=== PATIENT | female | born 1960 | race Caucasian/White ===

== ENCOUNTER → 2018-01-07 01:25 | Outpatient (CLI) | payer MEDICAID, SELFPAY ==
--- NOTE | 2018-01-07 15:16 | SCREENCT_ITS ---
SYMPTOM/DIAGNOSIS: HEALTH SCREENING, Z13.9, SMOKER, SCREENING CHEST CT , LOW DOSE FOR LUNG CANCER SCREENING. There are emphysematous changes in the lungs. Small bilateral regions of lower lobe scarring are identified. No mass is apparent. There is no pleural effusion. Coronary artery calcification is demonstrated. There is no evidence of a gross hilar mass or hilar or mediastinal adenopathy. There is no evidence of an aortic aneurysm. SUMMARY: No pulmonary nodules are identified. This is a BI-RADS Category 1 examination. Follow up surveillance with annual screening chest CT is suggested. Lung-RAD Category: Lung RADS Category 1- Negative
== END ==
PROVIDERS: PCP Physician Assistant Medical; Visit Provider Physician Assistant Medical
DX: Z87.891 Personal history of nicotine dependence (principal); Z12.2 Encounter for screening for malignant neoplasm of respiratory organs
CPT/HCPCS: G0297

== ENCOUNTER 2018-02-24 14:30 | Outpatient (REF) | payer MEDICAID, SELFPAY ==
[2018-02-24 22:14] LABS: Anion Gap 10.3 mmol/L (3-11); BUN 27 mg/dL (7-18); CO2 25.7 mmol/L (21.0-32.0); CREATININE 1.76 mg/dL (0.55-1.02); Chloride 106 mmol/L (98-107); Estimated GFR 29.56 (mL/min/1.73m2); Glucose 119 mg/dL (70-100); Potassium 4.1 mmol/L (3.5-5.1); Sodium 142 mmol/L (136-145)
[2018-02-24 22:27] LABS: Creatine Kinase 260 U/L (26-192)
== END 2018-02-24 14:50 ==
LOC: NCHCN 14:30
PROVIDERS: PCP Physician Assistant Medical; Visit Provider Physician Assistant Medical
DX: G89.29 Other chronic pain (principal); N18.9 Chronic kidney disease, unspecified; Z79.891 Long term (current) use of opiate analgesic
CPT/HCPCS: 80048; 82550; 87086

== ENCOUNTER 2018-05-11 16:41 | Outpatient (REF) | payer MEDICAID, SELFPAY ==
[2018-05-11 21:38] LABS: ALT 25 U/L (12-78); AST 17 U/L (15-37); Anion Gap 12.7 mmol/L (3-11); BUN 31 mg/dL (7-18); CO2 25.3 mmol/L (21.0-32.0); CREATININE 1.86 mg/dL (0.55-1.02); Chloride 104 mmol/L (98-107); Creatine Kinase 118 U/L (26-192); Estimated GFR 27.73 (mL/min/1.73m2); Glucose 114 mg/dL (70-100); Sodium 142 mmol/L (136-145)
== END 2018-05-11 17:01 ==
LOC: NCHCN 16:41
PROVIDERS: PCP Physician Assistant Medical; Visit Provider Nurse Practitioner Family
DX: N17.8 Other acute kidney failure (principal); I25.10 Atherosclerotic heart disease of native coronary artery without angina pectoris
CPT/HCPCS: 80048; 82550; 84450; 84460

== ENCOUNTER 2018-06-30 19:19 | Outpatient (REF) | payer MEDICAID, SELFPAY ==
[2018-07-01 10:53] LABS: Anion Gap 9.8 mmol/L (3-11); BUN 28 mg/dL (7-18); CO2 29.2 mmol/L (21.0-32.0); CREATININE 1.96 mg/dL (0.55-1.02); Calcium 9.5 mg/dL (8.5-10.1); Chloride 106 mmol/L (98-107); Glucose 119 mg/dL (70-100); Potassium 4.1 mmol/L (3.5-5.1); Sodium 145 mmol/L (136-145)
== END 2018-06-30 19:39 ==
LOC: NCHCN 19:19
PROVIDERS: Internal Medicine Nephrology; PCP Physician Assistant Medical; Visit Provider Nurse Practitioner Family
DX: N17.9 Acute kidney failure, unspecified (principal)
CPT/HCPCS: 80048

== ENCOUNTER 2018-07-16 14:02 | Outpatient (REF) | payer MEDICAID, SELFPAY ==
[2018-07-16 21:20] LABS: Bilirubin Negative (Negative); Blood Moderate (Negative); Clarity Clear; Glucose Negative (Negative); Ketones Negative (Negative); Leukocyte Esterase Trace (Negative); Nitrite Negative (Negative); Urobilinogen 0.2 EU/dL (Up TO 0.2)
[2018-07-16 21:29] LABS: Bacteria Rare HPF (Negative); C & S Indicated? No/Sq. Contamination; Casts Negative LPF (Negative); Crystals Negative HPF (Negative); Epithelial Cells Many HPF (Negative); Mucus Moderate (Negative)
[2018-07-16 21:37] LABS: ALT 24 U/L (12-78); AST 22 U/L (15-37); Albumin 3.6 g/dL (3.4-5.0); Alkaline Phosphatase 92 U/L (46-116); Anion Gap 12.4 mmol/L (3-11); BUN 22 mg/dL (7-18); Bilirubin, Direct 0.12 mg/dL (0.00-0.20); Bilirubin, Total 0.5 mg/dL (0.2-1.0); CO2 23.6 mmol/L (21.0-32.0); CREATININE 1.76 mg/dL (0.55-1.02); Chloride 107 mmol/L (98-107); Creatine Kinase 205 U/L (26-192); Estimated GFR 29.56 (mL/min/1.73m2); Glucose 72 mg/dL (70-100); Sodium 143 mmol/L (136-145); Total Protein 6.8 g/dL (6.4-8.2)
== END 2018-07-16 14:22 ==
LOC: NCHCN 14:02
PROVIDERS: PCP Physician Assistant Medical; Visit Provider Nurse Practitioner Family
DX: E78.00 Pure hypercholesterolemia, unspecified (principal); I10 Essential (primary) hypertension; G89.29 Other chronic pain; F11.20 Opioid dependence, uncomplicated; K21.9 Gastro-esophageal reflux disease without esophagitis
CPT/HCPCS: 80048; 80076; 82550; 81003; 81015

== ENCOUNTER 2018-07-27 08:13 | Outpatient (CLI) | payer MEDICAID, SELFPAY ==
[2018-07-27 09:25] LABS: BUN 25 mg/dL (7-18); CREATININE 1.56 mg/dL (0.55-1.02); Calcium 9.2 mg/dL (8.5-10.1); Chloride 108 mmol/L (98-107); Estimated GFR 33.97 (mL/min/1.73m2); Glucose 98 mg/dL (70-100); Potassium 4.3 mmol/L (3.5-5.1); Sodium 143 mmol/L (136-145)
== END 2018-07-27 08:33 ==
PROVIDERS: PCP Nurse Practitioner Family; Visit Provider Internal Medicine Nephrology
DX: N17.9 Acute kidney failure, unspecified (principal)
CPT/HCPCS: 36415; 80048

== ENCOUNTER 2018-08-27 13:46 | Outpatient (REF) | payer MEDICAID, SELFPAY ==
[2018-08-27 21:53] LABS: Anion Gap 10.2 mmol/L (3-11); BUN 26 mg/dL (7-18); CO2 25.8 mmol/L (21.0-32.0); CREATININE 1.58 mg/dL (0.55-1.02); Calcium 9.2 mg/dL (8.5-10.1); Chloride 106 mmol/L (98-107); Estimated GFR 33.47 (mL/min/1.73m2); Glucose 80 mg/dL (70-100); Potassium 4.5 mmol/L (3.5-5.1); Sodium 142 mmol/L (136-145)
== END 2018-08-27 14:06 ==
LOC: NCHCN 13:46
PROVIDERS: PCP Nurse Practitioner Family; Visit Provider Nurse Practitioner Family
DX: M43.02 Spondylolysis, cervical region (principal); M79.7 Fibromyalgia; N18.9 Chronic kidney disease, unspecified; R80.9 Proteinuria, unspecified; G89.29 Other chronic pain; N39.0 Urinary tract infection, site not specified
CPT/HCPCS: 80048; 87086

== ENCOUNTER 2018-09-07 09:00 | Outpatient (CLI) | payer MEDICAID, SELFPAY ==
--- NOTE | 2018-09-07 09:55 | DI.MAMMO_ITS ---
SYMPTOM/DIAGNOSIS: SCREENING MAMMOGRAMS: Mammograms were interpreted according to the usual protocol including computer analysis with CAD system, tomosynthesis and C view imaging. Comparison is made with prior examinations. Breast density, Category B. No suspicious masses or microcalcifications are seen. There are stable nodular densities in the left breast. The nodule in the upper outer quadrant of the right breast has shown interval decrease in size compared to the prior examinations. The skin and axilla are unremarkable. IMPRESSION: No evidence for malignancy. Yearly mammography is recommended. Category 2. MQSA ASSESSMENT OF FINDINGS: Negative with benign findings. Category 2. Patient will receive a letter notifying them of these results. BI-RADS category B. There are scattered areas of fibroglandular density.
== END 2018-09-07 09:20 ==
PROVIDERS: PCP Nurse Practitioner Family; Visit Provider Nurse Practitioner Family
DX: Z12.31 Encounter for screening mammogram for malignant neoplasm of breast (principal)
CPT/HCPCS: 77063; 77067

== ENCOUNTER 2018-10-22 12:47 | Outpatient (REF) | payer MEDICAID, SELFPAY ==
[2018-10-22 21:04] LABS: BUN 21 mg/dL (7-18); CREATININE 1.51 mg/dL (0.55-1.02); Calcium 9.1 mg/dL (8.5-10.1); Chloride 106 mmol/L (98-107); Estimated GFR 35.27 (mL/min/1.73m2); Glucose 105 mg/dL (70-100); Potassium 4.1 mmol/L (3.5-5.1); Sodium 143 mmol/L (136-145)
== END 2018-10-22 13:07 ==
LOC: NCHCN 12:47
PROVIDERS: PCP Nurse Practitioner Family; Visit Provider Nurse Practitioner Family
DX: N18.9 Chronic kidney disease, unspecified (principal); N39.0 Urinary tract infection, site not specified
CPT/HCPCS: 80048; 87086

== ENCOUNTER 2018-12-16 13:04 | Outpatient (REF) | payer MEDICAID, SELFPAY ==
[2018-12-16 20:13] LABS: Anion Gap 11.4 mmol/L (3-11); BUN 27 mg/dL (7-18); CO2 24.6 mmol/L (21.0-32.0); CREATININE 1.57 mg/dL (0.55-1.02); Chloride 106 mmol/L (98-107); Estimated GFR 33.72 (mL/min/1.73m2); Glucose 94 mg/dL (70-100); Sodium 142 mmol/L (136-145)
== END 2018-12-16 13:24 ==
LOC: NCHCN 13:04
PROVIDERS: PCP Nurse Practitioner Family; Visit Provider Nurse Practitioner Family
DX: M79.7 Fibromyalgia (principal); N18.9 Chronic kidney disease, unspecified; M43.02 Spondylolysis, cervical region; M79.606 Pain in leg, unspecified
CPT/HCPCS: 80048

== ENCOUNTER 2019-02-17 12:40 | Outpatient (REF) | payer MEDICAID, SELFPAY ==
[2019-02-17 22:11] LABS: Anion Gap 7.9 mmol/L (3-11); BUN 21 mg/dL (7-18); CO2 28.1 mmol/L (21.0-32.0); CREATININE 1.49 mg/dL (0.55-1.02); Calcium 8.9 mg/dL (8.5-10.1); Chloride 107 mmol/L (98-107); Glucose 88 mg/dL (70-100); Potassium 4.6 mmol/L (3.5-5.1); Sodium 143 mmol/L (136-145)
== END 2019-02-17 13:00 ==
LOC: NCHCN 12:40
PROVIDERS: PCP Nurse Practitioner Family; Visit Provider Nurse Practitioner Family
DX: N39.0 Urinary tract infection, site not specified (principal); N17.8 Other acute kidney failure
CPT/HCPCS: 80048; 87086

== ENCOUNTER 2019-04-05 01:26 | Outpatient (CLI) | payer MEDICAID, SELFPAY ==
--- NOTE | 2019-04-05 10:58 | DI.CTLCSR_ITS ---
EXAM: CT CHEST LUNG CANCER SCREEN CLINICAL HISTORY: 28 PACK-YEAR HISTORY OF SMOKING, SCREENING, Z13.9, CKD, SINGLE KIDNEY TECHNIQUE: The exam was performed as a noncontrast exam. COMPARISON: CHEST - LUNG CANCER SCREENING from 01/07/2018 FINDINGS: Coronary artery calcifications are seen. The aorta shows mild calcification and is normal in diameter . Heart size is within normal limits. No enlarged lymph nodes are identified. There are mild emphysem atous changes and mild pulmonary scarring. No pulmonary nodules, infiltrates or effusions are seen. T here are no suspicious bony lesions. No compression fractures are seen. The adrenals, liver, spleen, gallbladder and pancreas are normal where visualized. The right kidney appears somewhat thickened and lobulated. The left kidney is not included on the exam. IMPRESSION: Lung RADS Cat 1 - Negative: No pulmonary nodules are identified. Annual low-dose screening CT is barbara mmended. Lung RADS Cat 1 - Negative: No nodules and definitely benign nodules.
== END 2019-04-05 01:46 ==
PROVIDERS: PCP Nurse Practitioner Family; Visit Provider Nurse Practitioner Family
DX: Z12.2 Encounter for screening for malignant neoplasm of respiratory organs (principal); J98.4 Other disorders of lung; F17.200 Nicotine dependence, unspecified, uncomplicated
CPT/HCPCS: G0297

== ENCOUNTER 2019-05-06 12:05 | Outpatient (REF) | payer MEDICAID, SELFPAY ==
[2019-05-06 21:49] LABS: Anion Gap 9.3 mmol/L (3-11); BUN 28 mg/dL (7-18); CO2 25.7 mmol/L (21.0-32.0); CREATININE 1.69 mg/dL (0.55-1.02); Calcium 9.1 mg/dL (8.5-10.1); Chloride 108 mmol/L (98-107); Estimated GFR 30.87 (mL/min/1.73m2); Glucose 115 mg/dL (74-106); Potassium 4.2 mmol/L (3.5-5.1); Sodium 143 mmol/L (136-145)
== END 2019-05-06 12:25 ==
LOC: NCHCN 12:05
PROVIDERS: PCP Nurse Practitioner Family; Visit Provider Nurse Practitioner Family
DX: I10 Essential (primary) hypertension (principal); N18.3 Chronic kidney disease, stage 3 (moderate); N39.0 Urinary tract infection, site not specified
CPT/HCPCS: 80048; 87086

== ENCOUNTER 2019-08-03 12:36 | Outpatient (REF) | payer MEDICAID, SELFPAY ==
[2019-08-03 20:08] LABS: Anion Gap 10.4 mmol/L (3-11); BUN 23 mg/dL (7-18); CO2 24.6 mmol/L (21.0-32.0); CREATININE 1.69 mg/dL (0.55-1.02); Calcium 8.9 mg/dL (8.5-10.1); Chloride 107 mmol/L (98-107); Estimated GFR 30.87 (mL/min/1.73m2); Glucose 110 mg/dL (74-106); Sodium 142 mmol/L (136-145)
[2019-08-03 20:52] LABS: Bacteria Few HPF (Negative); Crystals Negative HPF (Negative); Epithelial Cells Moderate HPF (Negative); Mucus Negative (Negative); Other Cells Negative (Negative)
[2019-08-03 20:53] LABS: C & S Indicated? C&S Done As Ordered; Casts Negative LPF (Negative)
== END 2019-08-03 12:56 ==
LOC: NCHCN 12:36
PROVIDERS: PCP Nurse Practitioner Family; Visit Provider Nurse Practitioner Family
DX: N39.0 Urinary tract infection, site not specified (principal); R80.9 Proteinuria, unspecified; N18.3 Chronic kidney disease, stage 3 (moderate)
CPT/HCPCS: 80048; 81015; 87086

== ENCOUNTER 2019-09-28 10:56 | Outpatient (REF) | payer MEDICAID, SELFPAY ==
[2019-09-28 19:46] LABS: Anion Gap 8.6 mmol/L (3-11); BUN 28 mg/dL (7-18); CO2 26.4 mmol/L (21.0-32.0); CREATININE 1.75 mg/dL (0.55-1.02); Calcium 9.2 mg/dL (8.5-10.1); Chloride 105 mmol/L (98-107); Estimated GFR 29.65 (mL/min/1.73m2); Glucose 88 mg/dL (74-106); HDL Cholesterol 52 mg/dL (40-60); LDL CHOLESTEROL 98 mg/dL (<100); Magnesium 2.1 mg/dL (1.8-2.4); Potassium 4.5 mmol/L (3.5-5.1); Sodium 140 mmol/L (136-145); TSH 0.61 uIU/mL (0.36-3.74)
== END 2019-09-28 11:16 ==
LOC: NCHCN 10:56
PROVIDERS: PCP Nurse Practitioner Family; Visit Provider Nurse Practitioner Family
DX: R07.9 Chest pain, unspecified (principal); N39.0 Urinary tract infection, site not specified
CPT/HCPCS: 80048; 83721; 83718; 83735; 84443; 87086

== ENCOUNTER 2019-11-23 14:04 | Outpatient (REF) | payer MEDICAID, SELFPAY ==
[2019-11-23 19:42] LABS: Anion Gap 10.1 mmol/L (3-11); BUN 23 mg/dL (7-18); CO2 24.9 mmol/L (21.0-32.0); CREATININE 1.71 mg/dL (0.55-1.02); Calcium 9.2 mg/dL (8.5-10.1); Chloride 105 mmol/L (98-107); Estimated GFR 30.45 (mL/min/1.73m2); Glucose 105 mg/dL (74-106); HDL Cholesterol 43 mg/dL (40-60); LDL CHOLESTEROL 75 mg/dL (<100); Potassium 3.9 mmol/L (3.5-5.1); Sodium 140 mmol/L (136-145)
== END 2019-11-23 14:24 ==
LOC: NCHCN 14:04
PROVIDERS: PCP Nurse Practitioner Family; Visit Provider Nurse Practitioner Family
DX: N18.3 Chronic kidney disease, stage 3 (moderate) (principal); E78.00 Pure hypercholesterolemia, unspecified; I25.10 Atherosclerotic heart disease of native coronary artery without angina pectoris
CPT/HCPCS: 80048; 83721; 83718

== ENCOUNTER 2020-01-10 13:48 | Outpatient (REF) | payer MEDICAID, SELFPAY ==
--- NOTE | 2020-01-10 13:15 | PAPFT_PTH ---
PATIENT: Addie Barnett [facility] U[id number] AGE/SX: 59/F ROOM: RE01/10/[address]: Arabella Laurent : 1960 BED: DIS: 01/10/2020 SPEC #: [id number] RECD: 01/11/20 13:03 STATUS: MARYANN REKayden #: [id number] MARIELLE: 01/10/20 13:[address]: Arabella Laurent DEPT: [facility] Cytology RECD BY: Maren Gtz Tissues: 1 - CX/ENDOCX FOR PAP SMEARS Procedures: PAP THIN PREP/UVM Screening HPV DNA PROBE Comments: [id number]
[2020-01-10 19:08] LABS: Anion Gap 9.9 mmol/L (3-11); BUN 23 mg/dL (7-18); CO2 24.1 mmol/L (21.0-32.0); CREATININE 1.78 mg/dL (0.55-1.02); Calcium 8.9 mg/dL (8.5-10.1); Chloride 106 mmol/L (98-107); Estimated GFR 28.98 (mL/min/1.73m2); Glucose 113 mg/dL (74-106); Potassium 4.1 mmol/L (3.5-5.1); Sodium 140 mmol/L (136-145)
== END 2020-01-10 14:08 ==
LOC: NCHCN 13:48
PROVIDERS: PCP Nurse Practitioner Family; Visit Provider Nurse Practitioner Family
DX: N18.3 Chronic kidney disease, stage 3 (moderate) (principal); Z12.4 Encounter for screening for malignant neoplasm of cervix; Z11.51 Encounter for screening for human papillomavirus (HPV)
CPT/HCPCS: 80048; 88142; 87624

== ENCOUNTER 2020-03-13 22:52 | Outpatient (REF) | payer MEDICAID, SELFPAY ==
[2020-03-13 20:05] LABS: Bacteria Moderate HPF (Negative); C & S Indicated? C&S Done As Ordered; Casts Negative LPF (Negative); Crystals Negative HPF (Negative); Epithelial Cells Few HPF (Negative); Mucus Trace (Negative); RBC 0-2 HPF (0-2)
== END 2020-03-13 23:12 ==
LOC: NCHCN 22:52
PROVIDERS: PCP Nurse Practitioner Family; Visit Provider Nurse Practitioner Family
DX: R80.9 Proteinuria, unspecified (principal); N18.30 Chronic kidney disease, stage 3 unspecified; Z90.5 Acquired absence of kidney
CPT/HCPCS: 81015; 87086

== ENCOUNTER 2020-04-13 11:31 | Outpatient (REF) | payer MEDICAID, SELFPAY ==
[2020-04-13 19:25] LABS: Anion Gap 11.7 mmol/L (3-11); BUN 25 mg/dL (7-18); CO2 22.3 mmol/L (21.0-32.0); CREATININE 1.93 mg/dL (0.55-1.02); Calcium 8.6 mg/dL (8.5-10.1); Chloride 106 mmol/L (98-107); Estimated GFR 26.39 (mL/min/1.73m2); Glucose 125 mg/dL (74-106); Potassium 3.6 mmol/L (3.5-5.1); Sodium 140 mmol/L (136-145)
== END 2020-04-13 11:51 ==
LOC: NCHCN 11:31
PROVIDERS: PCP Nurse Practitioner Family; Visit Provider Nurse Practitioner Family
DX: R82.90 Unspecified abnormal findings in urine (principal); N18.30 Chronic kidney disease, stage 3 unspecified
CPT/HCPCS: 80048; 87086

== ENCOUNTER 2020-07-13 13:31 | Outpatient (REF) | payer MEDICAID, SELFPAY ==
[2020-07-13 15:25] LABS: BUN 23 mg/dL (7-18); CREATININE 1.8 mg/dL (0.55-1.02); Calcium 9.4 mg/dL (8.5-10.1); Chloride 105 mmol/L (98-107); Glucose 111 mg/dL (74-106); Potassium 4.6 mmol/L (3.5-5.1); Sodium 139 mmol/L (136-145)
== END 2020-07-13 13:32 | disposition home or self-care (01) ==
LOC: NCHCN 13:31
PROVIDERS: PCP Nurse Practitioner Family; Visit Provider Nurse Practitioner Family
DX: N18.30 Chronic kidney disease, stage 3 unspecified (principal)
CPT/HCPCS: 80048

== ENCOUNTER 2020-08-29 10:04 | Outpatient (REF) | payer MEDICAID, SELFPAY ==
[2020-09-01 14:08] LABS: Codeine Negative ng/mL (Cutoff: 25); Dihydrocodeine Negative ng/mL (Cutoff: 25); Hydrocodone Negative ng/mL (Cutoff: 25); Hydromorphone Negative ng/mL (Cutoff: 25); Morphine Negative ng/mL (Cutoff: 25); Naloxone Negative ng/mL (Cutoff: 25); Norhydrocodone Negative ng/mL (Cutoff: 25); Noroxycodone Negative ng/mL (Cutoff: 25)
== END 2020-08-29 10:05 | disposition home or self-care (01) ==
LOC: NCHCN 10:04
PROVIDERS: PCP Nurse Practitioner Family; Visit Provider Nurse Practitioner Family
DX: G89.29 Other chronic pain (principal); F11.20 Opioid dependence, uncomplicated
CPT/HCPCS: 80361; 80362

== ENCOUNTER 2020-10-10 10:23 | Outpatient (REF) | payer MEDICAID, SELFPAY ==
[2020-10-10 16:05] LABS: Anion Gap 9.9 mmol/L (3-11); BUN 32 mg/dL (7-18); CO2 26.1 mmol/L (21.0-32.0); CREATININE 1.9 mg/dL (0.55-1.02); Calcium 9.2 mg/dL (8.5-10.1); Chloride 106 mmol/L (98-107); Estimated GFR 26.87 (mL/min/1.73m2); Glucose 82 mg/dL (74-106); PHOSPHORUS 3.3 mg/dL (2.6-4.7); Potassium 4.5 mmol/L (3.5-5.1); Sodium 142 mmol/L (136-145)
[2020-10-12 01:15] LABS: Vitamin D 25 Total 28.2 ng/mL (30-100)
== END 2020-10-10 10:24 | disposition home or self-care (01) ==
LOC: NCHCN 10:23
PROVIDERS: PCP Nurse Practitioner Family; Visit Provider Nurse Practitioner Family
DX: I10 Essential (primary) hypertension (principal); N18.30 Chronic kidney disease, stage 3 unspecified; I25.10 Atherosclerotic heart disease of native coronary artery without angina pectoris; R82.998 Other abnormal findings in urine
CPT/HCPCS: 80048; 82306; 84100; 87086

== ENCOUNTER 2021-01-02 14:24 | Outpatient (REF) | payer MEDICAID, SELFPAY ==
[2021-01-02 19:45] LABS: Anion Gap 11.4 mmol/L (3-11); BUN 25 mg/dL (7-18); CO2 22.6 mmol/L (21.0-32.0); CREATININE 1.8 mg/dL (0.55-1.02); Calcium 9.3 mg/dL (8.5-10.1); Chloride 106 mmol/L (98-107); Estimated GFR 28.51 (mL/min/1.73m2); Glucose 107 mg/dL (74-106); Potassium 4.3 mmol/L (3.5-5.1); Sodium 140 mmol/L (136-145)
[2021-01-03 10:05] LABS: ALT 35 U/L (14-59); AST 27 U/L (15-37); HDL Cholesterol 48 mg/dL (40-60); LDL CHOLESTEROL 118 mg/dL (<100)
[2021-01-03 10:18] LABS: Creatine Kinase 80 U/L (26-192)
== END 2021-01-02 14:25 | disposition home or self-care (01) ==
LOC: NCHCN 14:24
PROVIDERS: PCP Nurse Practitioner Family; Visit Provider Nurse Practitioner Family
DX: N18.30 Chronic kidney disease, stage 3 unspecified (principal)
CPT/HCPCS: 80048; 82550; 83721; 83718; 84450; 84460

== ENCOUNTER 2021-01-11 03:34 | Outpatient (CLI) | payer MEDICAID, SELFPAY ==
--- NOTE | 2021-01-11 | DI.CTLCSR_ITS ---
Exam(s) CT CHEST LUNG CANCER SCREEN EXAM: CT CHEST LUNG CANCER SCREEN CLINICAL HISTORY: SCREENING FOR LUNG CA,CURRENT SMOKER, F17.210 TECHNIQUE: Imaging Protocol: Axial computed tomography images with coronal and sagittal reformatted images were created and reviewed COMPARISON: CT CT CHEST LUNG CANCER SCREEN from 04/05/2019 FINDINGS: Tracheobronchial tree: Patent where visualized. Pulmonary parenchyma: No consolidation or dominant measurable mass. Mild emphysematous changes are pr esent. There is mild scarring in the left lingula and right middle lobe. Lung Nodules: None. Mediastinum and Eileen: No dominant adenopathy or fluid collection. Pleura: No effusion or pneumothorax. Heart: The heart is not dilated. Mild coronary artery calcification. No pericardial effusion. Aorta: Thoracic aorta non-dilated.Mild atherosclerosis. Upper abdomen: Unremarkable. Soft Tissues: Unremarkable. Bones: Within normal limits. IMPRESSION: No pulmonary nodules. Lung RADS Cat 1 - Negative: No nodules and definitely benign nodules Lung-RADS 1.0 CATEGORIES: Category 0 - Prior chest CT exam(s) being located for comparison. Category 1 - Annual screening in 12 months. No nodules or definitely benign nodules. Category 2 - Annual screening in 12 months. Benign appearance. Nodules with low likelihood of becomin g active cancer. Category 3 - 6-month follow-up. Probably benign. Short-term follow-up suggested. Nodules with low lik elihood of becoming active cancer. Category 4A - 3-month follow-up and CT/PET if >8 mm in size. Suspicious finding. Findings which requi re additional testing. Category 4B - Findings which require additional testing and tissue sampling. Suspicious finding. Modifier S- Potentially clinically significant finding. (Non lung cancer) RADIATION DOSE DELIVERED: 72.44mGy.cm Total DLP 1.84mGy CTDIvol 72.44mGy.cm Total DLP 1.84mGy CTDIvol DATA REPOSITORY: All CT scans at this facility are submitted to the National Radiology Data Registry (NRDR) Dose Index Registry (DIR) with the [employer] (ACR). RADIATION OPTIMIZATION: All CT scans at this facility use at least one of these dose optimization te chniques: automated exposure control; mA and/or kV adjustment per patient size (includes targeted exa ms where dose is matched to clinical indication); or iterative reconstruction.
== END 2021-01-11 03:54 ==
PROVIDERS: PCP Nurse Practitioner Family; Visit Provider Nurse Practitioner Family
DX: Z12.2 Encounter for screening for malignant neoplasm of respiratory organs (principal); F17.210 Nicotine dependence, cigarettes, uncomplicated
CPT/HCPCS: 71271

== ENCOUNTER 2021-01-11 04:41 | Outpatient (CLI) | payer MEDICAID, SELFPAY ==
[2021-01-11] MEDS: Albuterol HFA 18 GM 200 PUFF INH IH (14:00)
[2021-01-11] MEDS: Inhaler, Assist Device 1 EACH MC (14:00)
--- NOTE | 2021-01-12 15:01 | W.PFT ---
Date of service: 01/11/21 Time of Service: 12:59 Pulmonary Function Test Result Requesting Provider Arabella Laurent Interpretation Spirometry: There is no airflow obstruction. Spirometry consistent with a restrictive pattern. There is not a significant bronchodilator response. Lung Volumes: Plethysmography was declined due to claustrophobia. Diffusion Capacity: There is reduced diffusion. Impression Spirometry is consistent with a restrictive pattern which may indicate restrictive lung disease such as an interstitial lung disease, neuromuscular weakness or poor effort. Clinical Correlation therefore is recommended.
== END 2021-01-11 04:42 | disposition home or self-care (01) ==
LOC: RT 04:41
PROVIDERS: PCP Nurse Practitioner Family; Visit Provider Nurse Practitioner Family
DX: F17.210 Nicotine dependence, cigarettes, uncomplicated (principal); J98.4 Other disorders of lung
CPT/HCPCS: 94060; 94729

== ENCOUNTER 2021-04-04 09:26 | Outpatient (REF) | payer MEDICAID, SELFPAY ==
[2021-04-04 13:07] LABS: ALT 27 U/L (14-59); AST 23 U/L (15-37); Anion Gap 11.9 mmol/L (3-11); BUN 28 mg/dL (7-18); CO2 26.1 mmol/L (21.0-32.0); CREATININE 1.8 mg/dL (0.55-1.02); Calcium 9.3 mg/dL (8.5-10.1); Calculated LDL 80 mg/dL (<100); Chloride 105 mmol/L (98-107); Cholesterol 157 mg/dL (<200); Estimated GFR 28.51 (mL/min/1.73m2); Glucose 101 mg/dL (74-106); HDL Cholesterol 43 mg/dL (40-60); Potassium 4.3 mmol/L (3.5-5.1); Sodium 143 mmol/L (136-145); Triglyceride 170 mg/dL (<150)
[2021-04-04 13:27] LABS: Creatine Kinase 166 U/L (26-192)
== END 2021-04-04 09:27 | disposition home or self-care (01) ==
LOC: NCHCN 09:26
PROVIDERS: PCP Nurse Practitioner Family; Visit Provider Nurse Practitioner Family
DX: N39.0 Urinary tract infection, site not specified (principal); N18.30 Chronic kidney disease, stage 3 unspecified; I10 Essential (primary) hypertension
CPT/HCPCS: 80048; 80061; 82550; 84450; 84460; 87086

== ENCOUNTER 2021-04-18 13:14 | Outpatient (REF) | payer MEDICAID, SELFPAY ==
[2021-04-19 18:08] LABS: COVID-19 RT-PCR UVMMC Result Negative (Negative)
== END 2021-04-18 13:15 | disposition home or self-care (01) ==
LOC: NCHCN 13:14
PROVIDERS: PCP Nurse Practitioner Family; Visit Provider Nurse Practitioner Family
DX: Z20.822 Contact with and (suspected) exposure to COVID-19 (principal); R05.8 Other specified cough
CPT/HCPCS: U0003

== ENCOUNTER 2021-06-04 16:33 | Outpatient (REF) | payer MEDICAID, SELFPAY ==
[2021-06-04 14:25] LABS: Anion Gap 10.5 mmol/L (3-11); BUN 33 mg/dL (7-18); CO2 25.5 mmol/L (21.0-32.0); CREATININE 1.9 mg/dL (0.55-1.02); Chloride 107 mmol/L (98-107); Estimated GFR 26.79 (mL/min/1.73m2); Glucose 105 mg/dL (74-106); Potassium 3.8 mmol/L (3.5-5.1); Sodium 143 mmol/L (136-145)
[2021-06-04 14:42] LABS: Bacteria Few HPF (Negative); C & S Indicated? No/Sq. Contamination; Casts Negative LPF (Negative); Crystals Negative HPF (Negative); Epithelial Cells Moderate HPF (Negative); Mucus Negative (Negative); WBC 0-2 HPF (0-5)
== END 2021-06-04 16:34 | disposition home or self-care (01) ==
LOC: NCHCN 16:33
PROVIDERS: PCP Nurse Practitioner Family; Visit Provider Nurse Practitioner Family
DX: N18.30 Chronic kidney disease, stage 3 unspecified (principal)
CPT/HCPCS: 80048; 81015

== ENCOUNTER 2021-08-08 15:20 | Outpatient (REF) | payer MEDICAID, SELFPAY ==
[2021-08-08 12:18] LABS: Anion Gap 9.8 mmol/L (3-11); BUN 26 mg/dL (7-18); CO2 25.2 mmol/L (21.0-32.0); CREATININE 1.8 mg/dL (0.55-1.02); Calcium 9.4 mg/dL (8.5-10.1); Chloride 104 mmol/L (98-107); Estimated GFR 28.51 (mL/min/1.73m2); Glucose 96 mg/dL (74-106); Potassium 4.5 mmol/L (3.5-5.1); Sodium 139 mmol/L (136-145)
== END 2021-08-08 15:21 | disposition home or self-care (01) ==
LOC: NCHCN 15:20
PROVIDERS: PCP Nurse Practitioner Family; Visit Provider Nurse Practitioner Family
DX: I10 Essential (primary) hypertension (principal)
CPT/HCPCS: 80048

== ENCOUNTER 2021-10-09 18:34 | Outpatient (REF) | payer MEDICAID, SELFPAY ==
[2021-10-09 17:18] LABS: Anion Gap 9.3 mmol/L (3-11); BUN 28 mg/dL (7-18); CO2 24.7 mmol/L (21.0-32.0); CREATININE 1.9 mg/dL (0.55-1.02); Calcium 8.5 mg/dL (8.5-10.1); Chloride 104 mmol/L (98-107); Estimated GFR 26.79 (mL/min/1.73m2); Glucose 90 mg/dL (74-106); Potassium 4.7 mmol/L (3.5-5.1); Sodium 138 mmol/L (136-145)
== END 2021-10-09 18:35 | disposition home or self-care (01) ==
LOC: NCHCN 18:34
PROVIDERS: PCP Nurse Practitioner Family; Visit Provider Nurse Practitioner Family
DX: N18.30 Chronic kidney disease, stage 3 unspecified (principal)
CPT/HCPCS: 80048

== ENCOUNTER 2022-01-01 11:48 | Outpatient (REF) | payer MEDICAID, SELFPAY ==
[2022-01-01 17:09] LABS: Anion Gap 6.3 mmol/L (3-11); BUN 26 mg/dL (7-18); CO2 27.7 mmol/L (21.0-32.0); CREATININE 1.7 mg/dL (0.55-1.02); Calcium 9.2 mg/dL (8.5-10.1); Chloride 104 mmol/L (98-107); Estimated GFR 30.36 (mL/min/1.73m2); Glucose 89 mg/dL (74-106); Potassium 4.3 mmol/L (3.5-5.1); Sodium 138 mmol/L (136-145)
== END 2022-01-01 11:49 | disposition home or self-care (01) ==
LOC: NCHCN 11:48
PROVIDERS: PCP Nurse Practitioner Family; Visit Provider Nurse Practitioner Family
DX: I10 Essential (primary) hypertension (principal); N18.30 Chronic kidney disease, stage 3 unspecified
CPT/HCPCS: 80048

== ENCOUNTER 2022-01-22 18:49 | Outpatient (REF) | payer MEDICAID, SELFPAY ==
[2022-01-22 17:14] LABS: Abs Immature Grans 0.01 10^3/uL (0.0-0.06); Absolute Basophil Count 0.05 10^3/uL (0.0-0.2); Absolute Eosinophil Count 0.23 10^3/uL (0.0-0.7); Absolute Lymphocyte Count 2.76 10^3/uL (1.2-3.4); Absolute Monocyte Count 0.45 10^3/uL (0.1-0.8); Absolute Neutrophil Count 3.15 10^3/uL (1.2-6.7); Basophils % 0.8; Eosinophils % 3.5; HCT 41.6 % (36.0-46.0); HGB 14.4 g/dL (11.2-15.7); Immature Grans % 0.2; Lymphocytes % 41.5; MCHC 34.6 % (32.0-36.0); MCV 98 fL (80-95); MPV 10.3 fL (8.0-11.0); Monocytes % 6.8; Neutrophils % 47.2; Platelet Count 180 10^3/uL (130-400); RBC 4.24 10^6/uL (3.93-5.22); RDW-SD 46.6 fL; WBC 6.65 10^3/uL (4.4-10.8)
[2022-01-22 17:25] LABS: TSH (W/Ref FT4) 0.65 uIU/mL (0.36-3.74)
== END 2022-01-22 18:50 | disposition home or self-care (01) ==
LOC: NCHCN 18:49
PROVIDERS: PCP Nurse Practitioner Family; Visit Provider Nurse Practitioner Family
DX: R63.4 Abnormal weight loss (principal)
CPT/HCPCS: 84443; 85025

== ENCOUNTER 2022-03-04 12:19 | Outpatient (REF) | payer MEDICAID, SELFPAY ==
--- OUTSIDE RECORDS SUMMARY | 2022-03-04 12:22 | XMS_ITS | Encounter Summary ---
:1960 Author Organization [facility] Address [address] [place] [address] Care Team Providers Name Role Phone Laurence Krause Primary Care Provider [phone] Arabella Laurent NP Primary Care Provider Encounter Details Date Type Department Care Team Description 06/24/2018 Orders Only [facility] Joaquina Syed MD Nephrology - S Prosp ect [address] [place] [address], [id number] [place] [phone] (Wo rk) Social History Tobacco Use Types Packs/Day Years Used Date Current Every Day Smoker Smokeless Tobacco: Never Used Sex Assigned at Date Recorded Not on file documented as of this encounter Functional Status Functional Status Response Date of Assessment Because of a physical, mental, or emotional condition, No 09/15/2017 does this person have difficulty doing errands alone such as visiting a doctor's office or shopping? Cognitive Status Response Date of Assessment Because of a physical, mental, or emotional condition, No 09/15/2017 does this person have serious difficulty concentrating, remembering, or making decisions? documented as of this encounter Plan of Treatment Upcoming Encounters Date Type Specialty Care Team Description 03/11/2022 Telemedicine Nephrology Juan Syed MD [address] [place] [address], [facility] [address] [place], [place] [phone] (Wo rk) documented as of this encounter Visit Diagnoses Not on filedocumented in this encounter Care Teams Utility Bill Complaints Investigator Relationship Specialty Start Date End Date Laurence Krause PA PCP - General 09/12/17 07/29/18 [address] [place] [phone] Arabella Laurent NP PCP - General 07/30/18 [address] [place] [address] documented as of this encounter
--- OUTSIDE RECORDS SUMMARY | 2022-03-04 12:22 | XMS_ITS | Encounter Summary ---
:1960 Author Organization [facility] Address [address] [place] [id number] Care Team Providers Name Role Phone Saleem Laurenta Bree SIGNAL WORKER HELPER Primary Care Provider Reason for Visit Reason Onset Date Comments Appointment Related 02/10/2020 Encounter Details Date Type Department Care Team Description 02/10/2020 Telephone [facility] Bethany Francois RN Ap pointment Related Nephrology - S Prosp ect [address] [place] [address] Social History Tobacco Use Types Packs/Day Years Used Date Current Every Day Smoker 0.5 Smokeless Tobacco: Never Used Sex Assigned at [...] making decisions? documented as of this encounter Miscellaneous Notes Telephone Encounter - Bethany Francois RN - 02/10/2020 1112 EDT Scheduled for office visit on 02/14/2020. Lab results from 01/10/2020 are in the chart. documented in this encounter Plan of Treatment Upcoming Encounters Date Type Specialty Care Team Description 03/11/2022 Telemedicine Nephrology Juan Syed MD [address] [place] [address], [address] [place], [place] [phone] (Wo rk) documented as of this encounter Visit Diagnoses Not on filedocumented in this encounter Care Teams Sas Etl Developer Relationship Specialty Start Date End Date Arabella Laurent, SIGNAL WORKER HELPER PCP - General 07/30/[address] [place] [phone] documented as of this encounter
--- OUTSIDE RECORDS SUMMARY | 2022-03-04 12:22 | XMS_ITS | Encounter Summary ---
:1960 Author Organization [facility] Address [address] [place] [address] Care Team Providers Name Role Phone Anastasiia Arabella Giron DEVELOPMENT GEOLOGIST Primary Care Provider Encounter Details Date Type Department Care Team Description 05/17/2019 Abstract [facility] Joaquina Syed MD Nephrology - S Prosp ect [address] [place] [address] [place] [phone] (Wo rk) Social History Tobacco Use Types [...] Description 03/11/2022 Telemedicine Nephrology Juan Syed MD [address] [place] [address], [facility] [address] [place], [place] [phone] (Wo rk) documented as of this encounter Procedures Procedure Name Priority Date/Time Associated Diagnosis Comme nts BASIC METABOLIC Routine 05/06/2019 9:52 EST Resul ts for this PANEL (BMP) procedure are i n the results section. documented in this encounter Results BASIC METABOLIC PANEL (BMP) (05/06/2019 9:52 EST) Pathologist Sig nature GFR, Calculated, 30.87 [facility] External [facility]ENTER [facility] Glucose, Serum, External 115 [facility] Calculated Calcium, [facility] BUN, External 28 [facility] Calcium, External 9.1 [facility] Chloride, External 108 [facility] CO2, External 25.7 [facility] Creatinine, External 1.69 [facility] Fasting?, External [facility] Potassium, External 4.2 [facility] Sodium, External 143 [facility] Specimen Blood - Venous blood (substance) Performing Organization Address City/State/ZIP Code Phon e Number [facility] [address] [place] [address] [facility] documented in this encounter Visit Diagnoses Not on filedocumented in this encounter Care Teams Private Branch Exchange Operator Relationship Specialty Start Date End Date Arabella Laurent, ROLF PCP - General 07/30/18 [address] [place] [phone] documented as of this encounter
--- OUTSIDE RECORDS SUMMARY | 2022-03-04 12:22 | XMS_ITS | Encounter Summary ---
:1960 Author Organization [facility] Address [address] [place] [address] Care Team Providers Name Role Phone Arabella Laurent QUALITY CONTROL SYSTEMS MANAGER Primary Care Provider Reason for Referral Laboratory Services (Routine) - New Request Specialty Diagnoses / Procedures Referred By Contact Refer red To Contact Diagnoses Acute renal failure, unspecified acute renal failure type (HCC-CMS) ([facility]) Chastity Syed MD Procedures PTH INTACT [address] [place] [phone] Referral ID Status Reason Start Date Expiration Date Visits V isits Requested Authorized [id number] New Request 08/09/2019 1 1 aboratory Services (Routine) - New Request Specialty Diagnoses / Procedures Referred By Contact Refer red To Contact Diagnoses Acute renal failure, unspecified acute renal failure type (HCC-CMS) [facility] Procedures PHOSPHORUS [address] [phone] Referral ID Status Reason Start Date Expiration Date Visits V isits Requested Authorized [id number] New Request 08/09/2019 1 1 aboratory Services (Routine) - New Request Specialty Diagnoses / Procedures Referred By Contact Refer red To Contact Diagnoses Acute renal failure, unspecified acute renal failure type (HCC-CMS) ([facility]) Chastity Syed MD Procedures BASIC METABOLIC PANEL (BMP) 1 [facility], Level [address] [place] [address] Referral ID Status Reason Start Date Expiration Date Visits V isits Requested Authorized [id number] New Request 08/09/2019 1 1 Reason for Visit Reason Onset Date Comments Follow-up 08/09/2019 Encounter Details Date Type Department Care Team Description 08/09/2019 Telephone [facility] Joaquina Syed MD Follow-up Nephrology - S Prosp ect 1 [facility] 1 [facility], [address] [place] [address] [place] [phone] (Wo rk) Social History Tobacco Use Types [...] this encounter Miscellaneous Notes Telephone Encounter - Chastity Syed MD - 08/09/2019 0939 EDT 58-yo female with CKD III and chronic pain syndrome. Serum creatinine had increased to 1.86 mg/dL in May 2018 and Lisinopril was discontinued then for suspected nephrotoxicity. Serum creatinine subsequently decreased to 1.55 mg/dL by July 06, 2018. Then it was 1.76 mg/dL on 07-16-2018 and again fell to 1.56 mg/dL on 07-27-2018. The last available creatinine was 1.69 mg/dL from May 2019. The patient would be asked to get a repeat BMP, phosphorus and PTH and see me in the office She was last sen in Nephrology in July 2018. documented in this encounter Plan of Treatment Upcoming Encounters Date Type Specialty Care Team Description 03/11/2022 Telemedicine Nephrology Juan Syed MD 1 [facility], [address] [place], [place] [phone] (Wo rk) documented as of this encounter Results (ABNORMAL) PTH INTACT (08/09/2019 11:33 EDT) Pathologist Sig nature Intact PTH 104 (H) 19 - 88 pg/[facility] Specimen Blood - Venous blood (substance) Performing Organization Address City/[facility] Code Phon e Number [facility] [address] [place] [address] SERVICES PHOSPHORUS (08/09/2019 11:33 EDT) Pathologist Sig nature Phosphorus 3.5 2.5 - 4.5 mg/dL [facility] SERVICES Specimen Blood - Venous blood (substance) Performing Organization Address City/[facility]/ZIP Code Phon e Number [facility] [address] [place] [address] SERVICES (ABNORMAL) BASIC METABOLIC PANEL (BMP) (08/09/2019 11:33 EDT) Sodium 139 136 - 145 [facility] mEq/L LABORATORY SERVICES Potassium 4.2 3.5 - 5.0 [facility] mEq/L LABOR[facility]ORY SERVICES Chloride 108 96 - 110 [facility] mEq/L LABORATORY SERVICES CO2 Total 25 22 - 32 mEq/L [facility] SERVICES Glucose 92 70 - 100 [facility] mg/dL LABORATORY SERVICES Calcium 9.4 8.5 - 10.5 [facility] mg/dL LABORATORY SERVICES Calculated Calcium 9.6 8.5 - 10.5 [facility] mg/dL LABORATORY SERVICES BUN 23 10 - 26 mg/dL [facility] SERVICES Creatinine 1.56 (H) 0.52 - 1.04 [facility] mg/dL LABORATORY SERVICES eGFR 36 (L)Comment: >60 [facility] eGFR calculated mL/min/1.73m2 LABORATORY using CKD-EPI SERVICES equation for non- Americans. Multiply eGFR by 1.16 for patients. Specimen Blood - Venous blood (substance) Narrative [facility] - 08/09/2019 12:50 EDT 2 Performing Organization Address City/State/ZIP Code Phon e Number [facility] [address] [place] [address] SERVICES documented in this encounter Visit Diagnoses Diagnosis Acute renal failure, unspecified acute r enal failure type (HCC-CMS) (HCC) - Primary documented in this encounter Care Teams Pmo Manager Relationship Specialty Start Date End Date Arabella Laurent, QUALITY CONTROL SYSTEMS MANAGER PCP - General 07/30/18 [address] [place] [phone] documented as of this encounter
--- OUTSIDE RECORDS SUMMARY | 2022-03-04 12:22 | XMS_ITS | Encounter Summary ---
:[address] [facility] Address [address] [place] [address] Care Team Providers Name Role Phone Arabella Laurent SLIDE DEVELOPER Primary Care Provider Reason for Visit Reason Comments Chronic Kidney Disease Serum creatinine had increas ed to 1.86 mg/dL in May 2018 and Lisinopril was discontin ued then for suspected nephrotoxicity. Serum creati nine subsequently decreased to 1.55 mg/dL by July 06. Then it was 1.76 mg/dL on 07-16-2018 and again fell to 1.56 mg/dL on 07-27-2018. The last available creatinine was 1.6 9 mg/dL from May 2019. The latest sewrum creatinine is 1.69 mg/dL from August 03, 2019, potassium was 4.0 mmol/L and calcium was 8.9 mg/dL. New labs are pending from this dave quintana. Other She otherwise feels fine. Encounter Details Date Type Department Care Team Description 08/09/2019 Office Visit [facility] Chastity Syed Acu te renal failure, unspecified acute renal failure type ([facility]) (Primary Dx); Nephrology - S CKD (chronic kidney disease), stage III ([facility] [address] [address] Rehab, [place] [address] (Wo rk) Social History Tobacco Use Types Packs/Day Years Used Date Current Every Day Smoker 0.5 Smokeless Tobacco: Never Used Tobacco Cessation: Ready to Quit: No; Co unseling Given: No Sex Assigned at Date Recorded Not on file documented as of this encounter Last Filed Vital Signs Vital Sign Reading Time Taken Comments Blood Pressure 138/73 08/09/2019 1139 EDT Pulse 58 08/09/2019 1139 EDT Temperature - - Respiratory Rate - - Oxygen Saturation - - Inhaled Oxygen Concentration - - Weight 57.2 kg (126 lb 1.6 oz) 08/09/2019 1139 EDT Height 144.8 cm (4' 9.01) 08/09/2019 1139 EDT Body Mass Index 27.28 08/09/2019 1139 EDT documented in this encounter Functional Status Functional Status Response [...] making decisions? documented as of this encounter Patient Instructions Patient InstructionsChastity Syed MD - 08/09/2019 11:00 EDT Blood tests pending from today - BMP, phohsporus, PTH and total CK. Then BMP every 2 months. Plan to return to the clinic in 6 months. documented in this encounter Progress Notes Chastity Syed MD - 08/09/2019 1100 EDT NEPHROLOGY OFFICE FOLLOW UP VISIT NOTE SUBJECTIVE CKD III follow up. Otherwise asymptomatic. She was seen by the PCP who repeated BMP and the sereum creatinine was persistently at 1.69 mg/dL as captured below. 08/09/2019 Chief Complaint Patient presents with ??? Chronic Kidney Disease Serum creatinine had increased to 1.86 mg/dL in May 2018 and Lisinopril was discontinued then for suspected nephrotoxicity. Serum creatinine subsequently decreased to 1.55 mg/dL by July 06, 2018. Then it was 1.76 mg/dL on 07-16-2018 and again fell to 1.56 mg/dL on 07-27-2018. The last available creatinine was 1.69 mg/dL from May 2019. The latest sewrum creatinine is 1.69 mg/dL from August 03, 2019, potassium was 4.0 mmol/L and calcium was 8.9 mg/dL. New labs are pending from this morning.. ??? Other She otherwise feels fine. HPI As above. Patient Active Problem List Diagnosis ??? Chronic kidney disease, stage III (moderate) ([facility]) ??? Essential hypertension ??? Proteinuria ??? S/p nephrectomy ??? Microscopic hematuria History reviewed. No pertinent past medical history. History reviewed. No pertinent surgical history. Current Outpatient Medications: albuterol (PROAIR HFA) 90 mcg/actuation inhaler amlodipine (NORVASC) 5 mg tablet aspirin (ASPIRIN LOW DOSE) 81 mg EC tablet atorvastatin (LIPITOR) 40 mg tablet cholecalciferol, Vitamin D3, 1,000 unit tablet DOCOSAHEXANOIC ACID/EPA (FISH OIL ORAL) DULOXETINE HCL (CYMBALTA ORAL) famotidine (PEPCID) 20 mg tablet hydrocodone-acetaminophen (LORTAB;VICODIN) 5-500 mg tablet metoprolol XL (TOPROL-XL) 25 mg tablet nitroGLYCERIN (NITROSTAT) 0.4 mg SL tablet trazodone (DESYREL) 100 mg tablet zolpidem (AMBIEN) 10 mg tablet No current facility-administered medications for this visit. Allergies Allergen Reactions ??? Neurontin [Gabapentin] ??? Zantac [Ranitidine Hcl] Rash Social History Tobacco Use ??? Smoking status: Current Every Day Smoker Packs/day: 0.50 ??? Smokeless tobacco: Never Used Substance Use Topics ??? Alcohol use: Not on file ??? Drug use: Not on file Family History Problem Relation Age of Onset ??? Kidney Disease Mother REVIEW OF SYSTEMS A ten point ROS was performed and was negative except for pertinent positives in the HPI BP 138/73 (BP Cuff Location: Right arm, BP Patient Position: Sitting, BP Cuff Sizes: Adult, regular) Pulse 58 Ht (!) 144.8 cm (57.01) Wt 57.2 kg (126 lb 1.6 oz) BMI 27.28 kg/m?? General appearance: alert, cooperative, no distress Head: Normocephalic, without obvious abnormality, atraumatic Lungs: clear to auscultation bilaterally Heart: S1, S2 normal, no rub Abdomen: soft, non-tender; bowel sounds normal; no masses, no organomegaly Mental Status: awake and alert; oriented to person, place, and time Extremities: No edema. Chastity Syed MD 08/09/2019 12:22 Lab Results Component Value Date K 4.8 07/06/2018 NA 143 07/06/2018 CL 109 07/06/2018 CO2 24 07/06/2018 CREATININE 1.55 (H) 07/06/2018 CALCGFR 36 (L) 07/06/2018 CALCIUM 9.3 07/06/2018 CALCCA 9.2 07/06/2018 SERGLU 87 07/06/2018 FASTFASTN2 No 07/06/2018 No results found for: WBC, RBC, HGB, HCT, MCV, MCH, MCHC, RDWCV, RDWSD, PLT No results found for: WBCU, RBCU, SQUAEPIU, RENEPIU, BACTERIA, CRYST, LABCAST, UACOMMENT, COMUAUCMI Lab Results Component Value Date COLOR YELLOW 09/15/2017 COLOR YELLOW 09/23/2012 CLARITYU CLOUDY 09/15/2017 CLARITYU Clear 09/23/2012 KETONES Neg 09/15/2017 KETONES Neg 09/23/2012 UROBILINOGEN 0.2 09/15/2017 UROBILINOGEN 0.2 09/23/2012 NITRITE Neg 09/15/2017 NITRITE Neg 09/23/2012 LEUKESTER 1+ (A) 09/15/2017 LEUKESTER Neg 09/23/2012 ASSESSMENT & PLAN CKD III with a single kidney s/p left nephrectomy at age 10 years - serum creatinine trajectory as shown above. Note that Lisinopril was discontinued in May 2018 for suspected nephrotoxicity. However, serum creatinine has been variable and more frequent testing (every 2-3 month) is now recommended. She is not taking any NSAIDs. To get total CK added to blood draw from today. Metabolic bone disease - phosphorus and PTH pending. Hypertension - controlled on Amlodipine. documented in this encounter Plan of Treatment Upcoming Encounters Date Type Specialty Care Team Description 03/11/2022 Telemedicine Nephrology Juan Syed MD 1 [facility], [address] [place], [place] [address] (Wo rk) documented as of this encounter Visit Diagnoses Diagnosis Acute renal failure, unspecified acute r enal failure type ([facility]) (H[facility]) - Primary CKD (chronic kidney disease), stage III ([facility]) Chronic kidney disease, Stage III (moder ate) documented in this encounter Care Teams Vp Customer Development Relationship Specialty Start Date End Date Arabella Laurent, SLIDE DEVELOPER PCP - General 07/30/18 [address] [place] [address] documented as of this encounter
--- OUTSIDE RECORDS SUMMARY | 2022-03-04 12:22 | XMS_ITS | Encounter Summary ---
:1960 Author Organization [facility] Address [address] [place] [address] Care Team Providers Name Role Phone Arabella Laurent EDGE SETTER Primary Care Provider Reason for Visit Reason Comments Acute Renal Failure Follow up on RANJANA in May 2018 of unclear etiology. She feels good, today, anywat. Encounter Details Date Type Department Care Team Description 08/03/2018 Office Visit [facility] Chastity Syed, Viviana patinoic kidney disease, stage III (moderate) ([facility]) (Primary Dx); Nephrology - S Acute renal failure, unspecified acute r enal failure type ([facility]) [address] [address] Rehab, [place] [address] (Wo rk) Social History Tobacco Use Types Packs/Day Years Used Date Current Every Day Smoker Smokeless Tobacco: Never Used Sex Assigned at Date Recorded Not on file documented as of this encounter Last Filed Vital Signs Vital Sign Reading Time Taken Comments Blood Pressure 126/71 08/03/2018 0952 EST Pulse 62 08/03/2018 0952 EST Temperature - - Respiratory Rate - - Oxygen Saturation - - Inhaled Oxygen Concentration - - Weight 52.9 kg (116 lb 9.6 oz) 08/03/2018 0952 EST Height 144.8 cm (4' 9) 08/03/2018 0952 EST Body Mass Index 25.23 08/03/2018 0952 EST documented in this encounter Functional Status Functional [...] Patient Instructions Patient InstructionsChastity Syed MD - 08/03/2018 10:10 EST Blood tests every 2 months. RTC in one year. documented in this encounter Progress Notes Chastity Syed MD - 08/03/2018 1010 EST NEPHROLOGY OFFICE FOLLOW UP VISIT NOTE SUBJECTIVE Follow up on RANJANA on CKD from 2018 when serum creatinine was up to 1.86 mg/dl but is now down to 1.56on 07-27-18. Lisinopril was discontinued then and the patient has continued to do well. 08/03/2018 Chief Complaint Patient presents with ??? Acute Renal Failure Follow up on RANJANA in May 2018 of unclear etiology. She feels good, today, anywat. HPI As above. Patient Active Problem List Diagnosis ??? Chronic kidney disease, stage III (moderate) ([facility]) ??? Essential hypertension ??? Proteinuria ??? S/p [...] ??? Smoking status: Current Every Day Smoker ??? Smokeless tobacco: Never Used Substance Use Topics ??? Alcohol use: Not on file ??? Drug use: Not on file Family History Problem Relation Age of Onset ??? Kidney Disease Mother REVIEW OF SYSTEMS A ten point ROS was performed and was negative except for pertinent positives in the HPI BP 126/71 (BP Cuff Location: Right arm, Patient Position: Sitting, BP Cuff Sizes: Adult, small) Comment (BP Cuff Location): Forearm Pulse 62 Ht (!) 144.8 cm (57) Wt 52.9 kg (116 lb 9.6 oz) BMI25.23 kg/m?? General appearance: alert, cooperative, no distress Head: Normocephalic, without obvious abnormality, atraumatic Lymph nodes: No over cervical adenopathy. Lungs: clear to auscultation bilaterally Heart: regular rate and rhythm, S1, S2 normal, no murmur, click, rub or gallop Abdomen: soft, non-tender; bowel sounds normal; no masses, no organomegaly Back: negative Neurologic: Grossly normal Mental Status: awake and alert; oriented to person, place, and time Extremities: extremities warm, atraumatic, no cyanosis or edema Chastity Syed MD 08/03/2018 10:21 Lab Results Component Value Date K 4.8 [...] 09/15/2017 LEUKESTER Neg 09/23/2012 ASSESSMENT & PLAN RANJANA on CKD suspected secondary to Lisinopril administration (LORFFAB) - improved. Lisinopril was discontinued in 2018 and serum creatinine fell from 1.86 mg/dl down to 1.56 mg/dl. BMP tests every 2 months. RTC in one year. Hypertension - controlled. documented in this encounter Plan of Treatment Upcoming Encounters Date Type Specialty Care Team Description 03/11/2022 Telemedicine Nephrology Juan Syed MD [address] [facility], [address] [place], [place] [address] (Wo rk) documented as of this encounter Visit Diagnoses Diagnosis Chronic kidney disease, stage III (moder ate) ([facility]) - Primary Chronic kidney disease, Stage III (moder ate) Acute renal failure, unspecified acute r enal failure type ([facility]) ([facility]) documented in this encounter Discontinued Medications Medication Sig Discontinue Reason Start Date End Date pregabalin (LYRICA) 25 mg Take 25 mg by mouth Error 08/03/2018 capsule 2 times daily. 25 mg am, 100 mg hs morphine (MS CONTIN) 15 Take 15 mg by mouth Error 08/03/2018 mg CR tablet every 12 hours. lisinopril (PRINIVIL, Take 10 mg by mouth Error 08/03/2018 ZESTRIL) 20 mg tablet daily. documented as of this encounter Care Teams Brim Rounder Relationship Specialty Start Date End Date Arabella Laurent, ROLF PCP - General 07/30/18 [address] [place] [address] documented as of this encounter
--- OUTSIDE RECORDS SUMMARY | 2022-03-04 12:22 | XMS_ITS | Encounter Summary ---
:1960 Author Organization [facility] Address [address] [place] [address] Care Team Providers Name Role Phone Melanie Pulido NP Primary Care Provider Reason for Visit Reason Comments Chronic Kidney Disease Encounter Details Date Type Department Care Team Description 09/23/2012 Office Visit [facility] Danisha Truong MD [address] [place], [place] [id number] Chronic kidney disease, stage III (moder ate) (Primary Dx); Nephrology - Lana Rojas MD Unspecified essential hypertension; Klemme Proteinuria [address] [place] [address] Social History Tobacco Use Types Packs/Day Years Used Date Never Assessed Sex Assigned at Date Recorded Not on file documented as of this encounter Last Filed Vital Signs Vital Sign Reading Time Taken Comments Blood Pressure 107/65 09/23/2012 1542 EDT Pulse 74 09/23/2012 1542 EDT Temperature - - Respiratory Rate - - Oxygen Saturation - - Inhaled Oxygen Concentration - - Weight 52.6 kg (116 lb) 09/23/2012 1542 EDT Height - - Body Mass Index - - documented in this encounter Patient Instructions Patient InstructionsRobert Truong MD - 09/23/2012 16:50 EDT - Kidney function is stable. - Continue control your blood pressure. - Suggest stop smoking. - You can follow up with your primary care. - Follow up as needed. documented in this encounter Progress Notes Robert Truong MD - 09/23/2012 1631 EDT Images from the original note were not included. Nephrology CKD Progress Follow Up Note ??? Smart Text Reason for Visit: Addie Barnett is being seen in follow-up for chronic kidney disease and hypertension. Baseline creatinine values are: No results found for this basename: creatinine Problems: Patient Active Problem List Diagnoses ??? Chronic kidney disease, stage III (moderate) ??? Unspecified essential hypertension Scr history 1.3 in 01/2009, 1.5 in 06/2009, 1.4 in 07/2009, 1.2 in 09/2009, 1.3 in 12/2009, 1.5 in 08/2010, 1.5 that correlated with a GFR of 36 in 05/2011 1.6 in 12/2011. 1.6 in 06/2012 Subjective: The patient was last seen: 4 months ago. In the interim, there have been no intercurrent illnesses or hospitalizations. She feels fine. She still smokes 1 pack a day. She eats high sodium diet. She likes to drink a lot. Upon asking her to stop smoking and eat healthy/ low sodium diet, she refuses to comply. Today, the patient has no complaints. The patient's energy level is the same and her appetite is good without dysgeusia. She has no overt uremic symptoms including nausea, vomiting. There is no change in the amount, color, or frequency of micturition. At this time, she denies any chest pain, shortnessof breath, or peripheral edema. Addie does not have dyspnea on exertion, orthopnea, or PND. There are no constitutional symptoms, skin rash, joint pains, headache, abdominal pain, nausea, vomiting, constipation, diarrhea, flank pain, dysuria, gross hematuria, focal weakness, or difficulty walking. Review of Systems: A ten-point review of system was obtained and the pertinent positives and negatives are noted above. Medications: Current medications are listed below, and the patient is not having any adverse reactions, or side effects to the medications. Current Outpatient Prescriptions Medication Sig Dispense Refill ??? morphine (MS CONTIN) 15 mg CR tablet Take 15 mg by mouth every 12 hours. ??? trazodone (DESYREL) 100 mg tablet Take 200 mg by mouth at bedtime. ??? hydrocodone-acetaminophen (LORTAB;VICODIN) 5-500 mg tablet Take 1 Tab by mouth 2 times daily. ??? DOCOSAHEXANOIC ACID/EPA (FISH OIL ORAL) Take by mouth daily. ??? zolpidem (AMBIEN) 10 mg tablet Take 10 mg by mouth at bedtime as needed. ??? amlodipine (NORVASC) 5 mg tablet Take 5 mg by mouth daily. ??? famotidine (PEPCID) 20 mg tablet Take 20 mg by mouth daily. ??? DULOXETINE HCL (CYMBALTA ORAL) Take 60 mg by mouth daily. ??? lisinopril (PRINIVIL, ZESTRIL) 20 mg tablet Take 20 mg by mouth daily. ??? cholecalciferol, Vitamin D3, 1,000 unit tablet Take 1,000 Units by mouth daily. Physical Examination: She appears clinically euvolemic, is comfortable and in no acute distress. Weight today is Weight : 52.617 kg (116 lb). Wt Readings from Last 3 Encounters: 09/23/12 52.617 kg (116 lb) 02/05/12 49.533 kg (109 lb 3.2 oz) BP 107/65 Pulse 74 Wt 52.617 kg (116 lb) The patient does not do home blood pressures Psych: Alert and oriented x 3 dark skin from sun exposure. Skin: Warm and without acute rash, lesions, or ecchymosis. HEENT: AT/NC, EOMI, PERRL, no scleral pallor. Neck: Supple, no jugular venous distention or lymphadenopathy. Lungs: some bronchial breath sound scattered. CVS. There is no murmur and no rub. Extremities show no edema bilaterally. Abdomen: Soft, non-tender, with normal bowel sounds. There is no CVA tenderness. Neuro: Grossly non-focal and without asterixis. Vascular Access: A dialysis access is not present. Labs: The most recent urinalysis: protein negative but very dilute urine. Chronic Kidney Disease: (GFR and proteinuria) Ms. Barnett is a 51 y.o. 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 The recent creatinine and estimated GFR values are listed below. Renal and Electrolytes Kidney function has not changed over the past 10 months. Uremic symptoms are not present. There is no significant hyponatremia, hyperkalemia, or metabolic acidosis. Hypertension: BP Readings from Last 3 Encounters: 09/23/12 107/65 02/05/12 103/64 Blood pressure is controlled in target range of systolic less than 130 mmHg. Hematology: She does not have anemia (hgb<13.5 g/dL). The target hemoglobin range is 10-12 g/dL for patients with CKD. There is no indication for additional iron or erythropoietic stimulating agents (ESAs). Hyperphosphatemia may be present (phos < 4.5 mg/dL). OVERALL ASSESSMENT: A 51 year old female with right single kidney is here for a follow up for CKD stage III and hypertension. 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 Stable renal function. Goal is to control BP at < 130/80. 2) HTN BP controlled at office. Encourage patient to check at home and eat low sodium diet. 3) Suggested smoking cessation. 4) History of proteinuria. We will check albuminuria with the primary care as we did not have enoughsample today. This will be fax[facility] to [facility]. I also called and leave message at Dr Pulido's office. 5) Disposition. Stable. Will discharge and follow up as needed. Continue with current medicaitons. (patient lives far away and things have been stable.) PLANS: Renal Replacement Therapy: There are no indications for institution of dialysis at this time. Dialysis options education and planning for a dialysis access will be instituted if renal function deteriorates rapidly and/or to below an estimated GFR below 25 ml/min per 1.73m2. Transplantation: This has not been discussed because of lack of rapid progression to end stage kidney disease. We will obtain an evaluation from the [facility] when indicated. Therapeutic: 1. Medications to have a change in dose: None 2. Medications to be added: None 3. Medications to be discontinued: None 4. Routine labs for next visit: Nephrology profile, Hemagram 5. Special labs to be ordered: None 6. Other: None Follow-up: As needed. D/W Dr Mercedes Truong MD PGY 5 Nephrology I saw and examined the patient with Robert Truong MD on 09/23/2012. I agree with his findings, assessment and recommendations. Lana Long MD09/26/201211:11 documented in this encounter Plan of Treatment Upcoming Encounters Date Type Specialty Care Team Description 03/11/2022 Telemedicine Nephrology Juan Syed MD 1 [facility], [address] [place], [place] [address] (Wo rk) documented as of this encounter Procedures Procedure Name Priority Date/Time Associated Diagnosis Comme nts POCT URINE Routine 09/23/2012 15:13 Chronic kidney Results f or this DIPSTICK, CLINITEK EDT disease, stage III pro cedure are in (moderate) the results section. documented in this encounter Results (ABNORMAL) POCT URINE DIPSTICK (09/23/2012 15:13 EDT) Color YELLOW [facility] Clarity, UA Clear [facility] Glucose Neg Neg [facility] Bilirubin Neg Neg [facility] Ketones Neg Neg [facility] Specific [place] <=1.005 1.001 - 1.035 [facility] Blood 1+ (A) Neg [facility] pH 5.5 4.6 - 8.0 [facility] Protein Neg Neg [facility] Urobilinogen 0.2 0.2 - 1.0 [facility] E.U./dl LAB Nitrite Neg Neg [facility] Leuk Esterase Neg Neg [facility] mobile equipment mechanic ID [id number]: [facility] Test Performed at LAB Renal Services Specimen Urine (substance) Performing Organization Address City/State/ZIP Code Phon e Number [facility] [address] [place] [address] SERVICES [facility] [address] [place] [address] documented in this encounter Visit Diagnoses Diagnosis Chronic kidney disease, stage III (moder ate) (HCC) - Primary Chronic kidney disease, Stage III (moder ate) Unspecified essential hypertension Proteinuria documented in this encounter Care Teams Time Broker Relationship Specialty Start Date End Date Melanie Pulido NP PCP - General 01/01/12 09/11/17 [facility] [address] [place] [address] documented as of this encounter
--- OUTSIDE RECORDS SUMMARY | 2022-03-04 12:22 | XMS_ITS | Encounter Summary ---
:[address] [facility] Address [address] [place] [address] Care Team Providers Name Role Phone Laurence Krause Primary Care Provider [phone] Encounter Details Date Type Department Care Team Description 07/06/[address] [facility] Joaquina Syed MD Nephrology - S Prosp ect [address] [place] [id number] [place] [phone] (Wo rk) Social History Tobacco Use Types [...] Description 03/11/2022 Telemedicine Nephrology Juan Syed MD [address] [place] [address], [facility] [address] [place] [phone] (Wo rk) documented as of this encounter Visit Diagnoses Not on filedocumented in this encounter Care Teams Pet Ambassador Relationship Specialty Start Date End Date Laurence Krause PA PCP - General 09/12/17 07/29/18 [address] [place] [phone] documented as of this encounter
--- OUTSIDE RECORDS SUMMARY | 2022-03-04 12:22 | XMS_ITS | Encounter Summary ---
:1960 Author Organization [facility] Address [address] [place] [address] Care Team Providers Name Role Phone Melanie Rosen PROFESSOR OF PHILOSOPHY Primary Care Provider Encounter Details Date Type Department Care Team Description 04/20/2014 Results Only [facility] Melanie Rosen, PROFESSOR OF PHILOSOPHY [facility] [address] [place] [address] [address] [facility] [place], [place] [id number] [phone] Social History Tobacco Use Types Packs/Day Years Used Date Never Assessed Sex Assigned at Date Recorded Not on file documented as of this encounter Plan of Treatment Upcoming Encounters Date Type Specialty Care Team Description 03/11/2022 Telemedicine Nephrology Juan Syed MD 1 [facility], Level 2 [place], [place] [address] (Wo rk) documented as of this encounter Procedures Procedure Name Priority Date/Time Associated Diagnosis Comme nts PAP TEST- RESULT Routine 04/20/2014 0:00 EST Resu lts for this ONLY procedure are i n the results section. documented in this encounter Results PAP TEST- RESULT ONLY (04/20/2014 0:00 EST) Pathology Report: CYTOPATHOLOGY REPORT [facility] Reports generated via electronic interface contain petar ginal data; SERVICES however they are lacking the format of the original re port. Caution should be taken when reading/interpreting unfo rmatted reports. Name: ? SIGOUIN, KIA J ? Accession #: ? [id number] : ? 1960 (Age: 53) ??F ?Collect Date: ? 04/02 Location: ? [facility] ? Receive Date : ? 04/22/2014 Provider: ?MELANIE ROSEN PROFESSOR OF PHILOSOPHY Copy to: ? Specimen/Source: ? Pap Test, Cervix/Endocervix, ThinPrep Imaging System with manual evaluation Last Menstrual Period: ? 8 years ago Previous Gynecologic Pathology: ? HPV: + ? SPECIMEN ADEQUACY ? Satisfactory for Evaluation - transformation zone component present GENERAL CATEGORIZATION ? Epithelial Cell Abnormality INTERPRETATION ? Squamous Cell Abnormality - Atypical squamous c ells, undetermined significance (ASC-US). EDUCATIONAL NOTES/RECOMMENDATIONS ? [facility] recommends nadira dexter ASCCP's 2012 Updated Consensus Guidelines for the Management of Abnormal Cervical Cancer Screening T ests and Cancer Precursors (JLGTD, 2013; 17(5):S1-S27). ??Conse nsus guidelines are available online at www.asccp.org. ? Document reviewed and electronically signed by: ? BUCK GARCES MD ? Report Date: ??05/05/2014 11:45 End of Report Specimen Performing Organization Address City/State/ZIP Code Phon e Number [facility] [address] [place] [address] SERVICES documented in this encounter Visit Diagnoses Not on filedocumented in this encounter Care Teams Lab[address] Relationship Specialty Start Date End Date Melanie Rosen NP PCP - General 01/01/12 09/11/17 [facility] [address] [place] [address] documented as of this encounter
--- OUTSIDE RECORDS SUMMARY | 2022-03-04 12:22 | XMS_ITS | Encounter Summary ---
:1960 Author Organization [facility] Address [address] [place] [address] Care Team Providers Name Role Phone Laurence Krause Primary Care Provider [phone] Reason for Visit Reason Comments Chronic Kidney Disease Follow up on CKD. Other She had some abdominal pain which is of unclear cause. She also complained of cold sens ation in both LEs - No relationship with activity. Encounter Details Date Type Department Care Team Description 07/06/2018 Office Visit [facility] Chastity Syed Acu te renal failure, Nephrology - S unspecified acute [place] 1 [facility] renal failure type 1 [facility] ([facility]) ([place] [address] Rehab, Level 2 Dx) [phone] [place] [address] (Wo rk) Social History Tobacco Use Types Packs/Day Years Used Date Current Every Day Smoker Smokeless Tobacco: Never Used Sex Assigned at Date Recorded Not on file documented as of this encounter Last Filed Vital Signs Vital Sign Reading Time Taken Comments Blood Pressure 124/64 07/06/2018 1042 EST Pulse 62 07/06/2018 1042 EST Temperature - - Respiratory Rate - - Oxygen Saturation - - Inhaled Oxygen Concentration - - Weight 53.1 kg (117 lb) 07/06/2018 1042 EST Height 144.8 cm (4' 9) 07/06/2018 1042 EST Body Mass Index 25.32 07/06/2018 1042 EST documented in this encounter Functional Status [...] making decisions? documented as of this encounter Discharge Diagnoses Diagnosis N17.9 Acute kidney failure, unspecified- N17.9[ICD-10-CM] documented in this encounter Patient Instructions Patient InstructionsChastity Syed MD - 07/06/2018 10:50 EST Get BMP tested today in the lab. Stop the Lisinopril if serum creatinine is >1.7 mg/dL, after I have reviewed her basic metabolic profile test result from today. Review BP with PCP in 2 weeks. RTC to see me in 1 month. documented in this encounter Discharge Disposition Disposition Code Departure Means Destination Auto Discharge documented in this encounter Progress Notes Chastity Syed MD - 07/06/2018 1050 EST NEPHROLOGY OFFICE FOLLOW UP VISIT NOTE SUBJECTIVE Follow up on CKD with hypertension and s/p left nephrectomy from age 10 years. Her creatinine was 1.6 mg/dl in November 2011. Was 1.58 in November 2017, then 1.76 mg/dl in January 2018 and 1.86 mg/dl in May 2018. She describes post-prandial vomiting intermittently, like once a week. There is this vague description of cold sensation in the legs. 07/06/2018 Chief Complaint Patient presents with ??? Chronic Kidney Disease Follow up on CKD. ??? Other She had some abdominal pain which is of unclear cause. Sghe also complained of cold sensation in both LEs - No relationship with activity. HPI As above. No urinary symptoms. Patient Active Problem List Diagnosis ??? Chronic kidney disease, stage III (moderate) ([facility]) ??? Essential hypertension ??? Proteinuria ??? S/p [...] mg tablet hydrocodone-acetaminophen (LORTAB;VICODIN) 5-500 mg tablet lisinopril (PRINIVIL, ZESTRIL) 20 mg tablet metoprolol XL (TOPROL-XL) 25 mg tablet morphine (MS CONTIN) 15 mg CR tablet nitroGLYCERIN (NITROSTAT) 0.4 mg SL tablet pregabalin (LYRICA) 25 mg capsule trazodone (DESYREL) 100 mg tablet zolpidem (AMBIEN) 10 mg tablet No current facility-administered medications for this visit. Allergies Allergen Reactions ??? Neurontin [Gabapentin] ??? Zantac [Ranitidine Hcl] Rash Social History Tobacco Use ??? Smoking status: Current Every Day Smoker ??? Smokeless tobacco: Never Used Substance Use Topics ??? Alcohol use: Not on file ??? Drug use: Not on file History reviewed. No pertinent family history. REVIEW OF SYSTEMS A ten point ROS was performed and was negative except for pertinent positives in the HPI BP 124/64 (BP Cuff Location: Right arm, Patient Position: Sitting, BP Cuff Sizes: Adult, regular) Pulse 62 Ht (!) 144.8 cm (57) Wt 53.1 kg (117 lb) BMI 25.32 kg/m?? General appearance: alert, cooperative, no distress Head: Normocephalic, without obvious abnormality, atraumatic Eyes: negative Lungs: clear to auscultation bilaterally Heart: regular rate and rhythm, S1, S2 normal, no murmur, click, rub or gallop Abdomen: soft, non-tender; bowel sounds normal; no masses, no organomegaly Back: symmetric, no curvature. ROM normal. No CVA tenderness. 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 Was 1.58 in November 2017, then 1.76 mg/dl in January 2018 and 1.86 mg/dl in May 2018. To get BMP today and if serum creatinine is >1.7o mg/dl, I will discontinue Lisninopril and follow BMP in two weeks. 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 She reported that she did a blood test last week in [facility]. Hypertension - I rechecked BP today manually - 124/60. Continue Amlodipine and metoprolol. Addendum: Repeat labs today show improved serum creatinine at 1.55 mg/dl and therefore no medicationchanges were therefore instituted. documented in this encounter Plan of Treatment Upcoming Encounters Date Type Specialty Care Team Description 03/11/2022 Telemedicine Nephrology Juan Syed MD 1 [facility], Level 2 [place] [address] (Wo rk) documented as of this encounter Results (ABNORMAL) BASIC METABOLIC PANEL (BMP) (07/06/2018 12:03 EST) Sodium 143 136 - 145 [facility] mEq/L LABORATORY SERVICES Potassium 4.8 3.5 - 5.0 [facility] mEq/L LABORATORY SERVICES Chloride 109 96 - 110 [facility] mEq/L LABORATORY SERVICES CO2 24 22 - 32 mEq/L [facility] SERVICES BUN 21 10 - 26 mg/dl [facility] SERVICES Creatinine 1.55 (H) 0.52 - 1.04 [facility] mg/dl LABORATORY SERVICES GFR, Calculated 36 (L) >60 [facility] Comment: ml/min/1.73m2 LABORATORY eGFR calculated using CKD-EPI equation for SERVICES non Americans. Multiply eGFR by 1.16 for Americans. Calcium 9.3 8.5 - 10.5 [facility] mg/dl LABORATORY SERVICES Calculated Calcium 9.2 8.5 - 10.5 [facility] mg/dl LABORATORY SERVICES Glucose, Serum 87 70 - 100 [facility] mg/dl LABORATORY SERVICES Fasting? No [facility] SERVICES Specimen Blood specimen (specimen) - Blood Performing Organization Address City/State/ZIP Code Phon e Number [facility] [address] [place] [address] SERVICES documented in this encounter Visit Diagnoses Diagnosis Acute renal failure, unspecified acute r enal failure type (HCC-CMS) (HCC) - Primary documented in this encounter Care Teams Marble Cleaner Relationship Specialty Start Date End Date Laurence Krause PA PCP - General 09/12/17 07/29/18 [address] [place] [address] documented as of this encounter
--- OUTSIDE RECORDS SUMMARY | 2022-03-04 12:22 | XMS_ITS | Encounter Summary ---
:1960 Author Organization [facility] Address [address] [place] [address] Care Team Providers Name Role Phone Melanie Pulido NP Primary Care Provider Encounter Details Date Type Department Care Team Description 04/21/2014 Hospital Encounter [facility]- Lucy Unknown, Provider, [facility] [address] [facility] [phone] [place] [address] (Work) [phone] Social History Tobacco Use Types Packs/Day Years Used Date Never Assessed Sex Assigned at Date Recorded Not on file documented as of this encounter Medications at Time of Discharge Medication Sig Dispensed Refills Start Date End Date amlodipine (NORVASC) 5 mg Take 5 mg by mouth 0 tablet daily. cholecalciferol, Vitamin Take 1,000 Units by 0 D3, 1,000 unit tablet mouth daily. DOCOSAHEXANOIC ACID/EPA Take by mouth as 0 (FISH OIL ORAL) needed. DULOXETINE HCL (CYMBALTA Take 60 mg by mouth 0 ORAL) daily. famotidine (PEPCID) 20 mg Take 20 mg by mouth 0 tablet daily. hydrocodone-acetaminophen Take 1 tablet by 0 (LORTAB;VICODIN) 5-500 mg mouth 2 times daily tablet as needed for Pain. trazodone (DESYREL) 100 mg Take 200 mg by 0 tablet mouth at bedtime as needed. zolpidem (AMBIEN) 10 mg Take 10 mg by mouth 0 tablet at bedtime as needed. lisinopril (PRINIVIL, Take 10 mg by mouth 0 08/03/2018 ZESTRIL) 20 mg tablet daily. morphine (MS CONTIN) 15 mg Take 15 mg by mouth 0 08/03/2018 CR tablet every 12 hours. documented as of this encounter Discharge Disposition Disposition Code Departure Means Destination Home or Self [facility] documented in this encounter Plan of Treatment Upcoming Encounters Date Type Specialty Care Team Description 03/11/2022 Telemedicine Nephrology Juan Syed MD 1 [facility], Level 2 [place], [place] [address] (Wo rk) documented as of this encounter Visit Diagnoses Not on filedocumented in this encounter Care Teams Extruder Operator Helper Relationship Specialty Start Date End Date Melanie Pulido NP PCP - General 01/01/12 09/11/17 [facility] [address] [place] [address] documented as of this encounter
--- OUTSIDE RECORDS SUMMARY | 2022-03-04 12:22 | XMS_ITS | Encounter Summary ---
:1960 Author Organization [facility] Address [address] [place] [address] Care Team Providers Name Role Phone Arabella Laurent ULTRASONIC SOLDERER Primary Care Provider Reason for Referral Laboratory Services (Routine/Next Available) - New Request Specialty Diagnoses / Procedures Referred By Contact Refer red To Contact Diagnoses CKD (chronic kidney disease), stage IV ([facility]) ([facility]) Chastity Syed MD Procedures BASIC METABOLIC PANEL (BMP) 1 [facility] Rehab, Level [address] [place] [address] Referral ID Status Reason Start Date Expiration Date Visits V isits Requested Authorized [id number] New Request 03/05/2021 6 6 Reason for Visit Reason Comments Chronic Kidney Disease Follow up on CKD IV with cur rent creatinine of 1.80 (eGFR = 28.51) from December 2020. It was 1.86 mg/dL in May 2018 and Lisinopril was discontin ued thereafter and had decreased to 1.55 in July 2018. Ho wever, it went back up to 1.90 in September 2020. Encounter Details Date Type Department Care Team Description 03/05/2021 Telemedicine [facility] Chastity Syed, CKD (chronic kidney Nephrology - S MD disease), stage IV [place] [address] [place] [address] ([facility]) ([facility]) 1 [facility] (Primary Dx) [place] [address] Rehab, [place] [phone] (Wo rk) Social History Tobacco Use Types Packs/Day Years Used Date Current Every Day Smoker 0.5 Smokeless Tobacco: Never Used Sex Assigned at Date Recorded Not on file documented as of this encounter Last Filed Vital Signs Vital Sign Reading Time Taken Comments Blood Pressure - - Pulse - - Temperature - - Respiratory Rate - - Oxygen Saturation - - Inhaled Oxygen Concentration - - Weight - - Height 144.8 cm (4' 9.01) 03/05/2021 1103 EDT Body Mass Index - - documented in this encounter Functional Status Functional [...] Patient Instructions Patient InstructionsChastity Syed MD - 03/05/2021 11:20 EDT BMP every 2 months and RTC in 12 months, if stable. documented in this encounter Progress Notes Chastity Syed MD - 03/05/2021 1120 EDT This visit was conducted by telephone with consent given by the patients. During the visit, the patient's symptoms, weight, BP, medication usage and recent laboratory test results were reviewed. The telephone call lasted 25 minutes. Home Phone Work Phone NEPHROLOGY OFFICE FOLLOW UP VISIT NOTE SUBJECTIVE Follow up on CKD IV with current creatinine of 1.80 (eGFR = 28.51) from December 2020. It was 1.86 mg/dL in May 2018 and Lisinopril was discontinued thereafter and had decreased to 1.56 mg/dL in July 2018. However, it went back up to 1.90 in September 2020. 03/05/2021 Chief Complaint Patient presents with ??? Chronic Kidney Disease Follow up on CKD IV with current creatinine of 1.80 (eGFR = 28.51) from December 2020. It was 1.86 mg/dL in May 2018 and Lisinopril was discontinued thereafter and had decreased to 1.55 in July2018. However, it went back up to 1.90 in September 2020. HPI As above. No new complaints. No new leg swelling. The weight is down to 115 lb from 117 lb. Appetite - good and she is eating well. BP this morning 141/82 mm Hg. At her PCP's the SBP was in the 120s. Patient Active Problem List Diagnosis ??? Chronic kidney disease, stage III (moderate) (HCC) ??? Essential hypertension ??? Proteinuria ??? S/p nephrectomy ??? Microscopic hematuria No past medical history on file. No past surgical history on file. Current Outpatient Medications Medication ??? albuterol (PROAIR HFA) 90 mcg/actuation inhaler ??? amlodipine (NORVASC) 5 mg tablet ??? aspirin (ASPIRIN LOW DOSE) 81 mg EC tablet ??? atorvastatin (LIPITOR) 40 mg tablet ??? cholecalciferol, Vitamin D3, 1,000 unit tablet ??? DOCOSAHEXANOIC ACID/EPA (FISH OIL ORAL) ??? DULOXETINE HCL (CYMBALTA ORAL) ??? famotidine (PEPCID) 20 mg tablet ??? hydrocodone-acetaminophen (LORTAB;VICODIN) 5-500 mg tablet ??? metoprolol XL (TOPROL-XL) 25 mg tablet ??? nitroGLYCERIN (NITROSTAT) 0.4 mg SL tablet ??? trazodone (DESYREL) 100 mg tablet ??? zolpidem (AMBIEN) 10 mg tablet No current [...] except for pertinent positives in the HPI There were no vitals taken for this visit. Phone visit. Chastity Syed MD 03/05/2021 10:14 Lab Results Component Value Date K 4.2 08/09/2019 K 4.8 07/06/2018 NA 139 08/09/2019 NA 143 07/06/2018 CL 108 08/09/2019 CL 109 07/06/2018 CO2 25 08/09/2019 CO2 24 07/06/2018 LABALBU 3.8 08/09/2019 CREATININE 1.56 (H) 08/09/2019 CREATININE 1.55 (H) 07/06/2018 CALCGFR 36 (L) 08/09/2019 CALCGFR 36 (L) 07/06/2018 CALCIUM 9.4 08/09/2019 CALCIUM 9.3 07/06/2018 CALCCA 9.6 08/09/2019 CALCCA 9.2 07/06/2018 SERGLU 92 08/09/2019 SERGLU 87 07/06/2018 FASTFASTN2 No 07/06/2018 Lab Results Component Value Date WBC 6.29 08/09/2019 RBC 4.05 08/09/2019 HGB 13.3 08/09/2019 HCT 40.1 08/09/2019 MCV 99 (H) 08/09/2019 MCH 32.8 08/09/2019 MCHC 33.2 08/09/2019 RDWCV 13.2 08/09/2019 RDWSD 48.5 08/09/2019 PLT 204 08/09/2019 No results found for: WBCU, RBCU, SQUAEPIU, RENEPIU, BACTERIA, CRYST, LABCAST, UACOMMENT, COMUAUCMI Lab Results Component Value Date COLOR YELLOW 09/15/2017 COLOR YELLOW 09/23/2012 CLARITYU CLOUDY 09/15/2017 CLARITYU Clear 09/23/2012 KETONES Neg 09/15/2017 KETONES Neg 09/23/2012 UROBILINOGEN 0.2 09/15/2017 UROBILINOGEN 0.2 09/23/2012 NITRITE Neg 09/15/2017 NITRITE Neg 09/23/2012 LEUKESTER 1+ (A) 09/15/2017 LEUKESTER Neg 09/23/2012 ASSESSMENT & PLAN CKD status - Follow up on CKD IV with current creatinine of 1.80 (eGFR = 28.51) from December 2020. Itwas 1.86 mg/dL in May 2018 and Lisinopril was discontinued thereafter and serum creatinine had decreased to 1.56 in July 2018. However, it went back up to 1.90 in September 2020. BMP every 2 months and RTC in 12 months, if stable. HTN - This is fairly controlled on Amlodipine and Metoprolol. Follow up with the PCP. documented in this encounter Plan of Treatment Upcoming Encounters Date Type Specialty Care Team Description 03/11/2022 Telemedicine Nephrology Juan Syed MD 1 [facility], Level 2 [place], [place] [address] (Wo rk) Scheduled Orders Name Type Priority Associated Diagnoses Order S chedule BASIC METABOLIC PANEL Lab Routine CKD (chronic kidney 2 months for 6 (BMP) disease), stage IV Occurrenc es starting ([facility]) 03/05/2021 unti l 03/05/2022, 2 c ompleted documented as of this encounter Results BASIC METABOLIC PANEL (BMP) (01/01/2022 10:50 EDT) Pathologist Sig [facility] GFR, Calculated, 30.36 [facility] Glucose, Serum, 89 [facility] Calculated Calcium, [facility] BUN, External 26 [facility] Calcium, External 9.2 [facility] Chloride, External 104 [facility] CO2, External 27.7 [facility] Creatinine, External 1.7 [facility] Fasting?, External [facility] Potassium, External 4.3 [facility] Sodium, External 138 [facility] Specimen Blood - Venous blood (substance) Performing Organization Address City/State/ZIP Code Phon e Number [facility] BASIC METABOLIC PANEL (BMP) (08/08/2021) Pathologist Sig [facility] GFR, Calculated, 28.51 [facility] External CENTER LAB Glucose, Serum, External 96 [facility] Calculated Calcium, [facility] External CENTER LAB BUN, External 26 [facility] Calcium, External 9.4 [facility] Chloride, External 104 [facility] CO2, External 25.2 [facility] Creatinine, External 1.8 [facility] Fasting?, External [facility] Potassium, External 4.5 [facility] Sodium, External 139 [facility] Specimen Blood - Venous blood (substance) Performing Organization Address City/State/ZIP Code Phon e Number [facility] [address] [place] [address] documented in this encounter Visit Diagnoses Diagnosis CKD (chronic kidney disease), stage IV ( HCC-CMS) (HCC) - Primary Chronic kidney disease, Stage IV (severe ) documented in this encounter Care Teams Opal Miner Relationship Specialty Start Date End Date Arabella Laurent NP PCP - General 07/30/18 [address] [place] [address] documented as of this encounter
--- OUTSIDE RECORDS SUMMARY | 2022-03-04 12:22 | XMS_ITS | Encounter Summary ---
:1960 Author Organization [facility] Address [address] [place] [address] Care Team Providers Name Role Phone Melanie Pulido NP Primary Care Provider Encounter Details Date Type Department Care Team Description 08/12/2017 Abstract [facility] Joaquina Syed MD Transplant - S Prosp ect [address], [facility] [address] [place] [address] [place] [phone] (Wo rk) Social History Tobacco Use Types Packs/Day Years Used Date Never Assessed Sex Assigned at Date Recorded Not on file documented as of this encounter Plan of Treatment Upcoming Encounters Date Type Specialty Care Team Description 03/11/2022 Telemedicine Nephrology Juan Syed MD 1 [facility], [facility] [address] [place], [place] [address] (Wo rk) documented as of this encounter Visit Diagnoses Not on filedocumented in this encounter Historical Medications This list may reflect changes made after this encounter. Medication Sig Dispensed Refills Start Date End Date nitroGLYCERIN (NITROSTAT) Place 0.4 mg under 0 0.4 mg SL tablet the tongue every 5 minutes as needed for Chest Pain. atorvastatin (LIPITOR) 40 Take 40 mg by mouth 0 mg tablet daily. aspirin (ASPIRIN LOW Take 81 mg by mouth 0 DOSE) 81 mg EC tablet daily. metoprolol XL (TOPROL-XL) Take 25 mg by mouth 0 25 mg tablet daily. albuterol (PROAIR HFA) 90 Inhale 2 Puffs as 0 mcg/actuation inhaler directed every 4 hours as needed for Wheezing. pregabalin (LYRICA) 25 mg Take 25 mg by mouth 0 08/03/2018 capsule 2 times daily. 25 mg am, 100 mg hs added in this encounter Care Teams Special Projects Coordinator Relationship Specialty Start Date End Date Melanie Pulido NP PCP - General 01/01/12 09/11/17 [facility] [address] [place] [address] documented as of this encounter
--- OUTSIDE RECORDS SUMMARY | 2022-03-04 12:22 | XMS_ITS | Encounter Summary ---
:1960 Author Organization [facility] Address [address] [place] [address] Care Team Providers Name Role Phone Melanie Pulido CHIEF RADIOLOGY Primary Care Provider Encounter Details Date Type Department Care Team Description 08/12/2017 Abstract [facility] Joaquina Syed MD Nephrology - S Prosp ect [address], [facility] 2 [place] [address] [place] [phone] (Wo rk) Social History Tobacco Use Types Packs/Day Years Used Date Never Assessed Sex Assigned at Date Recorded Not on file documented as of this encounter Plan of Treatment Upcoming Encounters Date Type Specialty Care Team Description 03/11/2022 Telemedicine Nephrology Juan Syed MD 1 [facility], [facility] 2 [place], [place] [phone] (Wo rk) documented as of this encounter Procedures Procedure Name Priority Date/Time Associated Diagnosis Comme nts BACTERIAL CULTURE, URINE Routine 05/05/2017 Res ults for this procedure are i n the results section . BACTERIAL CULTURE, URINE Routine 01/06/2017 Res ults for this procedure are i n the results section . COMPREHENSIVE METABOLIC Routine 01/06/2017 Resu lts for this PANEL (CMP) procedure are i n the results section . BASIC METABOLIC PANEL Routine 07/12/2015 Result s for this (BMP) procedure are i n the results section . ALT Routine 05/08/2015 Results for thi s procedure are i n the results section . AST Routine 05/08/2015 Results for thi s procedure are i n the results section . LIPID PROFILE (INCLUDES Routine 05/08/2015 Resu lts for this CHOLESTEROL, procedure are i n the TRIGLYCERIDES, HDL, LDL) res ults section. documented in this encounter Results BACTERIAL CULTURE, URINE (05/05/2017) Report Status, [facility] Result, External <[id number] [facility] Specimen Gram Positive [facility] Description, Addie [facility] External Specimen Urine (substance) Performing Organization Address City/[facility] Phon e Number [facility] [address] [place] [address] [facility] COMPREHENSIVE METABOLIC PANEL (CMP) (01/06/2017) Pathologist Sig nature GFR, Calculated, 32.40 [facility] Glucose, Serum, External 79 [facility] Albumin, External 3.7 [facility] Total Alkaline 80 [facility] Phosphatase, [facility] LAB ALT, External 21 [facility] AST, External 13 [facility] BUN, External 21 [facility] Calculated Calcium, [facility] Calcium, External 9.1 [facility] Chloride, External 110 [facility] CO2, External 26.4 [facility] Creatinine, External 1.63 [facility] Fasting?, External [facility] Potassium, External 4.9 [facility] Sodium, External 144 [facility] Total Protein, External 6.8 [facility] Bilirubin, Total, 0.38 [facility] Specimen Blood specimen (specimen) Performing Organization Address City/[facility]/ZIP Code Phon e Number [facility] [address] [place] [address] [facility] BACTERIAL CULTURE, URINE (01/06/2017) Pathologist Sig nature Report Status, [facility] Result, External NO GROWTH 24 [facility] Specimen [facility] Description, [facility] LAB External Specimen Urine (substance) Performing Organization Address City/[facility]/ZIP Code Phon e Number [facility] [address] [place], [address] LAB BASIC METABOLIC PANEL (BMP) (07/12/2015) Pathologist Sig nature GFR, Calculated, 32.18 [facility] Glucose, Serum, External 72 [facility] Calculated Calcium, [facility] BUN, External 24 [facility] Calcium, External 9.1 [facility] Chloride, External 105 [facility] CO2, External 26.0 [facility] Creatinine, External 1.65 [facility] Fasting?, External [facility] Potassium, External 4.0 [facility] Sodium, External 140 [facility] Specimen Blood specimen (specimen) Performing Organization Address City/[facility]/ZIP Code Phon e Number [facility] [address] LAB ALT (05/08/2015) Pathologist Sig nature ALT, External 25 [facility] Specimen Blood specimen (specimen) Performing Organization Address City/[facility] Phon e Number [facility] [address] LAB AST (05/08/2015) Pathologist Sig nature AST, External 16 [facility] Specimen Blood specimen (specimen) Performing Organization Address City/[facility] Phon e Number [facility] [address] LAB LIPID PROFILE (INCLUDES CHOLESTEROL, TRIGLYCERIDES, HDL, LDL) (05/08/2015) Pathologist Sig nature Cholesterol, External 164 [facility] Triglycerides, External 174 [facility] HDL, External 41 [facility] LDL, External 88 [facility] Chol/HDL Ratio, External 4.0 [facility] Fasting?, External [facility] Specimen Blood specimen (specimen) Performing Organization Address [facility] Phon e Number [facility] [address] LAB documented in this encounter Visit Diagnoses Not on filedocumented in this encounter Care Teams Back Panel Padder Relationship Specialty Start Date End Date Melanie Pulido NP PCP - General 01/01/12 09/11/17 [facility] [address] [place] [address] documented as of this encounter
--- OUTSIDE RECORDS SUMMARY | 2022-03-04 12:22 | XMS_ITS | Encounter Summary ---
:1960 Author Organization [facility] Address [address] [place] [address] Care Team Providers Name Role Phone Melanie Rosen HOSPICE VOLUNTEER Primary Care Provider Encounter Details Date Type Department Care Team Description 07/12/2015 Results Only [facility] Melanie Rosen, HOSPICE VOLUNTEER [phone] [facility] [address] [place], [place] [address] (Wo rk) Social History Tobacco Use Types Packs/Day Years Used Date Never Assessed Sex Assigned at Date Recorded Not on file documented as of this encounter Plan of Treatment Upcoming Encounters Date Type Specialty Care Team Description 03/11/2022 Telemedicine Nephrology Juan Syed MD 1 [facility], Level 2 [place], [place] [phone] (Wo rk) documented as of this encounter Procedures Procedure Name Priority Date/Time Associated Diagnosis Comme nts PAP TEST- RESULT Routine 07/12/2015 0:00 EST Resu lts for this ONLY procedure are i n the results section. documented in this encounter Results PAP TEST- RESULT ONLY (07/12/2015 0:00 EST) Pathology Report: CYTOPATHOLOGY REPORT [facility] Reports generated via electronic interface contain petar ginal data; SERVICES however they are lacking the format of the original re port. Caution should be taken when reading/interpreting unfo rmatted reports. Name: ? KIA WRIGHT ? Accession #: ? [id number] : ? 1960 (Age: [age]) ??F ?Collect Date: ? 07/12 Location: ? [facility] ? Receive Date : ? 07/14/2015 Provider: ?MELANIE ROSEN HOSPICE VOLUNTEER Copy to: ? Specimen/Source: ? Pap Test, Cervix/Endocervix, ThinPrep Imaging System with manual evaluation Last Menstrual Period: ? 5+ years Hormonal/Contraceptive Status: ? None Previous Gynecologic Pathology: ? ASC-US: 12/14, 04/15 HPV: (+) 12/09/06 ? SPECIMEN ADEQUACY ? Satisfactory for Evaluation - transformation zone component present GENERAL CATEGORIZATION ? Negative for Intraepithelial Lesion or Malignan cy ? Document reviewed and electronically signed by: ? EMILIE Jung(ASCP) ? Report Date: ??07/24/2015 13:39 End of Report Specimen Performing Organization Address City/State/ZIP Code Phon e Number [facility] [address] [place] [address] SERVICES documented in this encounter Visit Diagnoses Not on filedocumented in this encounter Care Teams Manager Sign Relationship Specialty Start Date End Date Melanie Rosen NP PCP - General 01/01/12 09/11/17 [facility] [address] [place] [address] documented as of this encounter
--- OUTSIDE RECORDS SUMMARY | 2022-03-04 12:22 | XMS_ITS | Encounter Summary ---
:1960 Author Organization [facility] Address [address] [place] [address] Care Team Providers Name Role Phone Arabella Laurent NP Primary Care Provider Reason for Referral Consult (See Order Priority) - Authorization Not Required Specialty Diagnoses / Procedures Referred By Referred To Contact Contact Nutrition / Diagnoses CKD (chronic kidney disease), stage IV (HCC-CMS) (HCC) Secondary renal hyperparathyroidism (HCC-CMS) (HCC) [facility] Nephrology MD Chastity [address] [place] [address] Street [facility], Level 2 [place], [place] Fax: [phone] Referral ID Status Reason Start Expiration Visits Visits Date Date Requested Authorized [id number] Authorization Specialty 03/20/20 1 1 Not Required Services 21 Required Question Answer Reason for referral: CKD IV dietary advice and co unseling. Medical nutrition therapy: Initial Number of hours: 3 Encounter Details Date Type Department Care Team Description 03/20/2021 Orders Only [facility] Kunal, CKD (it service technician emili kidney disease), stage IV (HCC-CMS) (HCC) (Primary Dx); Nephrology - Linda Haywood MD Secondary renal hyperparathyroidism (HCC -CMS) (HCC) [address] [facility], Level [address] [place] [phone] Social History Tobacco Use Types Packs/Day Years [...] Nephrology Juan Syed MD 1 [facility], Level 2 [place], [place] [phone] (Wo rk) Scheduled Referrals Name Type Priority Associated Diagnoses Order S chedule AMB CONS/FOLLOW Outpatient Routine/Next CKD (chronic kidney Expec kacy: UP RENAL Referral Available disease), stage IV 1 DIETITIAN ([facility]) (Approximate), Secondary renal Expires: hyperparathyroidism 03/20/20 22 ([facility]) documented as of this encounter Visit Diagnoses Diagnosis CKD (chronic kidney disease), stage IV ( [facility]) (HCC) - Primary Chronic kidney disease, Stage IV (severe ) Secondary renal hyperparathyroidism ([facility]) ([facility]) Secondary hyperparathyroidism (of renal origin) documented in this encounter Care Teams Associate Property Manager Relationship Specialty Start Date End Date Arabella Laurent NP PCP - General 07/30/18 [address] [place] [phone] documented as of this encounter
--- OUTSIDE RECORDS SUMMARY | 2022-03-04 12:22 | XMS_ITS | Encounter Summary ---
:1960 Author Organization [facility] Address [address] [place] [address] Care Team Providers Name Role Phone Anastasiia Arabella Bree DESTATICIZER FEEDER Primary Care Provider Encounter Details Date Type Department Care Team Description 10/10/2021 Abstract [facility] Joaquina Syed MD Nephrology - S Prosp ect [address] [place] [address] [place] [phone] (Wo rk) Social History Tobacco Use Types [...] Description 03/11/2022 Telemedicine Nephrology Juan Syed MD [address] [place] [address], [facility] 2 [place] [phone] (Wo rk) documented as of this encounter Procedures Procedure Name Priority Date/Time Associated Diagnosis Comme nts BASIC METABOLIC PANEL Routine 10/09/2021 Result s for this (BMP) procedure are i n the results section . documented in this encounter Results BASIC METABOLIC PANEL (BMP) (10/09/2021) Pathologist Sig nature GFR, Calculated, 26.79 [facility] Glucose, Serum, 90 [facility] Calculated Calcium, [facility] BUN, External 28 [facility] Calcium, External 8.5 [facility] Chloride, External 104 [facility] CO2, External 24.7 [facility] Creatinine, External 1.9 [facility] Fasting?, External [facility] Potassium, External 4.7 [facility] Sodium, External 138 [facility] Specimen Blood - Venous blood (substance) Performing Organization Address City/State/ZIP Code Phon e Number [facility] documented in this encounter Visit Diagnoses Not on filedocumented in this encounter Care Teams Loan Reviewer Relationship Specialty Start Date End Date Arabella Laurent NP PCP - General 07/30/18 [address] [place] [phone] documented as of this encounter
--- OUTSIDE RECORDS SUMMARY | 2022-03-04 12:22 | XMS_ITS | Clinical Summary ---
:1960 Author Organization [facility] Address [address] [place] [address] Care Team Providers Name Role Phone Arabella Laurent NP Primary Care Provider Allergies Active Allergy Reactions Severity Noted Date Comments Gabapentin 08/12/2017 Ranitidine Hcl Rash 02/05/2012 Medications Medication Sig Dispensed Refills Start Date End Date Status trazodone (DESYREL) 100 Take 200 mg by 0 Active mg tablet mouth at bedtime as needed. hydrocodone-acetaminoph Take 1 tablet by 0 Active en (LORTAB;VICODIN) mouth 2 times 5-500 mg tablet daily as needed for Pain. DOCOSAHEXANOIC ACID/EPA Take by mouth as 0 Active (FISH OIL ORAL) needed. zolpidem (AMBIEN) 10 mg Take 10 mg by 0 Active tablet mouth at bedtime as needed. amlodipine (NORVASC) 5 Take 5 mg by 0 Active mg tablet mouth daily. famotidine (PEPCID) 20 Take 20 mg by 0 Active mg tablet mouth daily. DULOXETINE HCL Take 60 mg by 0 A ctive (CYMBALTA ORAL) mouth daily. cholecalciferol, Take 1,000 Units 0 Active Vitamin D3, 1,000 unit by mouth daily. tablet albuterol (PROAIR HFA) Inhale 2 Puffs as 0 Active 90 mcg/actuation directed every 4 inhaler hours as needed for Wheezing. metoprolol XL Take 25 mg by 0 Ac tive (TOPROL-XL) 25 mg mouth daily. tablet aspirin (ASPIRIN LOW Take 81 mg by 0 Active DOSE) 81 mg EC tablet mouth daily. atorvastatin (LIPITOR) Take 40 mg by 0 Active 40 mg tablet mouth daily. nitroGLYCERIN Place 0.4 mg 0 Act rosie (NITROSTAT) 0.4 mg SL under the tongue tablet every 5 minutes as needed for Chest Pain. Active Problems Problem Noted Date S/p nephrectomy 09/15/2017 Microscopic hematuria 09/15/2017 Proteinuria 09/23/2012 Chronic kidney disease, stage III (moderate) 2 Essential hypertension 02/05/2012 Overview: ICD10 Update Auto Replacement Encounters Date Type Specialty Care Team Description 01/02/2022 Abstract Nephrology Chastity Syed MD CKD (c hronic kidney disease), stage IV (HCC-C MS) (HCC) (Primary Dx) from Last 3 Months Family History Medical History Relation Name Comments Kidney Disease Mother Relation Name Status Comments Mother Details of kidne y failure unknopwn to the patient. Social History Tobacco Use Types Packs/Day Years Used Date Current Every Day Smoker 0.5 Smokeless Tobacco: Never Used Tobacco Cessation: Ready to Quit: No; Co unseling Given: No Sex Assigned at Date Recorded Not on file Last Filed Vital Signs Vital Sign Reading Time Taken Comments Blood Pressure 155/89 02/14/2020 0816 EDT Pulse 85 02/14/2020 0816 EDT Temperature - - Respiratory Rate - - Oxygen Saturation - - Inhaled Oxygen Concentration - - Weight 57.2 kg (126 lb 1.6 oz) 08/09/2019 1139 EDT Height 144.8 cm (4' 9.01) 03/05/2021 1103 EDT Body Mass Index 27.28 08/09/2019 1139 EDT Plan of Treatment Upcoming Encounters Date Type Specialty Care Team Description 03/11/2022 Telemedicine [facility]phrology [facility] 2 [place], [place] [phone] (Wo rk) Health Maintenance Due Date Last Done Comments Hepatitis C Screen 1960 COVID-19 Vaccine (#1) 06/25/1959 Pneumococcal Immunization (1 - PCV) 1966 Procedures Procedure Name Priority Date/Time Associated Diagnosis Comme nts BASIC METABOLIC Routine 01/01/2022 10:50 CKD (chronic kidney R esults for this PANEL (BMP) EDT disease), stage IV procedure are in ([facility]) (HCC) the results section. from Last 3 Months Results BASIC METABOLIC PANEL (BMP) (01/01/2022 10:50 EDT) Pathologist Sig nature GFR, Calculated, 30.36 [facility] Glucose, Serum, 89 [facility] Calculated Calcium, [facility] BUN, External 26 [facility] Calcium, External 9.2 [facility] Chloride, External 104 [facility] CO2, External 27.7 [facility] Creatinine, External 1.7 [facility] Fasting?, External [facility] Potassium, External 4.3 [facility] Sodium, External 138 [facility] Specimen Blood - Venous blood (substance) Performing Organization Address City/State/ZIP Code Phon e Number [facility] from Last 3 Months Insurance Payer Benefit Plan Subscriber ID Effective Phone Address Typ e / Group Dates MEDICAID ACO MEDICAID ACO [id number] 2018-Pres [phone] [address] Medicaid [place] ent [address] [place] [id number] Addie Barnett Personal/Family Self 1960 [address]Home) [place] [address] Addie Barnett Personal/Family Self 1960 [address] [place] [address] Advance Directives For more information, please contact: [phone] Documents on File Type Date Recorded Patient Carding Doubler Explanati on Advance Directives and Living Will Power of Systems Program Manager Care Teams Assembler Utility Buildings Relationship Specialty Start Date End Date Arabella Laurent, WINDOWS SYSTEMS ADMIN PCP - General 07/30/18 [address] [place] [phone]
--- OUTSIDE RECORDS SUMMARY | 2022-03-04 12:22 | XMS_ITS | Encounter Summary ---
:1960 Author Organization [facility] Address [address] [place] [address] Care Team Providers Name Role Phone Laurence Krause Primary Care Provider [phone] Encounter Details Date Type Department Care Team Description 05/13/2018 Abstract [facility] Joaquina Syed MD Nephrology - S Prosp ect [address] [place] [phone] [place] [phone] (Wo rk) Social History Tobacco Use Types [...] Description 03/11/2022 Telemedicine Nephrology Juan Syed MD [address] [place] [address], [facility] 2 [place], [place] [phone] (Wo rk) documented as of this encounter Procedures Procedure Name Priority Date/Time Associated Diagnosis Comme nts ALT Routine 05/11/2018 Results for thi s procedure are i n the results section . AST Routine 05/11/2018 Results for thi s procedure are i n the results section . BASIC METABOLIC PANEL Routine 05/11/2018 Result s for this (BMP) procedure are i n the results section . documented in this encounter Results AST (05/11/2018) Pathologist Sig [facility] AST, External 17 [facility] Specimen Blood specimen (specimen) Performing Organization Address City/[facility] Phon e Number [facility] ALT (05/11/2018) Pathologist Sig [facility] ALT, External 25 [facility] Specimen Blood specimen (specimen) Performing Organization Address City/[facility] Phon e Number [facility] BASIC METABOLIC PANEL (BMP) (05/11/2018) Pathologist [facility] GFR, Calculated, 27.73 [facility] Glucose, Serum, 114 [facility] Calculated Calcium, [facility] BUN, External 31 [facility] Calcium, External 9.0 [facility] Chloride, External 104 [facility] CO2, External 25.3 [facility] Creatinine, External 1.86 [facility] Fasting?, External [facility] Potassium, External 4.0 [facility] Sodium, External 142 [facility] Specimen Blood specimen (specimen) Performing Organization Address [facility] Phon e Number [facility] documented in this encounter Visit Diagnoses Not on filedocumented in this encounter Care Teams Homicide Investigator Relationship Specialty Start Date End Date Laurence Krause PA PCP - General 09/12/17 07/29/18 [address] [place] [phone] documented as of this encounter
--- OUTSIDE RECORDS SUMMARY | 2022-03-04 12:22 | XMS_ITS | Encounter Summary ---
:1960 Author Organization [facility] Address [address] [place] [address] Care Team Providers Name Role Phone Laurence Krause Primary Care Provider [phone] Arabella Laurent NP Primary Care Provider Encounter Details Date Type Department Care Team Description 07/29/2018 Abstract [facility] Chastity Syed Acu te renal failure, unspecified acute renal failure type ([facility]); Nephrology - S Essential hypertension; [address] Chronic kidney disease, stag e III (moderate) ([facility]) [address] [place] [address] [facility] [place] [phone] (Wo rk) Social History Tobacco [...] Telemedicine Nephrology Juan Syed MD 1 [facility], Level [address] [place], [place] [phone] (Wo rk) documented as of this encounter Procedures Procedure Name Priority Date/Time Associated Diagnosis Comme nts BASIC METABOLIC Routine 07/27/2018 8:30 EST Acute renal failur e, Results for this PANEL (BMP) unspecified acute procedure are in renal failure type the resul ts ([facility]) section. Essential hypertension Chronic kidney disease, stage III (moderate) ([facility]) documented in this encounter Results BASIC METABOLIC PANEL (BMP) (07/27/2018 8:30 EST) Pathologist Sig nature GFR, Calculated, 33.97 [facility] Glucose, Serum, 98 [facility] Calculated Calcium, [facility] BUN, External 25 [facility] Calcium, External 9.2 [facility] Chloride, External 108 [facility] CO2, External 29.0 [facility] Creatinine, External 1.56 [facility] Fasting?, External [facility] Potassium, External 4.3 [facility] Sodium, External 143 [facility] Specimen Blood specimen (specimen) Performing Organization Address City/State/ZIP Code Phon e Number [facility] documented in this encounter Visit Diagnoses Diagnosis Acute renal failure, unspecified acute r enal failure type ([facility]) (HCC) Essential hypertension Unspecified essential hypertension Chronic kidney disease, stage III (moder ate) ([facility]) Chronic kidney disease, Stage III (moder ate) documented in this encounter Care Teams Cabin Outfitter Relationship Specialty Start Date End Date Laurence Krause PA PCP - General 09/12/17 07/29/18 [address] [place] [phone] Arabella Laurent NP PCP - General 07/30/18 [address] [place] [phone] documented as of this encounter
--- OUTSIDE RECORDS SUMMARY | 2022-03-04 12:22 | XMS_ITS | Encounter Summary ---
:[address] [facility] Address [address] [place] [address] Care Team Providers Name Role Phone Anastasiia Arbaella Bree OUTPLACEMENT CONSULTANT Primary Care Provider Encounter Details Date Type Department Care Team Description 01/04/2021 Abstract [facility] Joaquina Syed MD Nephrology - S Prosp ect [address] [place] [id number] [place] [phone] (Wo rk) Social History Tobacco Use Types [...] Description 03/11/2022 Telemedicine Nephrology Juan Syed MD [address] [place] [address], [facility] [address] [place], [place] [phone] (Wo rk) documented as of this encounter Procedures Procedure Name Priority Date/Time Associated Diagnosis Comme nts BASIC METABOLIC PANEL Routine 01/02/2021 Result s for this (BMP) procedure are i n the results section . documented in this encounter Results BASIC METABOLIC PANEL (BMP) (01/02/2021) Pathologist Sig nature GFR, Calculated, 28.51 [facility] LAB Glucose, Serum, External 107 [facility] Calculated Calcium, [facility] BUN, External 25 [facility] Calcium, External 9.3 [facility] Chloride, External 106 [facility] CO2, External 22.6 [facility] Creatinine, External 1.8 [facility] Fasting?, External [facility] Potassium, External 4.3 [facility] Sodium, External 140 [facility] Specimen Blood - Venous blood (substance) Performing Organization Address City/State/ZIP Code Phon e Number [facility] [address] [place] [address] documented in this encounter Visit Diagnoses Not on filedocumented in this encounter Care Teams Service Counselor Relationship Specialty Start Date End Date Arabella Laurent, OUTPLACEMENT CONSULTANT PCP - General 07/30/18 [address] [place] [phone] documented as of this encounter
--- OUTSIDE RECORDS SUMMARY | 2022-03-04 12:22 | XMS_ITS | Encounter Summary ---
:1960 Author Organization [facility] Address [address] [place] [address] Care Team Providers Name Role Phone Melanie Rosen SCHOOL LUNCH MONITOR Primary Care Provider Encounter Details Date Type Department Care Team Description 12/12/2014 Results Only [facility] Melanie Rosen SCHOOL LUNCH MONITOR [phone] [facility] [address] [place], [place] [address] (Wo rk) Social History Tobacco Use Types Packs/Day Years Used Date Never Assessed Sex Assigned at Date Recorded Not on file documented as of this encounter Plan of Treatment Upcoming Encounters Date Type Specialty Care Team Description 03/11/2022 Telemedicine Nephrology Juan Syed MD 1 [facility], Level [address] [place], [place] [phone] (Wo rk) documented as of this encounter Procedures Procedure Name Priority Date/Time Associated Diagnosis Comme nts PAP TEST- RESULT Routine 12/12/2014 0:00 EDT Resu lts for this ONLY procedure are i n the results section. documented in this encounter Results PAP TEST- RESULT ONLY (12/12/2014 0:00 EDT) Pathology Report: CYTOPATHOLOGY REPORT [facility] Reports generated via electronic interface contain petar ginal data; SERVICES however they are lacking the format of the original re port. Caution should be taken when reading/interpreting unfo rmatted reports. Name: ? KIA WRIGHT ? Accession #: ? [id number] : ? 1960 (Age: [age]) ??F ?Collect Date: ? 12/12 Location: ? [facility] ? Receive Date : ? 12/14/2014 Provider: ?MELANIE ROSEN SCHOOL LUNCH MONITOR Copy to: ? Specimen/Source: ? Pap Test, Cervix/Endocervix, ThinPrep Imaging System with manual evaluation Last Menstrual Period: ? 5 yrs Previous Gynecologic Pathology: ? ASC-US: pap 04/20/14 HPV: + 12/09/06 ASC-US Other: ? Additional clinical information: normal 03/06/11 ? SPECIMEN ADEQUACY ? Satisfactory for Evaluation - transformation zone component present - scant squamous epithelial component GENERAL CATEGORIZATION ? Epithelial Cell Abnormality INTERPRETATION ? Squamous Cell Abnormality - Atypical squamous c ells, undetermined significance (ASC-US). EDUCATIONAL NOTES/RECOMMENDATIONS ? [facility] recommends foll owing ASCCP's 2012 Updated Consensus Guidelines for the Management of Abnormal Cervical Cancer Screening T ests and Cancer Precursors (JLGTD, 2013; 17(5):S1-S27). ??Conse nsus guidelines are available online at www.asccp.org. ? Document reviewed and electronically signed by: ? RAZ STARR MD ? Report Date: ??12/22/2014 10:04 End of Report Specimen Performing Organization Address City/State/ZIP Code Phon e Number [facility] [address] [place] [address] SERVICES documented in this encounter Visit Diagnoses Not on filedocumented in this encounter Care Teams Grants Analyst Relationship Specialty Start Date End Date Melanie Rosen NP PCP - General 01/01/12 09/11/[address] [facility] [address] [place] [address] documented as of this encounter
--- OUTSIDE RECORDS SUMMARY | 2022-03-04 12:22 | XMS_ITS | Encounter Summary ---
:1960 Author Organization [facility] Address [address] [place] [address] Care Team Providers Name Role Phone Anastasiia Arabella Giron NURSE WOUND CARE Primary Care Provider Encounter Details Date Type Department Care Team Description 04/18/2021 Lab Requisition [facility] Outr Resulting Lab, Pathology & Laboratory Provider [facility] [address] [place] [phone] Social History Tobacco Use Types Packs/Day Years [...] 03/11/2022 Telemedicine Nephrology Juan Syed MD 1 [facility], Level [address] [place], [place] [phone] (Wo rk) documented as of this encounter Procedures Procedure Name Priority Date/Time Associated Diagnosis Comme nts COVID-19 TEST [facility] Today 04/18/2021 11:10 LAB PCR EST COVID-19 TESTING Routine 04/18/2021 11:10 Results for this EST procedure are i n the results section. documented in this encounter Results COVID-19 TEST [facility] PCR (04/18/2021 11:10 EST) Specimen Swab Performing Organization Address City/[facility] Code Phon e Number [facility] [address] [place] [address] SERVICES COVID-19 TESTING (04/18/2021 11:10 EST) COVID-19 rt-PCR Negative Negative [facility] Result Comment: CENTER LABORATORY This test has not been FDA c leared or approved. This test has been authorized by FDA under an EUA for use by authorized laboratories. This test has been authorized only for detection of nucleic acid fro SERVICES m 2019-nCoV, not for any oth er viruses or pathogens. This test is only authorized for the duration of the declaration that circumstances exist justifying the authorization of emergency use of in vitro d iagnostic tests for detectio n and/or diagnosis of 2019-nCoV under section 564(b)(1) of Act, 21 U.S.C ?? 360bbb-3(b) (1), unless the authorization is terminated or revoked sooner. Negative results do not prec lude 2019-nCoV infection and should not be used as the sole basis for treatment or other patient management decisions. Negative results must be combined with clinical observa tions, patient history, and epidemiological informatio n. Testing was performed using the kiara SARS-CoV-2 assay ([employer] on the Kiara 6800 System Performing Lab Kiara 6800 [facility] Lab [facility] SERVICES Specimen Swab Performing Organization Address City/[facility]/ZIP Code Phon e Number [facility] [address] [place] [address] SERVICES documented in this encounter Visit Diagnoses Not on filedocumented in this encounter Care Teams Glass Checker Relationship Specialty Start Date End Date Arabella Laurent NP PCP - General 07/30/18 [address] [place] [phone] documented as of this encounter
--- OUTSIDE RECORDS SUMMARY | 2022-03-04 12:22 | XMS_ITS | Encounter Summary ---
:1960 Author Organization [facility] Address [address] [place] [address] Care Team Providers Name Role Phone Laurence Krause Primary Care Provider [phone] Arabella Laurent NP Primary Care Provider Encounter Details Date Type Department Care Team Description 06/24/2018 Orders Only [facility] Chastity Syed Acu te renal failure, Nephrology - S unspecified acute [place] 1 [facility] renal failure type 1 [facility] ([facility]) (Primary Dx) [place] [address] Rehab, [place] [phone] (Wo rk) Social History Tobacco [...] 03/11/2022 Telemedicine Nephrology Juan Syed MD 1 [facility], Level [address] [place], [place] [phone] (Wo rk) documented as of this encounter Visit Diagnoses Diagnosis Acute renal failure, unspecified acute r enal failure type (HCC-CMS) (HCC) - Primary documented in this encounter Care Teams Hospital Education Coordinator Relationship Specialty Start Date End Date Laurence Krause PA PCP - General 09/12/17 07/29/18 [address] [place] [phone] Arabella Laurent, ROLF PCP - General 07/30/18 [address] [place] [phone] documented as of this encounter
--- OUTSIDE RECORDS SUMMARY | 2022-03-04 12:22 | XMS_ITS | Encounter Summary ---
:1960 Author Organization [facility] Address [address] [place] [address] Care Team Providers Name Role Phone Arabella Laurent STARCH CRAB Primary Care Provider Reason for Visit Reason Onset Date Comments Other 03/15/2021 Encounter Details Date Type Department Care Team Description 03/15/2021 Telephone [facility] Joaquina Syed MD Other Nephrology - S Prosp ect [address], Level [address] [place], [place] [address] [place] [phone] (Wo rk) Social History Tobacco Use [...] this encounter Miscellaneous Notes Telephone Encounter - Mona Michaels RN - 03/15/2021 1352 EDT Call to patient , and discussed CKD education. Information also sent in the mail. SHe will go to her PCP and bring her BP cuff to check it, as she is not sure that it is working right. SHe will call back with further questions once she sees her PCP elephone Encounter - Hilary Danielle - 03/15/2021 0923 EDT Pt calling about a few things she would like addressed : Pt calling wondering how long she has until dialysis Pt also wants to know how long she may have had CKD4 Clarify AVS instructions with pt please Pt also wondering if there is anything to do to slow it down CKD Referral to nephrology dietitian if possible Thank you documented in this encounter Plan of Treatment Upcoming Encounters Date Type Specialty Care Team Description 03/11/2022 Telemedicine Nephrology Juan Syed MD 1 [facility], Level [address] [place], [place] [phone] (Wo rk) documented as of this encounter Visit Diagnoses Not on filedocumented in this encounter Care Teams Resident Athletic Trainer Relationship Specialty Start Date End Date Arabella Laurent NP PCP - General 07/30/18 [address] [place] [phone] documented as of this encounter
--- OUTSIDE RECORDS SUMMARY | 2022-03-04 12:22 | XMS_ITS | Encounter Summary ---
:1960 Author Organization [facility] Address [address] [place] [address] Care Team Providers Name Role Phone Laurence Krause Primary Care Provider [phone] Encounter Details Date Type Department Care Team Description 06/17/2018 Abstract [facility] Joaquina Syed MD Nephrology - S Prosp ect [address] [place] [phone] [place] [phone] (Wo rk) Social History Tobacco Use Types [...] Description 03/11/2022 Telemedicine Nephrology Juan Syed MD [address] [place] [address], [facility] 2 [place], [place] [phone] (Wo rk) documented as of this encounter Procedures Procedure Name Priority Date/Time Associated Diagnosis Comme nts BASIC METABOLIC PANEL Routine 02/24/2018 Result s for this (BMP) procedure are i n the results section . COMPLETE BLOOD COUNT Routine 12/24/2017 Results for this procedure are i n the results section . BASIC METABOLIC PANEL Routine 12/24/2017 Result s for this (BMP) procedure are i n the results section . documented in this encounter Results BASIC METABOLIC PANEL (BMP) (02/24/2018) Pathologist [facility] GFR, Calculated, 29.56 [facility] Glucose, Serum, 119 [facility] Calculated Calcium, [facility] BUN, External 27 [facility] Calcium, External 9.0 [facility] Chloride, External 106 [facility] CO2, External 25.7 [facility] Creatinine, External 1.76 [facility] Fasting?, External [facility] Potassium, External 4.1 [facility] Sodium, External 142 [facility] Specimen Blood specimen (specimen) Performing Organization Address City/[facility] Phon e Number [facility] BASIC METABOLIC PANEL (BMP) (12/24/2017) Pathologist [facility] GFR, Calculated, 33.47 [facility] Glucose, Serum, 95 [facility] Calculated Calcium, [facility] BUN, External 25 [facility] Calcium, External 9.6 [facility] Chloride, External 107 [facility] CO2, External 24.4 [facility] Creatinine, External 1.58 [facility] Fasting?, External [facility] Potassium, External 5.0 [facility] Sodium, External 141 [facility] Specimen Blood specimen (specimen) Performing Organization Address City/[facility]/ZIP [facility] Phon e Number [facility] COMPLETE BLOOD COUNT (12/24/2017) [facility] HCT, External 42.5 [facility] MCH, External 35.0 [facility] MCV, External 99.3 [facility] MCHC, External [facility] Hemoglobin, External 15.0 [facility] WBC, External 7.06 [facility] RBC, External 4.28 [facility] PLT, External 181 [facility] RDW-CV, External 13.0 [facility] Specimen Blood specimen (specimen) Performing Organization Address City/State/ZIP Code Phon e Number [facility] documented in this encounter Visit Diagnoses Not on filedocumented in this encounter Care Teams Senior Tax Manager Relationship Specialty Start Date End Date Laurence Krause PA PCP - General 09/12/17 07/29/18 [address] [place] [phone] documented as of this encounter
--- OUTSIDE RECORDS SUMMARY | 2022-03-04 12:22 | XMS_ITS | Encounter Summary ---
:1960 Author Organization [facility] Address [address] [place] [address] Care Team Providers Name Role Phone Laurence Krause Primary Care Provider [phone] Reason for Visit Reason Comments Chronic Kidney Disease I was told that my kidney nu mbers were off - about 3 weeks. She had seen a kidney doctor here many years ago. Back Pain Other She had a left kidney remove d at age 10 years. She is still smoking - I have not tried t o quit. Hypertension The BP is doing good today. The dose of Lisinopril was cut in half and she was feeling diz zy then and her blood pressure was low as low 100s then. No marcy kirill dizzy. No overt nausea or vomiting. No urinary symptom s. Acute Renal Failure The patient recallsn that sh e had a higher serum creatinine of 2.6 earlier tis year when th e Lisinopril was reduced by 50% from 20 mg daily ton 10 mg d aily. A new level from 08-26-17 showed a creatinine improved at 1.74 mg/dL. Consult, Test and Treat (Routine) - Authorization Not Required Specialty Diagnoses / Procedures Referred By Contact Refer red To Contact Nephrology [facility] 1 [place], [place] [address] Phone: Fax: Referral ID Status Reason Start Expiration Visits Visits Date Date Requested Authorized [id number] Authorization Not 1 1 Required Encounter Details Date Type Department Care Team Description 09/15/2017 Office Visit [facility] Chastity Syed Acu te renal failure, unspecified acute renal failure type (HCC-CMS) (Primary Dx); Nephrology - S Essential hypertension; [place] 1 [facility] Chronic kidney disease, stag e III (moderate) [address] [place] [address] Rehab, [place] [phone] (Wo rk) Social History Tobacco Use Types Packs/Day Years Used Date Current Every Day Smoker Smokeless Tobacco: Never Used Sex Assigned at Date Recorded Not on file documented as of this encounter Last Filed Vital Signs Vital Sign Reading Time Taken Comments Blood Pressure 126/75 09/15/2017 1305 EDT Pulse 82 09/15/2017 1305 EDT Temperature - - Respiratory Rate - - Oxygen Saturation - - Inhaled Oxygen Concentration - - Weight 51.7 kg (114 lb) 09/15/2017 1305 EDT Height 144.8 cm (4' 9) 09/15/2017 1305 EDT Body Mass Index 24.67 09/15/2017 1305 EDT documented in this encounter Functional Status [...] making decisions? documented as of this encounter Progress Notes Chastity Syed MD - 09/15/2017 1300 EDT NEW OFFICE VISIT NOTE SUBJECTIVE 56-yo WW new patient visit in nephrology for review of CKD status, otherwise asymptomatic with history of hypertension against a background of a single kidney s/p left nephrectomy at age 10 years - shethinks it was when I was born. 09/15/2017 Chief Complaint Patient presents with ??? Chronic Kidney Disease I was told that my kidney numbers were off - about 3 weeks. She had seen a kidney doctor here many years ago. ??? Back Pain ??? Other She had a left kidney removed at age 10 years. She is still smoking - I have not tried to quit. ??? Hypertension The BP is doing good today. The dose of Lisinopril was cut in half and she was feeling dizzy then and her blood pressure was low as low 100s then. No longer dizzy. No overt nausea or vomiting. No urinary symptoms. ??? Acute Renal Failure The patient recallsn that she had a higher serum creatinine of 2.6 earlier tis year when the Lisinopril was reduced by 50% from 20 mg daily ton 10 mg daily. A new level from 08-26-17 showed a creatinine improved at 1.74 mg/dL. s/p Nephrectomy at age 10 years. HPI As above. Otherwise asymptomatic. Patient Active Problem List Diagnosis ??? Chronic kidney disease, stage III (moderate) ??? Essential hypertension ??? Proteinuria S/p nephrectomy at age 10 years. History reviewed. No pertinent past medical history. History reviewed. No pertinent surgical history. Current Outpatient Prescriptions: albuterol (PROAIR HFA) 90 mcg/actuation inhaler amlodipine [...] No current facility-administered medications for this visit. Lisiniopril dose reduced to 10 mg daily about 4-6 weeks ago. Allergies Allergen Reactions ??? Neurontin [Gabapentin] ??? Zantac [Ranitidine Hcl] Rash Social History Substance Use Topics ??? Smoking status: Current Every Day Smoker ??? Smokeless tobacco: Never Used ??? Alcohol use None History reviewed. No pertinent family history. REVIEW OF SYSTEMS A complete ten-point review of systems was obtained. BP 126/75 (BP Cuff Location: Right arm, Patient Position: Sitting, BP Cuff Sizes: Adult, regular) Pulse 82 Ht (!) 144.8 cm (57) Wt 51.7 kg (114 lb) BMI 24.67 kg/m2 Serum Creatinine Values from the EMR: 1.3 in 01/2009, 1.5 in 06/2009, 1.4 in 07/2009, 1.2 in 09/2009, 1.3 in 12/2009, 1.5 in 08/2010, 1.5 that correlated with a GFR of 36 in 05/2011 1.6 in 12/2011. 1.6 in 06/2012 ?? General appearance: alert, cooperative, no distress Head: Normocephalic, without obvious abnormality, atraumatic Neck: supple, symmetrical, trachea midline and no JVD Lungs: clear to auscultation bilaterally Heart: regular rate and rhythm, S1, S2 normal, no murmur, click, rub or gallop Abdomen: soft, non-tender; bowel sounds normal; no masses, no organomegaly Mental Status: awake and alert; oriented to person, place, and time Extremities: extremities warm, atraumatic, no cyanosis or edema no edema, redness or tenderness in the calves or thighs positive pulses melia Syed MD 09/15/2017 13:31 No results found for: K, NA, CL, CO2, TBIL, AST, ALT, LABALBU, TP, CREATININE, CALCGFR, CALCIUM, CALCCA, SERGLU, FASTFASTN2 No results found for: WBC, RBC, HGB, HCT, MCV, MCH, MCHC, RDWCV, RDWSD, PLT No results found for: WBCU, RBCU, SQUAEPIU, RENEPIU, BACTERIA, CRYST, LABCAST, UACOMMENT, COMUAUCMI Lab Results Component Value Date COLOR YELLOW 09/23/2012 COLOR YELLOW 02/05/2012 CLARITYU Clear 09/23/2012 CLARITYU Clear 02/05/2012 KETONES Neg 09/23/2012 KETONES Neg 02/05/2012 UROBILINOGEN 0.2 09/23/2012 UROBILINOGEN 0.2 02/05/2012 NITRITE Neg 09/23/2012 NITRITE Neg 02/05/2012 LEUKESTER Neg 09/23/2012 LEUKESTER Neg 02/05/2012 POC UA showed 1+ blood and 3+ proteinuria - the latter is not new. Urine microscopy showed the occasional WBC and many stand-alone epithelial cells. ASSESSMENT & PLAN CKD III with serum creatinine generally between 1.3 mg/dL and 1.6 mg/dL between 2008 and December 2016. It would appear that while on Lisinopril, 20 mg daily, she had become orthostatic and dizzy with creatnine reported by thepatient as up to 2.6 mg/dL. Her PCP reduced the dose by 50% and she is no longer orthostatic. The latest creatinine is down to 1.74 from 08-26-17. Will get BMP every 2 months indefinitely starting in September 2017. The plan will be to see in a year if kidney function stabilizes at about 1.6 mg/dL. To avoid NSAIDs. 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 Hypertension controlled - avoid hypotension. Smoking cessation will be discussed with PCP and the tail worker. documented in this encounter Plan of Treatment Upcoming Encounters Date Type Specialty Care Team Description 03/11/2022 Telemedicine Nephrology Juan Syed MD 1 [facility], Level [address] [place], [place] [phone] (Wo rk) documented as of this encounter Procedures Procedure Name Priority Date/Time Associated Diagnosis Comme nts POCT URINE Routine 09/15/2017 13:36 Acute renal failure, Res ults for this DIPSTICK, CLINITEK EDT unspecified acute proc edure are in renal failure type the resul ts ([facility]) section. documented in this encounter Results (ABNORMAL) POCT URINE DIPSTICK (09/15/2017 13:36 EDT) Color YELLOW [facility] Clarity, UA CLOUDY [facility] Glucose Neg [facility] Bilirubin Neg [facility] Ketones Neg [facility] Specific [place] 1.020 1.001 - 1.035 [facility] Blood 1+ (A) [facility] pH 5.5 4.6 - 8.0 [facility] Protein 3+ (A) Neg [facility] Urobilinogen 0.2 0.2 - 1.0 [facility] Nitrite Neg Neg [facility] Leuk Esterase 1+ (A) Neg [facility] oven attendant ID [id number]: [facility] Test Performed at LABORATORY Renal Services SERVICES Specimen Urine (substance) - Urine Performing Organization Address City/State/ZIP Code Phon e Number [facility] [address] [place] [address] SERVICES documented in this encounter Visit Diagnoses Diagnosis Acute renal failure, unspecified acute r enal failure type (HCC-CMS) (HCC) - Primary Essential hypertension Unspecified essential hypertension Chronic kidney disease, stage III (moder ate) (HCC) Chronic kidney disease, Stage III (moder ate) documented in this encounter Care Teams Soaking Tank Worker Relationship Specialty Start Date End Date Laurence Krause PA PCP - General 09/12/17 07/29/18 [address] [place] [phone] documented as of this encounter
--- OUTSIDE RECORDS SUMMARY | 2022-03-04 12:22 | XMS_ITS | Encounter Summary ---
:1960 Author Organization [facility] Address [address] [place] [address] Care Team Providers Name Role Phone Anastasiia Arabella Bree WAXER TENDER Primary Care Provider Encounter Details Date Type Department Care Team Description 01/11/2020 Abstract [facility] Joaquina Syed MD Nephrology - S Prosp ect [address] [place] [id number] [place] [phone] (Wo rk) Social History Tobacco Use Types [...] Description 03/11/2022 Telemedicine Nephrology Juan Syed MD [address] [place] [address], [facility] [address] [place], [place] [phone] (Wo rk) documented as of this encounter Procedures Procedure Name Priority Date/Time Associated Diagnosis Comme nts BASIC METABOLIC Routine 01/10/2020 13:10 Results for this PANEL (BMP) EDT procedure are i n the results section. documented in this encounter Results BASIC METABOLIC PANEL (BMP) (01/10/2020 13:10 EDT) Pathologist Sig nature GFR, Calculated, 28.98 [facility] Glucose, Serum, 113 [facility] Calculated Calcium, [facility] BUN, External 23 [facility] Calcium, External 8.9 [facility] Chloride, External 106 [facility] CO2, External 24.1 [facility] Creatinine, External 1.78 [facility] Fasting?, External [facility] Potassium, External 4.1 [facility] Sodium, External 140 [facility] Specimen Blood - Venous blood (substance) Performing Organization Address City/State/ZIP Code Phon e Number [facility] documented in this encounter Visit Diagnoses Not on filedocumented in this encounter Care Teams Senior Internal Auditor Relationship Specialty Start Date End Date Arabella Laurent, WAXER TENDER PCP - General 07/30/18 [address] [place] [address] documented as of this encounter
--- OUTSIDE RECORDS SUMMARY | 2022-03-04 12:22 | XMS_ITS | Encounter Summary ---
:1960 Author Organization [facility] Address [address] [place] [address] Care Team Providers Name Role Phone Anastasiia Arabella Giron NP Primary Care Provider Reason for Visit Reason Onset Date Comments Nutrition Counseling 03/15/2021 Encounter Details Date Type Department Care Team Description 03/15/2021 Telephone [facility] Mona Michaels Nu trition Counseling [place] [address] Social History Tobacco Use Types Packs/Day Years [...] Telephone Encounter - Mona Michaels RN - 03/20/2021 1528 EDT Call to patient to let her know that a diet consult has been ordered. She also received her education in the mail elephone Encounter - Mona Michaels RN - 03/20/2021 1527 EDT Please inform the patient that I have ordered a CKD IV Dietitian referral. Pedro Syed elephone Encounter - Mona Michaels RN - 03/15/2021 1356 EDT Patient calling to request a nutrition consult around CKD> documented in this encounter Plan of Treatment Upcoming Encounters Date Type Specialty Care Team Description 03/11/2022 Telemedicine Nephrology Juan Syed MD 1 [facility], Level 2 [place], [place] [phone] (Wo rk) documented as of this encounter Visit Diagnoses Not on filedocumented in this encounter Care Teams Associate Dentist Relationship Specialty Start Date End Date Arabella Laurent, ROLF PCP - General 07/30/18 [address] [place] [address] documented as of this encounter
--- OUTSIDE RECORDS SUMMARY | 2022-03-04 12:22 | XMS_ITS | Encounter Summary ---
:1960 Author Organization [facility] Address [address] [place] [address] Care Team Providers Name Role Phone Arabella Laurent NP Primary Care Provider Encounter Details Date Type Department Care Team Description 08/17/2021 Abstract [facility] Chastity Syed, CKD (chronic kidney Nephrology - S MD disease), stage IV [address] (HCC-CMS) (HCC) [address] [place] [address] (Primary Dx) [place] [address] Rehab, [place] [phone] (Wo rk) Social History Tobacco Use Types [...] 03/11/2022 Telemedicine Nephrology Juan Syed MD 1 [facility] Rehab, Level 2 [place], [place] [phone] (Wo rk) documented as of this encounter Procedures Procedure Name Priority Date/Time Associated Diagnosis Comme nts BASIC METABOLIC PANEL Routine 08/08/2021 CKD (chronic kidney Results for this (BMP) disease), stage IV procedure are in the ([facility]) ([facility]) results sect ion. documented in this encounter Results BASIC METABOLIC PANEL (BMP) (08/08/2021) Pathologist Sig nature GFR, Calculated, 28.51 [facility] External [facility] Glucose, Serum, External 96 [facility] Calculated Calcium, [facility] External [facility] BUN, External 26 [facility] Calcium, External 9.4 [facility] Chloride, External 104 [facility] CO2, External 25.2 [facility] Creatinine, External 1.8 [facility] Fasting?, External [facility] Potassium, External 4.5 [facility] Sodium, External 139 [facility] Specimen Blood - Venous blood (substance) Performing Organization Address City/State/[facility] Code Phon e Number [facility] [address] [place] [address] documented in this encounter Visit Diagnoses Diagnosis CKD (chronic kidney disease), stage IV ( [facility]) ([facility]) - Primary Chronic kidney disease, Stage IV (severe ) documented in this encounter Care Teams Recording Studio Intern Relationship Specialty Start Date End Date Arabella Laurent, MECHANICAL ASSEMBLER PCP - General 07/30/18 [address] [place] [phone] documented as of this encounter
--- OUTSIDE RECORDS SUMMARY | 2022-03-04 12:22 | XMS_ITS | Encounter Summary ---
:1960 Author Organization [facility] Address [address] [place] [address] Care Team Providers Name Role Phone Laurence Krause Primary Care Provider [phone] Encounter Details Date Type Department Care Team Description 07/06/2018 Phlebotomy Only [facility] Dredge Operator, Acute renal failure, - Main [place] Outpatient unspecified acute [address] [facility] renal failure type [place], [place] ([facility]) (Pr imary [address] Dx) [phone] Social History Tobacco Use Types Packs/Day Years [...] 03/11/2022 Telemedicine Nephrology Juan Syed MD 1 [facility], Level 2 [place], [place] [phone] (Wo rk) documented as of this encounter Procedures Procedure Name Priority Date/Time Associated Diagnosis Comme nts BASIC METABOLIC Routine 07/06/2018 12:03 Acute renal failure, Results for this PANEL (BMP) EST unspecified acute procedure are in renal failure type the [facility] ([facility]) section. documented in this encounter Results (ABNORMAL) BASIC METABOLIC PANEL (BMP) (07/06/2018 12:03 EST) Sodium 143 136 - 145 [facility] mEq/L LABORATORY SERVICES Potassium 4.8 3.5 - 5.0 [facility] mEq/L [facility] Chloride 109 96 - 110 [facility] mEq/L [facility] CO2 24 22 - 32 mEq/L [facility] BUN 21 10 - 26 mg/dl [facility] Creatinine 1.55 (H) 0.52 - 1.04 [facility] mg/dl LABORATORY SERVICES GFR, Calculated 36 (L) >60 [facility] Comment: ml/min/1.73m2 LABORATORY eGFR calculated using CKD-EPI equation for SERVICES non Americans. Multiply eGFR by 1.16 for Americans. Calcium 9.3 8.5 - 10.5 [facility] mg/dl LABORATORY SERVICES Calculated Calcium 9.2 8.5 - 10.5 [facility] mg/dl [facility] SERVICES Glucose, Serum 87 70 - 100 [facility] mg/dl [facility] SERVICES Fasting? No [facility] Specimen Blood specimen (specimen) - Blood Performing Organization Address City/State/ZIP Code Phon e Number [facility] [address] [place] [address] SERVICES documented in this encounter Visit Diagnoses Diagnosis Acute renal failure, unspecified acute r enal failure type ([facility]) ([facility]) - Primary documented in this encounter Care Teams Glove Maker Relationship Specialty Start Date End Date Laurence Krause PA PCP - General 09/12/17 07/29/[address] [place] [phone] documented as of this encounter
--- OUTSIDE RECORDS SUMMARY | 2022-03-04 12:22 | XMS_ITS | Encounter Summary ---
:1960 Author Organization [facility] Address [address] [place] [address] Care Team Providers Name Role Phone Melanie Pulido NP Primary Care Provider Encounter Details Date Type Department Care Team Description 01/06/2017 Results Only [facility]- Laurence Ocampo, PA [address] [place], [place] [phone] (Wo rk) Social History Tobacco Use Types Packs/Day Years Used Date Never Assessed Sex Assigned at Date Recorded Not on file documented as of this encounter Plan of Treatment Upcoming Encounters Date Type Specialty Care Team Description 03/11/2022 Telemedicine Nephrology Juan Syed MD 1 [facility], Level 2 [place], [place] [phone] (Wo rk) documented as of this encounter Procedures Procedure Name Priority Date/Time Associated Diagnosis Comme nts PAP TEST- RESULT Routine 01/06/2017 0:00 EDT Resu lts for this ONLY procedure are i n the results section. documented in this encounter Results PAP TEST- RESULT ONLY (01/06/2017 0:00 EDT) Pathology Report: CYTOPATHOLOGY REPORT [facility] Reports generated via electronic interface contain petar ginal data; SERVICES however they are lacking the format of the original re port. Caution should be taken when reading/interpreting unfo rmatted reports. Name: ? SIGOUIN, KIA J ? Accession #: ? [id number] : ? 1960 (Age: [age]) ??F ?Collect Date: ? 2016 Location: ? [facility] ? Receive Date : ? 01/08/2017 Provider: ?LAURENCE KATE Copy to: ? Specimen/Source: ? Pap Test, Cervix/Endocervix, ThinPrep Imaging System with manual evaluation Last Menstrual Period: ? 2009 Previous Gynecologic Pathology: ? ASC-US: [id number] Infection History: ? Pos for HPV: 2008 ? SPECIMEN ADEQUACY ? Satisfactory for Evaluation - transformation zone component present GENERAL CATEGORIZATION ? Negative for Intraepithelial Lesion or Malignan cy INTERPRETATION ? Reactive cellular elzbieta nges associated with inflammation present (includes repair). ? Document reviewed and electronically signed by: ? JOVANY MILLARD MD ? Report Date: ??01/17/2017 09:02 End of Report Specimen Performing Organization Address City/State/ZIP Code Phon e Number [facility] [address] [place] [address] SERVICES documented in this encounter Visit Diagnoses Not on filedocumented in this encounter Care Teams Station Repairer Relationship Specialty Start Date End Date Melanie Pulido NP PCP - General 01/01/12 09/11/17 [facility] [address] [place] [address] documented as of this encounter
--- OUTSIDE RECORDS SUMMARY | 2022-03-04 12:22 | XMS_ITS | Encounter Summary ---
:1960 Author Organization [facility] Address [address] [place] [address] Care Team Providers Name Role Phone Melanie Pulido COMMERCIAL ARTIST LETTERING Primary Care Provider Encounter Details Date Type Department Care Team Description 10/07/2012 Abstract [facility] Nephrology - Lana Rojas MD [address] [phone] Social History Tobacco Use Types Packs/Day Years Used Date Never Assessed Sex Assigned at Date Recorded Not on file documented as of this encounter Plan of Treatment Upcoming Encounters Date Type Specialty Care Team Description 03/11/2022 Telemedicine Nephrology Juan Syed MD [address] [place] [address], Level [address] [place], [place] [phone] (Wo rk) documented as of this encounter Procedures Procedure Name Priority Date/Time Associated Diagnosis Comme nts URINE Routine 10/06/2012 Results for thi s [id number] proced ure are in the RATIO (ACR) results section . documented in this encounter Results (ABNORMAL) ALBUMIN, URINE (10/06/2012) Pathologist Sig nature Microalb ug/mg Crea, 953.8 [facility] Microalb mg/dl, 313.8 (A) 1.30 - 20.0 [facility] Creatinine, Random U 32.9 [facility] ([facility] Specimen Urine (substance) Performing Organization Address City/State/ZIP Code Phon e Number [facility] documented in this encounter Visit Diagnoses Not on filedocumented in this encounter Care Teams Search Specialist Relationship Specialty Start Date End Date Melanie Pulido, COMMERCIAL ARTIST LETTERING PCP - General 01/01/12 09/11/17 [facility] [address] [place] [address] documented as of this encounter
--- OUTSIDE RECORDS SUMMARY | 2022-03-04 12:22 | XMS_ITS | Encounter Summary ---
:1960 Author Organization [facility] Address [address] [place] [address] Care Team Providers Name Role Phone Anastasiia Arabella Bree METAL DRILL OPERATOR Primary Care Provider Encounter Details Date Type Department Care Team Description 07/18/2020 Abstract [facility] Joaquina Syed MD Nephrology - S Prosp ect [address] [place] [address] [place] [phone] (Wo rk) Social History Tobacco Use Types [...] Description 03/11/2022 Telemedicine Nephrology Juan Syed MD [address] [place] [address], [facility] [address] [place], [place] [phone] (Wo rk) documented as of this encounter Procedures Procedure Name Priority Date/Time Associated Diagnosis Comme nts BASIC METABOLIC PANEL Routine 07/13/2020 Result s for this (BMP) procedure are i n the results section . documented in this encounter Results BASIC METABOLIC PANEL (BMP) (07/13/2020) Pathologist Sig nature GFR, Calculated, 28.60 [facility] Glucose, Serum, 111 [facility] Calculated Calcium, [facility] BUN, External 23 [facility] Calcium, External 9.4 [facility] Chloride, External 105 [facility] CO2, External 27.0 [facility] Creatinine, External 1.8 [facility] Fasting?, External [facility] Potassium, External 4.6 [facility] Sodium, External 139 [facility] Specimen Blood - Venous blood (substance) Performing Organization Address City/State/ZIP Code Phon e Number [facility] documented in this encounter Visit Diagnoses Not on filedocumented in this encounter Care Teams Family Service Center Director Relationship Specialty Start Date End Date Arabella Laurent NP PCP - General 07/30/18 [address] [place] [phone] documented as of this encounter
--- OUTSIDE RECORDS SUMMARY | 2022-03-04 12:22 | XMS_ITS | Encounter Summary ---
:1960 Author Organization [facility] Address [address] [place] [address] Care Team Providers Name Role Phone Arabella Laurent TELESALES ADVISOR Primary Care Provider Reason for Visit Laboratory Services (Routine) - New Request Specialty Diagnoses / Procedures Referred By Contact Refer red To Contact Diagnoses Acute renal failure, unspecified acute renal failure type (HCC-CMS) ([facility]) Chastity Syed MD Procedures BASIC METABOLIC PANEL (BMP) 1 [facility], Level 2 [place] [address] Referral ID Status Reason Start Date Expiration Date Visits V isits Requested Authorized [id number] New Request 08/09/2019 1 1 Encounter Details Date Type Department Care Team Description 08/09/2019 Phlebotomy Only [facility] Tour Conductor, S Acute renal failure, unspecified acute renal failure type ([facility]); Laboratory Services [place] [facility] Chronic kidney disease, stage III (moderate) ([facility]); - S [place] Microscopic hematuria [address] [place], [place] [address] Social History Tobacco Use Types Packs/Day Years [...] 03/11/2022 Telemedicine Nephrology Juan Syed MD 1 [facility], Level 2 [place], [place] [phone] (Wo rk) documented as of this encounter Procedures Procedure Name Priority Date/Time Associated Diagnosis Comme nts PTH INTACT Routine 08/09/2019 11:33 Acute renal failure, Res ults for this EDT unspecified acute procedure are in renal failure type the resul ts ([facility]) section. COMPLETE BLOOD COUNT Routine 08/09/2019 11:33 Chronic kidney R esults for this EDT disease, stage III procedure are in (moderate) ([facility]) the results Microscopic section. hematuria PHOSPHORUS Routine 08/09/2019 11:33 Acute renal failure, Res ults for this EDT unspecified acute procedure are in renal failure type the resul ts ([facility]) section. ALBUMIN Routine 08/09/2019 11:33 Chronic kidney Results f or this EDT disease, stage III procedure are in (moderate) ([facility]) the results Microscopic section. hematuria BASIC METABOLIC Routine 08/09/2019 11:33 Acute renal failure, Results for this PANEL (BMP) EDT unspecified acute procedure are in renal failure type the resul ts ([facility]) section. documented in this encounter Results ALBUMIN (08/09/2019 11:33 EDT) Pathologist Sig nature Albumin 3.8 3.4 - 4.9 g/dL [facility] Specimen Blood - Venous blood (substance) Performing Organization Address City/State/ZIP Code Phon e Number [facility] [address] [place] [address] SERVICES (ABNORMAL) COMPLETE BLOOD COUNT (08/09/2019 11:33 EDT) Pathologist Sig nature WBC 6.29 4.00 - 12.40 K/cmm [facility] RBC 4.05 3.86 - 5.04 M/cmm [facility] Hemoglobin 13.3 11.6 - 15.2 gm/dL [facility] HCT 40.1 34.9 - 44.4 % [facility] MCV 99 (H) 81 - 98 fl [facility] MCH 32.8 26.7 - 33.3 pg [facility] MCHC 33.2 32.1 - 35.9 gm/dL [facility] RDW-CV 13.2 <14.7 % [facility] RDW-SD 48.5 <50.4 fl [facility] PLT 204 141 - 377 K/cmm [facility] MPV 9.8 9.5 - 12.7 fl [facility] Specimen Blood - Venous blood (substance) Performing Organization Address City/[facility]/ZIP Code Phon e Number [facility] [address] [place] [address] SERVICES (ABNORMAL) PTH INTACT (08/09/2019 11:33 EDT) Pathologist Sig nature Intact PTH 104 (H) 19 - 88 pg/mL [facility] Specimen Blood - Venous blood (substance) Performing Organization Address City/[facility]/ZIP Code Phon e Number [facility] [address] [place] [address] SERVICES PHOSPHORUS (08/09/2019 11:33 EDT) Pathologist Sig nature Phosphorus 3.5 2.5 - 4.5 mg/dL [facility] Specimen Blood - Venous blood (substance) Performing Organization Address [facility]/ZIP Code Phon e Number [facility] [address] [place] [address] SERVICES (ABNORMAL) BASIC METABOLIC PANEL (BMP) (08/09/2019 11:33 EDT) Sodium 139 136 - 145 [facility] mEq/L LAB[facility] SERVICES Potassium 4.2 3.5 - 5.0 [facility] mEq/L [facility] Chloride 108 96 - 110 [facility] mEq/L [facility] CO2 Total 25 22 - 32 mEq/L [facility] Glucose 92 70 - 100 [facility] mg/dL LABORATORY SERVICES Calcium 9.4 8.5 - 10.5 [facility] mg/dL LABORAT[facility] SERVICES Calculated Calcium 9.6 8.5 - 10.5 [facility] mg/dL [facility] BUN 23 10 - 26 mg/dL [facility] Creatinine 1.56 (H) 0.52 - 1.04 [facility] mg/dL LABORATORY SERVICES eGFR 36 (L)Comment: >60 [facility] eGFR calculated mL/min/1.73m2 LABORATORY using CKD-EPI SERVICES equation for non- Americans. Multiply eGFR by 1.16 for patients. Specimen Blood - Venous blood (substance) Narrative [facility] - 08/09/2019 12:50 EDT 2 Performing Organization Address City/State/ZIP Code Phon e Number [facility] [address] [place] [address] SERVICES documented in this encounter Visit Diagnoses Diagnosis Acute renal failure, unspecified acute r enal failure type (HCC-CMS) (HCC) Chronic kidney disease, stage III (moder ate) (HCC) Chronic kidney disease, Stage III (moder ate) Microscopic hematuria documented in this encounter Care Teams Rickshaw Driver Relationship Specialty Start Date End Date Arabella Laurent, ROLF PCP - General 07/30/18 [address] [place] [phone] documented as of this encounter
--- OUTSIDE RECORDS SUMMARY | 2022-03-04 12:22 | XMS_ITS | Encounter Summary ---
:1960 Author Organization [facility] Address [address] [place] [address] Care Team Providers Name Role Phone Arabella Laurent SEO ASSISTANT Primary Care Provider Encounter Details Date Type Department Care Team Description 01/12/2020 Lab Requisition [facility] Arabella Laurent, Bharat ferreira for Pathology & SEO ASSISTANT gynecological Laboratory Medicine - [address] [facility] (general) [facility] (routine) without [address] [place], [place] [phone] Social History Tobacco Use Types Packs/Day Years [...] Telemedicine Nephrology Juan Syed MD 1 [facility], Level 2 [place], [place] [phone] (Wo rk) documented as of this encounter Procedures Procedure Name Priority Date/Time Associated Diagnosis Comme nts PAP TEST Today 01/10/2020 13:15 Encounter for Results fo r this EDT gynecological procedure are in examination (general) the re sults (routine) without section. abnormal findings HUMAN PAPILLOMAVIRUS Today 01/10/2020 13:15 Encounter for Re sults for this (HPV) DETECTION-HIGH EDT gynecological proced ure are in RISK TYPES examination (general) the re sults (routine) without section. abnormal findings documented in this encounter Results HUMAN PAPILLOMAVIRUS (HPV) DETECTION-HIGH RISK TYPES (01/10/2020 13:15 EDT) Human Papillomavirus NegativeComment: No Negative [facility] (HPV) Detection-High E6 or E7 mRNA is CENTER LABORATOR Y Types detected from HPV SERVICES types 16,18,31,33,35,39,45 ,51,52,56,58,59,66, and 68 by orthodontic assistant mediated amplification. Specimen Pap Test - Cervix and/or Endocervix Performing Organization Address [facility] Phon e Number [facility] [address] [place] [address] SERVICES PAP TEST (01/10/2020 13:15 EDT) Specimens A. Cervix and/or [facility] Endocervix , ThinPrep CENTER Imaging System with LABORATORY Manual Evaluation SERVICES Specimen Adequacy Satisfactory for [facility] Evaluation - CENTER transformation zone LABORATORY component absent SERVICES General Negative for [facility] Categorization intraepithelial CENTER lesion or malignancy LABORATORY SERVICES Attestation . [facility] Electronically CENTER signed by JESÚS Koch [place], [place](ASCP ) on SERVICES 01/25/2020 at 15 32 HPV The result for the Human Pap illomavirus (HPV) Detection-High Risk Types is Negative. No E6 or E7 mRNA is detected from HPV types 16,18,31,33,35,39,45,51,52,56,58,59,66, and 68 by orthodontic assistant mediated [facility] amplification.Testing was pe rformed on specimen [id number] and was resulted on 01/25/2020 1526 EDT by JOSHUA, LAB INSTRUMENT RESULTS IN [facility] SERVICES Scanned Images [facility] SERVICES Specimen Pap Test - Cervix and/or Endocervix Performing Organization Address [facility] Phon e Number [facility] [address] [place] [address] SERVICES documented in this encounter Visit Diagnoses Diagnosis Encounter for gynecological examination (general) (routine) without abnormal findings documented in this encounter Care Teams Mailing Clerk Relationship Specialty Start Date End Date Arabella Laurent, SEO ASSISTANT PCP - General 07/30/18 [address] [place] [address] documented as of this encounter
--- OUTSIDE RECORDS SUMMARY | 2022-03-04 12:22 | XMS_ITS | Encounter Summary ---
:1960 Author Organization [facility] Address [address] [place] [address] Care Team Providers Name Role Phone Laurence Krause Primary Care Provider [phone] Reason for Visit Reason Onset Date Comments Follow-up 06/24/2018 Encounter Details Date Type Department Care Team Description 06/24/[address] [facility] Joaquina Syed MD Follow-up Nephrology - S Prosp ect [address], Level [address] [place], [place] [phone] [place] [phone] (Wo rk) Social History Tobacco Use [...] Telephone Encounter - Chastity Syed MD - 06/24/2018 1052 EST Serum creatinine trajectory reviewed: 1.58 mg/dL on 12-24-17. 1.76 on 02-24-18 1.86 on 05-11-18. PLAN: Ask the patient to repeat a BMP test and see me in the office as soon as possible. documented in this encounter Plan of Treatment Upcoming Encounters Date Type Specialty Care Team Description 03/11/2022 Telemedicine Nephrology Juan Syed MD 1 [facility], Level 2 [place], [place] [phone] (Wo rk) documented as of this encounter Visit Diagnoses Not on filedocumented in this encounter Care Teams Plush Weaver Relationship Specialty Start Date End Date Laurence Krause PA PCP - General 09/12/17 07/29/18 [address] [place] [address] documented as of this encounter
--- OUTSIDE RECORDS SUMMARY | 2022-03-04 12:22 | XMS_ITS | Encounter Summary ---
:[address] [facility] Address [address] [place] [address] Care Team Providers Name Role Phone Melanie Pulido NP Primary Care Provider Encounter Details Date Type Department Care Team Description 11/27/2012 Abstract [facility] Nephrology - Lana Rojas MD [address] [id number] Social History Tobacco Use Types Packs/Day Years Used Date Never Assessed Sex Assigned at Date Recorded Not on file documented as of this encounter Plan of Treatment Upcoming Encounters Date Type Specialty Care Team Description 03/11/2022 Telemedicine Nephrology Juan Syed MD [address] [place] [address], Level 2 [place], [place] [phone] (Wo rk) documented as of this encounter Procedures Procedure Name Priority Date/Time Associated Diagnosis Comme nts LIPID PROFILE (INCLUDES Routine 11/26/2012 Resu lts for this CHOLESTEROL, procedure are i n the TRIGLYCERIDES, HDL, LDL) res ults section. COMPREHENSIVE METABOLIC Routine 11/26/2012 Resu lts for this PANEL (CMP) procedure are i n the results section . documented in this encounter Results COMPREHENSIVE METABOLIC PANEL (CMP) (11/26/2012) Pathologist Sig nature GFR, Calculated, External 40 [facility] Glucose, Serum, External 95 [facility] Albumin, External [facility] Total Alkaline Phosphatase, [facility] External ALT, External 9 [facility] AST, External 5 [facility] BUN, External 29 [facility] Calculated Calcium, [facility] External Calcium, External 9.6 [facility] Chloride, External 108 [facility] CO2, External 25 [facility] Creatinine, External 1.38 [facility] Fasting?, External [facility] Potassium, External 4.5 [facility] Sodium, External 142 [facility] Total Protein, External [facility] Bilirubin, Total, External [facility] Specimen Blood specimen (specimen) Performing Organization Address City/[facility]/ZIP Code Phon e Number [facility] LIPID PROFILE (INCLUDES CHOLESTEROL, TRIGLYCERIDES, HDL, LDL) (11/26/2012) Pathologist Sig nature Cholesterol, External 276 [facility] Triglycerides, External 322 [facility] HDL, External 27 [facility] LDL, External 185 [facility] Chol/HDL Ratio, External 10.2 [facility] Fasting?, External [facility] Specimen Blood specimen (specimen) Performing Organization Address City/[facility] Phon e Number [facility] documented in this encounter Visit Diagnoses Not on filedocumented in this encounter Care Teams Flower Planter Relationship Specialty Start Date End Date Melanie Pulido NP PCP - General 01/01/12 09/11/17 [facility] [address] [place] [address] documented as of this encounter
--- OUTSIDE RECORDS SUMMARY | 2022-03-04 12:22 | XMS_ITS | Encounter Summary ---
:1960 Author Organization [facility] Address [address] [place] [address] Care Team Providers Name Role Phone Arabella Laurent NP Primary Care Provider Reason for Visit Reason Onset Date Comments Pre-visit Orders 08/09/2019 Encounter Details Date Type Department Care Team Description 08/09/2019 Telephone [facility] Mona Michaels RN Pre-visit Orders Nephrology - S Prosp ect [address] [place] [address] Social History Tobacco Use Types Packs/Day Years [...] Telephone Encounter - Mona Michaels RN - 08/09/2019 1328 EDT Pt was seen today and had her labs done here. elephone Encounter - Bethany Francois RN - 08/09/2019 1229 EDT Will have PSS schedule next available. Patient to have labs drawn several days before appointment. Labs already faxed to [facility] lab elephone Encounter - Mona Michaels, RN - 08/09/2019 1113 EDT ----- Message from Chastity Syed MD sent at 08/09/2019 9:45 EDT ----- Serum creatinine had increased to 1.86 mg/dL [...] and PTH and see me in the office. I have ordered these tests. She was last sen in Nephrology in July 2018. Thank you. Mac documented in this encounter Plan of Treatment Upcoming Encounters Date Type Specialty Care Team Description 03/11/2022 Telemedicine Nephrology Juan Syed MD 1 [facility], Level 2 [place], [place] [phone] (Wo rk) documented as of this encounter Visit Diagnoses Not on filedocumented in this encounter Care Teams Puddler Pile Driving Relationship Specialty Start Date End Date Arabella Laurent, ROLF PCP - General 07/30/18 [address] [place] [address] documented as of this encounter
--- OUTSIDE RECORDS SUMMARY | 2022-03-04 12:22 | XMS_ITS | Encounter Summary ---
:1960 Author Organization Health system Address [address] [place] [address] Care Team Providers Name Role Phone Anastasiia Arabella Bree CHRONOMETER ADJUSTER Primary Care Provider Encounter Details Date Type Department Care Team Description 06/19/2021 Abstract [facility] Joaquina Syed MD Nephrology - S Prosp ect [address] [place] [id number] [place] [phone] (Wo rk) Social History Tobacco Use Types [...] Description 03/11/2022 Telemedicine Nephrology Juan Syed MD [address] [place] [address], [facility] [address] [place], [place] [phone] (Wo rk) documented as of this encounter Procedures Procedure Name Priority Date/Time Associated Diagnosis Comme nts BASIC METABOLIC PANEL Routine 06/04/2021 Result s for this (BMP) procedure are i n the results section . documented in this encounter Results BASIC METABOLIC PANEL (BMP) (06/04/2021) Pathologist Sig nature GFR, Calculated, 26.79 [facility] LAB Glucose, Serum, External 105 [facility] Calculated Calcium, [facility] BUN, External 33 [facility] Calcium, External 9.0 [facility] Chloride, External 107 [facility] CO2, External 25.5 [facility] Creatinine, External 1.9 [facility] Fasting?, External [facility] Potassium, External 3.8 [facility] Sodium, External 143 [facility] Specimen Blood - Venous blood (substance) Performing Organization Address City/State/ZIP Code Phon e Number [facility] [address] [place] [address] documented in this encounter Visit Diagnoses Not on filedocumented in this encounter Care Teams Probation And Parole Officer Relationship Specialty Start Date End Date Arabella Laurent, CHRONOMETER ADJUSTER PCP - General 07/30/18 [address] [place] [phone] documented as of this encounter
--- OUTSIDE RECORDS SUMMARY | 2022-03-04 12:23 | XMS_ITS | Encounter Summary ---
:1960 Author Organization [facility] Address [address] [place] [address] Care Team Providers Name Role Phone Unavailable Primary Care Provider Unavailable Encounter Details Date Type Department Care Team Description 12/09/2006 Results Only [facility] - Delphine Ross od, BAR AND FILLER ASSEMBLER conversion [address] [place] [phone] (Wo rk) Social History Tobacco Use Types Packs/Day Years Used Date Never Assessed Sex Assigned at Date Recorded Not on file documented as of this encounter Plan of Treatment Upcoming Encounters Date Type Specialty Care Team Description 03/11/2022 Telemedicine Nephrology Juan Syed MD 1 [facility], Level 2 [place], [place] [phone] (Wo rk) documented as of this encounter Procedures Procedure Name Priority Date/Time Associated Comments Diagnosis HPV DETECTION, HIGH Routine 12/09/2006 16:10 Resu lts for this RISK TYPES EDT procedure are i n the results section. CYTOPATHOLOGY Routine 12/09/2006 0:00 Results for this EDT procedure are i n the results section. documented in this encounter Results HUMAN PAPILLOMA VIRUS DNA TEST (12/09/2006 16:10 EDT) Specimen Description Cervix, ThinPrep [facility] vial LAB Result Positive for one or more of HPV types 16,18,31,33,35,39,45,51,52,56,58,59, or 68. These JASON Goyal LLBOLA high/intermediate risk HPV t ypes are associated with dysplasia and some cervical cancers. LAB Report Status Final [facility] [id number] LAB Specimen Performing Organization Address City/State/ZIP Code Yessica Wang [facility] [address] [place] [address] SERVICES [facility] [address] [place] [address] CYTOPATHOLOGY (12/09/2006 0:00 EDT) Pathology Report: CYTOPATHOLOGY REPORT [facility] Reports generated via electronic interface contain petra ginal data; however they are lacking the format of the original re port. Caution should be taken when reading/interpreting unfo rmatted reports. Name: ? KIA WRIGHT ? Accession #: ? [id number] : ? 1960 (Age: 45) ??F ?Collect Date: ? 11/30 Location: ? [facility] ? Receive Date : ? 12/11/2006 Provider: ?DELPHINE CHANDLER [facility] Copy to: ? Specimen/Source: ? ThinPrep Pap Test, Cervix/Endocervix, processed on [employer] ThinPrep Imaging System, with manual evaluation Last Menstrual Period: ? 11/24/06 Other: ? HPVA - HPV testing requested if ASC-US on the current ThinPrep Pap test. ? SPECIMEN ADEQUACY ? Satisfactory for Evaluation - transformation zone component present GENERAL CATEGORIZATION ? Epithelial Cell Abnormality INTERPRETATION ? Squamous Cell Abnormality - Atypical squamous c ells, undetermined significance (ASC-US). EDUCATIONAL NOTES/RECOMMENDATIONS ? [facility] recommends follo wing the 2001 Consensus Guidelines for the Management of Women with Cervical Cytological Abnormalities (RENARD Goyal,2002;287:2120-9). Management algorithms have b een distributed by [facility] and are available online at www.ASCCP.org. ? Document reviewed and electronically signed by: ? Brandee Massey MD ? Report Date: ??12/17/2006 17:26 End of Report Specimen Performing Organization Address City/State/ZIP Code Phon e Number [facility] [address] [place] [address] SERVICES [facility] [address] [place] [address] documented in this encounter Visit Diagnoses Not on filedocumented in this encounter
--- OUTSIDE RECORDS SUMMARY | 2022-03-04 12:23 | XMS_ITS | Encounter Summary ---
:1960 [place] [address] Care Team Providers Name Role Phone Laurence Krause Primary Care Provider [phone] Encounter Details Date Type Department Care Team Description 12/25/2017 Telephone [facility]ology at [facility] Kelsie Klein [facility] [place] [phone] Social History Tobacco Use Types Packs/Day Years Used Date Current Every Day Smoker Cigarettes 1 Smokeless Tobacco: Never Used Sex Assigned at Date Recorded Not on file documented as of this encounter Miscellaneous Notes Telephone Encounter - Kelsie Klein RN - 12/25/2017 3:56 PM EDT Returned call to patient to make her aware a prescription for Protonix was sent to her [facility] in [place], [place] Telephone Encounter - Kelsie Klein RN - 12/25/2017 2:35 PM EDT Patient calls the office leaving a message on the RN voicemail stating that Anu prescribed Dexilant, but her insurance will not cover it, but states that they will cover Protonix. Message being sent to Sushma Bianchi APRN who is covering for LAVINIA Chung who is out of the office. documented in this encounter Plan of Treatment Not on filedocumented as of this encounter Visit Diagnoses Not on filedocumented in this encounter Care Teams Certified Surgical Technician Relationship Specialty Start Date End Date Laurence Krause PA PCP - General Orthopaedic Surgery 10/30/17 03/06/20 documented as of this encounter
--- OUTSIDE RECORDS SUMMARY | 2022-03-04 12:23 | XMS_ITS | Encounter Summary ---
:1960 Author Organization [facility] Address [address] [place] [address] Care Team Providers Name Role Phone Unavailable Primary Care Provider Unavailable Encounter Details Date Type Department Care Team Description 03/06/2011 Results Only [facility] Melanie Rosen NP Laboratory Services - Lucy [facility] [address] [place] [address] [address] [facility] [place], [place] [id number] [phone] Social History Tobacco Use Types Packs/Day Years Used Date Never Assessed Sex Assigned at Date Recorded Not on file documented as of this encounter Plan of Treatment Upcoming Encounters Date Type Specialty Care Team Description 03/11/2022 Telemedicine Nephrology Juan Syed MD 1 [facility], Level 2 [place], [place] [phone] (Wo rk) documented as of this encounter Procedures Procedure Name Priority Date/Time Associated Diagnosis Comme nts PAP TEST- RESULT Routine 03/06/2011 0:00 EDT Resu lts for this ONLY procedure are i n the results section. documented in this encounter Results PAP TEST- RESULT ONLY (03/06/2011 0:00 EDT) Pathology Report: CYTOPATHOLOGY REPORT [facility] Reports generated via electronic interface contain petar ginal data; however they are lacking the format of the original re port. Caution should be taken when reading/interpreting unfo rmatted reports. Name: ? KIA WRIGHT ? Accession #: ? [id number] : ? 1960 (Age: 50) ??F ?Collect Date: ? 09/2010 Location: ? [facility] ? Receive Date : ? 03/08/2011 Provider: ?MELANIE ROSEN BUYER PLANNER Copy to: ? Specimen/Source: ? Pap Test, Cervix/Endocervix, ThinPrep Imaging System with manual evaluation Last Menstrual Period: ? 07/13 Previous Gynecologic Pathology: ? ASC-US: 12/09/06 HPV: + 12/09/06 Treatment History: ? Colposcopy: 02/06 Cervical biopsy: 02/06 Bx x 2 metaplasia Other: ? Additional clinical information: Normal pap 08/16/08 ? SPECIMEN ADEQUACY ? Satisfactory for Evaluation - transformation zone component present GENERAL CATEGORIZATION ? Negative for Intraepithelial Lesion or Malignan cy ? Document reviewed and electronically signed by: ? Melanie Farrar, SCT(ASCP) ? Report Date: ??03/14/2011 16:03 End of Report Specimen Performing Organization Address City/State/ZIP Code Phon e Number [facility] [address] [place] [phone] SERVICES [facility] [address] [place] [address] documented in this encounter Visit Diagnoses Not on filedocumented in this encounter
--- OUTSIDE RECORDS SUMMARY | 2022-03-04 12:23 | XMS_ITS | Encounter Summary ---
:1960 Author Organization [facility] Address [address] [place] [address] Care Team Providers Name Role Phone Melanie Pulido SENIOR ADMINISTRATIVE ASSOCIATE Primary Care Provider Encounter Details Date Type Department Care Team Description 02/05/2012 Abstract [facility] Danisha Truong MD Nephrology - S Prosp ect [address] [facility] 1 [place], [place] [id number] [place] [address] [phone] Social History Tobacco Use Types Packs/Day Years Used Date Never Assessed Sex Assigned at Date Recorded Not on file documented as of this encounter Plan of Treatment Upcoming Encounters Date Type Specialty Care Team Description 03/11/2022 Telemedicine Nephrology Juan Syed MD 1 [facility], Level 2 [place], [place] [phone] (Wo rk) documented as of this encounter Procedures Procedure Name Priority Date/Time Associated Diagnosis Comme nts COMPLETE BLOOD COUNT Routine 11/19/2011 Results for this procedure are i n the results section . COMPREHENSIVE METABOLIC Routine 11/19/2011 Resu lts for this PANEL (CMP) procedure are i n the results section . documented in this encounter Results COMPREHENSIVE METABOLIC PANEL (CMP) (11/19/2011) Pathologist Sig nature GFR, Calculated, External [facility] Glucose, Serum, External 105 [facility] Albumin, External 3.8 [facility] Total Alkaline Phosphatase, 119 [facility] External ALT, External 20 [facility] AST, External 17 [facility] BUN, External 13 [facility] Calculated Calcium, External [facility] Calcium, External 9.8 [facility] Chloride, External 104 [facility] CO2, External 25.4 [facility] Creatinine, External 1.6 [facility] Fasting?, External [facility] Potassium, External 4.3 [facility] Sodium, External 139 [facility] Total Protein, External 7.1 [facility] Bilirubin, Total, External 0.51 [facility] Specimen Blood specimen (specimen) Performing Organization Address City/State/ZIP Code Phon e Number EXTERNAL LAB HEMAGRAM (11/19/2011) Pathologist Sig nature HCT, External 42.0 [facility] MCH, External 35.1 [facility] MCV, External 101.0 [facility] MCHC, External 34.8 [facility] Hemoglobin, External 14.6 [facility] WBC, External 6.03 [facility] RBC, External 4.16 [facility] LAB PLT, External 181 [facility] RDW-CV, External 12.8 [facility] Specimen Blood specimen (specimen) Performing Organization Address City/[facility]/ZIP Code Phon e Number EXTERNAL LAB documented in this encounter Visit Diagnoses Not on filedocumented in this encounter Historical Medications This list may reflect changes made after this encounter. Medication Sig Dispensed Refills Start Date End Date cholecalciferol, Vitamin Take 1,000 Units by 0 D3, 1,000 unit tablet mouth daily. DULOXETINE HCL (CYMBALTA Take 60 mg by mouth 0 ORAL) daily. famotidine (PEPCID) 20 mg Take 20 mg by mouth 0 tablet daily. amlodipine (NORVASC) 5 mg Take 5 mg by mouth 0 tablet daily. zolpidem (AMBIEN) 10 mg Take 10 mg by mouth 0 tablet at bedtime as needed. DOCOSAHEXANOIC ACID/EPA Take by mouth as 0 (FISH OIL ORAL) needed. hydrocodone-acetaminophen Take 1 tablet by 0 (LORTAB;VICODIN) 5-500 mg mouth 2 times daily tablet as needed for Pain. trazodone (DESYREL) 100 mg Take 200 mg by 0 tablet mouth at bedtime as needed. lisinopril (PRINIVIL, Take 10 mg by mouth 0 08/03/2018 ZESTRIL) 20 mg tablet daily. morphine (MS CONTIN) 15 mg Take 15 mg by mouth 0 08/03/2018 CR tablet every 12 hours. added in this encounter Care Teams Spring Layer Relationship Specialty Start Date End Date Melanie Pulido NP PCP - General 01/01/12 09/11/17 [facility] [address] [place] [address] documented as of this encounter
--- OUTSIDE RECORDS SUMMARY | 2022-03-04 12:23 | XMS_ITS | Encounter Summary ---
:1960 Author Organization [facility] [place] [address] Care Team Providers Name Role Phone Arabella Laurent APRN Primary Care Provider Encounter Details Date Type Department Care Team Description 04/18/2020 Orders Only Vascular Surgery at [facility] Bandar Rosado APRN Claudication [facility] [place] [address] VASCULAR SURGERY [phone] [place] [id number] (Wo rk) Social History Tobacco Use Types Packs/Day Years Used Date Current Every Day Smoker Cigarettes 1 Smokeless Tobacco: Never Used Sex Assigned at Date Recorded Not on file documented as of this encounter Plan of Treatment Not on filedocumented as of this encounter Results CHARLI, legs, multiple levels (12/01/2020 1:57 PM EDT) Component Value Ref Test Analysis Performed At [facility] Range Method Time Signature VB Text Department: Vascular Surgery Lab [facility] Report Patient: [id number] (KIA WRIGHT) CPT: 66265 ICD10: I77.1;I70.213;I70.413;I73.9 Referring Physician: BANDAR ROSADO APRN ?? Phone: Indications: bilateral lower extremity pain, intermittent claudication, ? lower extremity arterial disease Diabetes mellitus: no ICD10 Diagnosis Code: I77.1, I70.213, I73.9 Findings: Right ?Pressure (mm Hg) ?? CHARLI ??Waveform ?? Brachial Artery ?130 ? Common Femoral Artery ?Triphasic ?? Popliteal Artery ? Triphasic ?? Dorsalis Pedis (Ankle) Arter y ?103 ? 0.79 ??Triphasic ?? Posterior Tibial (Ankle) Artery ??106 ? 0.82 ??Triphasic ?? Left ? Pressure (mm Hg) ?? CHARLI ??Waveform ?? Brachial Artery ?127 ? Common Femoral Artery ?Triphasic ?? Popliteal Artery ? Triphasic ?? Dorsalis Pedis (Ankle) Arter y ?127 ? 0.98 ??Triphasic ?? Posterior Tibial (Ankle) Artery ??133 ? 1.02 ??Triphasic ?? Interpretation: RIGHT: Mild lower extremity arterial occlusive disease. LEFT: No significant lower extremity arterial oc clusive disease identified at rest. Normal ankle/brachial pressure ratios and ankle Dopple r waveforms. Comparison: No previous study in our vascular lab database for compariso n. Electronically Signed by: NATIVIDAD CHAPMAN on 2020-12-05 11:55 :54 AM VB Text End of Report VASCUBASE Report Specimen (Source) Anatomical Collection Method Collection Time Re ceived Time Location / / Volume Laterality 12/01/2020 1:57 PM EDT Bandar Rosado APRN VASCULAR ORDERABLES Performing Organization Address City/State/ZIP Code Phon e Number V[facility] documented in this encounter Visit Diagnoses Diagnosis Claudication Peripheral vascular disease, unspecified documented in this encounter Care Teams Ldr Rn Relationship Specialty Start Date End Date Arabella Laurent APRN PCP - General Family Medicine 03/07/20 [address] [place] [address] documented as of this encounter
--- OUTSIDE RECORDS SUMMARY | 2022-03-04 12:23 | XMS_ITS | Encounter Summary ---
:1960 Author Organization [facility] [place] [address] Care Team Providers Name Role Phone Laurence Krause Primary Care Provider [phone] Encounter Details Date Type Department Care Team Description 01/08/2018 Telephone Gastroenterology at [facility] Anu Murphy PA [facility] [place] [address] [place] [address] [phone] (Wo rk) Social History Tobacco Use Types Packs/Day Years Used Date Current Every Day Smoker Cigarettes 1 Smokeless Tobacco: Never Used Sex Assigned at Date Recorded Not on file documented as of this encounter Miscellaneous Notes Telephone Encounter - Anu Murphy - 01/08/2018 12:15 PM EDT I spoke with Mrs. Barnett this afternoon by phone. 1. She picked up Rx for PPI. However, given her hx, she does not want to take this as she read aboutside effect of kidney failure. We discussed risks including the low risk of acute interstitial nephritis. 2. I suggest we proceed with EGD and Haro testing off medications to evaluate for acid in the esophagus that may be contributing to her symptoms. She does have some heartburn/reflux although not as bothersome as her epigastric pain. She is currently taking Pepcid daily. 3. Since she has never had a colonoscopy, will schedule screening colonoscopy at the same time. After our last visit, she scheduled a colonoscopy at her local facility but will cancel that. 4. I will place order for EGD with Haro and colonoscopy and will ask scheduling team to call her toarrange. 5. Will also schedule a follow up visit in the office ~2-3 weeks after testing. She understands and agrees with the plan. LAVINIA Marcos documented in this encounter Plan of Treatment Not on filedocumented as of this encounter Visit Diagnoses Diagnosis Upper abdominal pain Abdominal pain, other specified site Gastroesophageal reflux disease, esophag itis presence not specified Encounter for screening colonoscopy Special screening for malignant neoplasm s, colon documented in this encounter Care Teams Vegetable Farming Supervisor Relationship Specialty Start Date End Date Laurence Krause PA PCP - General Orthopaedic Surgery 10/30/17 03/06/20 documented as of this encounter
--- OUTSIDE RECORDS SUMMARY | 2022-03-04 12:23 | XMS_ITS | Encounter Summary ---
:1960 Author Organization [facility] [place] [address] Care Team Providers Name Role Phone Laurence Krause Primary Care Provider [phone] Encounter Details Date Type Department Care Team Description 12/29/2017 Telephone Gastroenterology at [facility] Rian Block, [place] [address] Social History Tobacco Use Types Packs/Day Years Used Date Current Every Day Smoker Cigarettes 1 Smokeless Tobacco: Never Used Sex Assigned at Date Recorded Not on file documented as of this encounter Miscellaneous Notes Telephone Encounter - Rian Block RN - 12/29/2017 1:43 PM EDT Patient picked up pantoprazole (Protonix) from pharmacy. Insurance would not cover Dexilant. She read the package insert warning regarding possibility of acute interstitial nephritis. She is very concerned as I only have one [kidney]. History of stage III kidney disease. She does not want to take without discussing with LAVINIA Chung. Advised her Anu is out of the office this week but will discuss with her on her return. The patient indicates understanding of these issues and agrees with the plan. documented in this encounter Plan of Treatment Not on filedocumented as of this encounter Visit Diagnoses Not on filedocumented in this encounter Care Teams Sap Integration Architect Relationship Specialty Start Date End Date Laurence Krause PA PCP - General Orthopaedic Surgery 10/30/17 03/06/20 documented as of this encounter
--- OUTSIDE RECORDS SUMMARY | 2022-03-04 12:23 | XMS_ITS | Encounter Summary ---
:1960 Author Organization [facility] Address [address] [place] [address] Care Team Providers Name Role Phone Unavailable Primary Care Provider Unavailable Encounter Details Date Type Department Care Team Description 08/24/2007 Results Only [facility] - Delphine Ross od, WELT STITCHER conversion [address] [place] [phone] (Michela rk) Social History Tobacco Use Types Packs/Day Years Used Date Never Assessed Sex Assigned at Date Recorded Not on file documented as of this encounter Plan of Treatment Upcoming Encounters Date Type Specialty Care Team Description 03/11/2022 Telemedicine Nephrology Juan Syed MD [address] [facility], [address] [place], [place] [address] (Wo rk) documented as of this encounter Procedures Procedure Name Priority Date/Time Associated Diagnosis Comme nts CYTOPATHOLOGY Routine 08/24/2007 0:00 EDT Results for this procedure are i n the results section . documented in this encounter Results CYTOPATHOLOGY (08/24/2007 0:00 EDT) Pathology Report: CYTOPATHOLOGY REPORT [facility] Reports generated via electronic interface contain petar ginal data; however they are lacking the format of the original re port. Caution should be taken when reading/interpreting unfo rmatted reports. Name: ? KIA WRGIHT ? Accession #: ? [id number] : ? 1960 (Age: 46) ??F ?Collect Date: ? 08/01 Location: ? [facility] ? Receive Date : ? 08/25/2007 Provider: ?DELPHINE SMARTOD WELT STITCHER Copy to: ? Specimen/Source: ? ThinPrep Pap Test, Cervix/Endocervix, processed on [employer] ThinPrep Imaging System, with manual evaluation Last Menstrual Period: ? 08/14/07 Previous Gynecologic Pathology: ? ASC-US: 12/09/06 HPV: + 12/09/06 Treatment History: ? Colposcopy: 02/06 Cervical biopsy: 02/06 bx x 2 sq. metaplasia Other: ? HPVA - HPV testing requested if ASC-US on the current ThinPrep Pap test. ? SPECIMEN ADEQUACY ? Satisfactory for Evaluation - transformation zone component present GENERAL CATEGORIZATION ? Negative for Intraepithelial Lesion or Malignan cy INTERPRETATION ? Reactive cellular elzbieta nges associated with inflammation present (includes repair). ? Document reviewed and electronically signed by: ? JOEL LANDRUM MD ? Report Date: ??08/31/2007 15:00 End of Report Specimen Performing Organization Address City/State/ZIP Code Phon e Number [facility] [address] [place] [address] [facility] [address] [place] [address] documented in this encounter Visit Diagnoses Not on filedocumented in this encounter
--- OUTSIDE RECORDS SUMMARY | 2022-03-04 12:23 | XMS_ITS | Encounter Summary ---
:1960 Author Organization [facility] [place] [address] Care Team Providers Name Role Phone Arabella Laurent APRN Primary Care Provider Reason for Visit Consultation (OLIVER) - Closed Specialty Diagnoses / Procedures Referred By Contact Refer red To Contact Vascular Surgery Diagnoses Peripheral vascular disease, unspecified Atherosclerotic heart disease of seminole coronary artery without angina pectoris Arabella Laurent, DENISHA [facility] Vascular Surg [address] [place] [address] [place] [address] Phone: Referral ID Status Reason Start Date Expiration Date Visits V isits Requested Authorized [id number] Closed Consult, Test 10/17/2020 10/17/2021 [facility] PCP Updated and/or Approved Encounter Details Date Type Department Care Team Description 12/01/2020 Office Visit Vascular Surgery at [facility] In termittent claudication; [facility] [place] [employer] Atherosclerosis of seminole artery of righ t lower extremity, with unspecified presence of clinical manifestation [facility] [address] [place] VASCULAR SURGERY [address] [place] [address] [phone] Social History Tobacco Use Types Packs/Day Years Used Date Current Every Day Smoker Cigarettes 1 Smokeless Tobacco: Never Used Sex Assigned at Date Recorded Not on file documented as of this encounter Last Filed Vital Signs Vital Sign Reading Time Taken Comments Blood Pressure 131/69 12/01/2020 2:47 PM EDT Pulse 72 12/01/2020 2:47 PM EDT Temperature - - Respiratory Rate - - Oxygen Saturation 98% 12/01/2020 2:47 PM EDT Inhaled Oxygen Concentration - - Weight 53.2 kg (117 lb 3.2 oz) 12/01/2020 2:47 PM EDT Height 147.3 cm (4' 10) 12/01/2020 2:47 PM EDT Body Mass Index 24.49 12/01/2020 2:47 PM EDT documented in this encounter Progress Notes Marjorie Kim, [employer] - 12/01/2020 3:00 PM EDT Vascular Clinic New Patient Consult Note Reason for visit: Intermittent Claudication HPI; 59 year old female with PMH HTN, HLD, CKD3, Hyperparathyroidiem, CAD, GERD who is referred to vascular surgery by PCP for evaluation of PAD. Patient states that occasionally when walking she has pain across hips, buttocks and front of thighs and has to stop, it does not happen all the time and occasionally it happens at rest. Denies calf claudication, tissue loss or rest pain. Denies SOB, CP, TIA Stroke symptoms. Is currently being followed for neck pain but no other changes to her health Current every day smoker /4-1/2PPD Atorvastatin ASA Prior vascular history: none Atherosclerotic Risk Factors: (n) DM (y) HTN (y) CAD (y) Hyperlipidemia (y) Tobacco (n) CVA Patient Active Problem List Diagnosis Code ??? HLD (hyperlipidemia) E78.5 ??? Hypertension I10 ??? CKD (chronic kidney disease) stage 3, GFR 30-59 ml/min N18.30 ??? Hyperparathyroidism E21.3 ??? CAD (coronary artery disease) I25.10 ??? Cigarette smoker F17.210 Allergies Allergen Reactions ??? Gabapentin ??? Ranitidine Hcl Rash Current Outpatient Medications on File Prior to Visit Medication Sig Dispense Refill ??? acyclovir (ZOVIRAX) 200 mg Capsule TK ONE C PO D ??? hydrOXYzine (Atarax) 25 mg Tablet Take 1-2 tablet by mouth nightly as needed for itching 60 tablet 1 ??? pantoprazole (PROTONIX) 20 mg Tablet, Delayed Release (E.C.) Take 1 tablet by mouth daily. 90 tablet 3 ??? aspirin 81 mg Tablet, Delayed Release (E.C.) Take 81 mg by mouth. ??? atorvastatin (LIPITOR) 40 mg Tablet Take 40 mg by mouth. ??? [place]-3 Fatty Acids-Fish Oil 340-1,000 mg Capsule Take by mouth. ??? amLODIPine (NORVASC) 5 mg Tablet Take 5 mg by mouth. ??? albuterol 90 mcg/actuation HFA Aerosol Inhaler Inhale 2 puffs into the lungs. ??? cholecalciferol, Vitamin D3, 1,000 unit Tablet Take 1,000 Units by mouth. ??? DULoxetine (CYMBALTA) 60 mg Capsule, Delayed Release(E.C.) Take 60 mg by mouth. ??? famotidine (PEPCID) 20 mg Tablet Take 20 mg by mouth. ??? metoprolol succinate (TOPROL-XL) 25 mg Tablet Sustained Release 24 hr Take 25 mg by mouth. ??? nitroGLYcerin (NITROSTAT) 0.4 mg Tablet, Sublingual Place 0.4 mg under the tongue. ??? traZODone (DESYREL) 100 mg Tablet Take 200 mg by mouth. ??? zolpidem (AMBIEN) 10 mg Tablet Take 10 mg by mouth. ??? HYDROcodone-acetaminophen (NORCO) 5-325 mg Tablet ??? dexlansoprazole (DEXILANT) 30 mg Cap, Delayed Rel., Multiphasic Take 1 capsule by mouth daily. 30 capsule 3 ??? lisinopril (PRINIVIL;ZESTRIL) 10 mg tablet (Patient taking differently: 20 mg) No current facility-administered medications on file prior to visit. Social History Socioeconomic History ??? Marital status: Single Spouse name: Not on file ??? Number of children: Not on file ??? Years of education: Not on file ??? Highest education level: Not on file Occupational History ??? Not on file Tobacco Use ??? Smoking status: Current Every Day Smoker Packs/day: 1.00 Types: Cigarettes ??? Smokeless tobacco: Never Used Substance and Sexual Activity ??? Alcohol use: Not on file ??? Drug use: Not on file ??? Sexual activity: Not on file Other Topics Concern ??? Not on file Social History Narrative ??? Not on file Social Determinants of Health Financial Resource Strain: ??? Difficulty of Paying Living Expenses: Food Insecurity: ??? Worried About Running Out of Food in the Last Year: ??? Ran Out of Food in the Last Year: Transportation Needs: ??? Lack of Transportation (Medical): ??? Lack of Transportation (Non-Medical): Physical Activity: ??? Days of Exercise per Week: ??? Minutes of Exercise per Session: ROS: negative except as noted in HPI Physical Exam: General: NAD, appears well Neuro: Alert and oriented, motor sensory grossly intact Ear, Nose, Throat: No masses or lesions Skin: No lesions or abnormal markings Lungs: CTA Heart: RRR Abd: Soft, NT, ND, no palpable pulsatile masses Extremity - [place], warm, no ulceration, brisk capillary refill, no edema Vascular: R L Carotid 2/2 bruit (n) 2/2 bruit (n) Radial 2/2 2/2 Femoral 2/2 2/2 Popliteal 2/2 2/2 DP 1/2 2/2 PT 1/2 2/2 Studies: Findings: ?? Right ?Pressure (mm Hg) ?? CHARLI ??Waveform ?? Brachial Artery ?130 ? Common Femoral Artery ?Triphasic ?? Popliteal Artery ? Triphasic ?? Dorsalis Pedis (Ankle) Artery ?103 ? 0.79 ??Triphasic ?? Posterior Tibial (Ankle) Artery ??106 ? 0.82 ??Triphasic ? Left ? Pressure (mm Hg) ?? CHARLI ??Waveform ?? Brachial Artery ?127 ? Common Femoral Artery ? Triphasic ?? Popliteal Artery ? Triphasic ?? Dorsalis Pedis (Ankle) Artery ?127 ? 0.98 ??Triphasic ?? Posterior Tibial (Ankle) Artery ??133 ? 1.02 ??Triphasic ? Interpretation: ?? RIGHT: Mild lower extremity arterial occlusive disease. ?? LEFT: No significant lower extremity arterial occlusive disease identified at rest. Normal ankle/brachial pressure ratios and ankle Doppler waveforms. ?? Comparison: No previous study in our vascular lab database for comparison. Assessment/Plan: 59 year old female with PMH HTN, HLD, CKD3, Hyperparathyroidiem, CAD, GERD who is referred to vascular surgery by PCP for evaluation of PAD. Patient states that occasionally when walking she has pain across hips, buttocks and front of thighs and has to stop, it does not happen all thetime and occasionally it happens at rest. Denies calf claudication, tissue loss or rest pain. DeniesSOB, CP, TIA Stroke symptoms. ABIs at todays visit reveal triphasic wave forms to bilateral femoral arteries, mild arterial occlusive disease to right leg and no significant arterial occlusive disease to left leg. I discussed PAD with her, reviewed s/s worsening PAD, discussed claudication, tissue loss and rest pain. Discussed relationship of PAD to cigarette smoking. Discussed importance of taking ASA and Statin. At this time I do not think that further testing is indicated. Can return PRN if claudication occursor she has rest pain or tissue loss or PCP has concerns of worsening PAD. - strongly recommended smoking cessation and briefly discussed avenues for quitting - continue daily high intensity statin and ASA - recommend tight control of co-morbidities - discussed walking program. Marjorie Kim, MSN, [employer] Vascular Surgery documented in this encounter Plan of Treatment Not on filedocumented as of this encounter Visit Diagnoses Diagnosis Intermittent claudication Peripheral vascular disease, unspecified Atherosclerosis of seminole artery of righ t lower extremity, with unspecified presence of clinical manifestation documented in this encounter Care Teams Molder Operator Relationship Specialty Start Date End Date Arabella Laurent, [employer] PCP - General Family Medicine 03/07/20 [address] [place] [address] documented as of this encounter
--- OUTSIDE RECORDS SUMMARY | 2022-03-04 12:23 | XMS_ITS | Encounter Summary ---
:1960 Author Organization [facility] [place] [address] Care Team Providers Name Role Phone Laurence Krause Primary Care Provider [phone] Reason for Visit Reason Comments GI Problem Consultation (Routine) - Closed Specialty Diagnoses / Procedures Referred By Contact Refer red To Contact Gastroenterology Diagnoses GERD Laurence Krause, [facility] [address] [place] [address] [place] [address] Fax: Referral ID Status Reason Start Date Expiration Date Visits V isits Requested Authorized [id number] Closed Consult, 10/30/2017 10/30/2018 1 1 [facility] Encounter Details Date Type Department Care Team Description 12/22/2017 Office Visit Gastroenterology at [facility] [place] Anu Murphy Gastroesophageal reflux dise ase, esophagitis presence not specified; [facility] LAVINIA Velazquez Upper abdominal pain; [place] [address] [facility] gas [phone] [place] [address] Social History Tobacco Use Types Packs/Day Years Used Date Current Every Day Smoker Cigarettes 1 Smokeless Tobacco: Never Used Sex Assigned at Date Recorded Not on file documented as of this encounter Last Filed Vital Signs Vital Sign Reading Time Taken Comments Blood Pressure 115/75 12/22/2017 12:25 PM EDT Pulse 66 12/22/2017 12:25 PM EDT Temperature - - Respiratory Rate - - Oxygen Saturation - - Inhaled Oxygen Concentration - - Weight 50.9 kg (112 lb 4.8 oz) 12/22/2017 12:25 PM EDT Height 149.9 cm (4' 11) 12/22/2017 12:25 PM EDT Body Mass Index 22.68 12/22/2017 12:25 PM EDT documented in this encounter Patient Instructions Patient InstructionsSuAnu palmer - 12/22/2017 1:00 PM EDT Thank you for coming in today. Here is a summary of what we discussed: 1. Stop Pepcid (famotidine). Take Dexilant once daily, 30-60 minutes before breakfast for ~ 8 weeks. 2. Diet changes as we discussed for gas and bloating 3. Let me know how you are doing in 2 months. If no improvement in upper abdominal pain, we will schedule upper endoscopy. Recommend colonoscopy at the same time. 4. Follow up in 6 months documented in this encounter Progress Notes Anu Murphy - 12/22/2017 1:00 PM EDT Gastroenterology & Hepatology New Patient Consultation Note PCP: LAVINIA Franco Requesting Provider: LAVINIA Franco Reason for consultation: Addie Barnett is a 56 y.o. female with medical history significant for chronic kidney disease stage III, hx DC, depression, fibromyalgia, HTN, HLD, smoker, chronic pain on narcotics. I am seeing her as a new patient today in consult for question of GERD. Subjective: HPI: She is here for abdominal pain and hx of nausea and vomiting. Was vomiting daily a year ago, a lot of family stress, but the nausea and vomiting has since essentially stopped. She reports she did vomitthis AM but it was d/t anxiety about this appointment. Vomitus is food. In the past year, she would vomit after eating. She was also having lower abd pain, but this has mostly resolved. Overall, reports things have been better over the last few months. Has Hx of heartburn, acid reflux. No dysphagia, odynophagia. Abd pain is epigastric, and both sides of upper abdomen. Epigastric and side pain is there every week but not daily. Has had it for years 10 yrs. Comes and goes, lasts hrs to a day. Famotidine helped abit. Thinks related to gas, reflux. Does not know if associated with meals. Does not wake her at night. On Pepcid for years - once before bed. X 10 yrs. Has tried Prilosec 10+ yrs ago. Thinks she also tried Prevacid. Not taken Protonix, Nexium, Dexilant to her recollection. Endorses a lot of gas, increased lately. Not much bloating. Bowel habits: BM every other day, no significant changes in bowel habits. Some days loose, some dayssolid. Constipation is not really an issue, more so she has loose stools. She is unable to say whether there she has blood or black/tarry stools. Denies pain with BM. No colonoscopy or EGD in the past. Had left kidney removed around age 10. Sees PCP regularly for checkups, q2 mo kidney fnct labs. Nextappt with her PCP is tomorrow. She thought her appt here today was for an upper endoscopy, not clinic visit. Diet review: B: bagel and juice L: skip D: meat and potatoes, vegetables, pasta Drinks water, 2-3 cups coffee, occasional sodas but not much now Weight: stable, 112 lbs today Appetite: good Sees PCP q 2 mo for labs (kidney function). Hx anemia when she had kids, not recently. Diagnostic studies: No colonoscopy or EGD in the past. ROS: Constitutional: Denies unintended weight loss, fatigue, fever, night sweats Eyes: Denies red or painful eyes ENT: Denies dysphagia, odynophagia, Resp: + cough, shortness of breath -- thinks related smoking Cardio: Denies chest pain, palpitations : Denies dysuria, incontinence Integumentary: Denies new rashes, sores, lesions GI: see HPI Musculoskeletal: + fibromyalgia, ongoing Psych: + ongoing, stress. depression, anxiety -- medication helps. Neuro: + intermittent headaches ALL/IMMUNO: Thinks Seasonal allergies MEDICAL HISTORY: Reviewed, see eDH scan docs: Chronic kidney disease GERD CAD Chronic pain back, neck, shoulders - on daily narcotics Fibromyalgia Depression Postmyocardial infarction syndrome HLD Proteinuria Bronchitis chronic HTN Smoker CURRENT MEDICATIONS: ??? aspirin 81 mg Tablet, Delayed Release (E.C.) ??? atorvastatin (LIPITOR) 40 mg Tablet ??? [place]-3 Fatty Acids-Fish Oil 340-1,000 mg Capsule ??? amLODIPine (NORVASC) 5 mg Tablet ??? albuterol 90 mcg/actuation HFA Aerosol Inhaler ??? cholecalciferol, Vitamin D3, 1,000 unit Tablet ??? DULoxetine (CYMBALTA) 60 mg Capsule, Delayed Release(E.C.) ??? famotidine (PEPCID) 20 mg Tablet ??? metoprolol succinate (TOPROL-XL) 25 mg Tablet Sustained Release 24 hr ??? nitroGLYcerin (NITROSTAT) 0.4 mg Tablet, Sublingual ??? traZODone (DESYREL) 100 mg Tablet ??? zolpidem (AMBIEN) 10 mg Tablet ??? HYDROcodone-acetaminophen (NORCO) 5-325 mg Tablet ??? lisinopril (PRINIVIL;ZESTRIL) 10 mg tablet [place] for yrs No NSAIDS d/t kidney disease ALLERGIES: Allergies Allergen Reactions ??? Gabapentin ??? Ranitidine Hcl Rash SURGICAL HISTORY: Appendectomy Kidney - removed left kidney age 10 yrs. HTN since. SOCIAL HISTORY: Not , has partner for 11 yrs. 2 Kids. Not working HABITS: Alcohol: none Tobacco: 1/2 to 1 PPD. Started age 12 FAMILY HISTORY: a lot of cancer but she does not know details Sister- pancreatic cancer There is no known family history of inflammatory bowel disease, celiac disease, or GI cancer (esophagus, stomach, colon). There is no history of liver or pancreas disease. Objective: PHYSICAL EXAMINATION: Most Recent Vitals: 12/22/17 1225 BP: 115/75 Pulse: 66 Body mass index is 22.68 kg/(m^2). GEN: Alert, well-appearing, no acute distress. Appears stated age. Cooperates and answers questions appropriately. Accompanied by her partner. SKIN: No rashes or abnormal lesions. NECK: No lymphadenopathy, thyromegaly. HEENT: Normal sclera, PERRL, oropharynx clear without ulceration or lesions. LUNGS: Clear to auscultation bilaterally. COR: Regular, normal S1 and S2 without murmurs ABD: Normal active bowel sounds. Soft and non-distended. Large midline scar s/p kidney removal. MildTTP in epigastrium, otherwise no tenderness to deep palpation in all 4 quadrants. No organomegaly, masses, rebound, guarding, ascites. EXT: No upper extremity cyanosis, clubbing. +2 radial pulses. No peripheral edema. PSYCH: mood appropriate, good eye contact, normal interaction Impression/Recommendations: Addie Barnett is a 56 y.o. year old female here for intermittent epigastric/upper abdominal pain and excess gas. At the time of her referral to our clinic, she was having significant nausea and vomiting. However, she states that these have essentially resolved. The nausea/vomiting was worst last summer and coincided with a lot of family stress. She does currently have intermittent upper GI pain butunable to say whether meal related or relieved with bowel movement/passing gas. She has a long hx ofGERD, with minimal current symptoms. Weight stable. No nocturnal symptoms. I do not have recent labs-- she gets regular check ups through PCP and reports no hx anemia in recent past. Reviewed GERD lifestyle measures. We discussed trial PPI (Dexilant) x 8 weeks and if no improvement, will schedule EGDto r/o esophagitis, gastritis, ulcer, PUD. She will let me know how she is doing in 8 weeks (phone or myD) and we can schedule endoscopy. She has never had a colonoscopy, and I recommended that she dothis for routine screening -- we can do at the same time as EGD. She seems reluctant to do this but will think about it. Consider labs at next visit if not already done by PCP: CBC, CMP, maybe CRP, lipase. For gas, bloating, we discussed low Fodmap diet. For her, eliminating lactose, certain fruits/vegetables, wheat, may be helpful. I provided information handouts. She prefers to call the office to schedule a follow up appt in ~6 months. PLAN (printed for patient): 1. Stop Pepcid (famotidine). Take Dexilant once daily, 30-60 minutes before breakfast for ~ 8 weeks. 2. Diet changes as we discussed for gas and bloating 3. Let me know how you are doing in 2 months. If no improvement in upper abdominal pain, we will schedule upper endoscopy. Recommend colonoscopy at the same time. 4. Follow up in 6 months The patient was given my contact information and will call me with concerns or questions. Anu Murphy PA-C Section of Gastroenterology [place] [address] documented in this encounter Plan of Treatment Not on filedocumented as of this encounter Visit Diagnoses Diagnosis Gastroesophageal reflux disease, esophag itis presence not specified Upper abdominal pain Abdominal pain, other specified site Excessive gas Flatulence, eructation, and gas pain documented in this encounter Care Teams Candy Waffle Assembler Relationship Specialty Start Date End Date Laurence Krause PA PCP - General Orthopaedic Surgery 10/30/17 03/06/20 documented as of this encounter
--- OUTSIDE RECORDS SUMMARY | 2022-03-04 12:23 | XMS_ITS | Encounter Summary ---
:1960 Author Organization [place] [address] Care Team Providers Name Role Phone Arabella Laurent APRN Primary Care Provider Encounter Details Date Type Department Care Team Description 03/07/2020 Refill Dermatology at [facility] Anjali Cotto, FISH GRADER [address] [facility] [place] [address] Social History Tobacco Use Types Packs/Day Years Used Date Current Every Day Smoker Cigarettes 1 Smokeless Tobacco: Never Used Sex Assigned at Date Recorded Not on file documented as of this encounter Plan of Treatment Not on filedocumented as of this encounter Visit Diagnoses Not on filedocumented in this encounter Care Teams Cardiovascular Technician Relationship Specialty Start Date End Date Arabella Laurent APRN PCP - General Family Medicine 03/07/20 María Elena SUAREZ [address] [place], [place] [address] documented as of this encounter
--- OUTSIDE RECORDS SUMMARY | 2022-03-04 12:23 | XMS_ITS | Encounter Summary ---
:1960 Author Organization [facility] Address [address] [place] [address] Care Team Providers Name Role Phone Unavailable Primary Care Provider Unavailable Encounter Details Date Type Department Care Team Description 04/24/2007 Before PRISM Converted [facility] - Lana Long, Visit (Mary Jo) Mary Jo tatum MD [address] [place] [address] Social History Tobacco Use Types Packs/Day Years Used Date Never Assessed Sex Assigned at Date Recorded Not on file documented as of this encounter Consult Notes Lana Long MD - 04/12/2009 1305 EST DIVISION OF NEPHROLOGY CONSULTATION - 04/24/2007 A consultation was requested by NICKI Paige. REASON FOR REFERRAL Elevated serum creatinine, chronic kidney disease, one kidney, hypertension. SUBJECTIVE The patient is a 46-year-old woman referred by Melanie Pulido for evaluation of kidney disease in her one remaining kidney with proteinuria. The patient complains of right upper quadrant abdominal/chest pain that is with her almost every day. She says it is relieved by lying flat for a little while. She takes Tylenol for it, but that has not helped. In addition, she has had a several-week history of nausea with some vomiting. She vomits usually in the evening after eating, or one night she was awakenedfrom sleep with severe, generalized abdominal pain, which was relieved by vomiting. She has no symptoms related to her kidney problems. These are as follows: 1. At age 10 she had a left nephrectomy because of repeated infections and a small, dysplastic kidney on that side. She apparently continued to have some trouble with infections. 2. She had two pregnancies, the first complicated by severe toxemia. 3. She has a longstanding history of hypertension, and in 1994 was seen by one of my colleagues withproteinuria. She had a protein/creatinine ratio of 2.3 at that time with a serum creatinine of 1.2 mg per dL, and a presumptive diagnosis of focal glomerulosclerosis was made. She never underwent a kidney biopsy. An ultrasound showed a 13-cm kidney on that side with some focal areas of cortical thinning. He was concerned about reflux nephropathy in the remaining kidney, and told her she should be followed regularly for recurrent urinary tract infections. She returned for followup only on one occasion and then was lost to our service. In the office she is followed by Melanie Pulido, who occasionally notices blood pressures that are as high as 140 systolic. She also has had intermittent episode of asymptomatic bacteriuria with E. coli, which have been treated. The patient has no symptoms of dysuria. She does have nocturia times one. Most recent protein/creatinine ratio done by Melanie Pulido was less than 1.0 (ratio 0.9). A 24-hour urineprotein excretion showed 1.1 g of protein. A renal ultrasound wasdone as well this summer, which showed a 2.2-cm cyst in the superior pole of the right kidney. The kidney measured 12 cm. Because of her right upper quadrant pain, she also had an ultrasound of her gallbladder, which was completely normal. PAST MEDICAL HISTORY Left nephrectomy done by an open abdominal incision many years ago. History of hyperlipidemia, bilateral tubal ligation. Unremarkable, save for above. MEDICATIONS 1. Lisinopril 10 mg daily. 2. Tylenol p.r.n. ALLERGIES No known drug allergies. REVIEW OF SYSTEMS Mainly positive for the GI symptoms outlined above. Her appetite is normal. Bowel movements are normal. She has no joint pains or arthritis. She has had a recent small weight gain, which she is trying to control. No ankle edema. She has had no vision changes, no headaches. She says she does get dizzy o ccasionally on standing when her blood pressure is too low. She does take her blood pressure at home, and on most occasions the systolic is less than 120, according to the patient. She did not bring inher blood pressure records with her. She is still having menstrual periods and her menstruation is normal. SOCIAL HISTORY She lives with her boyfriend. She still smokes cigarettes, but is trying to stop. She does not drinkalcohol. FAMILY HISTORY Family history is significant in that her mother at age 56 of kidney failure. Her mother also had hypertension. No other family history of kidney disease. ASSESSMENT Chronic kidney disease stage III (estimated GFR 51 mL per minute per 1.73 m2with abnormal proteinuria. In assessing the patient, she has two unrelated problems. Knowing that her renal cyst is only 2 cm, I told her and her boyfriend that her right upper quadrant pain could not be related to that. The recent episodes of vomiting associated with the abdominal pain suggest to me a GI cause. Given the large incision in her abdomen, it is possible that she could be having recurrent, partial small bowel obstruction. She really has been evaluated extensively for gallbladder disease, and the workup so far has been completely negative. Her liver function tests are also normal. With regard to her kidney disease, the home blood pressures she is giving us sound very good. I gaveher a sheet to fill out and mail in so we can verify this. Our goal is to keep her blood pressure below 130 and not 110. Pushing her down to 110 systolic will only make her symptomatic, and there is noevidence that that provides additional benefit. Her proteinuria, although abnormal, is low level, and the lisinopril 10 mg a day should help with managing that. I have three values for creatinine on her, the most recent being 1.2 mg per dL, and the numbers have been stable. I neglected to mention thattriny was evaluated at [facility] for the same problem just a few months ago, and they came to the same conclusions. I talked to her about smoking cessation and trying to limit the salt in her diet, both of which she is having a problem with. With regard to her urinary tract infections, I do not believe she needs to be onsuppressive antibiotics. She should just have a urine culture checked perhaps every three to four months and, if they arepositive, they should be treated. Her last urine culture showed three different organisms, which suggest colonization rather than infection, and that should not be treated. I neglected to mention that her urinalysis today showed a specific gravity less than 1.005, pH 5, 100 mg per dL protein, no glucose or ketones, but small blood. She had no leukocytes and her nitrite was negative, sothere was no evidence of a urinary tract infection at this time. The patient is reluctant to come all the way back here unless absolutely necessary. Outlined below is my recommendations for followup with regard to herkidney disease. She might benefit from an upper GI and small bowel followthrough for her abdominal symptoms with recent onset of vomiting. PLAN 1. No blood work today. 2. No changes in medications. 3. Recommendations for followup: 1. Urine culture every four to six months with treatment as needed. 2. Urine protein/creatinine ratio every six months with a goal to having the ratio less than 1.0. 3. Home blood pressure monitoring with a goal systolic pressure less than 130 at least 50% of the time. 4. No followup unless requested by the patient. Signed by Lana Long MD 04/29/2007 10:48 Lana Long MD - Lana Long MD - MS Job ID: [id number] Doc ID: [id number] cc: Melanie Pulido NP cc: Melanie Pulido NP - Lana Long MD - ms Job ID: [id number] Doc ID: [id number] cc: Melanie Pulido NP documented in this encounter Plan of Treatment Upcoming Encounters Date Type Specialty Care Team Description 03/11/2022 Telemedicine Nephrology Juan Syed MD [address] [facility], [address] [place], [place] [address] (Wo rk) documented as of this encounter Visit Diagnoses Not on filedocumented in this encounter
--- OUTSIDE RECORDS SUMMARY | 2022-03-04 12:23 | XMS_ITS | Encounter Summary ---
:1960 Author Organization [facility] Address [address] [place] [address] Care Team Providers Name Role Phone Melanie Pulido NP Primary Care Provider Reason for Visit Reason Comments Other One kidney Encounter Details Date Type Department Care Team Description 02/05/2012 Office Visit [facility] Robert Truong Chr onic kidney disease, stage III (moderate) (Primary Dx); Nephrology - S Unspecified essential hypertension [place] [id number] [place] [id number] [phone] Social History Tobacco Use Types Packs/Day Years Used Date Never Assessed Sex Assigned at Date Recorded Not on file documented as of this encounter Last Filed Vital Signs Vital Sign Reading Time Taken Comments Blood Pressure 103/64 02/05/2012 1338 EDT right Pulse 74 02/05/2012 1338 EDT Temperature - - Respiratory Rate - - Oxygen Saturation - - Inhaled Oxygen Concentration - - Weight 49.5 kg (109 lb 3.2 oz) 02/05/2012 1335 EDT Height - - Body Mass Index - - documented in this encounter Patient Instructions Patient InstructionsRobert Truong MD - 02/05/2012 14:42 EDT - We will continue current medication for now. There is no blood in the urine from looking at the microscope. - Follow low sodium diet and check your blood pressure at home with the sheet. - Will see you again the the next 3-4 months. - Avoid over the counter pain medications. - suggest stop smoking. Tonia Truong and Devon Addendum: spoke with the patient. She would like to come back in 6 months (she lives 2.5 hr away). But she will have BMP and ua checked in 4 months. documented in this encounter Progress Notes Robert Truong MD - 02/05/2012 2356 EDT REASON FOR CONSULTATION: Worsening renal function. 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 It was done at [facility] in [place]. Also longstanding hypertension since she was a teenager and history of protein/urine of about 1.3 grams ratio in 1994. However, it was decreasing to less thana gram ratio in 2006. In 2005, she had a kidney ultrasound that showed a 13 cm kidney with cortical thinning and a 2 cm cyst. At that point, her serum creatinine was 1.2. She was seen by Dr Long andthe recommendation was to control the blood pressure and she was on lisinopril at that time. Also, she has a history of chronic fibromyalgia, probably more than 10 years. The patient has been followed with her primary care provider, Melanie Pulido NP, with followup lab work every 3 to 6 months. There wasa slow elevation in her creatinine level from 1.3 in 01/2009, 1.5 in 06/2009, 1.4 in 07/2009, 1.2 in 09/2009, 1.3 in 12/2009, 1.5 in 08/2010, 1.5 that correlated with a GFR of 36 in 05/2011, and the most recent one was 1.6 in 12/2011. Upon asking the patient, she admits that she has been in chronic pain, butshe does not take NSAIDs or thkr-sdd-ykmvfuy medication on a regular basis. She used to take ibuprofen once in a very long while, does not take it every day. The patient does not check her blood pressure at home on a regular basis, although she has a blood pressure cuff at home. She would check it when she has some headache, but she claims that in her primary care office, the blood pressure systolic has been running about 120, as it was with us today. No swelling in the legs. In terms of fibromyalgia, she used to take Tylenol and occasional ibuprofen; however, the pain has been overwhelming and so far the patient was started on Cymbalta and Vicodin for her pain since more than a year ago. She had a history of recurrent urinary tract infections; however, that was from the lab tests, although she said that she does not have any symptoms for a very long time that was including dysuria or frequency.She has had some weight loss in the past 2 years as appetite has not been quite well. She has never had colonoscopy and she does not want to have it donet. Apart from that, she denies any rash in her face when she has sun exposure, denies any oral ulcers, denies rash in her back of the neck, and denies leg swelling. The patient said that she has had urine tested positive for blood for a long time andthis has been the finding every routine urine dipstick for her, and with the increase in serum creatinine as above, the patient was referred to our clinic. PAST MEDICAL HISTORY: Hypertension, longstanding for about 40 years, and fibromyalgia, right now taking Cymbalta and Vicodin for pain and Tylenol as needed. She had two pregnancies about 31 and 34 years ago. At that time, she had high blood pressure and was having anemia and was having many blood chemistry abnormalities; however, she was not aware of being on dialysis. MEDICATIONS: MS Contin 50 mg oral two times a day. Trazodone 100 mg 2 tablets at nighttime. Vicodin as needed. Famotidine 20 mg oral daily. Ambien 5 mg oral daily. Norvasc 5 mg oral daily for 3 years already. Cymbalta 60 mg oral daily. Lisinopril 20 mg oral daily. Vitamin D3 1000 units oral daily. Fish oil supplement. ALLERGIES: She is allergic to RANITIDINE and GABAPENTIN that causes increased liver enzyme. SURGICAL HISTORY: She had a left nephrectomy from recurrent infection and dysplastic kidney. SOCIAL HISTORY: She has been smoking for about 40 years and she smokes about 1 to 1-1/2 pack a day. She does not drink alcohol. She is living with her current boyfriend. They have been together for 6 years. She is not working as the fibromyalgia is overwhelming. The boyfriend is working as a optical lathe operator. FAMILY HISTORY: Her father had metastatic cancer and he when he was 60 years old. Her brother had lung cancer and when he was 45. Her sister had a pancreatic problem and heart disease. REVIEW OF SYSTEMS: A 10-organ system was reviewed and pertinent positives and negatives were stated in the history of present illness. OBJECTIVE: A 51-year-old female patient sitting in a chair, cooperative, not in distress, pleasant. Blood pressure 122/70, heart rate 74, respiration 14. Body weight of 49.5 kilogram (109 pounds and she stated that she was about 123 pounds about 2 years ago and she admits that she has been eating on and off for a long time in terms of her appetite). Head atraumatic, normocephalic. No malar rash. Not pale, no jaundice. Eyegrounds: Questionable copper wire appearance, both eyes. No cataracts. Mouth moist. Neck: No engorged neck vein, soft, no carotid bruits bilateral. No discoid rash. Heart: Sinus rhythm, no murmur. Lungs: Slight crackles upper airway, but when she coughs up the lungs are clear bothbases, no wheezing. Abdomen soft, nontender, not distended, positive for midline long surgical scar from subxiphoid area down to the suprapubic area. Extremities: No edema bilaterally. Positive for tenderness in her shoulders, in her hips area, in her groin area, in her knuckles area, and in her feet,although there is no joint swelling or joint erythema. Skin: There is no rash, no ulcers. Neuro exam: Grossly normal, no focal neurological deficit. DIAGNOSTIC DATA: The most recent blood work that was done in 11/2011 shows sodium 139, potassium 4.3,TCO2 25, chloride 104, creatinine 1.6, BUN 13. ALT 20. Glucose 105. Calcium 9.8. Total protein 7.1, albumin 3.8, alkaline phosphatase 119, AST 17, bilirubin 0.51. CBC shows white blood cell 6.03, hemoglobin 14.6, hematocrit 42, platelets 181. UA shows specific gravity of less than 1.005, pH 5.5, blood1+, protein negative. Urine microexam shows no RBCs. No casts. IMPRESSION AND PLAN: This is a 51-year-old female patient who has longstanding high blood pressure with a solitary right kidney coming in with an elevation in creatinine from her baseline over the past1 to 2 years. 1. Chronic kidney disease stage III: At this point, most likely her elevation in her creatinine has been gradually increasing that could attribute to longstanding high blood pressure and proteinuria inthe past; however, at this point, her blood pressure is controlled and her protein in the urine was n egative, so we will continue on this current medication regimen. However, with a history of blood inthe urine and this time she has some blood positive in the urine as well, although we took a look inthe urine today and there were no red blood cells in her urine. Given the history of blood in the urine, another possibility of inflammatory kidney disease. This could be from IgA nephropathy. However, given the gradually progressing of the kidney disease and negative in the proteinuria and the patient is on an MONY inhibitor, there is no indication to do abiopsy to prove for the IgA nephropathy. Also with her blood in the urine, one could think about other signs of glomerulonephritis, for example lupus; however, with this age, it is quite uncommon to see the delayed onset of lupus at this age and especially the patient does not have any other symptoms that would go with the criteria of diagnosing lupus such as malar rash, pleurisy, anemia, or discoid rash. So at this point we will not pursue for serology workup for now. 2. Hypertension: The patient has been well controlled with her blood pressure. However, the patient has been eating a high-salt diet, so we would recommend the patient to eat a low-salt diet (< 2 grams per day) if possible and would encourage the patient to check the blood pressure at home and we have given her a daily log sheet to fill it in. 3. Longstanding smoking: We suggested to her to stop smoking as this would benefit her in many ways.For example, this would decrease the chance of having a lung-related issue, and also smoking puts the patient at increased risk of renal cell carcinoma or bladder cancer, especially giving a history ofblood in the urine. There is a possibility of dysplasia in the bladder cells or urothelial lining. However, since the microscopic examination did not reveal any blood cells in the urine, we would hold off on working up for a possible tumor for now as the patient has been pretty much stable for the dipstick and never had any increasing in the blood in the urine. 4. In summary, we will continue on the current medication for now and we will follow up with the patient in 6 months; however, in the meantime in the next 4 months, she will have the blood work done atDr Ashok's office and we will see if we need to do more workup based on the next blood work, especially nephrology profile. 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 ATTENDING ATTESTATION Date of Service: 02/05/2012 I personally saw and examined Ms. Barnett in the clinic and discussed the case with Dr. Truong. I agree with the findings, assessment, and plan of care delineated in the note above, which I have reviewed and edited as needed. Kana Osorio MD Nephrology Attending documented in this encounter Consult Notes Robert Truong MD - 02/07/2012 1051 EDT DIVISION OF NEPHROLOGY CONSULTATION - 02/05/2012 REASON FOR CONSULTATION: Worsening renal function. 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 It was done at [facility] in [place]. Also longstanding hypertension since she was a teenager and history of protein/urine of about 1.3 grams ratio in 1994. However, it was decreasing to less thana gram ratio in 2006. In 2005, she had a kidney ultrasound that showed a 13 cm kidney with cortical thinning and a 2 cm cyst. At that point, her serum creatinine was 1.2. She was seen by Dr Long andthe recommendation was to control the blood pressure and she was on lisinopril at that time. Also, she has a history of chronic fibromyalgia, probably more than 10 years. The patient has been followed with her primary care provider, Melanie Pulido NP, with followup lab work every 3 to 6 months. There wasa slow elevation in her creatinine level from 1.3 in 01/2009, 1.5 in 06/2009, 1.4 in 07/2009, 1.2 in 09/2009, 1.3 in 12/2009, 1.5 in 08/2010, 1.5 that correlated with a GFR of 36 in 05/2011, and the most recent one was 1.6 in 12/2011. Upon asking the patient, she admits that she has been in chronic pain, butshe does not take NSAIDs or gvby-edq-ysjjctn medication on a regular basis. She used to take ibuprofen once in a very long while, does not take it every day. The patient does not check her blood pressure at home on a regular basis, although she has a blood pressure cuff at home. She would check it when she has some headache, but she claims that in her primary care office, the blood pressure systolic has been running about 120, as it was with us today. No swelling in the legs. In terms of fibromyalgia, she used to take Tylenol and occasional ibuprofen; however, the pain has been overwhelming and so far the patient was started on Cymbalta and Vicodin for her pain since more than a year ago. She had a history of recurrent urinary tract infections; however, that was from the lab tests, although she said that she does not have any symptoms for a very long time that was including dysuria or frequency.She has had some weight loss in the past 2 years as appetite has not been quite well. She has never had colonoscopy and she does not want to have it donet. Apart from that, she denies any rash in her face when she has sun exposure, denies any oral ulcers, denies rash in her back of the neck, and denies leg swelling. The patient said that she has had urine tested positive for blood for a long time andthis has been the finding every routine urine dipstick for her, and with the increase in serum creatinine as above, the patient was referred to our clinic. PAST MEDICAL HISTORY: Hypertension, longstanding for about 40 years, and fibromyalgia, right now taking Cymbalta and Vicodin for pain and Tylenol as needed. She had two pregnancies about 31 and 34 years ago. At that time, she had high blood pressure and was having anemia and was having many blood chemistry abnormalities; however, she was not aware of being on dialysis. MEDICATIONS: MS Contin 50 mg oral two times a day. Trazodone 100 mg 2 tablets at nighttime. Vicodin as needed. Famotidine 20 mg oral daily. Ambien 5 mg oral daily. Norvasc 5 mg oral daily for 3 years already. Cymbalta 60 mg oral daily. Lisinopril 20 mg oral daily. Vitamin D3 1000 units oral daily. Fish oil supplement. ALLERGIES: She is allergic to RANITIDINE and GABAPENTIN that causes increased liver enzyme. SURGICAL HISTORY: She had a left nephrectomy from recurrent infection and dysplastic kidney. SOCIAL HISTORY: She has been smoking for about 40 years and she smokes about 1 to 1-1/2 pack a day. She does not drink alcohol. She is living with her current boyfriend. They have been together for 6 years. She is not working as the fibromyalgia is overwhelming. The boyfriend is working as a optical lathe operator. FAMILY HISTORY: Her father had metastatic cancer and he when he was 60 years old. Her brother had lung cancer and when he was 45. Her sister had a pancreatic problem and heart disease. REVIEW OF SYSTEMS: A 10-organ system was reviewed and pertinent positives and negatives were stated in the history of present illness. OBJECTIVE: A 51-year-old female patient sitting in a chair, cooperative, not in distress, pleasant. Blood pressure 122/70, heart rate 74, respiration 14. Body weight of 49.5 kilogram (109 pounds and she stated that she was about 123 pounds about 2 years ago and she admits that she has been eating on and off for a long time in terms of her appetite). Head atraumatic, normocephalic. No malar rash. Not pale, no jaundice. Eyegrounds: Questionable copper wire appearance, both eyes. No cataracts. Mouth moist. Neck: No engorged neck vein, soft, no carotid bruits bilateral. No discoid rash. Heart: Sinus rhythm, no murmur. Lungs: Slight crackles upper airway, but when she coughs up the lungs are clear bothbases, no wheezing. Abdomen soft, nontender, not distended, positive for midline long surgical scar from subxiphoid area down to the suprapubic area. Extremities: No edema bilaterally. Positive for tenderness in her shoulders, in her hips area, in her groin area, in her knuckles area, and in her feet,although there is no joint swelling or joint erythema. Skin: There is no rash, no ulcers. Neuro exam: Grossly normal, no focal neurological deficit. DIAGNOSTIC DATA: The most recent blood work that was done in 11/2011 shows sodium 139, potassium 4.3,TCO2 25, chloride 104, creatinine 1.6, BUN 13. ALT 20. Glucose 105. Calcium 9.8. Total protein 7.1, albumin 3.8, alkaline phosphatase 119, AST 17, bilirubin 0.51. CBC shows white blood cell 6.03, hemoglobin 14.6, hematocrit 42, platelets 181. UA shows specific gravity of less than 1.005, pH 5.5, blood1+, protein negative. Urine microexam shows no RBCs. No casts. IMPRESSION AND PLAN: This is a 51-year-old female patient who has longstanding high blood pressure with a solitary right kidney coming in with an elevation in creatinine from her baseline over the past1 to 2 years. 1. Chronic kidney disease stage III: At this point, most likely her elevation in her creatinine has been gradually increasing that could attribute to longstanding high blood pressure and proteinuria inthe past; however, at this point, her blood pressure is controlled and her protein in the urine was n egative, so we will continue on this current medication regimen. However, with a history of blood inthe urine and this time she has some blood positive in the urine as well, although we took a look inthe urine today and there were no red blood cells in her urine. Given the history of blood in the urine, another possibility of inflammatory kidney disease. This could be from IgA nephropathy. However, given the gradually progressing of the kidney disease and negative in the proteinuria and the patient is on an MONY inhibitor, there is no indication to do abiopsy to prove for the IgA nephropathy. Also with her blood in the urine, one could think about other signs of glomerulonephritis, for example lupus; however, with this age, it is quite uncommon to see the delayed onset of lupus at this age and especially the patient does not have any other symptoms that would go with the criteria of diagnosing lupus such as malar rash, pleurisy, anemia, or discoid rash. So at this point we will not pursue for serology workup for now. 2. Hypertension: The patient has been well controlled with her blood pressure. However, the patient has been eating a high-salt diet, so we would recommend the patient to eat a low-salt diet (< 2 grams per day) if possible and would encourage the patient to check the blood pressure at home and we have given her a daily log sheet to fill it in. 3. Longstanding smoking: We suggested to her to stop smoking as this would benefit her in many ways.For example, this would decrease the chance of having a lung-related issue, and also smoking puts the patient at increased risk of renal cell carcinoma or bladder cancer, especially giving a history ofblood in the urine. There is a possibility of dysplasia in the bladder cells or urothelial lining. However, since the microscopic examination did not reveal any blood cells in the urine, we would hold off on working up for a possible tumor for now as the patient has been pretty much stable for the dipstick and never had any increasing in the blood in the urine. 4. In summary, we will continue on the current medication for now and we will follow up with the patient in 6 months; however, in the meantime in the next 4 months, she will have the blood work done atDr Pulido's office and we will see if we need to do more workup based on the next blood work, especially nephrology profile. 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 I saw and examined the patient with the resident/fellow. I agree with the findings and plan of care documented in the resident's/fellow's note. Edited and Electronically Signed by Kana Osorio MD 04/05/2012 21:45 Electronically Reviewed by Robert Truong MD 02/10/2012 12:43 Robert Truong MD Kana Osorio MD - Robert Truong MD - MA Job ID: SM Doc ID: [id number] Ext Doc ID: [id number] cc: Melanie Pulido NP documented in this encounter Plan of Treatment Upcoming Encounters Date Type Specialty Care Team Description 03/11/2022 Telemedicine Nephrology Juan Syed MD 1 [facility], [address] [place], [place] [id number] (Wo rk) documented as of this encounter Procedures Procedure Name Priority Date/Time Associated Diagnosis Comme nts POCT URINE Routine 02/05/2012 13:42 Chronic kidney Results f or this DIPSTICK, CLINITEK EDT disease, stage III pro cedure are in (moderate) the results section. 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 operator ID [id number]: [facility] Test Performed at LAB Renal Services Specimen Urine (substance) Performing Organization Address City/State/ZIP Code Phon e Number [facility] [address] [place] [address] SERVICES [facility] [address] [place] [address] documented in this encounter Visit Diagnoses Diagnosis Chronic kidney disease, stage III (moder ate) (HCC) - Primary Chronic kidney disease, Stage III (moder ate) Unspecified essential hypertension documented in this encounter Care Teams Certified Alcohol And Drug Counselor Relationship Specialty Start Date End Date Melanie Pulido NP PCP - General 01/01/12 09/11/17 [facility] [address] [place] [address] [id number] documented as of this encounter
--- OUTSIDE RECORDS SUMMARY | 2022-03-04 12:23 | XMS_ITS | Encounter Summary ---
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 Arabella Laurent, [facility] Vascular Surg 3v [address] [place] [address] [place] [address] Phone: Referral ID Status Reason Start Date Expiration Date Visits V isits Requested Authorized [id number] Closed Consult, Test 10/17/2020 10/17/2021 12 12 [facility] PCP Updated and/or Approved Encounter Details Date Type Department Care Team Description 12/01/2020 Tech Visit Vascular Lab at [facility] [place] [address] Social History Tobacco Use Types Packs/Day Years Used Date Current Every Day Smoker Cigarettes 1 Smokeless Tobacco: Never Used Sex Assigned at Date Recorded Not on file documented as of this encounter Plan of Treatment Not on filedocumented as of this encounter Procedures Procedure Name Priority Date/Time Associated Diagnosis Comme nts CHARLI, LEGS, MULTIPLE Routine 12/01/2020 1:57 PM Claudication Re sults for this LEVELS EDT procedure are i n the results section. documented in this encounter Results CHARLI, legs, multiple levels (12/01/2020 1:57 PM EDT) Component Value Ref Test Analysis Performed At [facility] Range Method Time Signature VB Text Department: Vascular Surgery Lab VASCUBASE Report Patient: [id number] (KIA WRIGHT) CPT: 78556 ICD10: I77.1;I70.213;I70.413;I73.9 Referring Physician: BANDAR ROSADO APRN [...] unspecified documented in this encounter Care Teams Inspector Automatic Typewriter Relationship Specialty Start Date End Date Arabella Laurent, RHIC SYSTEMS SAFETY ENGINEER PCP - General Family Medicine 03/07/20 María Elena SUAREZ [address] [place] [address] documented as of this encounter
--- OUTSIDE RECORDS SUMMARY | 2022-03-04 12:23 | XMS_ITS | Encounter Summary ---
:[address] [facility] Address [address] [place] [address] Care Team Providers Name Role Phone Melanie Pulido MANGLE PRESS CATCHER Primary Care Provider Laurence Krause Primary Care Provider Arabella Laurent MANGLE PRESS CATCHER Primary Care Provider Encounter Details Date Type Department Care Team Description 04/24/2007 Hospital Encounter [facility] - Lana Rojas Prospect MD [address] [place], [place] [address] Social History Tobacco Use Types Packs/Day Years Used Date Current Every Day Smoker 0.5 Smokeless Tobacco: Never Used Sex Assigned at Date Recorded Not on file documented as of this encounter Plan of Treatment Upcoming Encounters Date Type Specialty Care Team Description 03/11/2022 Telemedicine Nephrology Juan Syed MD 1 [facility], Level 2 [place], [place] [address] (Wo rk) documented as of this encounter Procedures Procedure Name Priority Date/Time Associated Diagnosis Comme nts CYTOPATHOLOGY Routine 08/16/2008 0:00 EDT Results for this procedure are i n the results section . documented in this encounter Results CYTOPATHOLOGY (08/16/2008 0:00 EDT) Pathology Report: CYTOPATHOLOGY REPORT ? [facility] ? LAB Reports generated via electr onic interface contain original data; ? however they are lacking the format of the original report. ? Caution should be taken when reading/interpreting unformatted reports. ? Name: ? SIGOUIN, KIA J ? Accession #: ? [id number] ? : ? 1960 (Age: 47) ??F ?Collect Date: ? 08/16/2008 ? Location: ? [facility] ? Receive Date: ? 08/17/2008 ? Provider: ?MELANIE G TA ARMIDA MANGLE PRESS CATCHER ? Copy to: ? Specimen/Source: ? Pap Test, Cervix/Endocervix, ThinPrep Imaging System ? with manual evaluation ? Last Menstrual Period: ? 2/28/09 ? Previous Gynecologic Patholo gy: ? Yes: Abnormal ? Treatment History: ? Miscellaneous treatment: Bx' s pt not sure dx x1 2 years ago ? SPECIMEN ADEQUACY ? Satisfactory for Eval uation ? - transformation zone compon ent present ? GENERAL CATEGORIZATION ? Negative for Intraepi thelial Lesion or Malignancy ? Document reviewed and electr onically signed by: ? An N. Akil, SCT (ASCP) ? Report Date: ??03/23/ 2009 13:58 ? End of Report ? Specimen Performing Organization Address City/State/[facility] Code Phon e Number [facility] [address] [place] [address] SERVICES [facility] [address] [place] [phone] documented in this encounter Visit Diagnoses Not on filedocumented in this encounter Care Teams Rn Testing Relationship Specialty Start Date End Date Melanie Pulido NP PCP - General 01/01/12 09/11/17 [place] [address] [place], [place] [address] Laurence Krause PA PCP - General 09/12/17 07/29/18 [address] [place] [id number] Arabella Laurent NP PCP - General 07/30/18 [address] [place] [address] documented as of this encounter
--- OUTSIDE RECORDS SUMMARY | 2022-03-04 12:23 | XMS_ITS | Encounter Summary ---
:1960 Author Organization [facility] [place] [address] Care Team Providers Name Role Phone Arabella Laurent APRN Primary Care Provider Reason for Visit Reason Comments Skin Check Consultation (Routine) - Specialty Diagnoses / Procedures Referred By Contact Refer red To Contact Dermatology Diagnoses Rash and other nonspecific skin eruption Rash on Feet; New Patient-Notes Received Arabella Laurent APRN Hammer, Charles J, MD Procedures Consult [address] [place] [address] [place] [address] Phone: Fax: Referral ID Status Reason Start Date Expiration Date Visits V isits Requested Authorized [id number] Consult, Test 02/18/2020 02/17/2021 6 6 & Treat PCP Updated and/or Approved Encounter Details Date Type Department Care Team Description 03/07/2020 [facility] Derm[facility] [address] [facility] [address] [place] [address] DERMATOLOGY [phone] [place], [place] [address] (Wo rk) Social History Tobacco Use Types Packs/Day Years Used Date Current Every Day Smoker Cigarettes 1 Smokeless Tobacco: Never Used Sex Assigned at Date Recorded Not on file documented as of this encounter Progress Notes Chon Harley MD - 03/07/2020 9:30 AM EDT Problem: Bilateral foot rash Addie is a 59-year-old woman who is referred today by Arabella Laurent for evaluation of a rash on her feet. Began some 2 to 3 months ago with itching. She finds of the itching is worse at night. She digs andscratches and then notices crusts and scabs and sores on her feet that then develop. She also has anarea on the left side of her foot that was a red scaling rash area. She was treated at one point with acyclovir for possible HSV etiology seemingly with some improvement but not resolution. She has tried some corticosteroid creams and apparently she states she also used an antifungal cream. It seems to have healed since then. Patient has history of chronic renal disease. 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 She is a smoker. She has she denies neuropathy of the foot or of her hands. She says that she is otherwise well. 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 She denies any toxic exposures the patient is seen in consultation today for Arabella Laurent APRN. Physical examination reveals a pleasant 59-year-old woman who has today to crust scabs present on the right dorsal foot and mild violaceous discoloration still present on the left distal foot laterally. She has no scaling no peeling no evidence of tinea pedis in the toe webspaces are on the foot elsewhere. She has no tinea unguium. She has no other dermatologic findings on her feet. Assessment plan: Bilateral foot pruritus worse at night, with secondary excoriations 1. Recommend symptomatic therapy with OTC Sarna lotion and Atarax 25 mg 1-2 p.o. nightly as needed itching dispense 60 with 1 refill 2. If this is not helpful would recommend neurology consult for pruritus of feet, which I believe isgiving rise to her cutaneous findings 3. Patient did apparently have an area that may have been tinea pedis on the left lateral foot but this is now resolved. 4. Advised patient to contact us with her progress. Patient has met Dr. Gamez in the past and might benefit from a neurology consultation this problem. Cc: Arabella Laurent APRN documented in this encounter Plan of Treatment Not on filedocumented as of this encounter Visit Diagnoses Diagnosis Dermatitis Contact dermatitis and other eczema, due to unspecified cause documented in this encounter Care Teams Senior Benefits Manager Relationship Specialty Start Date End Date Arabella Laurent APRN PCP - General Family Medicine 03/07/20 María Elena SUAREZ [address] [place] [address] documented as of this encounter
--- OUTSIDE RECORDS SUMMARY | 2022-03-04 12:23 | XMS_ITS | Encounter Summary ---
:1960 Author Organization [facility] Address [address] [place] [address] Care Team Providers Name Role Phone Unavailable Primary Care Provider Unavailable Encounter Details Date Type Department Care Team Description 02/16/2007 Results Only [facility] - Eddi Cox MD [place] [address] [place] [address] [place], [place] [phone] Social History Tobacco Use Types Packs/Day Years Used Date Never Assessed Sex Assigned at Date Recorded Not on file documented as of this encounter Plan of Treatment Upcoming Encounters Date Type Specialty Care Team Description 03/11/2022 Telemedicine Nephrology Juan Syed MD 1 [facility], [address] [place], [place] [address] (Wo rk) documented as of this encounter Procedures Procedure Name Priority Date/Time Associated Diagnosis Comme [facility] SURGICAL PATHOLOGY Routine 02/16/2007 0:00 EDT Re sults for this procedure are i n the results section. documented in this encounter Results SURGICAL PATHOLOGY (02/16/2007 0:00 EDT) Pathology Report: SURGICAL PATHOLOGY REPORT JASON VAZQUEZ Reports generated via electronic interface contain petar ginal data; LAB however they are lacking the format of the original re port. Caution should be taken when reading/interpreting unfo rmatted reports. Name: ? KIA WRIGHT ? Accession #: ? [id number] ? : ? 1960 (Age: 46) ??F ? Collect Date: ? 02/16/2007 ? Location: ? [facility] ? Receive Date: ? 007 ? Provider: ONEIL COX MD Copy to: ? Final Pathologic Diagnosis: A. ?Cervix, 3:00, biopsy: ? 1. ??Mature squamous metaplastic epithelium wit h reactive changes. 2. ??No squamous intraepithelial lesion identified. B. ??Cervix, 6:00, biopsy: ?1. ??Squamous mucosa with no pathologic featu res. ?2. ??Transitional zone is not present. ? Document reviewed and electronically signed by: Wander Lin MD Report ??Date: 02/19/2007 16:59 By the signature above, the attending physician certif ies that he/she has personally conducted a gross and/or microscopic examin ation of the described specimens and rendered or confirmed the above diagnosi s. Specimen(s) Received: ? Tissue removed from 3 o'clock and 6 o'clock Clinical History: ? Squamous cell abnormality; positive HPV Gross Description: ? Received in formalin labelled Sigouin and 3 o'clock is a short-white 0.6 x 0.5 x 0.3 cm soft tissue f ragment. The specimen is entirely submitted as (A). Received in formalin labelled Sigouin and 6 o 'clock is a short-white 0.6 x 0.3 x 0.3 cm soft tissue fragment. The specimen is entirely submitted as (B). /tato End of Report Specimen Performing Organization Address City/State/ZIP Code Phon e Number [facility] [address] [place] [phone] [place] [address] [facility] [address] [place] [address] documented in this encounter Visit Diagnoses Not on filedocumented in this encounter
--- OUTSIDE RECORDS SUMMARY | 2022-03-04 12:23 | XMS_ITS | Encounter Summary ---
:1960 Author Organization [facility] [place] [address] Care Team Providers Name Role Phone Arabella Laurent APRN Primary Care Provider Reason for Visit Reason Comments Medication Refill Encounter Details Date Type Department Care Team Description 02/10/2021 Refill Dermatology at [facility] Chon Owens MD [address] [facility] [address] [place] [address] DERMATOLOGY [phone] [place], [place] [address] (Wo rk) Social History Tobacco Use Types Packs/Day Years Used Date Current Every Day Smoker Cigarettes 1 Smokeless Tobacco: Never Used Sex Assigned at Date Recorded Not on file documented as of this encounter Plan of Treatment Not on filedocumented as of this encounter Visit Diagnoses Not on filedocumented in this encounter Care Teams Energy Conservation Director Relationship Specialty Start Date End Date Arabella Laurent APRN PCP - General Family Medicine 03/07/20 María Elena SUAREZ [address] [place], [place] [address] documented as of this encounter
[2022-03-04 16:43] LABS: ALT 23 U/L (14-59); AST 21 U/L (15-37); Anion Gap 9.3 mmol/L (3-11); BUN 28 mg/dL (7-18); CO2 24.7 mmol/L (21.0-32.0); CREATININE 1.8 mg/dL (0.55-1.02); Calcium 9.6 mg/dL (8.5-10.1); Chloride 106 mmol/L (98-107); Estimated GFR 31.27 (mL/min/1.73m2); Glucose 88 mg/dL (74-106); HDL Cholesterol 51 mg/dL (40-60); LDL CHOLESTEROL 88 mg/dL (<100); Potassium 4.6 mmol/L (3.5-5.1); Sodium 140 mmol/L (136-145)
[2022-03-04 17:38] LABS: Creatine Kinase 90 U/L (26-192)
== END 2022-03-04 12:20 | disposition home or self-care (01) ==
LOC: NCHCN 12:19
PROVIDERS: PCP Nurse Practitioner Family; Visit Provider Nurse Practitioner Family
DX: E78.00 Pure hypercholesterolemia, unspecified (principal); I10 Essential (primary) hypertension; N18.30 Chronic kidney disease, stage 3 unspecified; J43.8 Other emphysema
CPT/HCPCS: 80048; 82550; 83721; 83718; 84450; 84460

== ENCOUNTER 2022-05-16 11:51 | Outpatient (REF) | payer MEDICAID, SELFPAY ==
[2022-05-16 15:13] LABS: Anion Gap 7.6 mmol/L (3-11); BUN 30 mg/dL (7-18); CO2 24.4 mmol/L (21.0-32.0); CREATININE 1.8 mg/dL (0.55-1.02); Chloride 105 mmol/L (98-107); Estimated GFR 31.27 (mL/min/1.73m2); Glucose 90 mg/dL (74-106); Potassium 4.2 mmol/L (3.5-5.1); Sodium 137 mmol/L (136-145)
== END 2022-05-16 11:52 | disposition home or self-care (01) ==
LOC: NCHCN 11:51
PROVIDERS: PCP Nurse Practitioner Family; Visit Provider Nurse Practitioner Family
DX: I10 Essential (primary) hypertension (principal); N18.30 Chronic kidney disease, stage 3 unspecified
CPT/HCPCS: 80048

== ENCOUNTER 2022-07-15 16:03 | Outpatient (REF) | payer MEDICAID, SELFPAY ==
[2022-07-15 16:22] LABS: Anion Gap 8.2 mmol/L (3-11); BUN 23 mg/dL (7-18); CO2 26.8 mmol/L (21.0-32.0); Calcium 9.3 mg/dL (8.5-10.1); Chloride 104 mmol/L (98-107); Estimated GFR 27.55 (mL/min/1.73m2); Glucose 101 mg/dL (74-106); Potassium 3.9 mmol/L (3.5-5.1); Sodium 139 mmol/L (136-145)
== END 2022-07-15 16:04 | disposition home or self-care (01) ==
LOC: NCHCN 16:03
PROVIDERS: PCP Nurse Practitioner Family; Visit Provider Nurse Practitioner Family
DX: N18.30 Chronic kidney disease, stage 3 unspecified (principal); I10 Essential (primary) hypertension
CPT/HCPCS: 80048

== ENCOUNTER 2022-09-17 15:15 | Outpatient (REF) | payer MEDICAID, SELFPAY ==
[2022-09-17 16:09] LABS: Anion Gap 6.8 mmol/L (3-11); BUN 31 mg/dL (7-18); CO2 26.2 mmol/L (21.0-32.0); Calcium 9.5 mg/dL (8.5-10.1); Chloride 109 mmol/L (98-107); Estimated GFR 27.55 (mL/min/1.73m2); Glucose 83 mg/dL (74-106); Potassium 4.2 mmol/L (3.5-5.1); Sodium 142 mmol/L (136-145)
== END 2022-09-17 15:16 | disposition home or self-care (01) ==
LOC: NCHCN 15:15
PROVIDERS: PCP Nurse Practitioner Family; Visit Provider Nurse Practitioner Family
DX: N18.30 Chronic kidney disease, stage 3 unspecified (principal)
CPT/HCPCS: 80048

== ENCOUNTER 2022-11-06 12:51 | Outpatient (REF) | payer MEDICAID, SELFPAY ==
[2022-11-06 16:14] LABS: Anion Gap 7.9 mmol/L (3-11); BUN 29 mg/dL (7-18); CO2 27.1 mmol/L (21.0-32.0); CREATININE 1.8 mg/dL (0.55-1.02); Chloride 108 mmol/L (98-107); Estimated GFR 31.27 (mL/min/1.73m2); Glucose 90 mg/dL (74-106); Potassium 4.1 mmol/L (3.5-5.1); Sodium 143 mmol/L (136-145)
== END 2022-11-06 12:52 | disposition home or self-care (01) ==
LOC: NCHCN 12:51
PROVIDERS: PCP Nurse Practitioner Family; Visit Provider Nurse Practitioner Family
DX: N18.30 Chronic kidney disease, stage 3 unspecified (principal); F32.1 Major depressive disorder, single episode, moderate; R45.4 Irritability and anger
CPT/HCPCS: 80048

== ENCOUNTER 2023-01-28 08:52 | Outpatient (REF) | payer MEDICAID, SELFPAY ==
[2023-01-28 16:38] LABS: Anion Gap 8.7 mmol/L (3-11); BUN 31 mg/dL (7-18); CO2 25.3 mmol/L (21.0-32.0); Calcium 9.3 mg/dL (8.5-10.1); Chloride 107 mmol/L (98-107); Estimated GFR 27.38 (mL/min/1.73m2); Glucose 72 mg/dL (74-106); Potassium 4.3 mmol/L (3.5-5.1); Sodium 141 mmol/L (136-145)
== END 2023-01-28 08:53 | disposition home or self-care (01) ==
LOC: NCHCN 08:52
PROVIDERS: PCP Nurse Practitioner Family; Visit Provider Nurse Practitioner Family
DX: N18.30 Chronic kidney disease, stage 3 unspecified (principal); I10 Essential (primary) hypertension
CPT/HCPCS: 80048

== ENCOUNTER 2023-03-31 13:29 | Outpatient (REF) | payer MEDICAID, SELFPAY ==
[2023-03-31 17:12] LABS: ALT 23 U/L (14-59); AST 21 U/L (15-37); Albumin 3.9 g/dL (3.4-5.0); Alkaline Phosphatase 96 U/L (46-116); Anion Gap 11.8 mmol/L (3-11); BUN 29 mg/dL (7-18); Bilirubin, Total 0.7 mg/dL (0.2-1.0); CO2 23.2 mmol/L (21.0-32.0); CREATININE 2.1 mg/dL (0.55-1.02); Calcium 9.7 mg/dL (8.5-10.1); Chloride 107 mmol/L (98-107); Creatine Kinase 103 U/L (26-192); Estimated GFR 25.83 (mL/min/1.73m2); Glucose 97 mg/dL (74-106); HDL Cholesterol 61 mg/dL (40-60); LDL CHOLESTEROL 77 mg/dL (<100); Potassium 4.3 mmol/L (3.5-5.1); Sodium 142 mmol/L (136-145); Total Protein 7.4 g/dL (6.4-8.2)
== END 2023-03-31 13:30 | disposition home or self-care (01) ==
LOC: NCHCN 13:29
PROVIDERS: PCP Nurse Practitioner Family; Visit Provider Nurse Practitioner Family
DX: N18.30 Chronic kidney disease, stage 3 unspecified (principal); I10 Essential (primary) hypertension; E78.00 Pure hypercholesterolemia, unspecified
CPT/HCPCS: 80053; 82550; 83721; 83718

== ENCOUNTER 2023-06-03 14:33 | Outpatient (REF) | payer MEDICAID, SELFPAY ==
[2023-06-03 15:33] LABS: HCT 42.9 % (36.0-46.0); HGB 14.2 g/dL (11.2-15.7); MCH 32.8 pg (27.0-33.0); MCHC 33.1 % (32.0-36.0); MCV 99 fL (80-95); MPV 10.2 fL (8.0-11.0); Platelet Count 194 10^3/uL (130-400); RBC 4.33 10^6/uL (3.93-5.22); RDW 12.4 % (11.7-14.6); RDW-SD 45.4 fL; WBC 6.13 10^3/uL (4.4-10.8)
[2023-06-03 16:33] LABS: ALT 21 U/L (14-59); AST 17 U/L (15-37); Albumin 3.7 g/dL (3.4-5.0); Alkaline Phosphatase 93 U/L (46-116); BUN 35 mg/dL (7-18); Bilirubin, Total 0.5 mg/dL (0.2-1.0); CREATININE 2.2 mg/dL (0.55-1.02); Calcium 9.4 mg/dL (8.5-10.1); Chloride 106 mmol/L (98-107); Estimated GFR 24.42 (mL/min/1.73m2); Glucose 99 mg/dL (74-106); PHOSPHORUS 3.8 mg/dL (2.6-4.7); Potassium 4.8 mmol/L (3.5-5.1); Sodium 141 mmol/L (136-145); Total Protein 6.8 g/dL (6.4-8.2)
[2023-06-03 17:28] LABS: Vitamin D 25 Total 36.8 ng/mL (30-100)
[2023-06-03 22:32] LABS: Parathyroid Hormone,Intact 90 pg/mL (19-88)
== END 2023-06-03 14:34 | disposition home or self-care (01) ==
LOC: NCHCN 14:33
PROVIDERS: PCP Nurse Practitioner Family; Visit Provider Nurse Practitioner Family
DX: N18.30 Chronic kidney disease, stage 3 unspecified (principal)
CPT/HCPCS: 80053; 82306; 85027; 83970; 84100

== ENCOUNTER → 2023-06-16 04:39 | Outpatient (CLI) | payer MEDICAID, SELFPAY ==
--- NOTE | 2023-06-16 | DI.CTLCSR_ITS ---
Exam(s) CT CHEST LUNG CANCER SCREEN EXAM: CT CHEST LUNG CANCER SCREEN CLINICAL HISTORY: SCREENING FOR LUNG CA, CURRENT SMOKER,f17.200 TECHNIQUE: Imaging Protocol: Axial computed tomography images with coronal and sagittal reformatted images were created and reviewed. Low dose screening protocol. COMPARISON: CT CT CHEST LUNG CANCER SCREEN from 01/11/2021 FINDINGS: Tracheobronchial tree: No bronchiectasis or mucus plugging.. Mediastinum and Eileen: No dominant adenopathy or fluid collection. Pulmonary parenchyma: No consolidation or dominant measurable mass. Mild emphysematous changes. Lung Nodules: None. Pleura: No effusion. No pneumothorax. Heart: The heart is mildly dilated. No coronary artery calcifications are seen. Aorta: Thoracic aorta non-dilated.Mild atherosclerotic changes. Upper abdomen: Unremarkable. Bones: Degenerative disc changes. Soft Tissues: Unremarkable. IMPRESSION: No suspicious pulmonary nodules. Lung RADS Cat 1 - Negative: No nodules and definitely benign nodules Lung-RADS 1.0 CATEGORIES: Category 0 - Prior chest CT exam(s) being located for comparison. Category 1 - Annual screening in 12 months. No nodules or definitely benign nodules. Category 2 - Annual screening in 12 months. Benign appearance. Nodules with low likelihood of becomin g active cancer. Category 3 - 6-month follow-up. Probably benign. Short-term follow-up suggested. Nodules with low lik elihood of becoming active cancer. Category 4A - 3-month follow-up and CT/PET if >8 mm in size. Suspicious finding. Findings which requi re additional testing. Category 4B - Findings which require additional testing and tissue sampling. Category 4X - Category 3 or 4 nodules with additional features or imaging findings that increases the suspicion of malignancy. Modifier S- Potentially clinically significant findings (non lung cancer) RADIATION DOSE DELIVERED: 74.6mGy.cm Total DLP DATA REPOSITORY: All CT scans at this facility are submitted to the National Radiology Data Registry (NRDR) Dose Index Registry (DIR) with the [employer] (ACR). RADIATION OPTIMIZATION: All CT scans at this facility use at least one of these dose optimization te chniques: automated exposure control; mA and/or kV adjustment per patient size (includes targeted exa ms where dose is matched to clinical indication); or iterative reconstruction.
--- OUTSIDE RECORDS SUMMARY | 2023-06-16 04:43 | XMS_ITS | CCD ---
Author Name Unknown Address [address] [place] [id number] Organization Unknown Address [address] [place] [id number] Care Team Providers Care Hvac Service Manager Name Role Phone COOPER GARCIA Attending Physician [phone] Vital Signs Unknown or Not Available. Allergies Unknown or Not Available. Procedures Unknown or Not Available. History of Immunizations Unknown or Not Available. Problems Unknown or Not Available. Results Unknown or Not Available. Active Medications Unknown or Not Available. Medications Administered During Visit Unknown or Not Available. Encounters Unknown or Not Available. Social History Smoking Status Code Start Date End Date Current every day smoker [id number] Patient Decision Aids Unknown or Not Available. Discharge Instructions You were admitted to [facility] on 06/13/2023 12:37 You were discharged from [facility] on 06/13/2023 12:37 Should you have any questions prior to discharge, please contact a member of your healthcare team. If you have left the hospital and have any questions, please contact your primary care physician. Chief Complaint and Reason For Visit Unknown or Not Available. Function Status Unknown or Not Available. Plan of Care Unknown or Not Available. Referral/Transition of Care Unknown or Not Available.
== END ==
PROVIDERS: PCP Nurse Practitioner Family; Visit Provider Internal Medicine Pulmonary Disease
DX: Z12.2 Encounter for screening for malignant neoplasm of respiratory organs (principal); F17.210 Nicotine dependence, cigarettes, uncomplicated
CPT/HCPCS: 71271

== ENCOUNTER 2023-08-04 18:16 | Outpatient (REF) | payer MEDICAID, SELFPAY ==
[2023-08-04 15:42] LABS: Anion Gap 9.1 mmol/L (3-11); BUN 40 mg/dL (7-18); CO2 24.9 mmol/L (21.0-32.0); CREATININE 2.1 mg/dL (0.55-1.02); Chloride 108 mmol/L (98-107); Estimated GFR 25.83 (mL/min/1.73m2); Glucose 102 mg/dL (74-106); Potassium 4.1 mmol/L (3.5-5.1); Sodium 142 mmol/L (136-145)
[2023-08-04 19:14] LABS: LDL CHOLESTEROL 70 mg/dL (<100)
== END 2023-08-04 18:17 | disposition home or self-care (01) ==
LOC: NCHCN 18:16
PROVIDERS: PCP Nurse Practitioner Family; Visit Provider Nurse Practitioner Family
DX: I10 Essential (primary) hypertension (principal)
CPT/HCPCS: 80048; 83721

== ENCOUNTER 2023-12-31 15:20 | Outpatient (REF) | payer MEDICARE, MEDICAID, SELFPAY ==
--- OUTSIDE RECORDS SUMMARY | 2023-12-31 15:25 | XMS_ITS | Referral Summary ---
Author Organization [facility] Address [address] [place] [address] Care Team Providers Care Laborer Yard Name Role Phone Arabella Laurent HEAD START ASSISTANT TEACHER Primary Care Provider [phone] Allergies Active Allergy Reactions Criticality Noted Date Comments Gabapentin 08/12/2017 Ranitidine Hcl Rash 02/05/2012 Medications Medication Sig Dispensed Refills Start Date End Date Status trazodone (DESYREL) 100 mg tablet Take 1 Tablet by mouth at bedtime as needed. Active hydrocodone-acetamino phen (LORTAB;VICODIN) 5-500 mg tablet Take 1 Tablet by mouth 2 times daily as needed for Pain. Active DOCOSAHEXANOIC ACID/EPA (FISH OIL ORAL) Take by mouth as needed. Active zolpidem (AMBIEN) 10 mg tablet Take 1 Tablet by mouth at bedtime as needed. Active amlodipine (NORVASC) 5 mg tablet Take 1 Tablet by mouth daily. Active DULOXETINE HCL (CYMBALTA ORAL) Take 20 mg by mouth daily. Active cholecalciferol, Vitamin D3, 1,000 unit tablet Take 1 Tablet by mouth daily. Active albuterol (PROAIR HFA) 90 mcg/actuation inhaler Inhale 2 Puffs as directed every 4 hours as needed for Wheezing. Active metoprolol XL (TOPROL-XL) 25 mg tablet Take 25 mg by mouth daily. Active aspirin (ASPIRIN LOW DOSE) 81 mg EC tablet Take 1 Tablet by mouth daily. Active atorvastatin (LIPITOR) 40 mg tablet Take 40 mg by mouth daily. Active nitroGLYCERIN (NITROSTAT) 0.[address] 1 Tablet under the tongue every 5 minutes as needed for Chest Pain. Active nebivoloL 5 mg tablet tablet Take 1 Tablet by mouth daily. Active Active Problems Problem Noted Date Diagnosed Date S/p nephrectomy 09/15/2017 Microscopic hematuria 09/15/2017 Proteinuria 09/23/2012 Chronic kidney disease, stage III (moderate) ([facility]) 02/05/2012 Essential hypertension 02/05/2012 Overview: ICD10 Update Auto Replacement Social History Tobacco Use Types Packs/Day Years Used Date Smoking Tobacco: Every Day Cigarettes Smokeless Tobacco: Never Tobacco Cessation:Ready to Q uit: No; Counseling Given: No Interpersonal Safety Answer Date Record ed Physically Hurt Never 01/02/2020 Verbally Threaten Not on file 01/02/2020 Sex and Gender Information Value Date Recorded Sex Assigned at Not on file Gender Identity Not on file Sexual Orientation Not on file Last Filed Vital Signs Vital Sign Reading Time Taken Comments Blood Pressure 129/63 07/14/2023 1337 EST Pulse 85 02/14/2020 0816 EDT Temperature - - Respiratory Rate - - Oxygen Saturation - - Inhaled Oxygen Concentration - - Weight 51.7 kg (114 lb) 07/14/2023 1337 EST Height 144.8 cm (4' 9.01) 07/14/2023 1337 EST Body Mass Index 24.66 07/14/2023 1337 EST Functional Status Functional Status Response Date of Assess ment Because of a physical, menta l, or emotional condition, does this person have difficulty doing errands alone such as visiting a doctor's office or shopping? No 09/15/2017 Cognitive Status Response Date of Assessm ent Because of a physical, menta l, or emotional condition, does this person have serious difficulty concentrating, remembering, or making decisions? No 09/15/2017 Plan of Treatment Not on file Care Teams Laborer Yard Relationship Specialty Start Date End Date Arabella Laurent NP [address] [place] [phone] PCP - General 07/30/18
--- OUTSIDE RECORDS SUMMARY | 2023-12-31 15:25 | XMS_ITS | Clinical Summary ---
Author Organization [facility] Address [address] [place] [address] Care Team Providers Care Collaborative Physician Name Role Phone Arabella Laurent CENTER MACHINE OPERATOR Primary Care Provider [phone] Allergies Active Allergy Reactions Criticality Noted Date [...] 09/23/2012 Chronic kidney disease, stage III (moderate) ( [facility]) 02/05/2012 Essential hypertension 02/05/2012 Overview: ICD10 Update Auto Replacement Family History Medical History Relation Comments Kidney Disease Mother Relation Status Comments Mother Details of kidne y [...] on file Sexual Orientation Not on file Obstetrics History Last Filed Vital Signs Vital Sign Reading Time Taken Comments Blood Pressure 129/63 07/14/2023 1337 EST Pulse 85 02/14/2020 0816 EDT Temperature - - Respiratory Rate - - Oxygen Saturation - - Inhaled Oxygen Concentration - - Weight 51.7 kg (114 lb) 07/14/2023 1337 EST Height 144.8 cm (4' 9.01) 07/14/2023 1337 EST Body Mass Index 24.66 07/14/2023 1337 EST Plan of Treatment Health Maintenance Due Date Last Done Comments Hepatitis C Screen 1960 Pneumococcal Immunization (1 of 2 - PCV) 1964 RSV Immunization ( o r 60+ Years) (1 - 1-dose 60+ series) 2018 COVID-19 Vaccine ( - season) 2023 Care Teams Collaborative Physician Relationship Specialty Start Date End Date Arabella Laurent NP [address] [place] [phone] PCP - General 07/30/18
--- OUTSIDE RECORDS SUMMARY | 2023-12-31 15:25 | XMS_ITS | Encounter Summary ---
Author Organization [facility] Address [address] [place] [address] Care Team Providers Care Fill Manager Name Role Phone Arabella Laurent BIODIESEL ENGINE SPECIALIST Primary Care Provider [phone] Reason for Visit * Reason Onset Date Comments Follow-up 08/07/2023 Encounter Details Date Type Department Care Team ([facility] st Contact Info) Description 08/07/2023 Telephone [facility] Nephrology - [address] [address] Chastity Syed MD [address] [place] [address], [address] [place] [address] Follow-up Social History Tobacco Use Types Packs/Day Years Used Date Smoking Tobacco: Every Day Cigarettes Smokeless Tobacco: Never Interpersonal Safety Answer Date Record ed Physically Hurt Never 01/02/2020 Verbally Threaten Not on file 01/02/2020 Sex and Gender Information Value Date Recorded Sex Assigned at Not on file Gender Identity Not on file Sexual Orientation Not on file documented as of this [...] concentrating, remembering, or making decisions? No 09/15/2017 documented as of this encounter Plan of Treatment Not on file documented as of this encounter Visit Diagnoses Not on filedocumented in this encounter Care Teams Fill Manager Relationship Specialty Start Date End Date Arabella Laurent, ROLF [address] [place] [phone] PCP - General 07/30/18 documented as of this encounter
--- OUTSIDE RECORDS SUMMARY | 2023-12-31 15:25 | XMS_ITS | Encounter Summary ---
Author Organization [facility] Address [address] [place] [address] Care Team Providers Care Savings Counselor Name Role Phone Anastasiia Arabella Giron BUSINESS CONTINUITY PLANNER Primary Care Provider [phone] Encounter Details Date Type Department Care Team (Late st Contact Info) Description 08/05/2023 Abstract [facility] Nephrology - [address] [address] Chastity Syed MD [address] [place] [address], [address] [place] [phone] Social History Tobacco Use Types Packs/Day Years [...] on file documented as of this encounter Procedures Procedure Name Priority Date/Time Associated Diagnosis Comments BASIC METABOLIC PANEL (BMP) Routine 08/04/2023 11:20 EST documented in this encounter Results * BASIC METABOLIC PANEL (BMP) (08/04/2023 11:20 EST) GFR, Calculated, External 25.83 [facility] Glucose, Serum, External 102 mg/dL [facility] Calculated Calcium, External [facility] BUN, External 40 mg/dL [facility] Calcium, External 9.0 mg/dL [facility] Chloride, External 108 mmol/L [facility] CO2, External 24.9 mmol/L [facility] Creatinine, External 2.1 mg/dL [facility] Fasting?, External [facility] Potassium, External 4.1 mmol/L [facility] Sodium, External 142 mmol/L [facility] Blood VENOUS BLOOD / Unknown 08/04/2023 11:20 EST Historical Provider CHEMISTRY & BLOOD GAS ORDERABLES [facility] documented in this encounter Visit Diagnoses Not on filedocumented in this encounter Care Teams Savings Counselor Relationship Specialty Start Date End Date Arabella Laurent NP [address] [place] [address] PCP - General 07/30/18 documented as of this encounter
--- OUTSIDE RECORDS SUMMARY | 2023-12-31 15:26 | XMS_ITS | Encounter Summary ---
Author Organization [facility] Address [address] [place] [address] Care Team Providers Care Technical Data Analyst Name Role Phone Laurence Krause Primary Care Provider + Encounter Details Date Type Department Care Team (Late st Contact Info) Description 07/06/2018 Phlebotomy Only [address] [address] Piano Regulator, Outpatient Acute renal failure, unspecified acute renal failure type ([facility]) (Primary Dx) Social History Tobacco Use Types Packs/Day Years Used Date Smoking Tobacco: Every Day Smokeless Tobacco: Never Sex and Gender Information Value Date Recorded [...] Diagnosis Comments BASIC METABOLIC PANEL (BMP) Routine 07/06/2018 12:03 EST Acute renal failure, unspecified acute renal failure type ([facility]) documented in this encounter Results * (ABNORMAL) BASIC METABOLIC PANEL (BMP) (07/06/2018 12:03 EST) Sodium 143 136 - 145 mEq/L 07/06/2018 14:28 [facility] Potassium 4.8 3.5 - 5.0 mEq/L 07/06/2018 14:28 [facility] Chloride 109 96 - 110 mEq/L 07/06/2018 14:28 [facility] CO2 24 22 - 32 mEq/L 07/06/2018 14:28 [facility] BUN 21 10 - 26 mg/dl 07/06/2018 14:28 [facility] Creatinine 1.55(H) 0.52 - 1.04 mg/dl 07/06/2018 14:28 [facility] GFR, Calculated 36(L) >60 ml/min/1.7 3m2 07/06/2018 14:28 [facility] Comment: eGFR calculated using CKD-EPI equation for non Americans. Multiply eGFR by 1.16 for Americans. Calcium 9.3 8.5 - 10.5 mg/dl 07/06/2018 14:28 [facility] Calculated Calcium 9.2 8.5 - 10.5 mg/dl 07/06/2018 14:28 [facility] Glucose, Serum 87 70 - 100 mg/dl 07/06/2018 14:28 [facility] Fasting? No 07/06/2018 11:49 [facility] Blood specimen (specimen) BLOOD SPECIMEN / Unknown 07/06/2018 12:03 EST 07/06/2018 14:02 EST Chastity Syed MD CHEMISTRY & BLOOD GA S ORDERABLES [facility] [address] [place] [address] documented in this encounter Visit Diagnoses Diagnosis Acute renal failure, unspecified acute renal failure type (HCC-CMS)- Primary documented in this encounter Care Teams Technical Data Analyst Relationship Specialty Start Date End Date Laurence Krause PA [address] [place] [address] PCP - General 09/12/17 07/29/18 documented as of this encounter
--- OUTSIDE RECORDS SUMMARY | 2023-12-31 15:26 | XMS_ITS | Encounter Summary ---
Author Organization [facility] Address [address] [place] [address] Care Team Providers Care Senior It Assistant Name Role Phone Anastasiia Arabella Bree IMPROVEMENT AUDITOR Primary Care Provider [phone] Reason for Visit * Reason Comments Chronic Kidney Disease Serum creatinine had increased [...] New labs are pending from this morning.. Other She otherwise feels fine. Encounter Details Date Type Department Care Team (Late st Contact Info) Description 08/09/2019 11:00 EDT Office Visit [facility] Nephrology - [address] [id number] Chastity Syed MD [address] [place], [place] [address], [address] [place] [address] Acute renal failure, unspecified acute renal failure type (HCC-CMS) (Primary Dx); CKD (chronic kidney disease), stage III (HCC-CMS) Social History Tobacco Use Types Packs/Day Years Used Date Smoking Tobacco: Every Day Cigarettes Smokeless Tobacco: Never Tobacco Cessation:Ready to Q uit: No; Counseling Given: No Sex and Gender Information Value Date Recorded [...] kg (126 lb 1.6 oz) 08/09/2019 1139 [address] Height 144.8 cm (4' 9.01) 08/09/2019 1139 [...] No 09/15/2017 documented as of this encounter Patient Instructions * Patient Instructions* Chastity Syed MD - 08/09/2019 11:00 EDT Blood tests pending from today - BMP, phohsporus, PTH and total CK. Then BMP every 2 months. Plan to return to the clinic in 6 months. documented in this encounter Progress Notes * Chastity Syed MD - 08/09/2019 1100 EDT [...] ??? Chronic kidney disease, stage III (moderate) ([facility]) ??? Essential hypertension ??? Proteinuria ??? S/p [...] renal failure, unspecified acute renal failure type ([facility])- Primary CKD (chronic kidney disease), stage III ([facility]) Chronic kidney disease, Stage III (moderate) documented in this encounter Care Teams Senior It Assistant Relationship Specialty Start Date End Date Arabella Laurent NP [address] [place] [phone] PCP - General 07/30/18 documented as of this encounter
--- OUTSIDE RECORDS SUMMARY | 2023-12-31 15:26 | XMS_ITS | Encounter Summary ---
Author Organization [facility] Address [address] [place] [address] Care Team Providers Care Promotions Associate Name Role Phone Laurence Krause Primary Care Provider + Reason for Visit * Reason Comments Chronic Kidney Disease Follow up on CKD. Other She had some abdomin al pain which is of unclear cause. She also complained of cold sensation in both LEs - No relationship with activity. Encounter Details Date Type Department Care Team (Late st Contact Info) Description 07/06/2018 10:[address] [facility] Nephrology - [address] [id number] Chastity Syed MD 1 [facility], [address] [place] [address] Acute renal failure, unspecified acute renal failure type (HCC-CMS) (Primary Dx) Discharge Disposition: Auto Discharge Social History Tobacco Use Types Packs/Day Years [...] No 09/15/2017 documented as of this encounter Discharge Diagnoses Diagnosis N17.9 Acute kidney failure, unspecified-N17.9[ICD-10-CM] documented in this encounter Patient Instructions * Patient Instructions* Chastity Syed MD - 07/06/2018 10:50 EST Get BMP tested today in the lab. Stop the Lisinopril if serum creatinine is >1.7 mg/dL, after I have reviewed her basic metabolicprofile test result from today. Review BP with PCP in 2 weeks. RTC to see me in 1 month. documented in this encounter Discharge Disposition Disposition Code Departure Means Destination Auto Discharge documented in this encounter Progress Notes * Chastity Syed MD - 07/06/2018 1050 EST NEPHROLOGY OFFICE FOLLOW UP VISIT NOTE SUBJECTIVE Follow up on CKD with hypertension and s/p left nephrectomy from age 10 years. Her creatinine was 1.6 mg/dl in November 2011. Was 1.58 in November 2017, then 1.76 mg/dl in January 2018and 1.86 mg/dl in May 2018. She describes [...] ??? Chronic kidney disease, stage III (moderate) ([facility]) ??? Essential hypertension ??? Proteinuria ??? S/p [...] from age 10 years.Her creatinine was 1.6 mg/dl in November 2011. Was 1.58 in November 2017, then 1.76 mg/dl in January 2018 and 1.86 mg/dl in May 2018. To get BMP today and if serum creatinine is >1.7o mg/dl, I will discontinue Lisninopril andfollow BMP in two weeks. 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 She reported that she did a blood test last week in [facility]. Hypertension - I rechecked BP today manually - 124/60. Continue Amlodipine and metoprolol. Addendum: Repeat labs today show improved serum creatinine at 1.55 mg/dl and therefore no medication changes were therefore instituted. documented in this encounter Plan of Treatment Not on file documented as of this encounter Results * (ABNORMAL) BASIC METABOLIC PANEL (BMP) (07/06/2018 12:03 EST) Sodium 143 136 - 145 mEq/L 07/06/2018 14:28 [facility] Potassium 4.8 3.5 - 5.0 mEq/L 07/06/2018 14:28 [facility] Chloride 109 96 - 110 mEq/L 07/06/2018 14:28 [facility] CO2 24 22 - 32 mEq/L 07/06/2018 14:28 [facility] BUN 21 10 - 26 mg/dl 07/06/2018 14:28 [facility] Creatinine 1.55(H) 0.52 - 1.04 mg/dl 07/06/2018 14:28 [facility] GFR, Calculated 36(L) >60 ml/min/1.7 3m2 07/06/2018 14:28 [facility] Comment: eGFR calculated using CKD-EPI equation for non Americans. Multiply eGFR by 1.16 for Americans. Calcium 9.3 8.5 - 10.5 mg/dl 07/06/2018 14:28 [facility] Calculated Calcium 9.2 8.5 - 10.5 mg/dl 07/06/2018 14:28 [facility] Glucose, Serum 87 70 - 100 mg/dl 07/06/2018 14:28 [facility] Fasting? No 07/06/2018 11:49 [facility] Blood specimen (specimen) BLOOD SPECIMEN / Unknown 07/06/2018 12:03 EST 07/06/2018 14:02 EST Chastity Syed MD CHEMISTRY & BLOOD GA S ORDERABLES [facility] [address] [place] [address] documented in this encounter Visit Diagnoses Diagnosis Acute renal failure, unspecified acute renal failure type (HCC-CMS)- Primary documented in this encounter Care Teams Promotions Associate Relationship Specialty Start Date End Date Laurence Krause PA [address] [place] [address] PCP - General 09/12/17 07/29/18 documented as of this encounter
--- OUTSIDE RECORDS SUMMARY | 2023-12-31 15:26 | XMS_ITS | Encounter Summary ---
Author Organization [facility] Address [address] [place] [address] Care Team Providers Care Solid Die Cutter Name Role Phone Arabella Laurent SHALE PLANER OPERATOR HELPER Primary Care Provider Reason for Referral * Laboratory Services (Routine/Next Available) - New Request Specialty Diagnoses / Procedures Referred By [place] pineda Referred To Contact Diagnoses CKD (chronic kidney disease), stage IV ([facility]) Procedures COMPLETE BLOOD COUNT Chastity Syed MD [address] [address] Referral ID Status Reason Start Date Expiration Date V isits Requested Visits Authorized [id number] New Request 03/10/2023 4 4 * Laboratory Services (Routine/Next Available) - New Request Specialty Diagnoses / Procedures Referred By Contreginaldo t Referred To Contact Diagnoses CKD (chronic kidney disease), stage IV ([facility]) Procedures PTH INTACT Chastity Syed MD 1 [facility] [address] [place] [address] Referral ID Status Reason Start Date Expiration Date V isits Requested Visits Authorized [id number] New Request 03/10/2023 4 4 * Laboratory Services (Routine/Next Available) - New Request Specialty Diagnoses / Procedures Referred By Contac t Referred To Contact Diagnoses CKD (chronic kidney disease), stage IV ([facility]) Procedures NEPHROLOGY PROFILE (INCLUDES BUN, CREATININE, CALCULATED GFR, ELECTROLYTES, CALCIUM, PHOSPHORUS, ALBUMIN) Chastity Syed MD [address] [place] [address], [facility] [address] [place] [address] Referral ID Status Reason Start Date Expiration Date V isits Requested Visits Authorized [id number] New Request 03/10/2023 6 6 Reason for Visit * Reason Comments Chronic Kidney Disease 1 year follow up on CKD IV with creatinine of??2.0 (eGFR=27.55) in Jul 2022; was 1.7 on 01/01/2022. It was??1.86 mg/dL in May 2018 and Lisinopril was discontinued thereafter and had decreased to 1.56 mg/dL??by??July 2018. However, it went back up to 1.90 in September 2020,??1.80 (eGFR = 28.51) from December 2020??and was 1.90 (eGFR=26) in September 2021. ??Missed appointment on 03-11-2022. Baseline 1.7-2.0 since January 2020. Encounter Details Date Type Department Care Team (Late st Contact Info) Description 03/10/2023 13:00 EDT Telemedicine [facility] Nephrology - [address] [phone] Chastity Syed MD [address] [place] [address], [facility] [address] [place] [address] CKD (chronic kidney disease), stage IV ([facility]) (Primary Dx) Social History Tobacco Use Types [...] * Patient Instructions* Chastity Syed MD - 03/10/2023 13:00 EDT Labs ordered. RTC in 4 months. documented in this encounter Progress Notes * Chastity Syed MD - 03/10/2023 1300 EDT This visit was conducted by telephone with consent given by the patients. During the visit, the patient's symptoms, weight, BP, medication usage and recent laboratory test results were reviewed. The telephone call lasted 30 minutes. Home Phone Work Phone NEPHROLOGY OFFICE FOLLOW UP VISIT NOTE SUBJECTIVE 1 year follow up on CKD IV with creatinine of??2.0 (eGFR=27.55) in Jul 2022; was 1.7 on 01/01/2022. It was??1.86 mg/dL in May 2018 and Lisinopril was discontinued thereafter and had decreased to 1.56 mg/dL??by??July 2018. However, it went back up to 1.90 in September 2020,??1.80 (eGFR = 28.51) from December 2020??and was 1.90 (eGFR=26) in September 2021. ??Missed appointment on 03-11-2022. Baseline 1.7-2.0 since January 2020. 03/06/2023 Chief Complaint Patient presents with ??? Chronic Kidney Disease 1 year follow up on CKD IV with creatinine of??2.0 (eGFR=27.55) in Jul 2022; was 1.7 on 01/01/2022. It was??1.86 mg/dL in May 2018 and Lisinopril was discontinued thereafter and had decreased to 1.56 mg/dL??by??July 2018. However, it went back up to 1.90 in September 2020,??1.80 (eGFR = 28.51) from December 2020??and was 1.90 (eGFR=26) in September 2021. ??Missed appointment on 03-11-2022. Baseline 1.7-2.0 since January 2020. HPI As above. Appetite - Alright. She gained a few pounds. Nausea or vomiting - She described some nausea a few weeks ago and then resolved without any meds. Breathing - So so. She is rather vague in the answers. No new leg swelling. Sleep - Some days good, others not good. BP was 140/something when she visited with the lung doctor in [place], [place]. She could not recall the last time she had some blood work - may be November 2022. At the [facility] in [place], [place] (Arabella Laurent NP) - we would follow up with the PCP for latest labs. Patient Active Problem List Diagnosis ??? Chronic kidney disease, stage III (moderate) ([facility]) ??? Essential hypertension ??? Proteinuria ??? S/p [...] Social History Tobacco Use ??? Smoking status: Every Day Current packs/day: 0.50 Types: Cigarettes ??? Smokeless tobacco: Never Family History Problem Relation Age of Onset ??? Kidney Disease Mother REVIEW OF SYSTEMS A ten point ROS was performed and was negative except for pertinent positives in the HPI There were no vitals taken for this visit. Phone visit. Chastity Syed MD 03/06/2023 17:12 Lab Results Component Value Date K 4.2 [...] [place] Neg 09/23/2012 ASSESSMENT & PLAN CKD IV status - 1 year follow up on CKD IV with creatinine of??2.0 (eGFR=27.55) in Jul 2022; was 1.7 on 01/01/2022. It was??1.86 mg/dL in May 2018 and Lisinopril was discontinued thereafter and had decreased to 1.56 mg/dL??by??July 2018. However, it went back up to 1.90 in September 2020,??1.80 (eGFR = 28.51) from December 2020??and was 1.90 (eGFR=26) in September 2021. ??Missed appointment on 03-11-2022. Baseline 1.7-2.0 since January 2020. Nephrology Profile [place] and then every 2 months and RTC in 4 months given that she had not been seen and followed up in the Clinic or almost 2 years and the lastlabs available were from July 2022. The importance of standing lab orders and office follow up was emphasized and discussed with the patient. MAIL DISTRIBUTOR planning - She was reminded of the importance of completing standing lab orders as this was theonly way to monitor CKD status. The potential of her needing dialysis was brought up for mention. HTN -??Follow up with the PCP. ?? Metabolic bone disease - No recent PTH or phosphorus. To recheck PTH and phosphorus [place] and then every 2-3 months. Hematology - No recent CBC data. Hb was 13.3 in August 2019. Recheck CBC [place] and then at least every 4 months. PCP - She follows up with Arabella Laurent NP at [place], [place]. She will be going to this oice to complete the needed blood work [place]. We will reach out to the PCP's office to request for any new lab data from after July 2022. documented in this encounter Plan of Treatment Scheduled Orders Name Type Priority Associated Diagnoses Orde r Schedule NEPHROLOGY PROFILE (INCLUDES BUN, CREATININE, CALCULATED GFR, ELECTROLYTES, CALCIUM, PHOSPHORUS, ALBUMIN) Lab Routine CKD (chronic kidney disease), stage IV ([facility]) 2 months for 6 Occurrences starting 03/10/2023 until 03/10/2024 PTH INTACT Lab Routine CKD (chronic kidney disease), stage IV ([facility]) 3 months for 4 Occurrences starting 03/10/2023 until 03/10/2024 COMPLETE BLOOD COUNT Lab Routine CKD (chronic kidney disease), stage IV ([facility]) 3 months for 4 Occurrences starting 03/10/2023 until 03/10/2024, 1 completed documented as of this encounter Results * COMPLETE BLOOD COUNT (06/03/2023 11:05 EST) HCT, External 42.9 [facility] MCH, External 32.8 g/dL [facility] MCV, External 99 [facility] MCHC, External 33.1 g/dL [facility] Hemoglobin, External 14.2 % [facility] WBC, External 6.13 [facility] RBC, External 4.33 [facility] PLT, External 194 [facility] RDW-CV, External 12.4 [facility] Blood VENOUS BLOOD / Unknown 06/03/2023 11:05 EST Chastity Syed MD HEMATOLOGY & PF4 ORD ERABLES [facility] documented in this encounter Visit Diagnoses Diagnosis CKD (chronic kidney disease), stage IV ([facility])- Primary Chronic kidney disease, Stage IV (severe) documented in this encounter Care Teams Solid Die Cutter Relationship Specialty Start Date End Date Arabella Laurent NP [address] [place] [address] PCP - General 07/30/18 documented as of this encounter
--- OUTSIDE RECORDS SUMMARY | 2023-12-31 15:26 | XMS_ITS | Encounter Summary ---
Author Organization [facility] Address [address] [place] [address] Care Team Providers Care Laborer Pipelines Name Role Phone Anastasiia Arabella Giron PILL MACHINE OPERATOR Primary Care Provider [phone] Encounter Details Date Type Department Care Team (Late st Contact Info) Description 10/17/2020 Abstract [facility] Nephrology - [address] [phone] Chastity Syed MD [address] [place] [address], [address] [place] [phone] Social History Tobacco Use Types Packs/Day Years [...] Procedure Name Priority Date/Time Associated Diagnosis Comments VITAMIN D (25,[place]) Routine 10/10/2020 9:1 0 EDT BACTERIAL CULTURE, URINE Routine 10/10/2020 9:10 EDT PHOSPHORUS Routine 10/10/2020 9:10 EDT BASIC METABOLIC PANEL (BMP) Routine 10/10/2020 9:10 EDT documented in this encounter Results * BACTERIAL CULTURE, URINE (10/10/2020 9:10 EDT) Report Status, External FINAL [facility] Result, External GRAM POSITIVE KIA,MIXED. COLONY COUNT 10,000-50,00 0 COLONIES/ML. [facility] Specimen Description, External URINE CULTURE [facility] Urine URINE SPECIMEN COLLECTION, CLEAN CATCH / Unknown 10/10/2020 9:10 EDT Historical Provider MICROBIOLOGY - NERAL ORDERABLES [facility] * VITAMIN D (25,[place]) (10/10/2020 9:10 EDT) 25OH Vitamin D Tot, External 28.2 [facility] Blood VENOUS BLOOD / Unknown 10/10/2020 9:10 EDT Historical Provider CHEMISTRY & BLOOD GAS ORDERABLES [facility] * PHOSPHORUS (10/10/2020 9:10 EDT) Phosphorus, External 3.3 [facility] Blood VENOUS BLOOD / Unknown 10/10/2020 9:10 EDT Historical Provider CHEMISTRY & BLOOD GAS ORDERABLES [facility] * BASIC METABOLIC PANEL (BMP) (10/10/2020 9:10 EDT) GFR, Calculated, External 26.87 [facility] Glucose, Serum, External 82 [facility] Calculated Calcium, External [facility] BUN, External 32 [facility] Calcium, External 9.2 [facility] Chloride, External 106 [facility] CO2, External 26.1 [facility] Creatinine, External 1.9 [facility] Fasting?, External [facility] Potassium, External 4.5 [facility] Sodium, External 142 [facility] Blood VENOUS BLOOD / Unknown 10/10/2020 9:10 EDT Historical Provider CHEMISTRY & BLOOD GAS ORDERABLES [facility] documented in this encounter Visit Diagnoses Not on filedocumented in this encounter Care Teams Laborer Pipelines Relationship Specialty Start Date End Date Arabella Laurent, PILL MACHINE OPERATOR [address] [place] [phone] PCP - General 07/30/18 documented as of this encounter
--- OUTSIDE RECORDS SUMMARY | 2023-12-31 15:26 | XMS_ITS | Encounter Summary ---
Author Organization [facility] Address [address] [place] [address] Care Team Providers Care Trial Court Justice Name Role Phone Arabella Laurent SHOT POLISHER Primary Care Provider [phone] Encounter Details Date Type Department Care Team (Late st Contact Info) Description 07/18/2020 Abstract [facility] Nephrology - S [address] [id number] Chastity Syed MD [address] [place] [address], [address] 2 [place] [phone] Social History Tobacco Use Types Packs/Day Years [...] Diagnosis Comments BASIC METABOLIC PANEL (BMP) Routine 07/13/2020 documented in this encounter Results * BASIC METABOLIC PANEL (BMP) (07/13/2020) GFR, Calculated, External 28.60 [facility] Glucose, Serum, External 111 [facility] Calculated Calcium, External [facility] BUN, External [address] [facility] Calcium, External 9.4 [facility] Chloride, External 105 [facility] CO2, External 27.0 [facility] Creatinine, External 1.8 [facility] Fasting?, External [facility] Potassium, External 4.6 [facility] Sodium, External 139 [facility] Blood VENOUS BLOOD / Unknown 07/13/2020 Historical Provider CHEMISTRY & BLOOD GAS ORDERABLES [facility] documented in this encounter Visit Diagnoses Not on filedocumented in this encounter Care Teams Trial Court Justice Relationship Specialty Start Date End Date Arabella Laurent NP [address] [place] [address] PCP - General 07/30/18 documented as of this encounter
--- OUTSIDE RECORDS SUMMARY | 2023-12-31 15:26 | XMS_ITS | Encounter Summary ---
Author Organization [facility] Address [address] [place] [address] Care Team Providers Care Rental Car Porter Name Role Phone Arabella Laurent FELLMONGERING MACHINE OPERATOR Primary Care Provider [phone] Reason for Visit * Laboratory Services (Routine) - New Request Specialty Diagnoses / Procedures Referred By [place] pineda Referred To Contact Diagnoses Acute renal failure, unspecified acute renal failure type (HCC-CMS) Procedures BASIC METABOLIC PANEL (BMP) Chastity Syed MD [address] [place] [address], [address] [place] [address] Referral ID Status Reason Start Date Expiration Date V isits Requested Visits Authorized [id number] New Request 08/09/2019 1 1 Encounter Details Date Type Department Care Team ([facility] st Contact Info) Description 08/09/2019 11:30 EDT Phlebotomy Only [facility] Laboratory Services - [address] [address] [facility] Acute renal failure, unspecified acute renal failure type ([facility]-CMS); Chronic kidney disease, stage III (moderate) ([facility]-CMS); Microscopic hematuria Social History Tobacco Use Types Packs/Day Years Used Date Smoking Tobacco: Every Day Cigarettes Smokeless Tobacco: Never Sex and Gender Information [...] Procedure Name Priority Date/Time Associated Diagnosis Comments PTH INTACT Routine 08/09/2019 11:33 EDT Acute renal failure, unspecified acute renal failure type (HCC-CMS) COMPLETE BLOOD COUNT Routine 08/09/2019 11:33 EDT Chronic kidney disease, stage III (moderate) ([facility]-CMS) Microscopic hematuria PHOSPHORUS Routine 08/09/2019 11:33 EDT Acute renal failure, unspecified acute renal failure type ([facility]-CMS) ALBUMIN Routine 08/09/2019 11:33 EDT Chronic kidney disease, stage III (moderate) ([facility]-CMS) Microscopic hematuria BASIC METABOLIC PANEL (BMP) Routine 08/09/2019 11:33 EDT Acute renal failure, unspecified acute renal failure type ([facility]-CMS) documented in this encounter Results * ALBUMIN (08/09/2019 11:33 EDT) Albumin 3.8 3.4 - 4.9 g/dL 08/09/2019 12:50 EDT [facility] Blood VENOUS BLOOD / Unknown Venipuncture / Unknown 08/09/2019 11:33 EDT 08/09/2019 11:33 EDT Chastity Syed MD CHEMISTRY & BLOOD GA S ORDERABLES [facility] [address] [place] [address] * (ABNORMAL) COMPLETE BLOOD COUNT (08/09/2019 11:33 EDT) WBC 6.29 4.00 - 12.40 K/cmm 08/09/2019 12:31 EDT [facility] RBC 4.05 3.86 - 5.04 M/cmm 08/09/2019 12:31 T [facility] Hemoglobin 13.3 11.6 - 15.2 gm/dL 08/09/2019 12:31 [facility] HCT 40.1 34.9 - 44.4 % 08/09/2019 12:31 [facility] MCV 99(H) 81 - 98 fl 08/09/2019 12:31 [facility] MCH 32.8 26.7 - 33.3 pg 08/09/2019 12:31 [facility] MCHC 33.2 32.1 - 35.9 gm/dL 08/09/2019 12:31 [facility] RDW-CV 13.2 <14.7 % 08/09/2019 12:31 [facility] RDW-SD 48.5 <50.4 fl 08/09/2019 12:31 [facility] PLT 204 141 - 377 K/cmm 08/09/2019 12:31 [facility] MPV 9.8 9.5 - 12.7 fl 08/09/2019 12:31 [facility] Blood VENOUS BLOOD / Unknown Venipuncture / Unknown 08/09/2019 11:33 EDT 08/09/2019 11:33 EDT Chastity Syed MD HEMATOLOGY & PF4 ORD ERABLES Performing Organization Address City/State/[facility] Co de Phone Number [facility] [address] [place] [phone] * (ABNORMAL) PTH INTACT (08/09/2019 11:33 EDT) Intact PTH 104(H) 19 - 88 pg/mL 08/09/2019 14:21 EDT [facility] Blood VENOUS BLOOD / Unknown Venipuncture / Unknown 08/09/2019 11:33 EDT 08/09/2019 11:33 EDT Chastity Syed MD CHEMISTRY & BLOOD GA S ORDERABLES [facility] [address] [place] [address] * PHOSPHORUS (08/09/2019 11:33 EDT) Phosphorus 3.5 2.5 - 4.5 mg/dL 08/09/2019 12:50 [facility] Blood VENOUS BLOOD / Unknown Venipuncture / Unknown 08/09/2019 11:33 EDT 08/09/2019 11:33 EDT Chastity Syed MD CHEMISTRY & BLOOD GA S ORDERABLES Performing Organization Address [facility] Co de Phone Number [facility] [address] [place] [address] * (ABNORMAL) BASIC METABOLIC PANEL (BMP) (08/09/2019 11:33 EDT) Sodium 139 136 - 145 mEq/L 08/09/2019 12:50 [facility] Potassium 4.2 3.5 - 5.0 mEq/L 08/09/2019 12:50 [facility] Chloride 108 96 - 110 mEq/L 08/09/2019 12:50 [facility] CO2 Total 25 22 - 32 mEq/L 08/09/2019 12:50 [facility] Glucose 92 70 - 100 mg/dL 08/09/2019 12:50 [facility] Calcium 9.4 8.5 - 10.5 mg/dL 08/09/2019 12:50 [facility] Calculated Calcium 9.6 8.5 - 10.5 mg/dL 08/09/2019 12:50 [facility] BUN 23 10 - 26 mg/dL 08/09/2019 12:50 [facility] Creatinine 1.56(H) 0.52 - 1.04 mg/dL 08/09/2019 12:50 [facility] eGFR 36(L) >60 mL/min/1.7 3m2 08/09/2019 12:50 [facility] Comment:eGFR calculated giovanna vazquez CKD-EPI equation for non- Americans. Multiply eGFR by 1.16 for patients. Blood VENOUS BLOOD / Unknown Venipuncture / Unknown 08/09/2019 11:33 EDT 08/09/2019 11:33 EDT Narrative [facility] - 08/09/2019 12:50 EDT 2 Chastity Syed MD CHEMISTRY & BLOOD GA S ORDERABLES [facility] [address] [place] [address] documented in this encounter Visit Diagnoses Diagnosis Acute renal failure, unspecified acute renal failure type (HCC-CMS) Chronic kidney disease, stage III (moderate) (HCC-CMS) Chronic kidney disease, Stage III (moderate) Microscopic hematuria documented in this encounter Care Teams Rental Car Porter Relationship Specialty Start Date End Date Arabella Laurent NP [address] [place] [address] PCP - General 07/30/18 documented as of this encounter
--- OUTSIDE RECORDS SUMMARY | 2023-12-31 15:26 | XMS_ITS | Encounter Summary ---
Author Organization [facility] Address [address] [place] [address] Care Team Providers Care Front Worker Name Role Phone Arabella Laurent WEB PORTAL DEVELOPER Primary Care Provider [phone] Encounter Details Date Type Department Care Team (Latest Contact Info) Description 01/12/2020 Lab Requisition [facility] Pathology & Laboratory Medicine - [facility] [address] [place] [address] Arabella Laurent, WEB PORTAL DEVELOPER [address] [place] [address] Encounter for gynecological examination (general) (routine) without abnormal findings Social History Tobacco Use Types Packs/Day Years [...] Procedure Name Priority Date/Time Associated Diagnosis Comments PAP TEST Today 01/10/2020 13:15 EDT Encounter for gynecological examination (general) (routine) without abnormal findings HPV DNA DETECTION WITH GENOTYPING, PCR Today 01/10/2020 13:15 EDT Encounter for gynecological examination (general) (routine) without abnormal findings documented in this encounter Results * HUMAN PAPILLOMAVIRUS (HPV) DETECTION-HIGH RISK TYPES (01/10/2020 13:15 EDT) HPV other High Risk types, PCR Negative Negative 01/25/2020 15:32 EDT [facility] Comment:No E6 or E7 mRNA is detected from HPV types 16,18,31,33,35,39,45,51,52,56,58,59,66, and 68 by integration manager mediated amplification. Papanicolaou smear specimen (specimen) CERVIX UTERI STRUCTURE / Unknown 01/10/2020 13:15 EDT 01/24/2020 10:59 EDT Arabella Laurent NP MICROBIOLOGY - GENER AL ORDERABLES [facility] [address] [place] [address] * PAP TEST (01/10/2020 13:15 EDT) Specimens A. Cervix and/or Endocervix , ThinPrep Imaging System with Manual Evaluation 01/25/2020 15:32 EDT [facility] Specimen Adequacy Satisfactory for Evaluation - transformation zone component absent 01/25/2020 15:32 EDT [facility] General Categorization Negative for intraepithelial lesion or malignancy 01/25/2020 15:32 EDT [facility] Attestation . 01/25/2020 15:32 T [facility] at 1532 HPV The result for the Human Papillomavirus (HPV) Detection-High Risk Types is Negative. No E6 or E7 mRNA is detected from HPV types 16,18,31,33,35,39 ,45,51,52,56,58,5 9,66, and 68 by integration manager mediated amplification.Susy mikig was performed on specimen [id number] and was resulted on 01/25/2020 1526 EDT by JOSHUA, LAB INSTRUMENT RESULTS IN 01/25/2020 15:32 EDT [facility] Scanned Images 01/25/2020 15:32 EDT [facility] Papanicolaou smear specimen (specimen) CERVIX UTERI STRUCTURE / Unknown 01/10/2020 13:15 EDT 01/12/2020 15:39 EDT Arabella Laurent NP PATHOLOGY ORDERABLES [facility] [address] [place] [address] documented in this encounter Visit Diagnoses Diagnosis Encounter for gynecological examination (general) (routine) without abnormal findings documented in this encounter Care Teams Front Worker Relationship Specialty Start Date End Date Arabella Laurent, WEB PORTAL DEVELOPER [address] [place] [address] PCP - General 07/30/18 documented as of this encounter
--- OUTSIDE RECORDS SUMMARY | 2023-12-31 15:26 | XMS_ITS | Encounter Summary ---
Author Organization [facility] Address [address] [place] [address] Care Team Providers Care Wafer Line Worker Name Role Phone Arabella Laurent MULTIMEDIA TECHNICIAN Primary Care Provider [phone] Encounter Details Date Type Department Care Team (Late st Contact Info) Description 04/02/2023 Abstract [facility] Nephrology - [address] [address] Chastity Syed MD [address] [place] [address], [address] [place] [phone] Social History Tobacco Use Types Packs/Day Years [...] Procedure Name Priority Date/Time Associated Diagnosis Comments COMPREHENSIVE METABOLIC PANEL (CMP) Routine 03/31/2023 9:20 EDT documented in this encounter Results * COMPREHENSIVE METABOLIC PANEL (CMP) (03/31/2023 9:20 EDT) GFR, Calculated, External 25.83 [facility] Glucose, Serum, External 97 mg/dL [facility] Albumin, External 3.9 g/dL [facility] Total Alkaline Phosphatase, External 96 [facility] ALT, External 23 [facility] AST, External 21 U/L [facility] BUN, External 29 mg/dL [facility] Calculated Calcium, External [facility] Calcium, External 9.7 mg/dL [facility] Chloride, External 107 mmol/L [facility] CO2, External 23.2 mmol/L [facility] Creatinine, External 2.1 mg/dL [facility] Fasting?, External [facility] Potassium, External 4.3 mmol/L [facility] Sodium, External 142 mmol/L [facility] Total Protein, External 7.4 [facility] Bilirubin, Total, External 0.7 [facility] Blood VENOUS BLOOD / Unknown 03/31/2023 9:20 EDT Historical Provider CHEMISTRY & BLOOD GAS ORDERABLES [facility] documented in this encounter Visit Diagnoses Not on filedocumented in this encounter Care Teams Wafer Line Worker Relationship Specialty Start Date End Date Arabella Laurent NP [address] [place] [phone] PCP - General 07/30/18 documented as of this encounter
--- OUTSIDE RECORDS SUMMARY | 2023-12-31 15:26 | XMS_ITS | Encounter Summary ---
Author Organization [facility] Address [address] [place] [address] Care Team Providers Care Document Imaging Specialist Name Role Phone Arabella Laurent MARINE FITTER Primary Care Provider [phone] Encounter Details Date Type Department Care Team (Late st Contact Info) Description 03/11/2023 Abstract [facility] Nephrology - [address] [address] Chastity Syed MD [address] [place] [address], [address] [place] [phone] Social History Tobacco Use Types Packs/Day Years [...] Diagnosis Comments BASIC METABOLIC PANEL (BMP) Routine 01/28/2023 BASIC METABOLIC PANEL (BMP) Routine 11/06/2022 BASIC METABOLIC PANEL (BMP) Routine 09/17/2022 documented in this encounter Results * BASIC METABOLIC PANEL (BMP) (01/28/2023) Pathologist [facility] GFR, Calculated, External 27.38 [facility] Glucose, Serum, External 72 mg/dL [facility] Calculated Calcium, External [facility] BUN, External 31 mg/dL [facility] Calcium, External 9.3 mg/dL [facility] Chloride, External 107 mmol/L [facility] CO2, External 25.3 mmol/L [facility] Creatinine, External 2.0 mg/dL [facility] Fasting?, External [facility] Potassium, External 4.3 mmol/L [facility] Sodium, External 141 mmol/L [facility] Blood VENOUS BLOOD / Unknown 01/28/2023 Historical Provider CHEMISTRY & BLOOD GAS ORDERABLES [facility] * BASIC METABOLIC PANEL (BMP) (11/06/2022) Pathologist [facility] GFR, Calculated, External 31.27 [facility] Glucose, Serum, External 90 mg/dL [facility] Calculated Calcium, External [facility] BUN, External 29 mg/dL [facility] Calcium, External 9.0 mg/dL [facility] Chloride, External 108 mmol/L [facility] CO2, External 27.1 mmol/L [facility] Creatinine, External 1.8 mg/dL [facility] Fasting?, External [facility] Potassium, External 4.1 mmol/L [facility] Sodium, External 143 mmol/L [facility] Blood VENOUS BLOOD / Unknown 11/06/2022 Historical Provider MD CHEMISTRY & BLOOD GAS ORDERABLES [facility] * BASIC METABOLIC PANEL (BMP) (09/17/2022) GFR, Calculated, External 27.55 [facility] Glucose, Serum, External 83 mg/dL [facility] Calculated Calcium, External [facility] BUN, External 31 mg/dL [facility] Calcium, External 9.5 mg/dL [facility] Chloride, External 109 mmol/L [facility] CO2, External 26.2 mmol/L [facility] Creatinine, External 2.0 mg/dL [facility] Fasting?, External [facility] Potassium, External 4.2 mmol/L [facility] Sodium, External 142 mmol/L [facility] Blood VENOUS BLOOD / Unknown 09/17/2022 Historical Provider CHEMISTRY & BLOOD GAS ORDERABLES [facility] documented in this encounter Visit Diagnoses Not on filedocumented in this encounter Care Teams Document Imaging Specialist Relationship Specialty Start Date End Date Arabella Laurent NP [address] [place] [address] PCP - General 07/30/18 documented as of this encounter
--- OUTSIDE RECORDS SUMMARY | 2023-12-31 15:26 | XMS_ITS | Encounter Summary ---
Author Organization [facility] Address [address] [place] [address] Care Team Providers Care Interpreter Name Role Phone Arabella Laurent BYPRODUCTS PUMP OPERATOR Primary Care Provider [phone] Reason for Visit * Reason Onset Date Comments Labs Only 08/01/2022 Encounter Details Date Type Department Care Team (Late st Contact Info) Description 08/01/2022 Telephone [facility] Nephrology - [address] [phone] Chastity Syed MD [address] [place] [address], [address] [place] [address] Labs Only Social History Tobacco Use Types Packs/Day Years [...] No 09/15/2017 documented as of this encounter Miscellaneous Notes * Telephone Encounter - Mona Michaels, RN - 08/01/2022 0977 EST Call to casandra and reviewed her labs with her. BMP: creatinine 2.0 (was 1.8 05/23) and gfr 27.5 (31 05/23). SHe states that she is feeling good, and her BP was checked at her PCP recently- she does not recall the reading but PCP did express concern . No complaints of edema or other concerns. She will re check labs in 2 months. Will ask Maren Do if there is a CBC, pth or phos available as these would be due Standing orders faxed to PCP with note to draw with next labs in august * Telephone Encounter - Emily Lee - 08/01/2022 0917 EST Casandra requesting call back from nurse to go over labs from 07/15 documented in this encounter Plan of Treatment Not on file documented as of this encounter Visit Diagnoses Not on filedocumented in this encounter Care Teams Interpreter Relationship Specialty Start Date End Date Arabella Laurent NP [address] [place] [phone] PCP - General 07/30/18 documented as of this encounter
--- OUTSIDE RECORDS SUMMARY | 2023-12-31 15:26 | XMS_ITS | Encounter Summary ---
Author Organization [facility] Address [address] [place] [address] Care Team Providers Care Senior Biostatistician Name Role Phone Arabella Laurent AUTOMOTIVE GLASS MECHANIC Primary Care Provider [phone] Encounter Details Date Type Department Care Team (Late st Contact Info) Description 01/11/2020 Abstract [facility] Nephrology - [address] [address] Chastity Syed MD [address] [place] [address], [address] [place] [phone] Social History Tobacco Use Types Packs/Day Years [...] Diagnosis Comments BASIC METABOLIC PANEL (BMP) Routine 01/10/2020 13:10 EDT documented in this encounter Results * BASIC METABOLIC PANEL (BMP) (01/10/2020 13:10 EDT) GFR, Calculated, External 28.98 [facility] Glucose, Serum, External 113 [facility] Calculated Calcium, External [facility] BUN, External 23 [facility] Calcium, External 8.9 [facility] Chloride, External 106 [facility] CO2, External 24.1 [facility] Creatinine, External 1.78 [facility] Fasting?, External [facility] Potassium, External 4.1 [facility] Sodium, External 140 [facility] Blood VENOUS BLOOD / Unknown 01/10/2020 13:10 EDT Historical Provider CHEMISTRY & BLOOD GAS ORDERABLES [facility] documented in this encounter Visit Diagnoses Not on filedocumented in this encounter Care Teams Senior Biostatistician Relationship Specialty Start Date End Date Arabella Laurent NP [address] [place] [phone] PCP - General 07/30/18 documented as of this encounter
--- OUTSIDE RECORDS SUMMARY | 2023-12-31 15:26 | XMS_ITS | Encounter Summary ---
Author Organization [facility] Address [address] [place] [address] Care Team Providers Care Credit Control Assistant Name Role Phone Anastasiia Arabella Giron PROCTOLOGIST Primary Care Provider [phone] Encounter Details Date Type Department Care Team (Late st Contact Info) Description 10/10/2021 Abstract [facility] Nephrology - [address] [address] Chastity Syed MD [address] [place] [address], [address] [place] [phone] Social History Tobacco Use Types Packs/Day Years [...] Diagnosis Comments BASIC METABOLIC PANEL (BMP) Routine 10/09/2021 documented in this encounter Results * BASIC METABOLIC PANEL (BMP) (10/09/2021) GFR, Calculated, External 26.79 [facility] Glucose, Serum, External 90 [facility] Calculated Calcium, External [facility] BUN, External 28 [facility] Calcium, External 8.5 [facility] Chloride, External 104 [facility] CO2, External 24.7 [facility] Creatinine, External 1.9 [facility] Fasting?, External [facility] Potassium, External 4.7 [facility] Sodium, External 138 [facility] Blood VENOUS BLOOD / Unknown 10/09/2021 Historical Provider CHEMISTRY & BLOOD GAS ORDERABLES [facility] documented in this encounter Visit Diagnoses Not on filedocumented in this encounter Care Teams Credit Control Assistant Relationship Specialty Start Date End Date Arabella Laurent NP [address] [place] [address] PCP - General 07/30/18 documented as of this encounter
--- OUTSIDE RECORDS SUMMARY | 2023-12-31 15:26 | XMS_ITS | Encounter Summary ---
Author Organization [facility] Address [address] [place] [address] Care Team Providers Care Ct Mri Technologist Name Role Phone Arabella Laurent TELEVISION PROGRAM DIRECTOR Primary Care Provider [phone] Encounter Details Date Type Department Care Team (Late st Contact Info) Description 01/04/2021 Abstract [facility] Nephrology - S [address] [id number] Chastity Syed MD [address] [place] [address], Level 2 [place] [phone] Social History Tobacco Use Types Packs/Day Years [...] Diagnosis Comments BASIC METABOLIC PANEL (BMP) Routine 01/02/2021 documented in this encounter Results * BASIC METABOLIC PANEL (BMP) (01/02/2021) GFR, Calculated, External 28.51 [facility] Glucose, Serum, External 107 [facility] Calculated Calcium, External [facility] BUN, External 25 [facility] Calcium, External 9.3 [facility] Chloride, External 106 [facility] CO2, External 22.6 [facility] Creatinine, External 1.8 [facility] Fasting?, External [facility] Potassium, External 4.3 [facility] Sodium, External 140 [facility] Blood VENOUS BLOOD / Unknown 01/02/2021 Historical Provider CHEMISTRY & BLOOD GAS ORDERABLES Performing Organization Address City/State/[facility] Co de Phone Number [facility] [address] [place] [address] documented in this encounter Visit Diagnoses Not on filedocumented in this encounter Care Teams Ct Mri Technologist Relationship Specialty Start Date End Date Arabella Laurent NP [address] [place] [address] PCP - General 07/30/18 documented as of this encounter
--- OUTSIDE RECORDS SUMMARY | 2023-12-31 15:26 | XMS_ITS | Encounter Summary ---
Author Organization [facility] Address [address] [place] [address] Care Team Providers Care Field Assessor Name Role Phone Arabella Laurent SOLUTION SPECIALIST Primary Care Provider [phone] Encounter Details Date Type Department Care Team (Late st Contact Info) Description 07/25/2022 Abstract [facility] Nephrology - S [address] [phone] Chastity Syed MD [address] [place] [address], Level 2 [place] [phone] CKD (chronic kidney disease), stage IV ([facility]) (Primary Dx) Social History Tobacco Use Types [...] Diagnosis Comments BASIC METABOLIC PANEL (BMP) Routine 07/15/2022 documented in this encounter Results * BASIC METABOLIC PANEL (BMP) (07/15/2022) GFR, Calculated, External 27.55 [facility] Glucose, Serum, External 101 [facility] Calculated Calcium, External [facility] BUN, External 23 [facility] Calcium, External 9.3 [facility] Chloride, External 104 [facility] CO2, External 26.8 [facility] Creatinine, External 2.0 [facility] Fasting?, External [facility] Potassium, External 3.9 [facility] Sodium, External 139 [facility] Blood VENOUS BLOOD / Unknown 07/15/2022 Historical Provider CHEMISTRY & BLOOD GAS ORDERABLES [facility] documented in this encounter Visit Diagnoses Diagnosis CKD (chronic kidney disease), stage IV ([facility])- Primary Chronic kidney disease, Stage IV (severe) documented in this encounter Orders Lab Orders Without Results Count Last Ordered D ate First Ordered Date BASIC METABOLIC PANEL (BMP) 1 07/25/2022 documented in this encounter Care Teams Field Assessor Relationship Specialty Start Date End Date Arabella Laurent NP [address] [place] [address] PCP - General 07/30/18 documented as of this encounter
--- OUTSIDE RECORDS SUMMARY | 2023-12-31 15:26 | XMS_ITS | Encounter Summary ---
Author Organization [facility] Address [address] [place] [address] Care Team Providers Care Local Driver Name Role Phone Laurence Kraues Primary Care Provider + Encounter Details Date Type Department Care Team (Late st Contact Info) Description 07/20/2018 Abstract [facility] Nephrology - [address] [phone] Chastity Syed MD [address] [place] [address], Level 2 [place] [address] Acute renal failure, unspecified acute renal failure type ([facility]); Essential hypertension; Chronic kidney disease, stage III (moderate) ([facility]) Social History Tobacco Use Types Packs/Day Years [...] Procedure Name Priority Date/Time Associated Diagnosis Comments CK Routine 07/16/2018 HEPATIC FUNCTION PANEL (ALB,ALK PHOS,ALT,AST,DBIL,TOT PELON,TOT PROT) Routine 07/16/2018 BASIC METABOLIC PANEL (BMP) Routine 07/16/2018 Acute renal failure, unspecified acute renal failure type (HCC-CMS) Essential hypertension Chronic kidney disease, stage III (moderate) (HCC-CMS) documented in this encounter Results * CK (07/16/2018) CK, External 205 [facility] Blood specimen (specimen) 07/16/2018 Historical Provider CHEMISTRY & BLOOD GAS ORDERABLES Performing Organization Address City/[facility]/ZIP Co de Phone Number [facility] * HEPATIC FUNCTION PANEL (ALB,ALK PHOS,ALT,AST,DBIL,TOT PELON,TOT PROT) (07/16/2018) Albumin, External 3.6 [facility] Total Protein, External 6.8 [facility] Alkaline Phosphatase, External 92 [facility] ALT, External 24 [facility] AST, External 22 [facility] Unconjugated Bilirubin [facility] Conjugated Bilirubin, External [facility] Bilirubin, Total, External 0.5 [facility] Blood specimen (specimen) 07/16/2018 Historical Provider CHEMISTRY & BLOOD GAS ORDERABLES [facility] * BASIC METABOLIC PANEL (BMP) (07/16/2018) GFR, Calculated, External 29.56 [facility] Glucose, Serum, External 72 [facility] Calculated Calcium, External [facility] BUN, External 22 [facility] Calcium, External 9.0 [facility] Chloride, External 107 [facility] CO2, External 23.6 [facility] Creatinine, External 1.76 [facility] Fasting?, External [facility] Potassium, External 4.0 [facility] Sodium, External 143 [facility] Blood specimen (specimen) 07/16/2018 Chastity Syed MD CHEMISTRY & BLOOD GA S ORDERABLES [facility] documented in this encounter Visit Diagnoses Diagnosis Acute renal failure, unspecified acute renal failure type (HCC-CMS) Essential hypertension Unspecified essential hypertension Chronic kidney disease, stage III (moderate) (HCC-CMS) Chronic kidney disease, Stage III (moderate) documented in this encounter Care Teams Local Driver Relationship Specialty Start Date End Date Laurence Krause PA [address] [place] [address] PCP - General 09/12/17 07/29/18 documented as of this encounter
--- OUTSIDE RECORDS SUMMARY | 2023-12-31 15:26 | XMS_ITS | Encounter Summary ---
Author Organization [facility] Address [address] [place] [address] Care Team Providers Care Data Entry Machine Operator Name Role Phone Arabella Laurent TIE PULLER Primary Care Provider [phone] Reason for Visit * Reason Onset Date Comments Appointment Related 02/10/2020 Encounter Details Date Type Department Care Team ([facility] st Contact Info) Description 02/10/2020 Telephone [facility] Nephrology - [address] [phone] Bethany Francois RN Appointment Related Social History Tobacco Use Types Packs/Day Years [...] encounter Miscellaneous Notes * Telephone Encounter - Bethany Francois RN - 02/10/2020 1116 EDT Scheduled for office visit on 02/14/2020. Lab results from 01/10/2020 are in the chart. documented in this encounter Plan of Treatment Not on file documented as of this encounter Visit Diagnoses Not on filedocumented in this encounter Care Teams Data Entry Machine Operator Relationship Specialty Start Date End Date Arabella Laurent NP [address] [place] [address] PCP - General 07/30/18 documented as of this encounter
--- OUTSIDE RECORDS SUMMARY | 2023-12-31 15:26 | XMS_ITS | Encounter Summary ---
Author Organization [facility] Address [address] [place] [address] Care Team Providers Care Land Commissioner Name Role Phone Arabella Laurent INCIDENT RESPONSE ENGINEER Primary Care Provider [phone] Encounter Details Date Type Department Care Team (Late st Contact Info) Description 06/04/2023 Abstract [facility] Nephrology - S [address] [phone] Chastity Syed MD [address] [place] [address], Level [address] [place] [phone] CKD (chronic kidney disease), stage IV ([facility]) (Primary Dx) Social History Tobacco Use Types [...] Associated Diagnosis Comments VITAMIN D (25,[place]) Routine 06/03/2023 11: 05 EST COMPLETE BLOOD COUNT Routine 06/03/2023 11:05 EST CKD (chronic kidney disease), stage IV ([facility]) PHOSPHORUS Routine 06/03/2023 11:05 EST COMPREHENSIVE METABOLIC PANEL (CMP) Routine 06/03/2023 11:05 EST documented in this encounter Results * PHOSPHORUS (06/03/2023 11:05 EST) Phosphorus, External 3.8 [facility] Blood VENOUS BLOOD / Unknown 06/03/2023 11:05 EST Historical Provider CHEMISTRY & BLOOD GAS ORDERABLES [facility] * COMPREHENSIVE METABOLIC PANEL (CMP) (06/03/2023 11:05 EST) GFR, Calculated, External 24.42 [facility] Glucose, Serum, External 99 mg/dL [facility] Albumin, External 3.7 g/dL [facility] Total Alkaline Phosphatase, External 93 [facility] ALT, External 21 [facility] AST, External 17 U/L [facility] BUN, External 35 mg/dL [facility] Calculated Calcium, External [facility] Calcium, External 9.4 mg/dL [facility] Chloride, External 106 mmol/L [facility] CO2, External 24.0 mmol/L [facility] Creatinine, External 2.2 mg/dL [facility] Fasting?, External [facility] Potassium, External 4.8 mmol/L [facility] Sodium, External 141 mmol/L [facility] Total Protein, External 6.8 [facility] Bilirubin, Total, External 0.5 [facility] Blood VENOUS BLOOD / Unknown 06/03/2023 11:05 EST Historical Provider CHEMISTRY & BLOOD GAS ORDERABLES Performing Organization Address City/[facility]/ZIP Co de Phone Number [facility] * VITAMIN D (25,[place]) (06/03/2023 11:05 EST) 25OH Vitamin D Tot, External 36.8 [facility] Blood VENOUS BLOOD / Unknown 06/03/2023 11:05 EST Historical Provider CHEMISTRY & BLOOD GAS ORDERABLES Performing Organization Address [facility] Co de Phone Number [facility] * COMPLETE BLOOD COUNT (06/03/2023 11:05 EST) HCT, External 42.9 [facility] MCH, External 32.8 g/dL [facility] MCV, External 99 [facility] MCHC, External 33.1 g/dL [facility] Hemoglobin, External 14.2 % [facility] WBC, External 6.13 [facility] RBC, External 4.33 [facility] PLT, External 194 [facility] RDW-CV, External 12.4 [facility] Blood VENOUS BLOOD / Unknown 06/03/2023 11:05 EST Chastity Syed MD HEMATOLOGY & PF4 ORD ERABLES Performing Organization Address City/[facility]/ZIP Co de Phone Number [facility] documented in this encounter Visit Diagnoses Diagnosis CKD (chronic kidney disease), stage IV ([facility])- Primary Chronic kidney disease, Stage IV (severe) documented in this encounter Care Teams Land Commissioner Relationship Specialty Start Date End Date Arabella Laurent INCIDENT RESPONSE ENGINEER [address] [place] [phone] PCP - General 07/30/18 documented as of this encounter
--- OUTSIDE RECORDS SUMMARY | 2023-12-31 15:26 | XMS_ITS | Encounter Summary ---
Author Organization [facility] Address [address] [place] [address] Care Team Providers Care Chair Pad Maker Name Role Phone Anastasiia Arabella Giron SUPERVISOR PHOSPHORIC ACID Primary Care Provider [phone] Encounter Details Date Type Department Care Team (Late st Contact Info) Description 06/19/[address] [facility] Nephrology - [address] [address] Chastity Syed MD [address] [place] [address], Level [address] [place] [phone] Social History Tobacco Use Types Packs/Day Years [...] Diagnosis Comments BASIC METABOLIC PANEL (BMP) Routine 06/04/2021 documented in this encounter Results * BASIC METABOLIC PANEL (BMP) (06/04/2021) GFR, Calculated, External 26.79 [facility] Glucose, Serum, External 105 [facility] Calculated Calcium, External [facility] BUN, External 33 [facility] Calcium, External 9.0 [facility] Chloride, External 107 [facility] CO2, External 25.5 [facility] Creatinine, External 1.9 [facility] Fasting?, External [facility] Potassium, External 3.8 [facility] Sodium, External 143 [facility] Blood VENOUS BLOOD / Unknown 06/04/2021 Historical Provider CHEMISTRY & BLOOD GAS ORDERABLES Performing Organization Address City/State/[facility] Co de Phone Number [facility] [address] [place] [address] documented in this encounter Visit Diagnoses Not on filedocumented in this encounter Care Teams Chair Pad Maker Relationship Specialty Start Date End Date Arabella Laurent NP [address] [place] [phone] PCP - General 07/30/18 documented as of this encounter
--- OUTSIDE RECORDS SUMMARY | 2023-12-31 15:26 | XMS_ITS | Encounter Summary ---
Author Organization [facility] Address [address] [place] [address] Care Team Providers Care Fence Manufacture Supervisor Name Role Phone Arabella Laurent MEAT GRADING MACHINE OPERATOR Primary Care Provider [phone] Encounter Details Date Type Department Care Team (Late st Contact Info) Description 01/02/2022 Abstract [facility] Nephrology - S [address] [address] Chastity Syed MD [address] [place] [address], Level 2 [place] [phone] CKD (chronic kidney disease), stage IV (HCC-CMS) (HCC) (Primary Dx) Social History Tobacco Use Types [...] Diagnosis Comments BASIC METABOLIC PANEL (BMP) Routine 01/01/2022 10:50 EDT CKD (chronic kidney disease), stage IV ([facility]) ([facility]) documented in this encounter Results * BASIC METABOLIC PANEL (BMP) (01/01/2022 10:50 EDT) GFR, Calculated, External 30.36 [facility] Glucose, Serum, External 89 [facility] Calculated Calcium, External [facility] BUN, External 26 [facility] Calcium, External 9.2 [facility] Chloride, External 104 [facility] CO2, External 27.7 [facility] Creatinine, External 1.7 [facility] Fasting?, External [facility] Potassium, External 4.3 [facility] Sodium, External 138 [facility] Blood VENOUS BLOOD / Unknown 01/01/2022 10:50 EDT Chastity Syed MD CHEMISTRY & BLOOD GA S ORDERABLES [facility] documented in this encounter Visit Diagnoses Diagnosis CKD (chronic kidney disease), stage IV (HCC-CMS)- Primary Chronic kidney disease, Stage IV (severe) documented in this encounter Care Teams Fence Manufacture Supervisor Relationship Specialty Start Date End Date Arabella Laurent NP [address] [place] [address] PCP - General 07/30/18 documented as of this encounter
--- OUTSIDE RECORDS SUMMARY | 2023-12-31 15:26 | XMS_ITS | Encounter Summary ---
Author Organization [facility] Address [address] [place] [address] Care Team Providers Care Electrical Logging Engineer Name Role Phone Arabella Laurent ALTERNATIVE ENERGY TECHNICIAN Primary Care Provider Reason for Visit * Reason Onset Date Comments Appointment Related 08/04/2019 Encounter Details Date Type Department Care Team (Late st Contact Info) Description 08/04/2019 Telephone [facility] Nephrology - [address] [phone] Chastity Syed MD [address] [place] [address], Level [address] [place] [address] Appointment Related Social History Tobacco Use Types [...] as of this encounter Miscellaneous Notes * Addendum Note - Bethany Francois RN - 08/09/2019 1126 EDTAddended by: BETHANY FRANCOIS on: 08/09/2019 11:26 Modules accepted: Orders * Telephone Encounter - Bethany Francois RN - 08/09/2019 1124 EDT Pre visit labs ordered and faxed to [facility] lab. * Telephone Encounter - Bethany Francois RN - 08/09/2019 1122 EDT Images from the original note were not included. Chastity Syed MD P Nephrology Nurse Pool ?? Additional labs - CBC, Phosphorus, PTH, CMP. Mac * Telephone Encounter - Sushma Mitchell - 08/05/2019 0939 EST Pt scheduled with Dr. Syed. Would like her labs sent to [facility] * Telephone Encounter - Sushma Mitchell - 08/04/2019 1344 EST Left voicemail to schedule follow up with Dr. Syed documented in this encounter Plan of Treatment Not on file documented as of this encounter Results * ALBUMIN (08/09/2019 11:33 EDT) Albumin 3.8 3.4 - 4.9 g/dL 08/09/2019 12:50 EDT [facility] Blood VENOUS BLOOD / Unknown Venipuncture / Unknown 08/09/2019 11:33 EDT 08/09/2019 11:33 EDT Chastity Syed MD CHEMISTRY & BLOOD GA S ORDERABLES [facility] [address] [place] [address] * (ABNORMAL) COMPLETE BLOOD COUNT (08/09/2019 11:33 EDT) WBC 6.29 4.00 - 12.40 K/cmm 08/09/2019 12:31 EDT [facility] RBC 4.05 3.86 - 5.04 M/cmm 08/09/2019 12:31 [facility] Hemoglobin 13.3 11.6 - 15.2 gm/dL 08/09/2019 12:31 EDT [facility] HCT 40.1 34.9 - 44.4 % 08/09/2019 12:31 [facility] MCV 99(H) 81 - 98 fl 08/09/2019 12:31 [facility] MCH 32.8 26.7 - 33.3 pg 08/09/2019 12:31 [facility] MCHC 33.2 32.1 - 35.9 gm/dL 08/09/2019 12:31 [facility] RDW-CV 13.2 <14.7 % 08/09/2019 12:31 [facility] RDW-SD 48.5 <50.4 fl 08/09/2019 12:31 [facility] PLT 204 141 - 377 K/cmm 08/09/2019 12:31 [facility] MPV 9.8 9.5 - 12.7 fl 08/09/2019 12:31 [facility] Blood VENOUS BLOOD / Unknown Venipuncture / Unknown 08/09/2019 11:33 EDT 08/09/2019 11:33 EDT Chastity Syed MD HEMATOLOGY & PF4 ORD ERABLES [facility] [address] [place] [address] documented in this encounter Visit Diagnoses Diagnosis Chronic kidney disease, stage III (moderate) ([facility])- Primary Chronic kidney disease, Stage III (moderate) Microscopic hematuria documented in this encounter Care Teams Electrical Logging Engineer Relationship Specialty Start Date End Date Arabella Laurent NP [address] [place] [phone] PCP - General 07/30/18 documented as of this encounter
--- OUTSIDE RECORDS SUMMARY | 2023-12-31 15:26 | XMS_ITS | Encounter Summary ---
Author Organization [facility] Address [address] [place] [address] Care Team Providers Care Leave Specialist Name Role Phone Anastasiia Arabella Giron BATCH UNIT TREATER Primary Care Provider [phone] Encounter Details Date Type Department Care Team (Late st Contact Info) Description 05/17/2019 Abstract [facility] Nephrology - S [address] [address] Chastity Syed MD [address] [place] [address], Level [address] [place] [phone] Social History Tobacco Use Types Packs/Day Years [...] Diagnosis Comments BASIC METABOLIC PANEL (BMP) Routine 05/06/2019 9:52 EST documented in this encounter Results * BASIC METABOLIC PANEL (BMP) (05/06/2019 9:52 EST) GFR, Calculated, External 30.87 [facility] Glucose, Serum, External 115 [facility] Calculated Calcium, External [facility] BUN, External 28 [facility] Calcium, External 9.1 [facility] Chloride, External 108 [facility] CO2, External 25.7 [facility] Creatinine, External 1.69 [facility] Fasting?, External [facility] Potassium, External 4.2 [facility] Sodium, External 143 [facility] Blood VENOUS BLOOD / Unknown 05/06/2019 9:52 EST Historical Provider CHEMISTRY & BLOOD GAS ORDERABLES [facility] documented in this encounter Visit Diagnoses Not on filedocumented in this encounter Care Teams Leave Specialist Relationship Specialty Start Date End Date Arabella Laurent, ROLF [address] [place] [address] PCP - General 07/30/18 documented as of this encounter
--- OUTSIDE RECORDS SUMMARY | 2023-12-31 15:26 | XMS_ITS | Encounter Summary ---
Author Organization [facility] Address [address] [place] [address] Care Team Providers Care Permit Agent Name Role Phone Anastasiia Arabella Bree REED DIPPER Primary Care Provider [phone] Encounter Details Date Type Department Care Team (Late st Contact Info) Description 04/18/2021 Lab Requisition [facility] Pathology & Laboratory Medicine - [address] [address] Outr Resulting Lab, Provider Social History Tobacco Use Types Packs/Day Years [...] Procedure Name Priority Date/Time Associated Diagnosis Comments ZZCOVID-19 TEST [facility] PCR Today 04/18/2021 11:10 EST COVID-19 TESTING Routine 04/18/2021 11:1 0 EST documented in this encounter Results * COVID-19 TEST [facility] PCR (04/18/2021 11:10 EST) Swab 04/18/2021 11:1 0 EST 04/18/2021 22:01 EST Provider Outr Resulting Lab MICROBIOLOGY - GENERAL ORDERABLES Performing Organization Address [facility] Co de Phone Number [facility] [address] [place] [address] * COVID-19 TESTING (04/18/2021 11:10 EST) COVID-19 rt-PCR Result Negative Negative 04/19/2021 18:02 EST [facility] Comment: This test has not been FDA cleared or approved. This test has been authorized by FDA under an EUA for use by authorized laboratories. This test has been authorized only for detection of nucleic acid from 2019-nCoV, not for any other viruses or pathogens. This test is only authorized for the duration of the declaration that circumstances exist justifying the authorization of emergency use of in vitro diagnostic tests for detection and/or diagnosis of 2019-nCoV under section 564(b)(1) of Act, 21 U.S.C ?? 360bbb-3(b) (1), unless the authorization is terminated or revoked sooner. Negative results do not preclude 2019-nCoV infection and should not be used as the sole basis for treatment or other patient management decisions. Negative results must be combined with clinical observations, patient history, and epidemiological information. Testing was performed using the kiara SARS-CoV-2 assay ([employer] on the Kiara 6800 System Performing Lab Kiara [address] [facility] 04/19/2021 18:02 EST [facility] Swab 04/18/2021 11:1 0 EST 04/18/2021 22:01 EST Provider Outr Resulting Lab MICROBIOLOGY - GENERAL ORDERABLES Performing Organization Address [facility] Co de Phone Number [facility] [address] [place] [address] documented in this encounter Visit Diagnoses Not on filedocumented in this encounter Care Teams Permit Agent Relationship Specialty Start Date End Date Arabella Laurent, ROLF [address] [place] [phone] PCP - General 07/30/18 documented as of this encounter
--- OUTSIDE RECORDS SUMMARY | 2023-12-31 15:26 | XMS_ITS | Encounter Summary ---
Author Organization [facility] Address [address] [place] [address] Care Team Providers Care Director Global Strategic Publisher Sales Name Role Phone Arabella Lauretn FELT PULLER Primary Care Provider [phone] Reason for Visit * Reason Comments Acute Renal Failure Encounter Details Date Type Department Care Team (Latest Contact Info) Description 02/14/2020 8:20 EDT Telemedicine [facility] Nephrology - [address] [id number] Chastity Syed MD [address] [place] [address], [address] 2 [place] [address] CKD (chronic kidney disease), stage III (HCC-CMS) (Primary Dx); Secondary renal hyperparathyroidism (HCC-CMS) Social History Tobacco Use Types Packs/Day [...] - - Height 144.8 cm (4' 9.01) 02/14/2020 0816 EDT Body Mass Index - - documented [...] * Patient Instructions* Chastity Syed MD - 02/14/2020 8:20 EDT BMP labs every 3 months. RTC in one year. documented in this encounter Progress Notes * Maren Wright MA - 02/14/2020 0820 EDT Patient gave consent to a Telemedicine visit with Dr. Syed. We did medication reconciliation andpatient gave vital signs over the phone. Home Phone Work Phone This visit was conducted by telephone with consent given by the patients. During the visit, the patient's symptoms, weight, BP, medication usage and recent laboratory test results were reviewed. The telephone call lasted 15 minutes. NEPHROLOGY OFFICE FOLLOW UP VISIT NOTE SUBJECTIVE CKD III and hypertension follow up. 02/14/2020 Chief Complaint Patient presents with ??? Acute Renal Failure HPI As above. She feels well and has no systemic symptoms. Except for (chronic) back pain, she is doing generallywell. Patient Active Problem List Diagnosis ??? Chronic kidney disease, stage III (moderate) ([facility]) ??? Essential hypertension ??? Proteinuria ??? [...] for pertinent positives in the HPI BP (!) 155/89 (BP Cuff Location: Right arm) Pulse 85 Ht (!) 144.8 cm (57.01) BMI 27.28 kg/m?? Phone visit. Chastity Syed MD 02/14/2020 8:29 Lab Results Component Value Date K 4.2 [...] Neg 09/23/2012 ASSESSMENT & PLAN CKD III - This is stable CKD IIIB with a current serum creatinine of 1.78 mg/dL or an eGFR of 29 ml/min/1.73 subcutaneous. m BSA from January 2020. The serum creatinine has generally ranged between 1.6 - 1.8 mg/dL since November 2011. Hypertension - BP 134/82 mm Hg with a pulse of 85/min. Metabolic bone disease - Phosphorus was 3.5 mg/dL in August 2019 and PTH was 104 pg/mL, consistent with mild secondary hyperparathyroidism in August 2019. To recheck these indices in 6 months. The plan is to get BMP tested every 3 months and a RTC visit in 1 year unless otherwise indicated. Hematology - Hemoglobin was 13.3 g/dL in August 2019. documented in this encounter Plan of Treatment Not on file documented as of this encounter Visit Diagnoses Diagnosis CKD (chronic kidney disease), stage III ([facility] Primary Chronic kidney disease, Stage III (moderate) Secondary renal hyperparathyroidism ([facility]) Secondary hyperparathyroidism (of renal origin) documented in this encounter Care Teams Director Global Strategic Publisher Sales Relationship Specialty Start Date End Date Arabella Laurent NP [address] [place] [phone] PCP - General 07/30/18 documented as of this encounter
--- OUTSIDE RECORDS SUMMARY | 2023-12-31 15:26 | XMS_ITS | Encounter Summary ---
Author Organization [facility] Address [address] [place] [address] Care Team Providers Care Agency Owner Name Role Phone Anastasiia Arabella Giron WEIGH MACHINE OPERATOR Primary Care Provider [phone] Encounter Details Date Type Department Care Team (Latest Contact Info) Description 03/20/2021 Orders Only [facility] Nephrology - [address] [address] Chastity Syed MD [address] [place] [address], [address] [place] [address] CKD (chronic kidney disease), stage IV (HCC-CMS) (HCC) (Primary Dx); Secondary renal hyperparathyroidism (HCC-CMS) (HCC) (HCC-CMS) Social History Tobacco Use Types Packs/Day [...] Diagnosis CKD (chronic kidney disease), stage IV ([facility])- Primary Chronic kidney disease, Stage IV (severe) Secondary renal hyperparathyroidism ([facility]) Secondary hyperparathyroidism (of renal origin) documented in this encounter Care Teams Agency Owner Relationship Specialty Start Date End Date Arabella Laurent NP [address] [place] [phone] PCP - General 07/30/18 documented as of this encounter
--- OUTSIDE RECORDS SUMMARY | 2023-12-31 15:26 | XMS_ITS | Encounter Summary ---
Author Organization [facility] Address [address] [place] [address] Care Team Providers Care Director Surgical Name Role Phone Anastasiia Arabella Giron ASSOCIATE SALES MANAGER Primary Care Provider [phone] Encounter Details Date Type Department Care Team (Late st Contact Info) Description 06/03/2023 Lab Requisition [facility] Pathology & Laboratory Medicine - [address] [address] Outr Resulting Lab, Provider Social History Tobacco [...] Date/Time Associated Diagnosis Comments PTH INTACT Routine 06/03/2023 11:05 EST documented in this encounter Results * (ABNORMAL) PTH INTACT (06/03/2023 11:05 EST) Intact PTH 90(H) 19 - 88 pg/mL 06/03/2023 22:27 EST [facility] Blood VENOUS BLOOD / Unknown 06/03/2023 11:05 EST 06/03/2023 21:03 EST Provider Outr Resulting Lab CHEMISTRY & BLOOD GAS ORDERABLES [facility] [address] [place] [address] documented in this encounter Visit Diagnoses Not on filedocumented in this encounter Care Teams Director Surgical Relationship Specialty Start Date End Date Arabella Laurent NP [address] [place] [address] PCP - General 07/30/18 documented as of this encounter
--- OUTSIDE RECORDS SUMMARY | 2023-12-31 15:26 | XMS_ITS | Encounter Summary ---
Author Organization [facility] Address [address] [place] [address] Care Team Providers Care Public Health Sanitarian Name Role Phone Arabella Laurent GOLD CUTTER Primary Care Provider [phone] Encounter Details Date Type Department Care Team (Late st Contact Info) Description 05/20/2022 Abstract [facility] Nephrology - [address] [address] Chastity Syed MD [address] [place] [address], [address] [place] [phone] CKD (chronic kidney disease), stage IV ([facility]) (Primary Dx) Social History Tobacco Use Types [...] Diagnosis Comments BASIC METABOLIC PANEL (BMP) Routine 05/16/2022 11:30 EST CKD (chronic kidney disease), stage IV ([facility]) documented in this encounter Results * BASIC METABOLIC PANEL (BMP) (05/16/2022 11:30 EST) GFR, Calculated, External 31.27 [facility] Glucose, Serum, External 90 [facility] Calculated Calcium, External [facility] BUN, External 30 [facility] Calcium, External 9.0 [facility] Chloride, External 105 [facility] CO2, External 24.4 [facility] Creatinine, External 1.8 [facility] Fasting?, External [facility] Potassium, External 4.2 [facility] Sodium, External 137 [facility] Blood VENOUS BLOOD / Unknown 05/16/2022 11:30 EST Chastity Syed MD CHEMISTRY & BLOOD GA S ORDERABLES [facility] documented in this encounter Visit Diagnoses Diagnosis CKD (chronic kidney disease), stage IV ([facility])- Primary Chronic kidney disease, Stage IV (severe) documented in this encounter Care Teams Public Health Sanitarian Relationship Specialty Start Date End Date Arabella Laurent NP [address] [place] [address] PCP - General 07/30/18 documented as of this encounter
--- OUTSIDE RECORDS SUMMARY | 2023-12-31 15:26 | XMS_ITS | Encounter Summary ---
Author Organization [facility] Address [address] [place] [address] Care Team Providers Care Youth Counselor Name Role Phone Laurence Krause Primary Care Provider + Encounter Details Date Type Department Care Team (Late st Contact Info) Description 07/06/2018 Abstract [facility] Nephrology - [address] [place] [address] [place], [place] [phone] Chastity Syed MD [address] [place] [address], [address] [place] [address] Social History Tobacco Use Types Packs/Day Years [...] on filedocumented in this encounter Care Teams Youth Counselor Relationship Specialty Start Date End Date Laurence Krause PA [address] [place] [address] PCP - General 09/12/17 07/29/18 documented as of this encounter
--- OUTSIDE RECORDS SUMMARY | 2023-12-31 15:26 | XMS_ITS | Encounter Summary ---
Author Organization [facility] Address [address] [place] [address] Care Team Providers Care Dbas Name Role Phone Arabella Laurent WRAPPING MACHINE OPERATOR Primary Care Provider [phone] Reason for Referral * Laboratory Services (Routine/Next Available) - New Request Specialty Diagnoses / Procedures Referred By [place] pineda Referred To Contact Diagnoses CKD (chronic kidney disease), stage IV ([facility]) Procedures COMPLETE BLOOD COUNT Chastity Syed MD 1 [facility], [facility] [address] [place] [address] Referral ID Status Reason Start Date Expiration Date V isits Requested Visits Authorized [id number] New Request 07/14/2023 1 1 * Laboratory Services (Routine/Next Available) - New Request Specialty Diagnoses / Procedures Referred By [place] pineda Referred To Contact Diagnoses CKD (chronic kidney disease), stage IV ([facility]) Procedures PTH INTACT Chastity Syed MD 1 [facility] [address] [place] [address] Referral ID Status Reason Start Date Expiration Date V isits Requested Visits Authorized [id number] New Request 07/14/2023 4 4 * Laboratory Services (Routine/Next Available) - New Request Specialty Diagnoses / Procedures Referred By [place] pineda Referred To Contact Diagnoses CKD (chronic kidney disease), stage IV ([facility]) Procedures NEPHROLOGY PROFILE (INCLUDES BUN, CREATININE, CALCULATED GFR, ELECTROLYTES, CALCIUM, PHOSPHORUS, ALBUMIN) Chastity Syed MD [address] [place] [address], [address] [place] [address] Referral ID Status Reason Start Date Expiration Date V isits Requested Visits Authorized [id number] New Request 07/14/2023 6 6 Reason for Visit * Reason Comments CKD Follow-up 4 months' follow up on CKD IV with creatinine of??2.0 (eGFR=27.55) in Jul 2022; was??1.7 on 01/01/2022. It was??1.86 mg/dL in May 2018 and Lisinopril was discontinued thereafter and had decreased to 1.56 mg/dL??by??July 2018. However, it went back up to 1.90 in September 2020,??1.80 (eGFR = 28.51) from December 2020??and was 1.90 (eGFR=26) in September 2021. Baseline 1.7-2.0 since January 2020.??Latest creatinine from 06/03/23 was 2.2 mg/dL (eGFR=24.42), still close to baseline since 2022. Encounter Details Date Type Department Care Team (Late st Contact Info) Description 07/14/2023 15:00 EST Telemedicine [facility] Nephrology - [address] [phone] Chastity Syed MD [address] [place] [address], [facility] [address] [place] [address] CKD (chronic kidney disease), stage IV ([facility]) (Primary Dx) Social History Tobacco Use Types [...] Blood Pressure 129/63 07/14/2023 1337 EST Pulse - - Temperature - - Respiratory Rate - - Oxygen Saturation - - Inhaled Oxygen Concentration - - Weight 51.7 kg (114 lb) 07/14/2023 1337 EST Height 144.8 cm (4' 9.01) 07/14/2023 1337 EST Body Mass Index 24.66 07/14/2023 1337 EST documented in this encounter Functional Status [...] * Patient Instructions* Chastity Syed MD - 07/14/2023 15:00 EST Nephrology Profile every 2 months and RTC in 4 months. Other labs ordered. documented in this encounter Progress Notes * Chastity Syed MD - 07/14/2023 1500 EST This visit was conducted by telephone with consent given by the patients. During the visit, the patient's symptoms, weight, BP, medication usage and recent laboratory test results were reviewed. The telephone call lasted 30 minutes. THE PATIENT IS AT HOME. Home Phone Work Phone NEPHROLOGY OFFICE FOLLOW UP VISIT NOTE SUBJECTIVE 4 months' follow up on CKD IV with creatinine of 2.0 (eGFR=27.55) in Jul 2022; was 1.7 on 01/01/2022.It was 1.86 mg/dL in May 2018 and Lisinopril was discontinued thereafter and had decreased to 1.56 mg/dL by July 2018. However, it went back up to 1.90 in September 2020, 1.80 (eGFR = 28.51) from December 2020 and was 1.90 (eGFR=26) in September 2021. Baseline 1.7-2.0 since January 2020. Latest creatinine from 06/03/23 was 2.2 mg/dL (eGFR=24.42), still close to baseline since 2022. 07/12/2023 Chief Complaint Patient presents with CKD Follow-up 4 months' follow up on CKD IV with creatinine of 2.0 (eGFR=27.55) in Jul 2022; was 1.7 on 01/01/2022.It was 1.86 mg/dL in May 2018 and Lisinopril was discontinued thereafter and had decreased to 1.56 mg/dL by July 2018. However, it went back up to 1.90 in September 2020, 1.80 (eGFR = 28.51) from December 2020 and was 1.90 (eGFR=26) in September 2021. Baseline 1.7-2.0 since January 2020. Latest creatinine from 06/03/23 was 2.2 mg/dL (eGFR=24.42), still close to baseline since 2022. HPI As above. General - I am doing pretty good. I noticed that my numbers are higher. Breathing - She is sometimes short of breath mostly when she lays down. She also has exertional dyspnea. This has gone on for 5-6 months. No recent acute illness. She has been seeing a lung doctor - in [place], [place]. He reported that she had Xrays and then a CT scan and she is waiting to get another appointment to follow up. She recalled that the hospital sent her a note that she did not have cancer following the CT scan. She however needs to follow up with a lung doctor over there. Cough - None. New leg swelling - None. Weight - Stable. Blood Pressure - Dizzy/Light-headed - Appetite - Not too bad. Nausea/Vomiting - Not lately. Diarrhea - Not continuous but just only a couple days ago. Itching - This is from dry skin and is not new - for a long time in the legs. Chest pain - None. Urinary symptoms - None. No hematuria. Nocturia - Usually a couple of times during the night - Not new. Pain - Neck and shoulders and se fell down on ice three weeks but she didn't get to go to the hospital. Sleep - Off and on - and this is gone on for a long time Medication changes - The heart doctor changed her heart medicine - Nebivolol was used to replace Metoprolol - this was last month. She had complained of being pretty tired. I don't wanna be on dialysis. But we discussed hemodialysis and the need for AVF planning. She will be referred to the chronic kidney disease Navigator Program. Patient Active Problem List Diagnosis Chronic kidney disease, stage III (moderate) ([facility]) Essential hypertension Proteinuria S/p nephrectomy Microscopic hematuria No past medical history on file. No past surgical history on file. Current Outpatient Medications Medication albuterol (PROAIR HFA) 90 mcg/actuation inhaler amlodipine (NORVASC) 5 mg tablet aspirin (ASPIRIN LOW DOSE) 81 mg EC tablet atorvastatin (LIPITOR) 40 mg tablet cholecalciferol, Vitamin D3, 1,000 unit tablet DOCOSAHEXANOIC ACID/EPA (FISH OIL ORAL) DULOXETINE HCL (CYMBALTA ORAL) hydrocodone-acetaminophen (LORTAB;VICODIN) 5-500 mg tablet metoprolol XL (TOPROL-XL) 25 mg tablet nitroGLYCERIN (NITROSTAT) 0.4 mg SL tablet trazodone (DESYREL) 100 mg tablet zolpidem (AMBIEN) 10 mg tablet No current facility-administered medications for this visit. Allergies Allergen Reactions Neurontin [Gabapentin] Zantac [Ranitidine Hcl] Rash Social History Tobacco Use Smoking status: Every Day Current packs/day: 0.50 Types: Cigarettes Smokeless tobacco: Never Family History Problem Relation Age of Onset Kidney Disease Mother REVIEW OF SYSTEMS A ten point ROS was performed and was negative except for pertinent positives in the HPI There were no vitals taken for this visit. Phone visit. Chastity Syed MD 07/12/2023 15:41 Lab Results Component Value Date K 4.2 [...] 09/15/2017 [place] Neg 09/23/2012 ASSESSMENT & PLAN Chronic kidney disease - 4 months' follow up on CKD IV with creatinine of 2.0 (eGFR=27.55) in Jul 2022; was 1.7 on 01/01/2022. It was 1.86 mg/dL in May 2018 and Lisinopril was discontinued thereafter and had decreased to 1.56 mg/dL by July 2018. However, it went back up to 1.90 in September 2020, 1.80 (eGFR = 28.51) from December 2020 and was 1.90 (eGFR=26) in September 2021. Baseline 1.7-2.0 since January 2020. Latest creatinine from 06/03/23 was 2.2 mg/dL (eGFR=24.42), still close to baseline since 2022. Nephrology Profile every 2 months and RTC in 4 months. The CKD Navigator Program - referral completed. RELATIONSHIP ASSOCIATE planning - She was reminded of the importance of completing standing lab orders in March 2023. The potential of her needing dialysis was also discussed again today. I don't wanna be on dialysis. But we discussed hemodialysis and the need for AVF planning. [facility]. HTN - Follow up with the primary care provider. Metabolic bone disease - From 06/03/23, phosphorus was 3.8, calcium was 9.4 and PTH was 90 pg/mL. To recheck PTH and phosphorus every 3 months. Hematology - hemoglobin was 14.2 in June 2023. documented in this encounter Plan of Treatment Scheduled Orders Name Type Priority Associated Diagnoses Orde r Schedule NEPHROLOGY PROFILE (INCLUDES BUN, CREATININE, CALCULATED GFR, ELECTROLYTES, CALCIUM, PHOSPHORUS, ALBUMIN) Lab Routine CKD (chronic kidney disease), stage IV (HCC-CMS) 2 months for 6 Occurrences starting 07/14/2023 until 07/14/2024 PTH INTACT Lab Routine CKD (chronic kidney disease), stage IV (HCC-CMS) 3 months for 4 Occurrences starting 07/14/2023 until 07/14/2024 COMPLETE BLOOD COUNT Lab Routine CKD (chronic kidney disease), stage IV (HCC-CMS) Expected: 03/16/2024 (Approximate), Expires: 07/14/2024 documented as of this encounter Visit Diagnoses Diagnosis CKD (chronic kidney disease), stage IV (HCC-CMS)- Primary Chronic kidney disease, Stage IV (severe) documented in this encounter Discontinued Medications Medication Sig Discontinue Reason Start Date End Da te famotidine (PEPCID) 20 mg tablet Take 20 mg by mouth daily. Patient Stopped Taking 07/12/2023 documented as of this encounter Historical Medications * This list may reflect changes made after this encounter. Medication Sig Dispensed Refills Start Date End Date nebivoloL 5 mg tablet tablet Take 1 Tablet by mouth daily. added in this encounter Care Teams Dbas Relationship Specialty Start Date End Date Arabella Laurent NP [address] [place] [phone] PCP - General 07/30/18 documented as of this encounter
--- OUTSIDE RECORDS SUMMARY | 2023-12-31 15:26 | XMS_ITS | Encounter Summary ---
Author Organization [facility] Address [address] [place] [address] Care Team Providers Care Biology Department Chair Name Role Phone Arabella Laurent NETWORK PROGRAM MANAGER Primary Care Provider [phone] Reason for Visit * Reason Comments Chronic Kidney Disease Follow up on CKD IV with current creatinine of 1.80 (eGFR = 28.51) from December 2020. It was 1.86 mg/dL in May 2018 and Lisinopril was discontinued thereafter and had decreased to 1.55 in July 2018. However, it went back up to 1.90 in September 2020. Encounter Details Date Type Department Care Team (Late st Contact Info) Description 03/05/2021 11:20 EDT Telemedicine [facility] Nephrology - [address] [id number] Chastity Syed MD 1 [facility], Level [address] [place] [address] CKD (chronic kidney disease), stage IV ([facility]) ([facility]) (Primary Dx) Social History Tobacco Use [...] * Patient Instructions* Chastity Syed MD - 03/05/2021 11:20 EDT BMP every 2 months and RTC in 12 months, if stable. documented in this encounter Progress Notes * Chastity Syed MD - 03/05/2021 1120 EDT [...] had decreased to 1.55 in July 2018. However, it went back [...] (chronic kidney disease), stage IV ([facility])- Primary Chronic kidney disease, Stage IV (severe) documented in this encounter Care Teams Biology Department Chair Relationship Specialty Start Date End Date Arabella Laurent NP [address] [place] [address] PCP - General 07/30/18 documented as of this encounter
--- OUTSIDE RECORDS SUMMARY | 2023-12-31 15:26 | XMS_ITS | Encounter Summary ---
Author Organization [facility] Address [address] [place] [address] Care Team Providers Care Extermination Inspector Name Role Phone Arabella Laurent LOGISTICS PLANNING MANAGER Primary Care Provider [phone] Reason for Visit * Reason Onset Date Comments Follow-up 03/13/2023 Encounter Details Date Type Department Care Team (Late st Contact Info) Description 03/13/2023 Telephone [facility] Home Dialysis Training & Support [address] [place] [address] Chastity Syed MD 1 [facility], Level 2 [place] [address] Follow-up Social History Tobacco Use [...] encounter Miscellaneous Notes * Telephone Encounter - Chastity Syed MD - 03/13/2023 6249 EDT New labs from 01/28/23 - Creatinine was 2.0 close to baseline. Continue repeat standing orders from last visit. documented in this encounter Plan of Treatment Not on file documented as of this encounter Visit Diagnoses Not on filedocumented in this encounter Care Teams Extermination Inspector Relationship Specialty Start Date End Date Arabella Laurent NP [address] [place] [phone] PCP - General 07/30/18 documented as of this encounter
--- OUTSIDE RECORDS SUMMARY | 2023-12-31 15:26 | XMS_ITS | Encounter Summary ---
Author Organization [facility] Address [address] [place] [address] Care Team Providers Care Commercial Lending Relationship Manager Name Role Phone Jose Raulxi Arabella Giron FUR BUYER Primary Care Provider [phone] Reason for Referral * Laboratory Services (Routine) - New Request Specialty Diagnoses / Procedures Referred By Contac t Referred To Contact Diagnoses Acute renal failure, unspecified acute renal failure type ([facility]) Procedures PTH INTACT Chastity Syed MD [address] [address] Referral ID Status Reason Start Date Expiration Date V isits Requested Visits Authorized [id number] New Request 08/09/2019 1 1 * Laboratory Services (Routine) - New Request Specialty Diagnoses / Procedures Referred By Contac t Referred To Contact Diagnoses Acute renal failure, unspecified acute renal failure type ([facility]) Procedures PHOSPHORUS Chastity Syed MD [address] [address] Referral ID Status Reason Start Date Expiration Date V isits Requested Visits Authorized [id number] New Request 08/09/2019 1 1 * Laboratory Services (Routine) - New Request Specialty Diagnoses / Procedures Referred By Contac t Referred To Contact Diagnoses Acute renal failure, unspecified acute renal failure type ([facility]) Procedures BASIC METABOLIC PANEL (BMP) Chastity Syed MD 1 [facility], Level 2 [place] [address] Referral ID Status Reason Start Date Expiration Date V isits Requested Visits Authorized [id number] New Request 08/09/2019 1 1 Reason for Visit * Reason Onset Date Comments Follow-up 08/09/2019 Encounter Details Date Type Department Care Team (Late st Contact Info) Description 08/09/2019 Telephone [facility] Nephrology - [address] [address] Chastity Syed MD 1 [facility], [facility] [address] [place] [address] Follow-up Social History Tobacco Use [...] Encounter - Chastity Syed MD - 08/09/2019 1049 EDT 58-yo female with CKD III and [...] and see me in the office She wasbrigitte lafleur in Nephrology in July 2018. documented in this encounter Plan of Treatment Not on file documented as of this encounter Results * (ABNORMAL) PTH INTACT (08/09/2019 11:33 EDT) Intact PTH 104(H) 19 - 88 pg/mL 08/09/2019 14:21 EDT [facility] Blood VENOUS BLOOD / Unknown Venipuncture / Unknown 08/09/2019 11:33 EDT 08/09/2019 11:33 EDT Chastity Syed MD CHEMISTRY & BLOOD GA S ORDERABLES Performing Organization Address City/[facility]/ZIP Co de Phone Number [facility] [address] [place] [address] * PHOSPHORUS (08/09/2019 11:33 EDT) Phosphorus 3.5 2.5 - 4.5 mg/dL 08/09/2019 12:50 EDT [facility] Blood VENOUS BLOOD / Unknown Venipuncture / Unknown 08/09/2019 11:33 EDT 08/09/2019 11:33 EDT Chastity Syed MD CHEMISTRY & BLOOD GA S ORDERABLES [facility] [address] [place] [address] * (ABNORMAL) BASIC METABOLIC PANEL (BMP) (08/09/2019 11:33 EDT) Sodium 139 136 - 145 mEq/L 08/09/2019 12:50 EDT [facility] Potassium 4.2 3.5 - 5.0 mEq/L 08/09/2019 12:50 EDT [facility] Chloride 108 96 - 110 mEq/L 08/09/2019 12:50 EDT [facility] CO2 Total 25 22 - 32 mEq/L 08/09/2019 12:50 T [facility] Glucose 92 70 - 100 mg/dL 08/09/2019 12:50 [facility] Calcium 9.4 8.5 - 10.5 mg/dL 08/09/2019 12:50 [facility] Calculated Calcium 9.6 8.5 - 10.5 mg/dL 08/09/2019 12:50 T [facility] BUN 23 10 - 26 mg/dL 08/09/2019 12:50 [facility] Creatinine 1.56(H) 0.52 - 1.04 mg/dL 08/09/2019 12:50 [facility] eGFR 36(L) >60 mL/min/1.7 3m2 08/09/2019 12:50 [facility] Comment:eGFR calculated giovanna vazquez CKD-EPI equation for non- Americans. Multiply eGFR by 1.16 for patients. Blood VENOUS BLOOD / Unknown Venipuncture / Unknown 08/09/2019 11:33 EDT 08/09/2019 11:33 EDT Narrative [facility] - 08/09/2019 12:50 EDT 2 Chastity Syed MD CHEMISTRY & BLOOD GA S ORDERABLES [facility] [address] [place] [address] documented in this encounter Visit Diagnoses Diagnosis Acute renal failure, unspecified acute renal failure type (HCC-CMS)- Primary documented in this encounter Care Teams Commercial Lending Relationship Manager Relationship Specialty Start Date End Date Arbaella Laurent NP [address] [place] [phone] PCP - General 07/30/18 documented as of this encounter
--- OUTSIDE RECORDS SUMMARY | 2023-12-31 15:26 | XMS_ITS | Encounter Summary ---
Author Organization [facility] Address [address] [place] [address] Care Team Providers Care Auto Claim Representative Name Role Phone Arabella Laurent GROUNDSKEEPER SUPERVISOR Primary Care Provider [phone] Encounter Details Date Type Department Care Team (Late st Contact Info) Description 03/11/2022 Abstract [facility] Nephrology - [address] [address] Chastity Syed MD [address] [place] [address], Level [address] [place] [phone] Social History Tobacco Use Types Packs/Day Years [...] Procedure Name Priority Date/Time Associated Diagnosis Comments ALT Routine 03/04/2022 AST Routine 03/04/2022 CK Routine 03/04/2022 BASIC METABOLIC PANEL (BMP) Routine 03/04/2022 documented in this encounter Results * AST (03/04/2022) AST, External 21 [facility] Blood VENOUS BLOOD / Unknown 03/04/2022 Historical Provider MD CHEMISTRY & BLOOD GAS ORDERABLES [facility] * ALT (03/04/2022) ALT, External 23 [facility] Blood VENOUS BLOOD / Unknown 03/04/2022 Historical Provider MD CHEMISTRY & BLOOD GAS ORDERABLES [facility] * CK (03/04/2022) CK, External 90 [facility] Blood VENOUS BLOOD / Unknown 03/04/2022 Historical Provider MD CHEMISTRY & BLOOD GAS ORDERABLES [facility] * BASIC METABOLIC PANEL (BMP) (03/04/2022) GFR, Calculated, External 31.27 [facility] Glucose, Serum, External 88 [facility] Calculated Calcium, External [facility] BUN, External 28 [facility] Calcium, External 9.6 [facility] Chloride, External 106 [facility] CO2, External 24.7 [facility] Creatinine, External 1.8 [facility] Fasting?, External [facility] Potassium, External 4.6 [facility] Sodium, External 140 [facility] Blood VENOUS BLOOD / Unknown 03/04/2022 Historical Provider CHEMISTRY & BLOOD GAS ORDERABLES [facility] documented in this encounter Visit Diagnoses Not on filedocumented in this encounter Care Teams Auto Claim Representative Relationship Specialty Start Date End Date Arabella Laurent, GROUNDSKEEPER SUPERVISOR [address] [place] [address] PCP - General 07/30/18 documented as of this encounter
--- OUTSIDE RECORDS SUMMARY | 2023-12-31 15:26 | XMS_ITS | Encounter Summary ---
Author Organization [facility] Address [address] [place] [address] Care Team Providers Care Rig Hand Name Role Phone Arabella Laurent HEMATOLOGY TECHNOLOGIST Primary Care Provider [phone] Reason for Visit * Reason Onset Date Comments Other 03/15/2021 Encounter Details Date Type Department Care Team (Late st Contact Info) Description 03/15/2021 Telephone [facility] Nephrology - [address] [phone] Chastity Syed MD [address] [place] [address], [address] [place] [address] Other Social History Tobacco Use Types Packs/Day Years [...] Miscellaneous Notes * Telephone Encounter - Mona Michaels RN - 03/15/2021 1352 EDT Call to patient , and discussed CKD education. Information also sent in the mail. SHe will go to her PCP and bring her BP cuff to check it, as she is not sure that it is working right. SHe will call back with further questions once she sees her PCP * Telephone Encounter - Hilary Danielle - 03/15/2021 0923 [...] on filedocumented in this encounter Care Teams Rig Hand Relationship Specialty Start Date End Date Arabella Laurent NP [address] [place] [address] PCP - General 07/30/18 documented as of this encounter
--- OUTSIDE RECORDS SUMMARY | 2023-12-31 15:26 | XMS_ITS | Encounter Summary ---
Author Organization [facility] Address [address] [place] [address] Care Team Providers Care Stockroom Clerk Name Role Phone Arabella Laurent DEMOLITION ENGINEER Primary Care Provider [phone] Reason for Visit * Reason Comments Chronic Kidney Disease 1 year follow up on CKD IV with current creatinine of 1.7 on 01/01/2022. It was 1.86 mg/dL in May 2018 and Lisinopril was discontinued thereafter and had decreased to 1.56 mg/dL by July 2018. However, it went back up to 1.90 in September 2020, 1.80 (eGFR = 28.51) from December 2020 and was 1.90 (eGFR=26) in September 2021. * Consult (See Order Priority) - Order Cancelled Specialty Diagnoses / Procedures Referred By Contact Referred To Contact Nutrition / Nephrology Diagnoses CKD (chronic kidney disease), stage IV ([facility]) Secondary renal hyperparathyroidism ([facility]) Chastity Syed MD [address] [place] [address], Level 2 [place] [address] [facility] [address] [place] [id number] Referral ID Status Reason Start Date Expiration Date Visits Requested Visits Authorized [id number] Order Cancelled Specialty Services Required 1 1 1 Encounter Details Date Type Department Care Team (Late st Contact Info) Description 03/12/2022 9:00 EDT Telemedicine [facility] Nephrology - [address] [address] Chastity Syed MD 1 [facility], Level [address] [place] [address] CKD (chronic kidney disease), stage IV ([facility]) (Primary Dx) Social History Tobacco Use [...] - - Height 144.8 cm (4' 9.01) 03/12/2022 0839 EDT Body Mass Index - - documented [...] * Patient Instructions* Chastity Syed MD - 03/12/2022 9:00 EDT Follow BMP every 2 months. RTC in 12 months. To recheck PTH and phosphorus every 4 months. Recheck CBC every 4 months. documented in this encounter Progress Notes * Chastity Syed MD - 03/12/2022 0900 EDT This visit was conducted by telephone with consent given by the patients. During the visit, the patient's symptoms, weight, BP, medication usage and recent laboratory test results were reviewed. The telephone call lasted 25 minutes. Home Phone Work Phone NEPHROLOGY OFFICE FOLLOW UP VISIT NOTE SUBJECTIVE 1 year follow up on CKD IV with current creatinine of 1.7 on 01/01/2022. It was 1.86 mg/dL in May 2018 and Lisinopril was discontinued thereafter and had decreased to 1.56 mg/dL by July 2018. However, it went back up to 1.90 in September 2020, 1.80 (eGFR = 28.51) from December 2020 and was 1.90 (eGFR=26) in September 2021. Missed appointment on 03-11-2022. 03/11/2022 Chief Complaint Patient presents with ??? Chronic Kidney Disease 1 year follow up on CKD IV with current creatinine of 1.7 on 01/01/2022. It was 1.86 mg/dL in May 2018 and Lisinopril was discontinued thereafter and had decreased to 1.56 mg/dL by July 2018. However, it went back up to 1.90 in September 2020, 1.80 (eGFR = 28.51) from December 2020 and was 1.90 (eGFR=26) in September 2021. HPI As above. I am doing good. Appetite - comes and goes. No nausea or vomiting. Breathing - is okay today. No new leg swelling. Sleep - Off and on. It depends. No current chest pain. Weight - She weighed 102 lb. The PCP has worked up the weight loss with no clues as to the cause. Urinary - No new symptoms. BP - She said that has been good - the PCP. She gets her lab work at her PCP's. Patient Active Problem List Diagnosis ??? Chronic [...] this visit. Phone visit. Chastity Syed MD 03/11/2022 16:51 Lab Results Component Value Date K 4.2 [...] 09/23/2012 ASSESSMENT & PLAN CKD status - 1 year follow up on CKD IV with current creatinine of 1.7 on 01/01/2022. It was 1.86 mg/dL in May 2018 and Lisinopril was discontinued thereafter and had decreased to 1.56 mg/dL by July 2018. However, it went back up to 1.90 in September 2020, 1.80 (eGFR = 28.51) from December 2020 and was 1.90 (eGFR=26) in September 2021. Missed appointment on 03-11-2022. December 2021 creatinine was 1.7 mg/dL and was stable at 1.8 (eGFR=31) on 03/04/2022. Follow BMP every 2 months. RTC in 12 months. ?? HTN -??Follow up with the PCP. Miscellaneous - PTH was 104 in August 2019. Phosphorus was 3.3 in September 2020. To recheck PTH and phosphorus every 4 months. Hb was 13.3 in August 2019. Recheck CBC every 4 months. documented in this encounter Plan of Treatment Not on file documented as of this encounter Visit Diagnoses Diagnosis CKD (chronic kidney disease), stage IV ([facility])- Primary Chronic kidney disease, Stage IV (severe) documented in this encounter Care Teams Stockroom Clerk Relationship Specialty Start Date End Date Arabella Laurent NP [address] [place] [address] PCP - General 07/30/18 documented as of this encounter
--- OUTSIDE RECORDS SUMMARY | 2023-12-31 15:26 | XMS_ITS | Encounter Summary ---
Author Organization [facility] Address [address] [place] [address] Care Team Providers Care Assistant Education Director Name Role Phone Arabella Laurent MARKETING TECHNOLOGIST Primary Care Provider [phone] Encounter Details Date Type Department Care Team (Late st Contact Info) Description 08/17/2021 Abstract [facility] Nephrology - [address] [phone] Chastity Syed MD [address] [place] [address], [address] [place] [phone] CKD (chronic kidney disease), stage IV (HCC-CMS) [...] Diagnosis Comments BASIC METABOLIC PANEL (BMP) Routine 08/08/2021 CKD (chronic kidney disease), stage IV ([facility]) ([facility]) documented in this encounter Results * BASIC METABOLIC PANEL (BMP) (08/08/2021) GFR, Calculated, External 28.51 [facility] Glucose, Serum, External 96 [facility] Calculated Calcium, External [facility] BUN, External 26 [facility] Calcium, External 9.4 [facility] Chloride, External 104 [facility] CO2, External 25.2 [facility] Creatinine, External 1.8 [facility] Fasting?, External [facility] Potassium, External 4.5 [facility] Sodium, External 139 [facility] Blood VENOUS BLOOD / Unknown 08/08/2021 Chastity Syed MD CHEMISTRY & BLOOD GA S ORDERABLES [facility] [address] [place] [address] documented in this encounter Visit Diagnoses Diagnosis CKD (chronic kidney disease), stage IV (HCC-CMS)- Primary Chronic kidney disease, Stage IV (severe) documented in this encounter Care Teams Assistant Education Director Relationship Specialty Start Date End Date Arabella Laurent NP [address] [place] [address] PCP - General 07/30/18 documented as of this encounter
--- OUTSIDE RECORDS SUMMARY | 2023-12-31 15:26 | XMS_ITS | Encounter Summary ---
Author Organization [facility] Address [address] [place] [address] Care Team Providers Care Machine Setter Supervisor Name Role Phone Arabella Laurent PLASTICS FABRICATOR AND ASSEMBLER Primary Care Provider [phone] Encounter Details Date Type Department Care Team (Late st Contact Info) Description 04/05/2021 Abstract [facility] Nephrology - [address] [address] Chastity Syed MD [address] [place] [address], [address] [place] [phone] Social History Tobacco Use Types Packs/Day Years [...] Priority Date/Time Associated Diagnosis Comments ALT Routine 04/04/2021 AST Routine 04/04/2021 CK Routine 04/04/2021 LIPID PROFILE (INCLUDES CHOLESTEROL, TRIGLYCERIDES, HDL, LDL) Routine 04/04/2021 BASIC METABOLIC PANEL (BMP) Routine 04/04/2021 documented in this encounter Results * AST (04/04/2021) AST, External 23 [facility] Blood VENOUS BLOOD / Unknown 04/04/2021 Historical Provider CHEMISTRY & BLOOD GAS ORDERABLES Performing Organization Address City/[facility]/ZIP Co de Phone Number [facility] [address] [place] [address] * ALT (04/04/2021) ALT, External 27 [facility] Blood VENOUS BLOOD / Unknown 04/04/2021 Historical Provider CHEMISTRY & BLOOD GAS ORDERABLES [facility] [address] [place] [address] * CK (04/04/2021) CK, External 166 [facility] Blood VENOUS BLOOD / Unknown 04/04/2021 Historical Provider CHEMISTRY & BLOOD GAS ORDERABLES [facility] [address] [place] [address] * LIPID PROFILE (INCLUDES CHOLESTEROL, TRIGLYCERIDES, HDL, LDL) (04/04/2021) Cholesterol, External 157 [facility] Triglycerides, External 170 [facility] HDL, External 43 [facility] LDL, External 80 [facility] Chol/HDL Ratio, External [facility] Fasting?, External [facility] Blood VENOUS BLOOD / Unknown 04/04/2021 Historical Provider CHEMISTRY & BLOOD GAS ORDERABLES Performing Organization Address City/[facility] Co de Phone Number [facility] [address] [place] [address] * BASIC METABOLIC PANEL (BMP) (04/04/2021) GFR, Calculated, External 28.51 [facility] Glucose, Serum, External 101 [facility] Calculated Calcium, External [facility] BUN, External 28 [facility] Calcium, External 9.3 [facility] Chloride, External 105 [facility] CO2, External 26.1 [facility] Creatinine, External 1.8 [facility] Fasting?, External [facility] Potassium, External 4.3 [facility] Sodium, External 143 [facility] Blood VENOUS BLOOD / Unknown 04/04/2021 Historical Provider CHEMISTRY & BLOOD GAS ORDERABLES Performing Organization Address City/[facility]/ZIP Co de Phone Number [facility] [address] [place] [address] documented in this encounter Visit Diagnoses Not on filedocumented in this encounter Care Teams Machine Setter Supervisor Relationship Specialty Start Date End Date Arabella Laurent, ROLF [address] [place] [phone] PCP - General 07/30/18 documented as of this encounter
--- OUTSIDE RECORDS SUMMARY | 2023-12-31 15:26 | XMS_ITS | Encounter Summary ---
Author Organization [facility] Address [address] [place] [address] Care Team Providers Care Management Advisor Name Role Phone Laurence Krause Primary Care Provider + Arabella Laurent NP Primary Care Provider Encounter Details Date Type Department Care Team (Late st Contact Info) Description 07/29/2018 Abstract [facility] Nephrology - [address] [address] Chastity Syed MD [address] [place] [address], [address] [place] [address] Acute renal failure, unspecified acute renal failure type ([facility]); Essential hypertension; Chronic kidney disease, stage III (moderate) ([facility]) Social History Tobacco Use Types Packs/Day Years [...] Diagnosis Comments BASIC METABOLIC PANEL (BMP) Routine 07/27/2018 8:30 EST Acute renal failure, unspecified acute renal failure type (HCC-CMS) Essential hypertension Chronic kidney disease, stage III (moderate) ([facility]) documented in this encounter Results * BASIC METABOLIC PANEL (BMP) (07/27/2018 8:30 EST) GFR, Calculated, External 33.97 [facility] Glucose, Serum, External 98 [facility] Calculated Calcium, External [facility] BUN, External 25 [facility] Calcium, External 9.2 [facility] Chloride, External 108 [facility] CO2, External 29.0 [facility] Creatinine, External 1.56 [facility] Fasting?, External [facility] Potassium, External 4.3 [facility] Sodium, External 143 [facility] Blood specimen (specimen) 07/27/2018 8:30 EST Chastity Syed MD CHEMISTRY & BLOOD GA S ORDERABLES [facility] documented in this encounter Visit Diagnoses Diagnosis Acute renal failure, unspecified acute renal failure type (HCC-CMS) Essential hypertension Unspecified essential hypertension Chronic kidney disease, stage III (moderate) ([facility]) Chronic kidney disease, Stage III (moderate) documented in this encounter Care Teams Management Advisor Relationship Specialty Start Date End Date Laurence Krause PA [address] [place] [address] PCP - General 09/12/17 07/29/18 Arabella Laurent NP [address] [place] [address] PCP - General 07/30/18 documented as of this encounter
--- OUTSIDE RECORDS SUMMARY | 2023-12-31 15:26 | XMS_ITS | Encounter Summary ---
Author Organization [facility] Address [address] [id number] Care Team Providers Care Spring Intern Name Role Phone Arabella Laurent COMPENSATOR WORKER Primary Care Provider [phone] Reason for Visit * Reason Onset Date Comments Nutrition Counseling 03/15/2021 Encounter Details Date Type Department Care Team ([facility] st Contact Info) Description 03/15/2021 Telephone [facility] Nephrology - [address] [address] Mona Michaels, RN [address] [place] [address] Nutrition Counseling Social History Tobacco Use Types Packs/Day Years [...] Telephone Encounter - Mona Michaels, RN - 03/20/2021 1529 EDT Call to patient to let her know that a diet consult has been ordered. She also received her education in the mail * Telephone Encounter - Mona Michaels RN - 03/20/2021 1527 EDT Please inform the patient that I have ordered a CKD IV Dietitian referral. Pedro Syed * Telephone Encounter - Mona Michaels RN - 03/15/2021 1356 EDT Patient calling to request a nutrition consult around CKD> documented in this encounter Plan of Treatment Not on file documented as of this encounter Visit Diagnoses Not on filedocumented in this encounter Care Teams Spring Intern Relationship Specialty Start Date End Date Arabella Laurent, ROLF [address] [place] [phone] PCP - General 07/30/18 documented as of this encounter
--- OUTSIDE RECORDS SUMMARY | 2023-12-31 15:26 | XMS_ITS | Encounter Summary ---
Author Organization [facility] Address [address] [place] [address] Care Team Providers Care Crime Prevention Police Officer Name Role Phone Arabella Laurent FOURTH OFFICER Primary Care Provider [phone] Reason for Visit * Reason Onset Date Comments Pre-visit Orders 08/09/2019 Encounter Details Date Type Department Care Team ([facility] st Contact Info) Description 08/09/2019 Telephone [facility] Nephrology - [address] [address] Mona Michaels, RN [address] [place] [address] Pre-visit Orders Social History Tobacco Use Types Packs/Day Years [...] Telephone Encounter - Mona Michaels, RN - 08/09/2019 9978 EDT Pt was seen today and had her labs done here. * Telephone Encounter - Bethany Francois RN - 08/09/2019 1229 EDT Will have PSS schedule next available. Patient to have labs drawn several days before appointment. Labs already faxed to [facility] lab * Telephone Encounter - Mona Michaels RN - 08/09/2019 1113 EDT ----- Message [...] and see me in the office. I haveordered these tests. She was last sen in Nephrology in July 2018. Thank you. Mac documented in this encounter Plan of Treatment Not on file documented as of this encounter Visit Diagnoses Not on filedocumented in this encounter Care Teams Crime Prevention Police Officer Relationship Specialty Start Date End Date Arabella Laurent, ROLF [address] [place] [phone] PCP - General 07/30/18 documented as of this encounter
--- OUTSIDE RECORDS SUMMARY | 2023-12-31 15:26 | XMS_ITS | Encounter Summary ---
Author Organization [facility] Address [address] [place] [address] Care Team Providers Care Avionics Mechanic Name Role Phone Anastasiia Arabella Bree ELECTRICIAN CRANE MAINTENANCE Primary Care Provider [phone] Reason for Visit * Reason Comments Acute Renal Failure Follow up on RANJANA in May 2018 of unclear etiology. She feels good, today, anywat. Encounter Details Date Type Department Care Team (Late st Contact Info) Description 08/03/2018 10:10 EST Office Visit [facility] Nephrology - [address] [place] [address] Chastity Syed MD 1 [facility], Level [address] [place] [address] Chronic kidney disease, stage III (moderate) ([facility]) (Primary Dx); Acute renal failure, unspecified acute renal failure type ([facility]) Social History Tobacco Use Types Packs/Day Years [...] kg (116 lb 9.6 oz) 08/03/[address] Height 144.8 cm (4' 9) 08/03/2018 0952 [...] * Patient Instructions* Chastity Syed MD - 08/03/2018 10:10 EST Blood tests every 2 months. RTC in one year. documented in this encounter Progress Notes * Chastity Syed MD - 08/03/2018 1010 EST NEPHROLOGY OFFICE FOLLOW UP VISIT NOTE SUBJECTIVE Follow up on RANJANA on CKD from 2018 when serum creatinine was up to 1.86 mg/dl but is now down to 1.56 on 07-27-18. Lisinopril was discontinued then and the patient has continued to do well. 08/03/2018 Chief Complaint Patient presents with ??? Acute Renal Failure Follow up on RANJANA in May 2018 of unclear etiology. She feels good, today, anywat. HPI As above. Patient Active Problem List Diagnosis ??? Chronic kidney disease, stage III (moderate) ([facility]) ??? Essential hypertension ??? Proteinuria ??? [...] Wt 52.9 kg (116 lb 9.6 oz) BMI 25.23 kg/m?? General appearance: alert, cooperative, no distress [...] Diagnosis Chronic kidney disease, stage III (moderate) ([facility])- Primary Chronic kidney disease, Stage III (moderate) Acute renal failure, unspecified acute renal failure type ([facility]) documented in this encounter Discontinued Medications Medication Sig Discontinue Reason Start Date End Da te pregabalin (LYRICA) 25 mg capsule Take 25 mg by mouth 2 times daily. 25 mg am, 100 mg hs Error 08/03/2018 morphine (MS CONTIN) 15 mg CR tablet Take 15 mg by mouth every 12 hours. Error 08/03/2018 lisinopril (PRINIVIL, ZESTRIL) 20 mg tablet Take 10 mg by mouth daily. Error 08/03/2018 documented as of this encounter Care Teams Avionics Mechanic Relationship Specialty Start Date End Date Arabella Laurent NP [address] [place] [address] PCP - General 07/30/18 documented as of this encounter
--- OUTSIDE RECORDS SUMMARY | 2023-12-31 15:27 | XMS_ITS | Encounter Summary ---
Author Organization [facility] Address [address] [place] [address] Care Team Providers Care Creative Writing Professor Name Role Phone Unavailable Primary Care Provider Unavailabl e Encounter Details Date Type Department Care Team (Late st Contact Info) Description 02/16/2007 Results Only [facility] [address] [place] [address] Marixa Cox MD [address] [place] [address] [place] [address] Social History Tobacco Use Types Packs/Day Years Used Date Smoking Tobacco: Never Assessed Sex and Gender Information Value Date Recorded Sex Assigned at Not on file Gender Identity Not on file Sexual Orientation Not on file documented as of this encounter Plan of Treatment Not on file documented as of this encounter Procedures Procedure Name Priority Date/Time Associated Diagnosis Comments SURGICAL PATHOLOGY Routine 02/16/2007 0:00 EDT documented in this encounter Results * SURGICAL PATHOLOGY (02/16/2007 0:00 EDT) Pathology Report: SURGICAL PATHOLOGY REPORT Reports generated via electronic interface contain original data; however they are lacking the format of the original report. Caution should be taken when reading/interpreti ng unformatted reports. Name: ? KIA WRIGHT ? Accession #: ? [id number] ? : ? 1960 (Age: 46) ??F ? Collect Date: ? 02/16/2007 ? Location: ? [facility] ? Receive Date: ? 02/16/2007 ? Provider: MARIXA COX MD Copy to: ? Final Pathologic Diagnosis: A. ?Cervix, 3:00, biopsy: ? 1. ??Mature squamous metaplastic epithelium with reactive changes. 2. ??No squamous intraepithelial lesion identified. B. ??Cervix, 6:00, biopsy: ?1. ??Squamous mucosa with no pathologic features. ?2. ??Transitional zone is not present. ? Document reviewed and electronically signed by: Wander Lin MD Report ??Date: 02/19/2007 16:59 By the signature above, the attending physician certifies that he/she has personally conducted a gross and/or microscopic examination of the described specimens and rendered or confirmed the above diagnosis. Specimen(s) Received: ? Tissue removed from 3 o'clock and 6 o'clock Clinical History: ? Squamous cell abnormality; positive HPV Gross Description: ? Received in formalin labelled [place] and 3 o'clock is a short-white 0.6 x 0.5 x 0.3 cm soft tissue fragment. The specimen is entirely submitted as (A). Received in formalin labelled [place] and 6 o'clock is a short-white 0.6 x 0.3 x 0.3 cm soft tissue fragment. The specimen is entirely submitted as (B). /[facility] End of Report [facility] 02/16/2007 02/16/2007 1:1 9 EDT Marixa Cox MD PATHOLOGY ORDERABLES [facility] [address] [place] [address] documented in this encounter Visit Diagnoses Not on filedocumented in this encounter
--- OUTSIDE RECORDS SUMMARY | 2023-12-31 15:27 | XMS_ITS | Encounter Summary ---
Author Organization [facility] Address [address] [place] [address] Care Team Providers Care Boiling House Hand Name Role Phone Laurence Krause Primary Care Provider + Arabella Laurent NP Primary Care Provider [phone] Encounter Details Date Type Department Care Team (Late st Contact Info) Description 06/24/2018 Orders Only [facility] Nephrology - [address] [id number] Chastity Syed MD [address] [place] [address], [address] [place] [address] Social History Tobacco Use Types Packs/Day Years Used Date Smoking Tobacco: Every Day Smokeless Tobacco: Never Interpersonal Safety Answer Date [...] on filedocumented in this encounter Care Teams Boiling House Hand Relationship Specialty Start Date End Date Laurence Krause PA [address] [place] [address] PCP - General 09/12/17 07/29/18 Arabella Laurent NP [address] [place] [address] PCP - General 07/30/18 documented as of this encounter
--- OUTSIDE RECORDS SUMMARY | 2023-12-31 15:27 | XMS_ITS | Encounter Summary ---
[place] [address] Care Team Providers Care Crossband Layer Name Role Phone Laurence Krause Primary Care Provider + Encounter Details Date Type Department Care Team (Late st Contact Info) Description 12/25/2017 Orders [place] [address] Sushma Goldstein, SR SOLUTIONS CONSULTANT [address] [place] [place] [address] Social History Tobacco Use Types Packs/Day Years [...] on filedocumented in this encounter Care Teams Crossband Layer Relationship Specialty Start Date End Date Laurence Krause PA PCP - General Orthopaedic Surgery 10/30/17 03/06/20 documented as of this encounter
--- OUTSIDE RECORDS SUMMARY | 2023-12-31 15:27 | XMS_ITS | Encounter Summary ---
Author Organization [facility] Address [facility] [place] [address] Care Team Providers Care Refinery Operator Helper Name Role Phone Laurence Krause Primary Care Provider + Reason for Visit * Reason Comments GI Problem * Consultation (Routine) - Closed Specialty Diagnoses / Procedures Referred By [place] pineda Referred To Contact Gastroenterology Diagnoses GERD Laurence Krause PA [address] [place] [address] [facility] [address] [place] [address] Referral ID Status Reason Start Date Expiration Date V isits Requested Visits Authorized [id number] Closed Consult, Test & Treat Connection [facility] 10/30/2017 10/30/2018 1 1 Encounter Details Date Type Department Care Team (Latest Contact Info) Description 12/22/2017 1:00 PM EDT Office [place] [phone] Anu Murphy PA [facility] [place] [address] Gastroesophageal reflux disease, esophagitis presence not specified; Upper abdominal pain; Excessive gas Social History Tobacco Use Types Packs/Day Years [...] EDT documented in this encounter Patient Instructions * Patient Instructions* Anu Murphy - 12/22/2017 1:00 PM EDT Thank you [...] months documented in this encounter Progress Notes * Anu Murphy - 12/22/2017 1:00 PM EDT Gastroenterology & Hepatology New Patient Consultation Note PCP: LAVINIA Franco Requesting Provider: LAVINIA Franco Reason for consultation: Addie Barnett is a 56 y.o. female with medical history significant for chronic kidney disease stage III, hx [place], depression, fibromyalgia, HTN, HLD, smoker, chronic pain on narcotics. I am seeing her as a new patient today in consult for question of GERD. Subjective: HPI: She is here for abdominal pain and hx of nausea and vomiting. Was vomiting daily a year ago, a lot of family stress, but the nausea and vomiting has since essentially stopped. She reports she did vomit this AM but it was d/t anxiety about [...] goes, lasts hrs to a day. Famotidine helpeda bit. Thinks related to gas, reflux. Does not [...] in bowel habits. Some days loose, some days solid. Constipation is not really an issue, more so she has loose stools. She is unable to say whether there she has blood or black/tarry stools. Denies pain with BM. No colonoscopy or EGD in the past. Had left kidney removed around age 10. Sees PCP regularly for checkups, q2 mo kidney fnct labs. Next appt with her PCP is tomorrow. She thought [...] ??? atorvastatin (LIPITOR) 40 mg Tablet ??? [place]-3 Fatty Acids-Fish Oil 340-1,000 mg Capsule ??? [...] Tablet ??? lisinopril (PRINIVIL;ZESTRIL) 10 mg tablet [place] for yrs No NSAIDS d/t kidney disease [...] distress. Appears stated age. Cooperates and answers questionsappropriately. Accompanied by her partner. SKIN: No rashes or abnormal lesions. NECK: No lymphadenopathy, thyromegaly. HEENT: Normal sclera, PERRL, oropharynx clear without ulceration or lesions. LUNGS: Clear to auscultation bilaterally. COR: Regular, normal S1 and S2 without murmurs ABD: Normal active bowel sounds. Soft and non-distended. Large midline scar s/p kidney removal. Mild TTP in epigastrium, otherwise no tenderness to deep palpation in all 4 quadrants. No organomegaly,masses, rebound, guarding, ascites. EXT: No upper extremity [...] She does currently have intermittent upper GI painbut unable to say whether meal related or relieved with bowel movement/passing gas. She has a long hx of GERD, with minimal current symptoms. Weight stable. No nocturnal symptoms. I do not have recent labs -- she gets regular check ups through PCP and reports no hx anemia in recent past. Reviewed GERD lifestyle measures. We discussed trial PPI (Dexilant) x 8 weeks and if no improvement, will schedule EGD to r/o esophagitis, gastritis, ulcer, PUD. She will let me know how she is doing in 8 weeks(phone or myDH) and we can schedule endoscopy. She has never had a colonoscopy, and I recommended that she do this for routine screening -- we can do [...] Murphy PA-C Section of Gastroenterology [place] [address] documented in this encounter Plan of Treatment Not on file documented as of this encounter Visit Diagnoses Diagnosis Gastroesophageal reflux disease, esophagitis presence not specified Upper abdominal pain Abdominal pain, other specified site Excessive gas Flatulence, eructation, and gas pain documented in this encounter Care Teams Refinery Operator Helper Relationship Specialty Start Date End Date Laurence Krause PA PCP - General Orthopaedic Surgery 10/30/17 03/06/20 documented as of this encounter
--- OUTSIDE RECORDS SUMMARY | 2023-12-31 15:27 | XMS_ITS | Clinical Summary ---
Author Organization [facility] Address [facility] [place] [address] Care Team Providers Care Director Of Donor Relations Name Role Phone Arabella Laurent DENISHA Primary Care Provider [phone] Allergies Active Allergy Reactions Criticality Noted Date Comments Gabapentin 08/12/2017 Ranitidine Hcl Rash 02/05/2012 Medications Medication Sig Dispensed Refills Start Date End Date Status lisinopril (PRINIVIL;ZESTRIL) 10 mg tablet 02/13/2006 Active aspirin 81 mg Tablet, Delayed Release (E.C.) Take 81 mg by mouth. Active atorvastatin (LIPITOR) 40 mg Tablet Take 40 mg by mouth. Active [place]-3 Fatty Acids-Fish Oil 340-1,000 mg Capsule Take by mouth. Active amLODIPine (NORVASC) 5 mg Tablet Take 5 mg by mouth. Active albuterol 90 mcg/actuation HFA Aerosol Inhaler Inhale 2 puffs into the lungs. Active cholecalciferol, Vitamin D3, 1,000 unit Tablet Take 1,000 Units by mouth. Active DULoxetine (CYMBALTA) 60 mg Capsule, Delayed Release(E.C.) Take 60 mg by mouth. Active famotidine (PEPCID) 20 mg Tablet Take 20 mg by mouth. Active metoprolol succinate (TOPROL-XL) 25 mg Tablet Sustained Release 24 hr Take 25 mg by mouth. Active nitroGLYcerin (NITROSTAT) 0.4 mg Tablet, Sublingual Place 0.4 mg under the tongue. Active traZODone (DESYREL) 100 mg Tablet Take 200 mg by mouth. Active zolpidem (AMBIEN) 10 mg Tablet Take 10 mg by mouth. Active HYDROcodone-acetami nophen (NORCO) 5-325 mg Tablet 10/29/2017 Active dexlansoprazole (DEXILANT) 30 mg Cap, Delayed Rel., MultiphasicIndicati ons:Gastroesophagea l reflux disease, esophagitis presence not specified,Upper abdominal pain Take 1 capsule by mouth daily. 30 capsule 3 12/22/2017 Active pantoprazole (PROTONIX) 20 mg Tablet, Delayed Release (E.C.) Take 1 tablet by mouth daily. 90 tablet 3 12/25/2017 Active Additional Information Patient not taking.Reported on 12/01/2020 acyclovir (ZOVIRAX) 200 mg Capsule TK ONE C PO D 02/21/2020 Active hydrOXYzine (Atarax) 25 mg Tablet TAKE 1 TO 2 TABLETS BY MOUTH EVERY NIGHT NEEDED FOR ITCHING 60 tablet 1 02/12/2021 Active Active Problems Problem Noted Date Diagnosed Date HLD (hyperlipidemia) 12/01/2020 Hypertension 12/01/2020 CKD (chronic kidney disease) stage 3, GFR 30-59 ml/min 12/01/2020 Hyperparathyroidism 12/01/2020 CAD (coronary artery disease) 12/01/2020 Cigarette smoker 12/01/2020 Social History Tobacco Use Types Packs/Day Years [...] kg (117 lb 3.2 oz) 12/01/2020 2:47 P M EDT Height 147.3 cm (4' 10) 12/01/2020 2:47 PM EDT Body Mass Index 24.49 12/01/2020 2:47 PM EDT Plan of Treatment Health Maintenance Due Date Last Done Comments CT Colonography 1960 Colonoscopy 1960 Colorectal Cancer Screening 1960 FIT DNA 1960 FIT 1960 Sigmoidoscopy (10 year) with FIT yearly 1960 Sigmoidoscopy 1960 Pneumoccocal Vaccine: 65+ (1 of 2 - PCV) 1964 HIV screen 1976 Hepatitis C Screening 1976 Tdap adult 1977 Tetanus vaccine 1977 HPV test 1988 PAP Smear 1988 Breast Cancer Share Decision Needed 1998 Breast Cancer screening 1998 Zoster vaccine (1 of 2) 2008 Advance Directive 2013 Covid-19 Vaccine (1 - ) 01/31/2023 Bone Density Scan 12/24/2023 Influenza (Flu) vaccine (1 o f 1 - Influenza standard series) 02/01/2024 Care Teams Director Of Donor Relations Relationship Specialty Start Date End Date Arabella Laurent APRN PCP - General Family Medicine 03/07/20
--- OUTSIDE RECORDS SUMMARY | 2023-12-31 15:27 | XMS_ITS | Encounter Summary ---
Author Organization [facility] Address [address] [place] [address] Care Team Providers Care Tripoler Name Role Phone Melanie Pulido NP Primary Care Provider [phone] Reason for Visit * Reason Comments Chronic Kidney Disease Encounter Details Date Type Department Care Team ([facility] st Contact Info) Description 09/23/2012 15:[address] [facility] Nephrology - [address] [id number] Robert Truong MD [address] [place], [place] [id number] Lana Long MD Chronic kidney disease, stage III (moderate) ([facility]) (Primary Dx); Unspecified essential hypertension; Proteinuria Social History Tobacco Use Types Packs/Day Years [...] - documented in this encounter Patient Instructions * Patient Instructions* Robert Truong MD - 09/23/2012 16:50 EDT - Kidney function is stable. - Continue control your blood pressure. - Suggest stop smoking. - You can follow up with your primary care. - Follow up as needed. documented in this encounter Progress Notes * Robert Truong MD - 09/23/2012 2251 EDT Images from the original note were not included. Nephrology CKD Progress Follow Up Note - Smart Text Reason for Visit: Addie Barnett [...] this time, she denies any chest pain, shortness of breath, or peripheral edema. Addie does not [...] no acute distress. Weight today is Weight :52.617 kg (116 lb). Wt Readings from Last [...] target hemoglobin range is 10-12 g/dL for patientswith CKD. There is no indication for additional [...] primary care as we did not have enough sample today. [facility] fax[facility] to [facility]. I also called and leave [...] Procedure Name Priority Date/Time Associated Diagnosis Comments POCT URINE DIPSTICK, CLINITEK Routine 09/23/2012 15:13 EDT Chronic kidney disease, stage III (moderate) ([facility]) documented in this encounter Results * (ABNORMAL) POCT URINE DIPSTICK (09/23/2012 15:13 EDT) Color YELLOW [facility] Clarity, UA Clear [facility] Glucose Neg Neg [facility] Bilirubin Neg Neg [facility] Ketones Neg Neg [facility] Specific [place] <=1.005 1.001 - 1.035 [facility] Blood 1+(A) Neg [facility] pH 5.5 4.6 - 8.0 [facility] Protein Neg Neg [facility] Urobilinogen 0.2 0.2 - 1.0 E.U./dl [facility] Nitrite Neg Neg [facility] Leuk Esterase Neg Neg [facility] [address] security ID [id number] [facility] Comment:Test Performed at [facility] Urine specimen (specimen) 09/23/2012 15:13 EDT 09/23/2012 15:21 EDT F Compa Long MD POINT OF CARE TEST O RDERABLES [facility] [address] [place] [address] documented in this encounter Visit Diagnoses Diagnosis Chronic kidney disease, stage III (moderate) ([facility])- Primary Chronic kidney disease, Stage III (moderate) Unspecified essential hypertension Proteinuria documented in this encounter Care Teams Tripoler Relationship Specialty Start Date End Date Melanie Pulido NP [facility] [address] [place] [address] PCP - General 01/01/12 09/11/17 documented as of this encounter
--- OUTSIDE RECORDS SUMMARY | 2023-12-31 15:27 | XMS_ITS | Encounter Summary ---
Author Organization [facility] Address [address] [place] [address] Care Team Providers Care Refinery Operator Name Role Phone Melanie Rosen PLATE CUTTER Primary Care Provider [phone] Encounter Details Date Type Department Care Team (Late st Contact Info) Description 04/20/2014 Results Only [facility] Laboratory Services - [facility] ([facility]) [address] [place], [place] [address] Melanie Rosen, PLATE CUTTER [facility] [address] [place], [place] [phone] Social History Tobacco Use Types Packs/Day Years Used Date Smoking Tobacco: Never Assessed Sex and Gender Information Value Date Recorded Sex Assigned at Not on file Gender Identity Not on file Sexual Orientation Not on file documented as of this encounter Plan of Treatment Not on file documented as of this encounter Procedures Procedure Name Priority Date/Time Associated Diagnosis Comments PAP TEST- RESULT ONLY Routine 04/20/2014 0:00 EST documented in this encounter Results * PAP TEST- RESULT ONLY (04/20/2014 0:00 EST) Pathology Report: CYTOPATHOLOGY REPORT Reports generated via electronic interface contain original data; however they are lacking the format of the original report. Caution should be taken when reading/interpret ing unformatted reports. Name: ? KIA WRIGHT ? Accession #: ? [id number] : ? 1960 (Age: 53) ??F ?Collect Date: ? 04/20/2014 Location: ? [facility] ? Receive Date: ? 04/22/2014 Provider: ?MELANIE ROSEN PLATE CUTTER Copy to: ? Specimen/Source: ?Pap Test, Cervix/Endocervix , ThinPrep Imaging System with manual evaluation Last Menstrual Period: ? 8 years ago Previous Gynecologic Pathology: ? HPV: + ? SPECIMEN ADEQUACY ? Satisfactory for Evaluation - transformation zone component present GENERAL CATEGORIZATION ? Epithelial Cell Abnormality INTERPRETATION ? Squamous Cell Abnormality - Atypical squamous cells, undetermined significance (ASC-US). EDUCATIONAL NOTES/RECOMMENDAT IONS ? [facility] recommends following ASCCP's 2012 Updated Consensus Guidelines for the Management of Abnormal Cervical Cancer Screening Tests and Cancer Precursors (JLGTD, 2013; 17(5):S1-S27). ??Consensus guidelines are available online at www.asccp.org. ? Document reviewed and electronically signed by: ? BUCK GARCES MD ? Report Date: ??05/05/2014 11:45 End of Report [facility] 04/20/2014 04/22/2014 Melanie Rosen NP PATHOLOGY ORDERABLES [facility] [address] [place] [address] documented in this encounter Visit Diagnoses Not on filedocumented in this encounter Care Teams Refinery Operator Relationship Specialty Start Date End Date Melanie Rosen NP [facility] [address] [place] [address] PCP - General 01/01/12 09/11/17 documented as of this encounter
--- OUTSIDE RECORDS SUMMARY | 2023-12-31 15:27 | XMS_ITS | Encounter Summary ---
Author Organization [facility] Address [address] [place] [address] Care Team Providers Care Control Operator Flow Coat Name Role Phone Laurence Krause Primary Care Provider + Encounter Details Date Type Department Care Team (Late st Contact Info) Description 06/17/2018 Abstract [facility] Nephrology - [address] [address] Chastity Syed MD [address] [place] [address], [address] [place] [phone] Social History Tobacco Use Types Packs/Day Years [...] Diagnosis Comments BASIC METABOLIC PANEL (BMP) Routine 02/24/2018 COMPLETE BLOOD COUNT Routine 12/24/2017 BASIC METABOLIC PANEL (BMP) Routine 12/24/2017 documented in this encounter Results * BASIC METABOLIC PANEL (BMP) (02/24/2018) GFR, Calculated, External 29.56 [facility] Glucose, Serum, External 119 [facility] Calculated Calcium, External [facility] BUN, External 27 [facility] Calcium, External 9.0 [facility] Chloride, External 106 [facility] CO2, External 25.7 [facility] Creatinine, External 1.76 [facility] Fasting?, External [facility] Potassium, External 4.1 [facility] Sodium, External 142 [facility] Blood specimen (specimen) 02/24/2018 Historical Provider CHEMISTRY & BLOOD GAS ORDERABLES [facility] * BASIC METABOLIC PANEL (BMP) (12/24/2017) GFR, Calculated, External 33.47 [facility] Glucose, Serum, External 95 [facility] Calculated Calcium, External [facility] BUN, External 25 [facility] Calcium, External 9.6 [facility] Chloride, External 107 [facility] CO2, External 24.4 [facility] Creatinine, External 1.58 [facility] Fasting?, External [facility] Potassium, External 5.0 [facility] Sodium, External 141 [facility] Blood specimen (specimen) 12/24/2017 Historical Provider CHEMISTRY & BLOOD GAS ORDERABLES [facility] * COMPLETE BLOOD COUNT (12/24/2017) Pathologist [facility] HCT, External 42.5 [facility] MCH, External 35.0 [facility] MCV, External 99.3 [facility] MCHC, External [facility] Hemoglobin, External 15.0 [facility] WBC, External 7.06 [facility] RBC, External 4.28 [facility] PLT, External 181 [facility] RDW-CV, External 13.0 [facility] Blood specimen (specimen) 12/24/2017 Historical Provider HEMATOLOGY & PF4 ORDERABLES [facility] documented in this encounter Visit Diagnoses Not on filedocumented in this encounter Care Teams Control Operator Flow Coat Relationship Specialty Start Date End Date Laurence Krause PA [address] [place] [address] PCP - General 09/12/17 07/29/18 documented as of this encounter
--- OUTSIDE RECORDS SUMMARY | 2023-12-31 15:27 | XMS_ITS ---
Author Organization Unknown Address [address] [place] [phone] Phone Care Team Providers Care Bindery Leadperson Name Role Phone RADHA Dupont Attending Unavailable Social History Type Status Start Date End Date Code Code Syst em Smoking History Current every day smoker [id number] SNOMED CT Sex Female Hospital Discharge Instructions Should you have any questions prior to discharge, please contact a member of your healthcare team. If you have left the hospital and have any questions, please contact your primary care physician. Reason For Referral No Data Found Plan of Treatment No Data Found Encounters Encounter Diagnosis Start Date Code Code Sys tem 06/13/2023 [id number] SNOMED-CT Personal Care Team Section Performer Name Performer Role Active Date Inactive Da te
--- OUTSIDE RECORDS SUMMARY | 2023-12-31 15:27 | XMS_ITS | Encounter Summary ---
Author Organization [facility] Address [address] [place] [address] Care Team Providers Care Professor Of Literacy Name Role Phone Melanie Pulido NP Primary Care Provider [phone] Encounter Details Date Type Department Care Team (Late st Contact Info) Description 08/12/[address] [facility] Nephrology - [address] [address] Chastity Syed MD [address] [place] [address], [address] [place] [phone] Social History Tobacco Use Types Packs/Day Years Used Date Smoking Tobacco: Never Assessed Sex and Gender Information Value Date Recorded Sex Assigned at Not on file Gender Identity Not on file Sexual Orientation Not on file documented as of this encounter Plan of Treatment Not on file documented as of this encounter Procedures Procedure Name Priority Date/Time Associated Diagnosis Comments BACTERIAL CULTURE, URINE Routine 05/05/2017 BACTERIAL CULTURE, URINE Routine 01/06/2017 COMPREHENSIVE METABOLIC PANEL (CMP) Routine 01/06/2017 BASIC METABOLIC PANEL (BMP) Routine 07/12/2015 ALT Routine 05/08/2015 AST Routine 05/08/2015 LIPID PROFILE (INCLUDES CHOLESTEROL, TRIGLYCERIDES, HDL, LDL) Routine 05/08/2015 documented in this encounter Results * BACTERIAL CULTURE, URINE (05/05/2017) Report Status, External [facility] Result, External <10,000 [facility] Specimen Description, External Gram Positive Addie [facility] Urine specimen (specimen) 05/05/2017 Historical Provider MICROBIOLOGY - GE NERAL ORDERABLES [facility] * COMPREHENSIVE METABOLIC PANEL (CMP) (01/06/2017) GFR, Calculated, External 32.40 [facility] Glucose, Serum, External 79 [facility] Albumin, External 3.7 [facility] Total Alkaline Phosphatase, External 80 [facility] ALT, External 21 [facility] AST, External 13 [facility] BUN, External 21 [facility] Calculated Calcium, External [facility] Calcium, External 9.1 [facility] Chloride, External 110 [facility] CO2, External 26.4 [facility] Creatinine, External 1.63 [facility] Fasting?, External [facility] Potassium, External 4.9 [facility] Sodium, External 144 [facility] Total Protein, External 6.8 [facility] Bilirubin, Total, External 0.38 [facility] Blood specimen (specimen) 01/06/2017 Historical Provider CHEMISTRY & BLOOD GAS ORDERABLES Performing Organization Address City/[facility]/ZIP Co de Phone Number [facility] * BACTERIAL CULTURE, URINE (01/06/2017) Report Status, External [facility] Result, External NO GROWTH 24 HOURS [facility] Specimen Description, External [facility] Urine specimen (specimen) 01/06/2017 Historical Provider MICROBIOLOGY - GE NERAL ORDERABLES Performing Organization Address City/[facility]/ZIP Co de Phone Number [facility] * BASIC METABOLIC PANEL (BMP) (07/12/2015) GFR, Calculated, External 32.18 [facility] Glucose, Serum, External 72 [facility] Calculated Calcium, External [facility] BUN, External 24 [facility] Calcium, External 9.1 [facility] Chloride, External 105 [facility] CO2, External 26.0 [facility] Creatinine, External 1.65 [facility] Fasting?, External [facility] Potassium, External 4.0 [facility] Sodium, External 140 [facility] Blood specimen (specimen) 07/12/2015 Historical Provider CHEMISTRY & BLOOD GAS ORDERABLES Performing Organization Address City/[facility]/ZIP Co de Phone Number [facility] * ALT (05/08/2015) ALT, External 25 [facility] Blood specimen (specimen) 05/08/2015 Historical Provider CHEMISTRY & BLOOD GAS ORDERABLES Performing Organization Address City/[facility]/ZIP Co de Phone Number [facility] * AST (05/08/2015) AST, External 16 [facility] Blood specimen (specimen) 05/08/2015 Historical Provider CHEMISTRY & BLOOD GAS ORDERABLES Performing Organization Address City/[facility]/ZIP Co de Phone Number [facility] * LIPID PROFILE (INCLUDES CHOLESTEROL, TRIGLYCERIDES, HDL, LDL) (05/08/2015) Cholesterol, External 164 [facility] Triglycerides, External 174 [facility] HDL, External [address] [facility] LDL, External 88 [facility] Chol/HDL Ratio, External 4.0 [facility] Fasting?, External [facility] Blood specimen (specimen) 05/08/2015 Historical Provider MD CHEMISTRY & BLOOD GAS ORDERABLES [facility] documented in this encounter Visit Diagnoses Not on filedocumented in this encounter Care Teams Professor Of Literacy Relationship Specialty Start Date End Date Melanie Pulido NP [facility] [address] [place] [address] PCP - General 01/01/12 09/11/17 documented as of this encounter
--- OUTSIDE RECORDS SUMMARY | 2023-12-31 15:27 | XMS_ITS | Encounter Summary ---
Author Organization [facility] Address [address] [place] [address] Care Team Providers Care Immigration Services Officer Name Role Phone Unavailable Primary Care Provider Unavailabl e Encounter Details Date Type Department Care Team (Late st Contact Info) Description 08/24/2007 Results Only [facility] - [facility] conversion [address] [place] [address] Delphine Ogden, [address] [place] [address] Social History Tobacco Use Types Packs/Day Years Used Date Smoking Tobacco: Never Assessed Sex and Gender Information Value Date Recorded Sex Assigned at Not on file Gender Identity Not on file Sexual Orientation Not on file documented as of this encounter Plan of Treatment Not on file documented as of this encounter Procedures Procedure Name Priority Date/Time Associated Diagnosis Comments CYTOPATHOLOGY Routine 08/24/2007 0:00 EDT documented in this encounter Results * CYTOPATHOLOGY (08/24/2007 0:00 EDT) Pathology Report: CYTOPATHOLOGY REPORT Reports generated via electronic interface contain original data; however they are lacking the format of the original report. Caution should be taken when reading/interpreti ng unformatted reports. Name: ? KIA WRIGHT ? Accession #: ? [id number] : ? 1960 (Age: 46) ??F ?Collect Date: ? 08/24/2007 Location: ? [facility] ? Receive Date: ? 08/25/2007 Provider: ?DELPHINE OGDEN DRAWING CHECKER Copy to: ? Specimen/Source: ?ThinPrep Pap Test, Cervix/Endocervix, processed on Oration ThinPrep Imaging System, with manual evaluation Last [...] CATEGORIZATION ? Negative for Intraepithelial Lesion or Malignancy INTERPRETATION ? Reactive cellular changes associated with inflammation present (includes repair). ? Document reviewed and electronically signed by: ? JOEL LANDRUM MD ? Report Date: ??08/31/2007 15:00 End of Report JASON GUTIERREZ 08/24/2007 08/25/2007 Delphine Ogden DRAWING CHECKER PATHOLOGY ORDERABLES JASON GUTIERREZ [address] [place] [address] documented in this encounter Visit Diagnoses Not on filedocumented in this encounter
--- OUTSIDE RECORDS SUMMARY | 2023-12-31 15:27 | XMS_ITS | Encounter Summary ---
Author Organization [facility] [place] [address] Care Team Providers Care Integration Engineer Name Role Phone Arabella Laurent APRN Primary Care Provider Encounter Details Date Type Department Care Team (Late st Contact Info) Description 03/07/2020 Refill Dermatology at [address] [phone] Anjali Avila, MOLDING MACHINE TENDER Social History Tobacco Use Types Packs/Day Years [...] on filedocumented in this encounter Care Teams Integration Engineer Relationship Specialty Start Date End Date Arabella Laurent APRN PCP - General Family Medicine 03/07/20 documented as of this encounter
--- OUTSIDE RECORDS SUMMARY | 2023-12-31 15:27 | XMS_ITS | Encounter Summary ---
Author Organization [facility] [place] [address] Care Team Providers Care Single Needle Tufting Machine Operator Name Role Phone Laurence Krause Primary Care Provider + Encounter Details Date Type Department Care Team (Late st Contact Info) Description 12/29/2017 Telephone Gastroenterology at [facility] [place] [phone] Rian Block RN Social History Tobacco Use Types Packs/Day Years Used Date Smoking Tobacco: Every Day Cigarettes Smokeless Tobacco: Never Sex and Gender Information Value Date Recorded Sex Assigned at Not on file Gender Identity Not on file Sexual Orientation Not on file documented as of this encounter Miscellaneous Notes * Telephone Encounter - Rian Block RN - [...] on filedocumented in this encounter Care Teams Single Needle Tufting Machine Operator Relationship Specialty Start Date End Date Laurence Krause PA PCP - General Orthopaedic Surgery 10/30/17 03/06/20 documented as of this encounter
--- OUTSIDE RECORDS SUMMARY | 2023-12-31 15:27 | XMS_ITS | Encounter Summary ---
Author Organization [facility] Address [address] [place] [address] Care Team Providers Care Insurance Adjuster Name Role Phone Laurence Krause Primary Care Provider + Encounter Details Date Type Department Care Team (Late st Contact Info) Description 05/13/2018 Abstract [facility] Nephrology - [address] [phone] Chastity Syed MD [address] [place] [address], [address] [place] [phone] Social History Tobacco Use Types Packs/Day Years [...] Priority Date/Time Associated Diagnosis Comments ALT Routine 05/11/2018 AST Routine 05/11/2018 BASIC METABOLIC PANEL (BMP) Routine 05/11/2018 documented in this encounter Results * AST (05/11/2018) AST, External 17 [facility] Blood specimen (specimen) 05/11/2018 Historical Provider CHEMISTRY & BLOOD GAS ORDERABLES Performing Organization Address City/[facility]/ZIP Co de Phone Number [facility] * ALT (05/11/2018) ALT, External 25 [facility] Blood specimen (specimen) 05/11/2018 Historical Provider CHEMISTRY & BLOOD GAS ORDERABLES Performing Organization Address [facility] Co de Phone Number [facility] * BASIC METABOLIC PANEL (BMP) (05/11/2018) GFR, Calculated, External 27.73 [facility] Glucose, Serum, External 114 [facility] Calculated Calcium, External [facility] BUN, External 31 [facility] Calcium, External 9.0 [facility] Chloride, External 104 [facility] CO2, External 25.3 [facility] Creatinine, External 1.86 [facility] Fasting?, External [facility] Potassium, External 4.0 [facility] Sodium, External 142 [facility] Blood specimen (specimen) 05/11/2018 Historical Provider CHEMISTRY & BLOOD GAS ORDERABLES Performing Organization Address City/[facility]/ZIP Co de Phone Number [facility] documented in this encounter Visit Diagnoses Not on filedocumented in this encounter Care Teams Insurance Adjuster Relationship Specialty Start Date End Date Laurence Krause PA [address] [place] [phone] PCP - General 09/12/17 07/29/18 documented as of this encounter
--- OUTSIDE RECORDS SUMMARY | 2023-12-31 15:27 | XMS_ITS | Encounter Summary ---
Author Organization [facility] Address [address] [place] [address] Care Team Providers Care Guide Escort Name Role Phone Melanie Pulido NP Primary Care Provider Encounter Details Date Type Department Care Team (Late st Contact Info) Description 11/27/2012 Abstract [facility] Nephrology - [address] [id number] Lana Long MD Social History Tobacco Use Types Packs/Day Years Used Date Smoking Tobacco: Never Assessed Sex and Gender Information Value Date Recorded Sex Assigned at Not on file Gender Identity Not on file Sexual Orientation Not on file documented as of this encounter Plan of Treatment Not on file documented as of this encounter Procedures Procedure Name Priority Date/Time Associated Diagnosis Comments LIPID PROFILE (INCLUDES CHOLESTEROL, TRIGLYCERIDES, HDL, LDL) Routine 11/26/2012 COMPREHENSIVE METABOLIC PANEL (CMP) Routine 11/26/2012 documented in this encounter Results * COMPREHENSIVE METABOLIC PANEL (CMP) (11/26/2012) GFR, Calculated, External 40 [facility] Glucose, Serum, External 95 [facility] Albumin, External [facility] Total Alkaline Phosphatase, External [facility] ALT, External 9 [facility] AST, External 5 [facility] BUN, External 29 [facility] Calculated Calcium, External [facility] Calcium, External 9.6 [facility] Chloride, External 108 [facility] CO2, External 25 [facility] Creatinine, External 1.38 [facility] Fasting?, External [facility] Potassium, External 4.5 [facility] Sodium, External 142 [facility] Total Protein, External [facility] Bilirubin, Total, External [facility] Blood specimen (specimen) 11/26/2012 Jarred Denton MD CHEMISTRY & BLOOD GAS ORDERABLES [facility] * LIPID PROFILE (INCLUDES CHOLESTEROL, TRIGLYCERIDES, HDL, LDL) (11/26/2012) Cholesterol, External 276 [facility] Triglycerides, External 322 [facility] HDL, External 27 [facility] LDL, External 185 [facility] Chol/HDL Ratio, External 10.2 [facility] Fasting?, External [facility] Blood specimen (specimen) 11/26/2012 Jarred Denton MD CHEMISTRY & BLOOD GAS ORDERABLES [facility] documented in this encounter Visit Diagnoses Not on filedocumented in this encounter Care Teams Guide Escort Relationship Specialty Start Date End Date Melanie Pulido, [facility] [address] [place] [address] PCP - General 01/01/12 09/11/17 documented as of this encounter
--- OUTSIDE RECORDS SUMMARY | 2023-12-31 15:27 | XMS_ITS | Encounter Summary ---
Author Organization [facility] Address [address] [place] [address] Care Team Providers Care Flea Market Seller Name Role Phone Melanie Rosen GREEN MARKETER Primary Care Provider [phone] Encounter Details Date Type Department Care Team (Late st Contact Info) Description 12/12/2014 Results Only [facility] [phone] Melanie Rosen, GREEN MARKETER [facility] [address] [place], [place] [address] Social History Tobacco Use Types Packs/Day Years [...] Diagnosis Comments PAP TEST- RESULT ONLY Routine 12/12/2014 0:00 EDT documented in this encounter Results * PAP TEST- RESULT ONLY (12/12/2014 0:00 EDT) Pathology Report: CYTOPATHOLOGY REPORT Reports generated via electronic interface contain original data; however they are lacking the format of the original report. Caution should be taken when reading/interpret ing unformatted reports. Name: ? KIA WRIGHT ? Accession #: ? [id number] : ? 1960 (Age: 53) ??F ?Collect Date: ? 12/12/2014 Location: ? [facility] ? Receive Date: ? 12/14/2014 Provider: ?MELANIE ROSEN GREEN MARKETER Copy to: ? Specimen/Source: ?Pap Test, Cervix/Endocervix [...] undetermined significance (ASC-US). EDUCATIONAL NOTES/RECOMMENDAT IONS ? [facility] recommends following ASCCP's 2012 Updated Consensus Guidelines for the Management of Abnormal Cervical Cancer Screening Tests and Cancer Precursors (JLGTD, 2013; 17(5):S1-S27). ??Consensus guidelines are available online at www.asccp.org. ? Document reviewed and electronically signed by: ? RAZ STARR MD ? Report Date: ??12/22/2014 10:04 End of Report [facility] 12/12/2014 12/14/2014 Melanie Rosen NP PATHOLOGY ORDERABLES [facility] [address] [place] [address] documented in this encounter Visit Diagnoses Not on filedocumented in this encounter Care Teams Flea Market Seller Relationship Specialty Start Date End Date Melanie Rosen NP [facility] [address] [place] [address] PCP - General 01/01/12 09/11/17 documented as of this encounter
--- OUTSIDE RECORDS SUMMARY | 2023-12-31 15:27 | XMS_ITS | Encounter Summary ---
Author Organization [facility] Address [address] [place] [address] Care Team Providers Care Corporate Receptionist Name Role Phone Melanie Pulido NP Primary Care Provider [phone] Reason for Visit * Reason Comments Other One kidney Encounter Details Date Type Department Care Team ([facility] st Contact Info) Description 02/05/2012 14:00 EDT Office Visit [facility] Nephrology - [address] [id number] Robert Truong MD [address] [place], [place] [id number] Chronic kidney disease, stage III (moderate) ([facility]) (Primary Dx); Unspecified essential hypertension Social History Tobacco Use Types Packs/Day Years [...] kg (109 lb 3.2 oz) 02/05/2012 1335 E DT Height - - Body Mass Index - - documented in this encounter Patient Instructions * Patient Instructions* Robert Truong MD - 02/05/2012 14:42 EDT - [...] Progress Notes * Robert Truong MD - 02/05/2012 2653 EDT REASON FOR CONSULTATION: Worsening renal function. 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 It was done at [facility] in [place]. Also longstanding hypertension since she was a teenager and history of protein/urine of about 1.3 grams ratio in 1994. However, it was decreasing to less than a gram ratio in 2006. In 2005, she had a kidney ultrasound that showed a 13 cm kidney with cortical thinning and a 2 cm cyst. At that point, her serum creatinine was 1.2. She was seen by Dr Long and the recommendation was to control the blood pressure and she was on lisinopril at that time. Also, she has a history of chronic fibromyalgia, probably more than 10 years. The patient has been followed with her primary care provider, Melanie Pulido NP, with followup lab work every 3 to 6 months. There was a slow elevation in her creatinine level from 1.3 in 01/2009, 1.5 in 06/2009, 1.4 in 07/2009,1.2 in 09/2009, 1.3 in 12/2009, 1.5 in 08/2010, 1.5 that correlated with a GFR of 36 in 05/2011, and the most recent one was 1.6 in 12/2011. Upon asking the patient, she admits that she has been in chronic pain, but she does not take NSAIDs or bkyj-qbs-tcmqqdj medication on a regular basis. She used totake ibuprofen once in a very long while, [...] Vicodin for her pain since more than ayear ago. She had a history of recurrent urinary tract infections; however, that was from the lab tests, although she said that she does not have any symptoms for a very long time that was including dysuria or frequency. She has had some weight loss in the [...] positive for blood for a long time and this has been the finding every routine urine [...] smokes about 1 to 1-1/2 pack a day.She does not drink alcohol. She is living with her current boyfriend. They have been together for 6years. She is not working as the fibromyalgia is overwhelming. The boyfriend is working as a price analyst. FAMILY HISTORY: Her father had metastatic cancer and he when he was 60 years old. Her brother had lung cancer and when he was 45. Her sister had a pancreatic problem and heartdisease. REVIEW OF SYSTEMS: A 10-organ system was reviewed and pertinent positives and negatives were statedin the history of present illness. OBJECTIVE: A 51-year-old female patient sitting in a chair, cooperative, not in distress, pleasant.Blood pressure 122/70, heart rate 74, respiration 14. Body weight of 49.5 kilogram (109 pounds and she stated that she was about 123 pounds about 2 years ago and she admits that she has been eating on and off for a long time in terms of her appetite). Head atraumatic, normocephalic. No malar rash. N ot pale, no jaundice. Eyegrounds: Questionable copper wire appearance, both eyes. No cataracts. Mouth moist. Neck: No engorged neck vein, soft, no carotid bruits bilateral. No discoid rash. Heart: Sinus rhythm, no murmur. Lungs: Slight crackles upper airway, but when she coughs up the lungs are clear both bases, no wheezing. Abdomen soft, nontender, not distended, positive for midline long surgical scar from subxiphoid area down to the suprapubic area. Extremities: No edema bilaterally. Positive for tenderness in her shoulders, in her hips area, in her groin area, in her knuckles area, and inher feet, although there is no joint swelling or joint erythema. Skin: There is no rash, no ulcers.Neuro exam: Grossly normal, no focal neurological deficit. DIAGNOSTIC DATA: The most recent blood work that was done in 11/2011 shows sodium 139, potassium 4.3, TCO2 25, chloride 104, creatinine 1.6, BUN 13. ALT 20. Glucose 105. Calcium 9.8. Total protein 7.1, albumin 3.8, alkaline phosphatase 119, AST 17, bilirubin 0.51. CBC shows white blood cell 6.03, hemoglobin 14.6, hematocrit 42, platelets 181. UA shows specific gravity of less than 1.005, pH 5.5, blood 1+, protein negative. Urine microexam shows no RBCs. No casts. IMPRESSION AND PLAN: This is a 51-year-old female patient who has longstanding high blood pressure with a solitary right kidney coming in with an elevation in creatinine from her baseline over the past 1 to 2 years. 1. Chronic kidney disease stage III: At this point, most likely her elevation in her creatinine hasbeen gradually increasing that could attribute to longstanding high blood pressure and proteinuria in the past; however, at this point, her blood pressure is controlled and her protein in the urine was negative, so we will continue on this current medication regimen. However, with a history of blood in the urine and this time she has some blood positive in the urine as well, although we took a look in the urine today and there were no red blood cells in her urine. Given the history of blood in the urine, another possibility of inflammatory kidney disease. This could be from IgA nephropathy. However, given the gradually progressing of the kidney disease and negative in the proteinuria and the patient is on an MONY inhibitor, there is no indication to doa biopsy to prove for the IgA nephropathy. Also [...] controlled with her blood pressure. However, the patienthas been eating a high-salt diet, so we [...] as this would benefit her in many ways. For example, this would decrease the chance of having a lung-related issue, and also smoking puts the patient at increased risk of renal cell carcinoma or bladder cancer, especially giving a historyof blood in the urine. There is a possibility [...] she will have the blood work done at Dr Pulido's office and we will see if we need to do more workup based on the next blood work, especially nephrology profile. If the patient's creatinine is stable and there is no other further symptoms, this is most likely from hypertensive nephrosclerosis related [...] Attending documented in this encounter Consult Notes * Robert Truong MD - 02/07/2012 1051 EDT DIVISION OF NEPHROLOGY CONSULTATION - 02/05/2012 REASON FOR CONSULTATION: Worsening renal function. 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 It was done at [facility] in [place]. Also longstanding hypertension since she was a teenager and history of protein/urine of about 1.3 grams ratio in 1994. However, it was decreasing to less than a gram ratio in 2006. In 2005, she had a kidney ultrasound that showed a 13 cm kidney with cortical thinning and a 2 cm cyst. At that point, her serum creatinine was 1.2. She was seen by Dr Long and the recommendation was to control the blood pressure and she was on lisinopril at that time. Also, she has a history of chronic fibromyalgia, probably more than 10 years. The patient has been followed with her primary care provider, Melanie Pulido NP, with followup lab work every 3 to 6 months. There was a slow elevation in her creatinine level from 1.3 in 01/2009, 1.5 in 06/2009, 1.4 in 07/2009,1.2 in 09/2009, 1.3 in 12/2009, 1.5 in 08/2010, 1.5 that correlated with a GFR of 36 in 05/2011, and the most recent one was 1.6 in 12/2011. Upon asking the patient, she admits that she has been in chronic pain, but she does not take NSAIDs or pqkp-ibr-ekgqjwl medication on a regular basis. She used totake ibuprofen once in a very long while, [...] Vicodin for her pain since more than ayear ago. She had a history of recurrent urinary tract infections; however, that was from the lab tests, although she said that she does not have any symptoms for a very long time that was including dysuria or frequency. She has had some weight loss in the [...] positive for blood for a long time and this has been the finding every routine urine [...] smokes about 1 to 1-1/2 pack a day.She does not drink alcohol. She is living with her current boyfriend. They have been together for 6years. She is not working as the fibromyalgia is overwhelming. The boyfriend is working as a price analyst. FAMILY HISTORY: Her father had metastatic cancer and he when he was 60 years old. Her brother had lung cancer and when he was 45. Her sister had a pancreatic problem and heartdisease. REVIEW OF SYSTEMS: A 10-organ system was reviewed and pertinent positives and negatives were statedin the history of present illness. OBJECTIVE: A 51-year-old female patient sitting in a chair, cooperative, not in distress, pleasant.Blood pressure 122/70, heart rate 74, respiration 14. Body weight of 49.5 kilogram (109 pounds and she stated that she was about 123 pounds about 2 years ago and she admits that she has been eating on and off for a long time in terms of her appetite). Head atraumatic, normocephalic. No malar rash. N ot pale, no jaundice. Eyegrounds: Questionable copper wire appearance, both eyes. No cataracts. Mouth moist. Neck: No engorged neck vein, soft, no carotid bruits bilateral. No discoid rash. Heart: Sinus rhythm, no murmur. Lungs: Slight crackles upper airway, but when she coughs up the lungs are clear both bases, no wheezing. Abdomen soft, nontender, not distended, positive for midline long surgical scar from subxiphoid area down to the suprapubic area. Extremities: No edema bilaterally. Positive for tenderness in her shoulders, in her hips area, in her groin area, in her knuckles area, and inher feet, although there is no joint swelling or joint erythema. Skin: There is no rash, no ulcers.Neuro exam: Grossly normal, no focal neurological deficit. DIAGNOSTIC DATA: The most recent blood work that was done in 11/2011 shows sodium 139, potassium 4.3, TCO2 25, chloride 104, creatinine 1.6, BUN 13. ALT 20. Glucose 105. Calcium 9.8. Total protein 7.1, albumin 3.8, alkaline phosphatase 119, AST 17, bilirubin 0.51. CBC shows white blood cell 6.03, hemoglobin 14.6, hematocrit 42, platelets 181. UA shows specific gravity of less than 1.005, pH 5.5, blood 1+, protein negative. Urine microexam shows no RBCs. No casts. IMPRESSION AND PLAN: This is a 51-year-old female patient who has longstanding high blood pressure with a solitary right kidney coming in with an elevation in creatinine from her baseline over the past 1 to 2 years. 1. Chronic kidney disease stage III: At this point, most likely her elevation in her creatinine hasbeen gradually increasing that could attribute to longstanding high blood pressure and proteinuria in the past; however, at this point, her blood pressure is controlled and her protein in the urine was negative, so we will continue on this current medication regimen. However, with a history of blood in the urine and this time she has some blood positive in the urine as well, although we took a look in the urine today and there were no red blood cells in her urine. Given the history of blood in the urine, another possibility of inflammatory kidney disease. This could be from IgA nephropathy. However, given the gradually progressing of the kidney disease and negative in the proteinuria and the patient is on an MONY inhibitor, there is no indication to doa biopsy to prove for the IgA nephropathy. Also [...] controlled with her blood pressure. However, the patienthas been eating a high-salt diet, so we [...] as this would benefit her in many ways. For example, this would decrease the chance of having a lung-related issue, and also smoking puts the patient at increased risk of renal cell carcinoma or bladder cancer, especially giving a historyof blood in the urine. There is a possibility [...] she will have the blood work done at Dr Pulido's office and we will see if we need to do more workup based on the next blood work, especially nephrology profile. If the patient's creatinine is stable and there is no other further symptoms, this is most likely from hypertensive nephrosclerosis related chronic kidney disease. I saw and examined the patient with the resident/fellow. I agree with the findings and plan of caredocumented in the resident's/fellow's note. Edited and Electronically Signed by Kana Osorio MD 04/05/2012 21:45 Electronically Reviewed by Robert Truong MD 02/10/2012 12:43 Robert Truong MD Kana Osorio MD - Robert Truong MD - [place] Job ID: Doc ID: [id number] Ext Doc ID: [id number] cc: Melanie Pulido NP documented in this encounter Plan of Treatment Not on file documented as of this encounter Procedures Procedure Name Priority Date/Time Associated Diagnosis Comments POCT URINE DIPSTICK, CLINITEK Routine 02/05/2012 13:42 EDT Chronic kidney disease, stage III (moderate) ([facility]) documented in this encounter Results * (ABNORMAL) POCT URINE DIPSTICK (02/05/2012 13:42 EDT) Color YELLOW [facility] Clarity, UA Clear [facility] Glucose Neg Neg [facility] Bilirubin Neg Neg [facility] Ketones Neg Neg [facility] Specific [place] <=1.005 1.001 - 1.035 [facility] Blood 1+(A) Neg [facility] pH 5.5 4.6 - 8.0 [facility] Protein Neg Neg [facility] Urobilinogen 0.2 0.2 - 1.0 E.U./dl [facility] Nitrite Neg Neg [facility] Leuk Esterase Neg Neg [facility] roofing contractor ID [id number] [facility] Comment:Test Performed at [facility] Urine specimen (specimen) 02/05/2012 13:42 EDT 02/05/2012 13:48 EDT Kana Osorio MD POINT OF CARE TEST O RDERABLES [facility] [address] [place] [address] documented in this encounter Visit Diagnoses Diagnosis Chronic kidney disease, stage III (moderate) ([facility] Primary Chronic kidney disease, Stage III (moderate) Unspecified essential hypertension documented in this encounter Care Teams Corporate Receptionist Relationship Specialty Start Date End Date Melanie Pulido NP [facility] [address] [place] [address] (work) PCP - General 01/01/12 09/11/17 documented as of this encounter
--- OUTSIDE RECORDS SUMMARY | 2023-12-31 15:27 | XMS_ITS | Encounter Summary ---
Author Organization [facility] Address [address] [place] [address] Care Team Providers Care Tagman Name Role Phone Melanie Pulido NP Primary Care Provider [phone] Encounter Details Date Type Department Care Team (Late st Contact Info) Description 10/07/2012 Abstract [facility] Nephrology - [address] [address] Lana Long MD Social History Tobacco Use Types Packs/Day Years Used Date Smoking Tobacco: Never Assessed Sex and Gender Information Value Date Recorded Sex Assigned at Not on file Gender Identity Not on file Sexual Orientation Not on file documented as of this encounter Plan of Treatment Not on file documented as of this encounter Procedures Procedure Name Priority Date/Time Associated Diagnosis Comments URINE [id number] RATIO (ACR) Routine 10/06/2012 documented in this encounter Results * (ABNORMAL) ALBUMIN, URINE (10/06/2012) Microalb ug/mg Crea, External 953.8 [facility] Microalb mg/dl, External 313.8(A) 1.30 - 20.0 [facility] Creatinine, Random U (UCRR), External 32.9 [facility] Urine specimen (specimen) 10/06/2012 Lana Long MD CHEMISTRY & BLOOD GA S ORDERABLES [facility] documented in this encounter Visit Diagnoses Not on filedocumented in this encounter Care Teams Tagman Relationship Specialty Start Date End Date Melanie Pulido, [facility] [address] [place] [address] PCP - General 01/01/12 09/11/17 documented as of this encounter
--- OUTSIDE RECORDS SUMMARY | 2023-12-31 15:27 | XMS_ITS | Encounter Summary ---
[place] [address] Care Team Providers Care Electrician Apprentice Powerhouse Name Role Phone Arabella Laurent APRN Primary Care Provider [phone] Reason for Referral * Consultation (Routine) - Canceled Specialty Diagnoses / Procedures Referred By [place] pineda Referred To Contact Nephrology Diagnoses Stage 3 chronic kidney disease, unspecified whether stage 3a or 3b CKD History of nephrectomy Arabella Laurent APRN [address] [place] [address] [facility] Ne[facility] [address] [place] [phone] Referral ID Status Reason Start Date Expiration Date Visits Requested Visits Authorized [id number] Canceled Consult, Test & Treat PCP Updated and/or Approved 10/04/2022 10/04/2023 6 6 Encounter Details Date Type Department Care Team (Latest Contact Info) Description 10/04/2022 Transcribe Orders eDH Incoming Referrals [phone] Arabella Laurent APRN [address] [place] [address] Stage 3 chronic kidney disease, unspecified whether stage 3a or 3b CKD; History of nephrectomy Social History Tobacco Use Types Packs/Day Years Used Date Smoking Tobacco: Every Day Cigarettes Smokeless Tobacco: Never Sex and Gender Information Value Date Recorded Sex Assigned at Not on file Gender Identity Not on file Sexual Orientation Not on file documented as of this encounter Plan of Treatment Scheduled Referrals Name Type Priority Associated Diagnoses Orde r Schedule Referral to Nephrology Outpatient Referral Routine Stage 3 chronic kidney disease, unspecified whether stage 3a or 3b CKD History of nephrectomy Ordered: 10/04/2022 documented as of this encounter Visit Diagnoses Diagnosis Stage 3 chronic kidney disease, unspecified whether stage 3a or 3b CKD History of nephrectomy Acquired absence of kidney documented in this encounter Care Teams Electrician Apprentice Powerhouse Relationship Specialty Start Date End Date Arabella Laurent, DENISHA PCP - General Family Medicine 03/07/20 documented as of this encounter
--- OUTSIDE RECORDS SUMMARY | 2023-12-31 15:27 | XMS_ITS | Encounter Summary ---
Author Organization [facility] Address [facility] [place] [address] Care Team Providers Care Brush Cleaner Name Role Phone Arabella Laurent WATER SOFTENER SERVICE SUPERVISOR Primary Care Provider [phone] Reason for Visit * Consultation ([facility]) - Closed Specialty Diagnoses / Procedures Referred By Contreginaldo t Referred To Contact Vascular Surgery Diagnoses Peripheral vascular disease, unspecified Atherosclerotic heart disease of [place] coronary artery without angina pectoris Arabella Laurent, WATER SOFTENER SERVICE SUPERVISOR [address] [place] [address] [facility] Vascular Surg [address] [place] [address] Referral ID Status Reason Start Date Expiration Date V isits Requested Visits Authorized [id number] Closed Consult, Test & Treat Connection Center PCP Updated and/or Approved 10/17/2020 10/17/2021 12 12 Encounter Details Date Type Department Care Team (Late st Contact Info) Description 12/01/2020 3:00 PM EDT Office [place] [address] Marjorie Kim APRN [facility] [place] [address] Intermittent claudication; Atherosclerosis of [place] artery of right lower extremity, with unspecified presence of clinical manifestation Social History Tobacco Use Types Packs/Day Years [...] EDT documented in this encounter Progress Notes * Marjorie Kim, WATER SOFTENER SERVICE SUPERVISOR - 12/01/2020 3:00 PM EDT Vascular Clinic New Patient Consult Note Reason for visit: Intermittent Claudication HPI; 59 year old female with PMH HTN, HLD, CKD3, Hyperparathyroidiem, CAD, GERD who is referred to vascular surgery by PCP for evaluation of PAD. Patient states that occasionally when walking she haspain across hips, buttocks and front of thighs and has to stop, it does not happen all the time andoccasionally it happens at rest. Denies calf claudication, tissue loss or rest pain. Denies SOB, CP, TIA Stroke symptoms. Is currently being followed for neck pain but no other changes to her health Current every day smoker 1/4-1/2PPD Atorvastatin ASA Prior vascular history: none Atherosclerotic [...] Tablet Take 40 mg by mouth. ??? [place]-3 Fatty Acids-Fish Oil 340-1,000 mg Capsule Take [...] ND, no palpable pulsatile masses Extremity - Tok, warm, no ulceration, brisk capillary refill, no [...] pain. Denies SOB, CP, TIA Stroke symptoms. ABIs at todays [...] is indicated. Can return PRN if claudication occurs or she has rest pain or tissue loss or PCP has concerns of worsening PAD. - strongly recommended smoking cessation and briefly discussed avenues for quitting - continue daily high intensity statin and ASA - recommend tight control of co-morbidities - discussed walking program. Marjorie Kim, MSN, WATER SOFTENER SERVICE SUPERVISOR Vascular Surgery documented in this encounter Plan of Treatment Not on file documented as of this encounter Visit Diagnoses Diagnosis Intermittent claudication Peripheral vascular disease, unspecified Atherosclerosis of [place] artery of right lower extremity, with unspecified presence of clinical manifestation documented in this encounter Care Teams Brush Cleaner Relationship Specialty Start Date End Date Arabella Laurent APRN PCP - General Family Medicine 03/07/20 documented as of this encounter
--- OUTSIDE RECORDS SUMMARY | 2023-12-31 15:27 | XMS_ITS | Encounter Summary ---
Author Organization [facility] Address [address] [place] [address] Care Team Providers Care Process Improvement Analyst Name Role Phone Laurence Krause Primary Care Provider + Reason for Visit * Reason Onset Date Comments Follow-up 06/24/2018 Encounter Details Date Type Department Care Team ([facility] st Contact Info) Description 06/24/2018 Telephone [facility] Nephrology - [address] [id number] Chastity Syed MD [address] [place] [address], [address] [place] [address] Follow-up Social History Tobacco Use [...] Encounter - Chastity Syed MD - 06/24/2018 1057 EST Serum creatinine trajectory reviewed: 1.58 mg/dL on 12-24-17. 1.76 on 02-24-18 1.86 on 05-11-18. PLAN: Ask the patient to repeat a BMP test and see me in the office as soon as possible. documented in this encounter Plan of Treatment Not on file documented as of this encounter Visit Diagnoses Not on filedocumented in this encounter Care Teams Process Improvement Analyst Relationship Specialty Start Date End Date Laurence Krause PA [address] [place] [address] PCP - General 09/12/17 07/29/18 documented as of this encounter
--- OUTSIDE RECORDS SUMMARY | 2023-12-31 15:27 | XMS_ITS | Encounter Summary ---
Author Organization [facility] [place] [address] Care Team Providers Care Inspector Subassembly Name Role Phone Arabella Laurent APRN Primary Care Provider [phone] Reason for Visit * Reason Comments Medication Refill Encounter Details Date Type Department Care Team (Late st Contact Info) Description 02/25/2021 Refill Dermatology at [place] [address] [facility] [place] [phone] Chon Harley MD [address] [facility] [place] [address] Social History Tobacco Use Types Packs/Day Years [...] on filedocumented in this encounter Care Teams Inspector Subassembly Relationship Specialty Start Date End Date Arabella Laurent APRN PCP - General Family Medicine 03/07/20 documented as of this encounter
--- OUTSIDE RECORDS SUMMARY | 2023-12-31 15:27 | XMS_ITS | Encounter Summary ---
Author Organization [facility] Address [address] [place] [address] Care Team Providers Care Shipyard Painter Name Role Phone Melanie Pulido NP Primary Care Provider [phone] Encounter Details Date Type Department Care Team (Late st Contact Info) Description 01/06/2017 Results Only [facility] [phone] Laurence Krause PA [address] [place] [phone] Social History Tobacco Use Types Packs/Day Years [...] Diagnosis Comments PAP TEST- RESULT ONLY Routine 01/06/2017 0:00 EDT documented in this encounter Results * PAP TEST- RESULT ONLY (01/06/2017 0:00 EDT) Pathology Report: CYTOPATHOLOGY REPORT Reports generated via electronic interface contain original data; however they are lacking the format of the original report. Caution should be taken when reading/interpreti ng unformatted reports. Name: ? KIA WRIGHT ? Accession #: ? [id number] : ? 1960 (Age: 56) ??F ?Collect Date: ? 01/06/2017 Location: ? [facility] ? Receive Date: ? 01/08/2017 Provider: ?LAURENCE KATE Copy to: ? Specimen/Source: ?Pap Test, Cervix/Endocervix, ThinPrep Imaging System with manual evaluation Last Menstrual Period: ? 2009 Previous Gynecologic Pathology: ? ASC-US: [id number] Infection History: ? Pos for HPV: 2009 ? SPECIMEN ADEQUACY ? Satisfactory for Evaluation - transformation zone component present GENERAL CATEGORIZATION ? Negative for Intraepithelial Lesion or Malignancy INTERPRETATION ? Reactive cellular changes associated with inflammation present (includes repair). ? Document reviewed and electronically signed by: ? JOVANY MILLARD MD ? Report Date: ??01/17/2017 09:02 End of Report [facility] 01/06/2017 01/08/2017 Laurence KATE PATHOLOGY ORDERA BLES [facility] [address] [place] [address] documented in this encounter Visit Diagnoses Not on filedocumented in this encounter Care Teams Shipyard Painter Relationship Specialty Start Date End Date Melanie Pulido NP [facility] [address] [place] [address] PCP - General 01/01/12 09/11/17 documented as of this encounter
--- OUTSIDE RECORDS SUMMARY | 2023-12-31 15:27 | XMS_ITS | Encounter Summary ---
Author Organization [facility] Address [address] [place] [address] Care Team Providers Care Wood Finisher Name Role Phone Melanie Pulido NP Primary Care Provider [phone] Encounter Details Date Type Department Care Team (Late st Contact Info) Description 08/12/2017 Abstract [facility] Transplant - [address] [phone] Chastity Syed MD [address] [place] [address], [address] 2 [place] [phone] Social History Tobacco Use Types Packs/Day Years Used Date Smoking Tobacco: Never Assessed Sex and Gender Information Value Date Recorded Sex Assigned at Not on file Gender Identity Not on file Sexual Orientation Not on file documented as of this encounter Plan of Treatment Not on file documented as of this encounter Visit Diagnoses Not on filedocumented in this encounter Historical Medications * This list may reflect changes made after this encounter. Medication Sig Dispensed Refills Start Date End Date nitroGLYCERIN (NITROSTAT) 0.[address] 1 Tablet under the tongue every 5 minutes as needed for Chest Pain. atorvastatin (LIPITOR) 40 mg tablet Take 40 mg by mouth daily. aspirin (ASPIRIN LOW DOSE) 81 mg EC tablet Take 1 Tablet by mouth daily. metoprolol XL (TOPROL-XL) 25 mg tablet Take 25 mg by mouth daily. albuterol (PROAIR HFA) 90 mcg/actuation inhaler Inhale 2 Puffs as directed every 4 hours as needed for Wheezing. pregabalin (LYRICA) 25 mg capsule Take 25 mg by mouth 2 times daily. 25 mg am, 100 mg hs 08/03/2018 added in this encounter Care Teams Wood Finisher Relationship Specialty Start Date End Date Melanie Pulido NP [facility] [address] [place] [address] PCP - General 01/01/12 09/11/17 documented as of this encounter
--- OUTSIDE RECORDS SUMMARY | 2023-12-31 15:27 | XMS_ITS | Encounter Summary ---
Author Organization [facility] Address [address] [place] [address] Care Team Providers Care Dog Breeder Name Role Phone Laurence Krause Primary Care Provider + Arabella Laurent NP Primary Care Provider [phone] Encounter Details Date Type Department Care Team (Late st Contact Info) Description 06/24/2018 Orders Only [facility] Nephrology - [address] [address] Chastity Syed MD [address] [place] [address], [address] [place] [address] Acute renal failure, unspecified acute renal failure type (HCC-CMS) (Primary Dx) Social History Tobacco Use Types [...] unspecified acute renal failure type ([facility] Primary documented in this encounter Care Teams Dog Breeder Relationship Specialty Start Date End Date Laurence Krause PA [address] [place] [address] PCP - General 09/12/17 07/29/18 Arabella Laurent NP [address] [place] [address] PCP - General 07/30/18 documented as of this encounter
--- OUTSIDE RECORDS SUMMARY | 2023-12-31 15:27 | XMS_ITS | Encounter Summary ---
Author Organization [facility] Address [address] [place] [address] Care Team Providers Care Package Reinspector Name Role Phone Unavailable Primary Care Provider Unavailabl e Encounter Details Date Type Department Care Team (Late st Contact Info) Description 04/24/2007 Before PRISM Converted Visit ([facility]) [facility] conversion [address] [place] [address] Lana Long MD Social History Tobacco Use Types Packs/Day Years Used Date Smoking Tobacco: Never Assessed Sex and Gender Information Value Date Recorded Sex Assigned at Not on file Gender Identity Not on file Sexual Orientation Not on file documented as of this encounter Consult Notes * Lana Long MD - 04/12/2009 1305 EST DIVISION OF NEPHROLOGY CONSULTATION - 04/24/2007 A consultation was requested by NICKI Paige. REASON FOR REFERRAL Elevated serum creatinine, chronic kidney disease, one kidney, hypertension. SUBJECTIVE The patient is a 46-year-old woman referred by Melanie Pulido for evaluation of kidney disease in her one remaining kidney with proteinuria. The patient complains of right upper quadrant abdominal/chestpain that is with her almost every day. She says it is relieved by lying flat for a little while. She takes Tylenol for it, but that has not helped. In addition, she has had a several-week history ofnausea with some vomiting. She vomits usually in the evening after eating, or one night she was awakened from sleep with severe, generalized abdominal pain, which was relieved by vomiting. She has nosymptoms related to her kidney problems. These are [...] was seen by one of my colleagues with proteinuria. She had a protein/creatinine ratio of 2.3 at that time with a serum creatinine of 1.2mg per dL, and a presumptive diagnosis of [...] of dysuria. She does have nocturia times one.Most recent protein/creatinine ratio done by Melanie Pulido was less than 1.0 (ratio 0.9). A 24-hour urine protein excretion showed 1.1 g of protein. A [...] headaches. She says she does get dizzy occasionally on standing when her blood pressure is too low. She does take her blood pressure at home, and on most occasions the systolic is less than 120, according to the patient. She did not bring in her blood pressure records with her. She is still having menstrual periods and her menstruation is normal. SOCIAL HISTORY She lives with her boyfriend. She still smokes cigarettes, but is trying to stop. She does not drink alcohol. FAMILY HISTORY Family history is significant in [...] extensively for gallbladder disease, and the workup sofar has been completely negative. Her liver function tests are also normal. With regard to her kidney disease, the home blood pressures she is giving us sound very good. I gave her a sheet to fill out and mail in so we can verify this. Our goal is to keep her blood pressure below 130 and not 110. Pushing her down to 110 systolic will only make her symptomatic, and there isno evidence that that provides additional benefit. Her proteinuria, although abnormal, is low level, and the lisinopril 10 mg a day should help with managing that. I have three values for creatinine on her, the most recent being 1.2 mg per dL, and the numbers have been stable. I neglected to mention that she was evaluated at [facility] for the same problem just a few [...] three to four months and, if they are positive, they should be treated. Her last urine [...] my recommendations for followup with regard to her kidney disease. She might benefit from an upper [...] Lana Long MD - MS Job ID: [id number] Doc ID: [id number] cc: Melanie Pulido NP cc: Melanie Pulido NP - Lana Long MD - ms Job ID: [id number] Doc ID: [id number] cc: Melanie Pulido NP documented in this encounter Plan of Treatment Not on file documented as of this encounter Visit Diagnoses Not on filedocumented in this encounter
--- OUTSIDE RECORDS SUMMARY | 2023-12-31 15:27 | XMS_ITS | Encounter Summary ---
Author Organization [facility] [place] [address] Care Team Providers Care Quality Control Assessor Name Role Phone Laurence Krause Primary Care Provider + Encounter Details Date Type Department Care Team (Late st Contact Info) Description 12/25/2017 [place] [phone] Kelsie Klein RN Social History Tobacco Use Types Packs/Day Years Used Date Smoking Tobacco: Every Day Cigarettes Smokeless Tobacco: Never Sex and Gender Information Value Date Recorded Sex Assigned at Not on file Gender Identity Not on file Sexual Orientation Not on file documented as of this encounter Miscellaneous Notes * Telephone Encounter - Kelsie Klein RN - 12/25/2017 3:56 PM EDT Returned call to patient to make her aware a prescription for Protonix was sent to her [facility] in [place], [place] * Telephone Encounter - Kelsie Klein RN - 12/25/2017 2:35 PM EDT Patient calls the office leaving a message on the RN voicemail stating that Anu prescribed Dexilant, but her insurance will not cover it, but states that they will cover Protonix. Message being sent to Sushma Bianchi APRN who is covering for LAVINIA Chung who is out of theoffice. documented in this encounter Plan of Treatment Not on file documented as of this encounter Visit Diagnoses Not on filedocumented in this encounter Care Teams Quality Control Assessor Relationship Specialty Start Date End Date Laurence Krause PA PCP - General Orthopaedic Surgery 10/30/17 03/06/20 documented as of this encounter
--- OUTSIDE RECORDS SUMMARY | 2023-12-31 15:27 | XMS_ITS | Encounter Summary ---
Author Organization [facility] Address [address] [place] [address] Care Team Providers Care Clinical Engineering Director Name Role Phone Melanie Pulido NP Primary Care Provider [phone] Reason for Visit * Reason Onset Date Comments Medication Management 10/14/2012 Patient wa nts to know if she can take asprin once a day as her PCP wants her to? Encounter Details Date Type Department Care Team (Late st Contact Info) Description 10/14/[address] [facility] Nephrology - [address] [address] Robert Truong MD [address] [place], [place] [id number] Medication Management (Patient wants to know if she can take asprin once a day as her PCP wants her to? ) Social History Tobacco Use Types Packs/Day Years Used Date Smoking Tobacco: Never Assessed Sex and Gender Information Value Date Recorded Sex Assigned at Not on file Gender Identity Not on file Sexual Orientation Not on file documented as of this encounter Miscellaneous Notes * Telephone Encounter - Rosa Harry RN - 10/14/2012 [address] Mir to take ASA 81 mg daily. done * Telephone Encounter - Rosa Harry RN - 10/14/2012 1503 EDT T/c back to pt: pt's PCP wants her to take a 81 mg ASA daily because she has c/o of chest pain. HerPCP has ordered a stress test. Message to Dr. Truong for review and orders. documented in this encounter Plan of Treatment Not on file documented as of this encounter Visit Diagnoses Not on filedocumented in this encounter Care Teams Clinical Engineering Director Relationship Specialty Start Date End Date Melanie Pulido NP [facility] [address] [place] [address] PCP - General 01/01/12 09/11/17 documented as of this encounter
--- OUTSIDE RECORDS SUMMARY | 2023-12-31 15:27 | XMS_ITS | Encounter Summary ---
Author Organization [facility] Address [address] [place] [id number] Care Team Providers Care Tumblers Supervisor Name Role Phone Laurence Krause Primary Care Provider + Reason for Visit * Reason Onset Date Comments Appointment Related 06/24/2018 Labs Only 06/24/2018 Encounter Details Date Type Department Care Team (Late st Contact Info) Description 06/24/2018 Telephone [facility] Nephrology - [address] [address] Mona Michaels, RN [address] [place] [address] Appointment Related; Labs Only Social History Tobacco Use Types [...] Telephone Encounter - Mona Michaels RN - 06/24/2018 1437 EST Patient instructed to have labs, and appt given for 07/06/[address] onuigbo * Telephone Encounter - Mona Michaels RN - 06/24/2018 1128 EST LM for patient to call back for below instructions * Telephone Encounter - Mona Michaels RN - 06/24/2018 1114 EST ----- Message from Chastity Syed MD sent at 06/24/2018 11:00 EST ----- Serum creatinine trajectory reviewed: 1.58 mg/dL on 12-24-17. 1.76 on 02-24-18 1.86 on 05-11-18. PLAN: Please call the patient and ask the patient to repeat a BMP test (ordered) and see me in the officeas soon as possible. documented in this encounter Plan of Treatment Not on file documented as of this encounter Visit Diagnoses Not on filedocumented in this encounter Care Teams Tumblers Supervisor Relationship Specialty Start Date End Date Laurence Krause PA [address] [place] [address] PCP - General 09/12/17 07/29/18 documented as of this encounter
--- OUTSIDE RECORDS SUMMARY | 2023-12-31 15:27 | XMS_ITS | Encounter Summary ---
Author Organization [facility] [place] [address] Care Team Providers Care Marketing Programs Specialist Name Role Phone Arabella Laurent APRN Primary Care Provider [phone] Reason for Visit * Reason Comments Medication Refill Encounter Details Date Type Department Care Team (Late st Contact Info) Description 02/10/2021 Refill Dermatology at [place] [address] [place] [phone] Chon Harley MD [address] [facility] [place] [address] Social History Tobacco Use Types Packs/Day Years [...] on filedocumented in this encounter Care Teams Marketing Programs Specialist Relationship Specialty Start Date End Date Arabella Laurent APRN PCP - General Family Medicine 03/07/20 documented as of this encounter
--- OUTSIDE RECORDS SUMMARY | 2023-12-31 15:27 | XMS_ITS | Encounter Summary ---
Author Organization [facility] Address [facility] [place] [address] Care Team Providers Care Funeral Service Licensee Name Role Phone Laurence Krause Primary Care Provider + Encounter Details Date Type Department Care Team (Late st Contact Info) Description 01/08/2018 Telephone Gastroenterology at [facility] [place] [address] Anu Murphy [place] [facility] [place] [address] Social History Tobacco Use Types Packs/Day Years Used Date Smoking Tobacco: Every Day Cigarettes Smokeless Tobacco: Never Sex and Gender Information Value Date Recorded Sex Assigned at Not on file Gender Identity Not on file Sexual Orientation Not on file documented as of this encounter Miscellaneous Notes * Telephone Encounter - Anu Murphy - 01/08/2018 12:15 PM EDT I spoke with Mrs. Barnett this afternoon by phone. 1. She picked up Rx for PPI. However, given her hx, she does not want to take this as she read about side effect of kidney failure. We discussed risks [...] will ask scheduling team to call her to arrange. 5. Will also schedule a follow up visit in the office ~2-3 weeks after testing. She understands and agrees with the plan. LAVINIA Marcos documented in this encounter Plan of Treatment Not on file documented as of this encounter Visit Diagnoses Diagnosis Upper abdominal pain Abdominal pain, other specified site Gastroesophageal reflux disease, esophagitis presence not specified Encounter for screening colonoscopy Special screening for malignant neoplasms, colon documented in this encounter Care Teams Funeral Service Licensee Relationship Specialty Start Date End Date Laurence Krause PA PCP - General Orthopaedic Surgery 10/30/17 03/06/20 documented as of this encounter
--- OUTSIDE RECORDS SUMMARY | 2023-12-31 15:27 | XMS_ITS | Encounter Summary ---
Author Organization [facility] Address [address] [place] [address] Care Team Providers Care Welder Repair Name Role Phone Unavailable Primary Care Provider Unavailabl e Encounter Details Date Type Department Care Team (Late st Contact Info) Description 03/06/2011 Results Only [facility] Laboratory Services - [facility] [address] [place], [place] [address] Melanie Rosen, ROLF [facility] [address] [place], [place] [address] Social History Tobacco Use Types Packs/Day Years [...] Diagnosis Comments PAP TEST- RESULT ONLY Routine 03/06/2011 0:00 EDT documented in this encounter Results * PAP TEST- RESULT ONLY (03/06/2011 0:00 EDT) Pathology Report: CYTOPATHOLOGY REPORT Reports generated via electronic interface contain original data; however they are lacking the format of the original report. Caution should be taken when reading/interpreti ng unformatted reports. Name: ? KIA WRIGHT ? Accession #: ? [id number] : ? 1960 (Age: 50) ??F ?Collect Date: ? 03/06/2011 Location: ? [facility] ? Receive Date: ? 03/08/2011 Provider: ?MELANIE ROSEN HAND MOUNTER Copy to: ? Specimen/Source: ?Pap Test, Cervix/Endocervix, [...] ? Negative for Intraepithelial Lesion or Malignancy ? Document reviewed and electronically signed by: ? Melanie Farrar, SCT(ASCP) ? Report Date: ??03/14/2011 16:03 End of Report [facility] 03/06/2011 03/08/2011 Melanie Rosen NP PATHOLOGY ORDERABLES [facility] [address] [place] [address] documented in this encounter Visit Diagnoses Not on filedocumented in this encounter
--- OUTSIDE RECORDS SUMMARY | 2023-12-31 15:27 | XMS_ITS | Encounter Summary ---
Author Organization [facility] [place] [address] Care Team Providers Care Miller Helper Name Role Phone Arabella Laurent DOWN FILLER Primary Care Provider [phone] Reason for Visit * Reason Comments Skin Check * Consultation (Routine) - Specialty Diagnoses / Procedures Referred By [place] pineda Referred To Contact Dermatology Diagnoses Rash and other nonspecific skin eruption Rash on Feet; New Patient-Notes Received Procedures Consult Arabella Laurent, DENISHA [address] [place] [address] Chon Harley MD [address] [place] [address], [facility] [place] [address] Referral ID Status Reason Start Date Expiration Date V isits Requested Visits Authorized [id number] Consult, Test & Treat PCP Updated and/or Approved 02/18/2020 02/17/2021 6 6 Encounter Details Date Type Department Care Team (Late st Contact Info) Description 03/07/2020 9:30 AM EDT Office Visit Dermatology at [address] [address] Chon Harley MD [address] [place] [address], [facility] DERMATOLOGY [place], [place] [id number] Dermatitis Social History Tobacco Use Types Packs/Day Years Used Date Smoking Tobacco: Every Day Cigarettes Smokeless Tobacco: Never Sex and Gender Information Value Date Recorded Sex Assigned at Not on file Gender Identity Not on file Sexual Orientation Not on file documented as of this encounter Progress Notes * Chon Harley MD - 03/07/2020 9:30 AM EDT Problem: Bilateral foot rash Addie is a 59-year-old woman who is referred today by Arabella Laurent for evaluation of a rash on her feet. Began some 2 to 3 months ago with itching. She finds of the itching is worse at night. She digs and scratches and then notices crusts and scabs and sores on her feet that then develop. She also hasan area on the left side of her foot that was a red scaling rash area. She was treated at one pointwith acyclovir for possible HSV etiology seemingly with [...] for pruritus of feet, which I believe is giving rise to her cutaneous findings 3. Patient [...] cause documented in this encounter Care Teams Miller Helper Relationship Specialty Start Date End Date Arabella Laurent APRN PCP - General Family Medicine 03/07/20 documented as of this encounter
--- OUTSIDE RECORDS SUMMARY | 2023-12-31 15:27 | XMS_ITS | Encounter Summary ---
Author Organization [facility] Address [address] [place] [address] Care Team Providers Care Bottom Polisher Name Role Phone Melanie Pulido NP Primary Care Provider [phone] Reason for Visit * Reason Onset Date Comments Appointment Related 08/06/2017 Encounter Details Date Type Department Care Team (Late st Contact Info) Description 08/06/2017 Telephone [facility] Nephrology - [place] [address] [place] [phone] Lana Long MD Appointment Related Social History Tobacco Use Types Packs/Day Years Used Date Smoking Tobacco: Never Assessed Sex and Gender Information Value Date Recorded Sex Assigned at Not on file Gender Identity Not on file Sexual Orientation Not on file documented as of this encounter Miscellaneous Notes * Telephone Encounter - Ana Paula Vuong - 08/06/2017 1011 EST PCP office has called asking about the referral sent in July> we have reached out to patientand she confirmed apt in August. service desk lead called the PCP office back with date and time documented in this encounter Plan of Treatment Not on file documented as of this encounter Visit Diagnoses Not on filedocumented in this encounter Care Teams Bottom Polisher Relationship Specialty Start Date End Date Melanie Pulido NP [facility] [address] [place] [address] PCP - General 01/01/12 09/11/17 documented as of this encounter
--- OUTSIDE RECORDS SUMMARY | 2023-12-31 15:27 | XMS_ITS | Encounter Summary ---
Author Organization [facility] Address [address] [place] [address] Care Team Providers Care Fire Department Battalion Chief Name Role Phone Melanie Pulido NP Primary Care Provider [phone] Encounter Details Date Type Department Care Team (Latest Contact Info) Description 04/21/2014 12:20 EST - 04/21/2014 23:59 EST Hospital Encounter [address] [address] Unknown, Provider, Discharge Disposition: Home or Self Care Social History Tobacco Use Types Packs/Day Years Used Date Smoking Tobacco: Never Assessed Sex and Gender Information Value Date Recorded Sex Assigned at Not on file Gender Identity Not on file Sexual Orientation Not on file documented as of this encounter Medications at Time of Discharge Medication Sig Dispensed Refills Start Date End Date amlodipine (NORVASC) 5 mg tablet Take 1 Tablet by mouth daily. cholecalciferol, Vitamin D3, 1,000 unit tablet Take 1 Tablet by mouth daily. DOCOSAHEXANOIC ACID/EPA (FISH OIL ORAL) Take by mouth as needed. DULOXETINE HCL (CYMBALTA ORAL) Take 20 mg by mouth daily. hydrocodone-acetaminophe n (LORTAB;VICODIN) 5-500 mg tablet Take 1 Tablet by mouth 2 times daily as needed for Pain. trazodone (DESYREL) 100 mg tablet Take 1 Tablet by mouth at bedtime as needed. zolpidem (AMBIEN) 10 mg tablet Take 1 Tablet by mouth at bedtime as needed. famotidine (PEPCID) 20 mg tablet Take 20 mg by mouth daily. 07/12/2023 lisinopril (PRINIVIL, ZESTRIL) 20 mg tablet Take 10 mg by mouth daily. 08/03/2018 morphine (MS CONTIN) 15 mg CR tablet Take 15 mg by mouth every 12 hours. 08/03/2018 documented as of this encounter Discharge Disposition Disposition Code Departure Means Destination Home or Self Mcfp documented in this encounter Plan of Treatment Not on file documented as of this encounter Visit Diagnoses Not on filedocumented in this encounter Care Teams Fire Department Battalion Chief Relationship Specialty Start Date End Date Melanie Pulido NP [facility] [address] [place] [address] PCP - General 01/01/12 09/11/17 documented as of this encounter
--- OUTSIDE RECORDS SUMMARY | 2023-12-31 15:27 | XMS_ITS | Encounter Summary ---
Author Organization [facility] Address [address] [place] [address] Care Team Providers Care Base Wad Operator Adjuster Name Role Phone Unavailable Primary Care Provider Unavailabl e Encounter Details Date Type Department Care Team (Late st Contact Info) Description 04/24/2007 9:58 EST Hospital Encounter [address] [address] Lana Long MD Social History Tobacco Use [...] Priority Date/Time Associated Diagnosis Comments CYTOPATHOLOGY Routine 08/16/2008 0:00 EDT documented in this encounter Results * CYTOPATHOLOGY (08/16/2008 0:00 EDT) Pathology Report: CYTOPATHOLOGY REPORT ? Reports generated via electronic interface contain original data; ? however they are lacking the format of the original report. ? Caution should be taken when reading/interpreti ng unformatted reports. ? Name: ? SIGOUIN, KIA J ? Accession #: ? [id number] ? : ? 1960 (Age: 47) ??F ?Collect Date: ? 08/16/2008 ? Location: ? [facility] ? Receive Date: ? 08/17/2008 ? Provider: ?MELANIE ROSEN NP ? Copy to: ? Specimen/Source: ?Pap Test, Cervix/Endocervix, ThinPrep Imaging System ? with manual evaluation ? Last Menstrual Period: ? 2/28/09 ? Previous Gynecologic Pathology: ? Yes: Abnormal ? Treatment History: ? Miscellaneous treatment: Bx's pt not sure dx x1 2 years ago ? SPECIMEN ADEQUACY ? Satisfactory for Evaluation ? - transformation zone component present ? GENERAL CATEGORIZATION ? Negative for Intraepithelial Lesion or Malignancy ? Document reviewed and electronically signed by: ? An N. Akil, SCT(ASCP) ? Report Date: ??08/22/2008 13:58 ? End of Report ? [facility] 08/16/2008 08/17/2008 Melanie Rosen BLASTER HELPER PATHOLOGY ORDERABLES [facility] [address] [place] [address] documented in this encounter Visit Diagnoses Not on filedocumented in this encounter
--- OUTSIDE RECORDS SUMMARY | 2023-12-31 15:27 | XMS_ITS | Encounter Summary ---
Author Organization [facility] Address [address] [place] [address] Care Team Providers Care Die Attaching Machine Tender Name Role Phone Laurence Krause Primary Care Provider + Reason for Visit * Reason Comments Chronic Kidney Disease I was told that m y kidney numbers were off - about 3 weeks. She had seen a kidney doctor here many years ago. Back Pain Other She had a left kidne y removed at age 10 years. She is still smoking - I have not tried to quit. Hypertension The BP is doing good today. The dose of Lisinopril was cut in half and she was feeling dizzy then and her blood pressure was low as low 100s then. No longer dizzy. No overt nausea or vomiting. No urinary symptoms. Acute Renal Failure The patient recallsn that she had a higher serum creatinine of 2.6 earlier tis year when the Lisinopril was reduced by 50% from 20 mg daily ton 10 mg daily. A new level from 08-26-17 showed a creatinine improved at 1.74 mg/dL. * Consult, Test and Treat (Routine) - Closed Specialty Diagnoses / Procedures Referred By [place] pineda Referred To Contact Nephrology [facility] [address] [place] [address] Referral ID Status Reason Start Date Expiration Date Visits Re quested Visits Authorized [id number] Closed 1 1 Encounter Details Date Type Department Care Team (Late st Contact Info) Description 09/15/2017 13:00 EDT Office Visit [facility] Nephrology - [address] [address] Chastity Syed MD [facility] [address] [place] [address] Acute renal failure, unspecified acute renal failure type (HCC-CMS) (Primary Dx); Essential hypertension; Chronic kidney disease, stage III (moderate) ([facility]) Social History Tobacco Use Types Packs/Day Years [...] No 09/15/2017 documented as of this encounter Progress Notes * Chastity Syed MD - 09/15/2017 1300 EDT NEW OFFICE VISIT NOTE SUBJECTIVE 56-yo WW new patient visit in nephrology for review of CKD status, otherwise asymptomatic with history of hypertension against a background of a single kidney s/p left nephrectomy at age 10 years - she thinks it was when I was born. 09/15/2017 [...] in the calves or thighs positive pulses bilat Chastity Syed MD 09/15/2017 13:31 No results found [...] latest creatinine is down to 1.74 from 08-26-. Will get BMP every 2 months in definitely starting in September 2017. The plan will be to see in a year if kidney function stabilizes atabout 1.6 mg/dL. To avoid NSAIDs. 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 Hypertension controlled - avoid hypotension. Smoking cessation will be discussed with PCP and the boiler testing technician. documented in this encounter Plan of Treatment Not on file documented as of this encounter Procedures Procedure Name Priority Date/Time Associated Diagnosis Comments POCT URINE DIPSTICK, CLINITEK Routine 09/15/2017 13:36 EDT Acute renal failure, unspecified acute renal failure type ([facility]) documented in this encounter Results * (ABNORMAL) POCT URINE DIPSTICK (09/15/2017 13:36 EDT) Color YELLOW 09/15/2017 13:44 EDT [facility] Clarity, UA CLOUDY 09/15/2017 13:44 EDT [facility] Glucose Neg Neg 09/15/2017 13:44 T [facility] Bilirubin Neg Neg 09/15/2017 13:44 T [facility] Ketones Neg Neg 09/15/2017 [facility] Specific [place] 1.020 1.001 - 1.035 09/15/2017 13:44 [facility] Blood 1+(A) Neg 09/15/2017 13:44 [facility] pH 5.5 4.6 - 8.0 09/15/2017 13:44 EDT [facility] Protein 3+(A) Neg 09/15/2017 13:44 EDT [facility] Urobilinogen 0.2 0.2 - 1.0 E.U./dl 09/15/2017 13:44 EDT [facility] Nitrite Neg Neg 09/15/2017 13:44 EDT [facility] Leuk Esterase 1+(A) Neg 09/15/2017 13:44 EDT [facility] parking lot laborer ID [id number] 09/15/2017 13:44 EDT [facility] Comment:Test Performed at nal Services Urine specimen (specimen) URINE / Unknown 09/15/2017 13:36 EDT 09/15/2017 13:44 EDT Chastity Syed MD POINT OF CARE TEST O RDERABLES [facility] [address] [place] [address] documented in this encounter Visit Diagnoses Diagnosis Acute renal failure, unspecified acute renal failure type (HCC-CMS)- Primary Essential hypertension Unspecified essential hypertension Chronic kidney disease, stage III (moderate) (HCC-CMS) Chronic kidney disease, Stage III (moderate) documented in this encounter Care Teams Die Attaching Machine Tender Relationship Specialty Start Date End Date Laurence Krause PA [address] [place] [id number] PCP - General 09/12/17 07/29/18 documented as of this encounter
--- OUTSIDE RECORDS SUMMARY | 2023-12-31 15:27 | XMS_ITS | Encounter Summary ---
[place] [address] Care Team Providers Care Chainstitch Elastic Attacher Name Role Phone Arabella Laurent ADZING AND BORING MACHINE HELPER Primary Care Provider [phone] Reason for Visit * Consultation ([facility]) - Closed Specialty Diagnoses / Procedures Referred By [place] t Referred To Contact Vascular Surgery Diagnoses Peripheral vascular disease, unspecified Atherosclerotic heart disease of [place] coronary artery without angina pectoris Arabella Laurent, ADZING AND BORING MACHINE HELPER [address] [place] [address] [facility] Surg [address] [place] [address] Referral ID Status Reason Start Date Expiration Date V isits Requested Visits Authorized [id number] Closed Consult, Test & Treat [facility] PCP Updated and/or Approved 10/17/2020 10/17/2021 12 12 Encounter Details Date Type Department Care Team (Late st Contact Info) Description 12/01/2020 2:30 PM EDT Tech [place] [address] Priscilla Batres Claudication Social History Tobacco Use Types Packs/Day Years [...] Procedure Name Priority Date/Time Associated Diagnosis Comments CHARLI, LEGS, MULTIPLE LEVELS Routine 12/01/2020 1:57 PM EDT Claudication documented in this encounter Results * CHARLI, legs, multiple levels (12/01/2020 1:57 PM EDT) VB Text Report Department: Vascular Surgery Lab Patient: [id number] (KIA WRIGHT) CPT: 01129 ICD10: I77.1;I70.213;I7 0.413;I73.9 Referring Physician: BANDAR ROSADO APRN ?? Indications: bilateral lower extremity pain, intermittent claudication, [...] disease. LEFT: No significant lower extremity arterial occlusive disease identified at rest. Normal ankle/brachial pressure ratios and ankle Doppler waveforms. Comparison: No previous study in our vascular lab database for comparison. Electronically Signed by: NATIVIDAD CHAPAMN on 2020-12-05 11:55:54 AM [facility] VB Text Report End of Report [facility] 12/01/2020 1:57 PM EDT Bandar Rosado APRN VASCULAR ORDERABLE S Performing Organization Address City/State/[facility] Co de Phone Number [facility] documented in this encounter Visit Diagnoses Diagnosis Claudication Peripheral vascular disease, unspecified documented in this encounter Care Teams Chainstitch Elastic Attacher Relationship Specialty Start Date End Date Arabella Laurent APRN PCP - General Family Medicine 03/07/20 documented as of this encounter
--- OUTSIDE RECORDS SUMMARY | 2023-12-31 15:27 | XMS_ITS ---
Author Organization Unknown Address [address] [place] [phone] Phone Care Team Providers Care Treasury Associate Name Role Phone RADHA Dupont Attending Unavailable Social History Type Status Start Date End Date Code Code Syst em Smoking History Current every day smoker [id number] SNOMED CT Sex Female Hospital Discharge Instructions Should you have any questions prior to discharge, please contact a member of your healthcare team. If you have left the hospital and have any questions, please contact your primary care physician. Reason For Referral No Data Found Plan of Treatment No Data Found Encounters Encounter Diagnosis Start Date Code Code Sys tem 12/12/2023 [id number] SNOMED-CT Personal Care Team Section Performer Name Performer Role Active Date Inactive Da te
--- OUTSIDE RECORDS SUMMARY | 2023-12-31 15:27 | XMS_ITS | Encounter Summary ---
Author Organization [facility] Address [address] [place] [address] Care Team Providers Care Powerhouse Helper Name Role Phone Melanie Rosen QUALITY IMPROVEMENT COORDINATOR (RN) Primary Care Provider [phone] Encounter Details Date Type Department Care Team (Late st Contact Info) Description 07/12/2015 Results Only [facility] [phone] Melanie Rosen, QUALITY IMPROVEMENT COORDINATOR (RN) [facility] [address] [place], [place] [id number] Social History Tobacco Use Types Packs/Day Years [...] Diagnosis Comments PAP TEST- RESULT ONLY Routine 07/12/2015 0:00 EST documented in this encounter Results * PAP TEST- RESULT ONLY (07/12/2015 0:00 EST) Pathology Report: CYTOPATHOLOGY REPORT Reports generated via electronic interface contain original data; however they are lacking the format of the original report. Caution should be taken when reading/interpreti ng unformatted reports. Name: ? KIA WRIGHT ? Accession #: ? [id number] : ? 1960 (Age: 54) ??F ?Collect Date: ? 07/12/2015 Location: ? [facility] ? Receive Date: ? 07/14/2015 Provider: ?MELANIE ROSEN QUALITY IMPROVEMENT COORDINATOR (RN) Copy to: ? Specimen/Source: ?Pap Test, Cervix/Endocervix, ThinPrep Imaging System with manual evaluation Last Menstrual Period: ? 5+ years Hormonal/Contracep tive Status: ? None Previous Gynecologic Pathology: ? ASC-US: 12/14, 04/15 HPV: (+) 12/09/06 ? SPECIMEN ADEQUACY ? Satisfactory for Evaluation - transformation zone component present GENERAL CATEGORIZATION ? Negative for Intraepithelial Lesion or Malignancy ? Document reviewed and electronically signed by: ? EMILIE Jung(ASCP) ? Report Date: ??07/24/2015 13:39 End of Report [facility] 07/12/2015 07/14/2015 Melanie Rosen NP PATHOLOGY ORDERABLES Performing Organization Address City/State/[facility] Co de Phone Number [facility] [address] [place] [address] documented in this encounter Visit Diagnoses Not on filedocumented in this encounter Care Teams Powerhouse Helper Relationship Specialty Start Date End Date Melanie Rosen NP [facility] [address] [place] [address] PCP - General 01/01/12 09/11/17 documented as of this encounter
--- OUTSIDE RECORDS SUMMARY | 2023-12-31 15:27 | XMS_ITS | Encounter Summary ---
Author Organization [facility] Address [address] [place] [address] Care Team Providers Care Termite Inspector Name Role Phone Unavailable Primary Care Provider Unavailabl e Encounter Details Date Type Department Care Team (Late st Contact Info) Description 12/09/2006 Results Only [facility] [address] [place] [address] Delphine Ogden, [address] [place] [address] Social History Tobacco Use Types Packs/Day Years Used Date Smoking Tobacco: Never Assessed Sex and Gender Information Value Date Recorded Sex Assigned at Not on file Gender Identity Not on file Sexual Orientation Not on file documented as of this encounter Plan of Treatment Not on file documented as of this encounter Procedures Procedure Name Priority Date/Time Associated Diagnosis Comments HPV DETECTION, HIGH RISK TYPES Routine 12/09/2006 16:10 EDT CYTOPATHOLOGY Routine 12/09/2006 0:00 EDT documented in this encounter Results * HUMAN PAPILLOMA VIRUS DNA TEST (12/09/2006 16:10 EDT) Specimen Description Cervix, ThinPrep vial [facility] Result Positive for one or more of HPV types 16,18,31,33,35 ,39,45,51,52,5 6,58,59, or 68. These high/intermedi ate risk HPV types are associated with dysplasia and some cervical cancers. [facility] Report Status Final [id number] [facility] 12/09/2006 16:1 0 EDT 12/18/2006 10:23 EDT Delphine Ogden RN FORENSIC MICROBIOLOGY - GENER AL ORDERABLES [facility] [address] [place] [address] * CYTOPATHOLOGY (12/09/2006 0:00 EDT) Pathology Report: CYTOPATHOLOGY REPORT Reports generated via electronic interface contain original data; however they are lacking the format of the original report. Caution should be taken when reading/interpreti ng unformatted reports. Name: ? KIA WRIGHT ? Accession #: ? [id number] : ? 1960 (Age: 45) ??F ?Collect Date: ? 12/09/2006 Location: ? [facility] ? Receive Date: ? 12/11/2006 Provider: ?DELPHINE OGDEN RN FORENSIC Copy to: ? Specimen/Source: ?ThinPrep Pap Test, Cervix/Endocervix, processed on [employer] ThinPrep Imaging System, with manual evaluation Last Menstrual Period: ? 11/24/06 Other: ? HPVA - HPV testing requested if ASC-US on the current ThinPrep Pap test. ? SPECIMEN ADEQUACY ? Satisfactory for Evaluation - transformation zone component present GENERAL CATEGORIZATION ? Epithelial Cell Abnormality INTERPRETATION ? Squamous Cell Abnormality - Atypical squamous cells, undetermined significance (ASC-US). EDUCATIONAL NOTES/RECOMMENDATI ONS ? [facility] recommends following the 2001 Consensus Guidelines for the Management of Women with Cervical Cytological Abnormalities (MELCHOR,2002;287:212 0-9). Management algorithms have been distributed by [facility] and are available online at www.ASCCP.org. ? Document reviewed and electronically signed by: ? Brandee Massey MD ? Report Date: ??12/17/2006 17:26 End of Report [facility] 12/09/2006 12/11/2006 Delphine Ogden RN FORENSIC PATHOLOGY ORDERABLES [facility] [address] [place] [address] documented in this encounter Visit Diagnoses Not on filedocumented in this encounter
--- OUTSIDE RECORDS SUMMARY | 2023-12-31 15:27 | XMS_ITS | Encounter Summary ---
Author Organization [facility] Address [address] [place] [address] Care Team Providers Care Patient Services Technician Name Role Phone Melanie Pulido NP Primary Care Provider [phone] Encounter Details Date Type Department Care Team (Late st Contact Info) Description 02/05/2012 Abstract [facility] Nephrology - [address] [address] Robert Truong MD [address] [place], [place] [address] Social History Tobacco Use Types Packs/Day Years Used Date Smoking Tobacco: Never Assessed Sex and Gender Information Value Date Recorded Sex Assigned at Not on file Gender Identity Not on file Sexual Orientation Not on file documented as of this encounter Plan of Treatment Not on file documented as of this encounter Procedures Procedure Name Priority Date/Time Associated Diagnosis Comments COMPLETE BLOOD COUNT Routine 11/19/2011 COMPREHENSIVE METABOLIC PANEL (CMP) Routine 11/19/2011 documented in this encounter Results * COMPREHENSIVE METABOLIC PANEL (CMP) (11/19/2011) GFR, Calculated, External EXTERNAL LAB Glucose, Serum, External 105 [facility]TER[facility] LAB Albumin, External 3.8 [facility] LAB Total Alkaline Phosphatase, External 119 EXTERNAL LAB ALT, External 20 EXTERNAL LAB AST, External [...] LAB Bilirubin, Total, External 0.51 EXTERNAL LAB Blood specimen (specimen) 11/19/2011 Historical Provider CHEMISTRY & BLOOD GAS ORDERABLES EXTERNAL LAB * HEMAGRAM (11/19/2011) HCT, External 42.0 EXTERNAL LAB MCH, External 35.1 EXTERNAL LAB MCV, External 101.0 EXTERNAL LAB MCHC, External 34.8 EXTERNAL LAB Hemoglobin, External 14.6 EXTERNAL LAB WBC, External 6.03 EXTERNAL LAB RBC, External 4.16 EXTERNAL LAB PLT, External 181 EXTERNAL LAB RDW-CV, External 12.8 EXTERNAL LAB Blood specimen (specimen) 11/19/2011 Historical Provider HEMATOLOGY & PF4 ORDERABLES EXTERNAL LAB documented in this encounter Visit Diagnoses Not on filedocumented in this encounter Historical Medications * This list may reflect changes made after this encounter. Medication Sig Dispensed Refills Start Date End Date cholecalciferol, Vitamin D3, 1,000 unit tablet Take 1 Tablet by mouth daily. DULOXETINE HCL (CYMBALTA ORAL) Take 20 mg by mouth daily. amlodipine (NORVASC) 5 mg tablet Take 1 Tablet by mouth daily. zolpidem (AMBIEN) 10 mg tablet Take 1 Tablet by mouth at bedtime as needed. DOCOSAHEXANOIC ACID/EPA (FISH OIL ORAL) Take by mouth as needed. hydrocodone-acetaminophe n (LORTAB;VICODIN) 5-500 mg tablet Take 1 Tablet by mouth 2 times daily as needed for Pain. trazodone (DESYREL) 100 mg tablet Take 1 Tablet by mouth at bedtime as needed. lisinopril (PRINIVIL, ZESTRIL) 20 mg tablet Take 10 mg by mouth daily. 08/03/2018 famotidine (PEPCID) 20 mg tablet Take 20 mg by mouth daily. 07/12/2023 morphine (MS CONTIN) 15 mg CR tablet Take 15 mg by mouth every 12 hours. 08/03/2018 added in this encounter Care Teams Patient Services Technician Relationship Specialty Start Date End Date Melanie Pulido, ROLF [facility] [address] [place] [address] PCP - General 01/01/12 09/11/17 documented as of this encounter
--- OUTSIDE RECORDS SUMMARY | 2023-12-31 15:27 | XMS_ITS | Encounter Summary ---
Author Organization [facility] [place] [address] Care Team Providers Care Contour Sander Name Role Phone Arabella Laurent Bree DENNY Primary Care Provider [phone] Encounter Details Date Type Department Care Team (Late st Contact Info) Description 04/18/2020 Orders [place] [address] Bandar Rosado APRN [facility] [place] [address] Claudication Social History Tobacco Use Types Packs/Day Years Used Date Smoking Tobacco: Every Day Cigarettes Smokeless Tobacco: Never Sex and Gender Information Value Date Recorded Sex Assigned at Not on file Gender Identity Not on file Sexual Orientation Not on file documented as of this encounter Plan of Treatment Not on file documented as of this encounter Results * CHARLI, legs, multiple levels (12/01/2020 1:57 PM EDT) VB Text Report Department: Vascular Surgery Lab Patient: [id number] (KYLE KIA) CPT: 38896 ICD10: I77.1;I70.213;I7 0.413;I73.9 Referring Physician: BANDAR ROSADO [...] database for comparison. Electronically Signed by: NATIVIDAD CHAPMAN on 2020-12-05 11:55:54 AM [facility] VB Text Report End of Report [facility] 12/01/2020 1:57 PM EDT Bandar Rosado APRN VASCULAR ORDERABLE S [facility] documented in this encounter Visit Diagnoses Diagnosis Claudication Peripheral vascular disease, unspecified documented in this encounter Care Teams Contour Sander Relationship Specialty Start Date End Date Arabella Laurent APRN PCP - General Family Medicine 03/07/20 documented as of this encounter
[2023-12-31 19:27] LABS: HCT 43.5 % (36.0-46.0); HGB 14.5 g/dL (11.2-15.7); MCH 33.7 pg (27.0-33.0); MCHC 33.3 % (32.0-36.0); MCV 101 fL (80-95); MPV 10.2 fL (8.0-11.0); Platelet Count 180 10^3/uL (130-400); RDW-SD 48.8 fL; WBC 8.91 10^3/uL (4.4-10.8)
[2023-12-31 19:30] LABS: Anion Gap 11.2 mmol/L (3-11); BUN 32 mg/dL (7-18); CO2 23.8 mmol/L (21.0-32.0); CREATININE 2.1 mg/dL (0.55-1.02); Calcium 9.2 mg/dL (8.5-10.1); Chloride 109 mmol/L (98-107); Estimated GFR 25.67 (mL/min/1.73m2); Glucose 151 mg/dL (74-106); PHOSPHORUS 3.3 mg/dL (2.6-4.7); Potassium 4.4 mmol/L (3.5-5.1); Sodium 144 mmol/L (136-145)
[2024-01-01 20:58] LABS: Parathyroid Hormone,Intact 79 pg/mL (19-88)
== END 2023-12-31 15:21 | disposition home or self-care (01) ==
LOC: NCHCN 15:20
PROVIDERS: PCP Nurse Practitioner Family; Visit Provider Physician Assistant Medical
DX: N18.4 Chronic kidney disease, stage 4 (severe) (principal)
CPT/HCPCS: 80048; 85027; 83970; 84100

== ENCOUNTER 2024-03-03 17:31 | Outpatient (REF) | payer MEDICARE, MEDICAID, SELFPAY ==
[2024-03-03 15:41] LABS: Anion Gap 7.7 mmol/L (3-11); BUN 30 mg/dL (7-18); CO2 25.3 mmol/L (21.0-32.0); CREATININE 2.1 mg/dL (0.55-1.02); Calcium 9.5 mg/dL (8.5-10.1); Chloride 107 mmol/L (98-107); Estimated GFR 25.67 (mL/min/1.73m2); Glucose 100 mg/dL (74-106); Potassium 4.8 mmol/L (3.5-5.1); Sodium 140 mmol/L (136-145)
[2024-03-03 16:04] LABS: Uric Acid 6.7 mg/dL (2.6-6.0)
--- OUTSIDE RECORDS SUMMARY | 2024-03-03 17:38 | XMS_ITS | Encounter Summary ---
Author Organization [facility] Address [address] [place] [address] Care Team Providers Care Active Directory Systems Administrator Name Role Phone Arabella Laurent STUDIO OWNER Primary Care Provider [phone] Encounter Details Date Type Department Care Team (Late st Contact Info) Description 04/02/2023 Abstract [facility] Nephrology - [address] [address] Chastity Syed MD [address] [place] [address], [address] [place] [phone] Social History Tobacco Use Types Packs/Day Years [...] (03/31/2023 9:20 EDT) GFR, Calculated, External 25.83 [facility] Glucose, Serum, External 97 mg/dL [facility] Albumin, External 3.9 g/dL [facility] Total Alkaline Phosphatase, External 96 [facility] ALT, External 23 [facility] AST, External 21 U/L [facility] BUN, External 29 mg/dL [facility] Calculated Calcium, External [facility] Calcium, External 9.7 mg/dL [facility] Chloride, External 107 mmol/L [facility] CO2, External 23.2 mmol/L [facility] Creatinine, External 2.1 mg/dL [facility] Fasting?, External [facility] Potassium, External 4.3 mmol/L [facility] Sodium, External 142 mmol/L [facility] Total Protein, External 7.4 [facility] Bilirubin, Total, External 0.7 [facility] Blood VENOUS BLOOD / Unknown 03/31/2023 9:20 EDT Historical Provider CHEMISTRY & BLOOD GAS ORDERABLES [facility] documented in this encounter Visit Diagnoses Not on filedocumented in this encounter Care Teams Active Directory Systems Administrator Relationship Specialty Start Date End Date Arabella Laurent NP [address] [place] [phone] PCP - General 07/30/18 documented as of this encounter
--- OUTSIDE RECORDS SUMMARY | 2024-03-03 17:38 | XMS_ITS | Encounter Summary ---
Author Organization [facility] Address [address] [place] [address] Care Team Providers Care Long Goods Drier Name Role Phone Anastasiia Arabella Giron ROLLER HELPER Primary Care Provider [phone] Encounter Details Date Type Department Care Team (Late st Contact Info) Description 06/03/2023 Lab Requisition [facility] Pathology & Laboratory Medicine - [address] [address] Outr Resulting Lab, Provider Social History Tobacco [...] 19 - 88 pg/mL 06/03/2023 22:27 EST [facility] Blood VENOUS BLOOD / Unknown 06/03/2023 11:05 EST 06/03/2023 21:03 EST Provider Outr Resulting Lab CHEMISTRY & BLOOD GAS ORDERABLES [facility] [address] [place] [address] documented in this encounter Visit Diagnoses Not on filedocumented in this encounter Care Teams Long Goods Drier Relationship Specialty Start Date End Date Arabella Laurent NP [address] [place] [address] PCP - General 07/30/18 documented as of this encounter
--- OUTSIDE RECORDS SUMMARY | 2024-03-03 17:38 | XMS_ITS | Encounter Summary ---
Author Organization [facility] Address [address] [place] [address] Care Team Providers Care Showroom Sales Assistant Name Role Phone Arabella Laurent [employer] Primary Care Provider [phone] Reason for Visit * Reason Onset Date Comments Follow-up 08/07/2023 Encounter Details Date Type Department Care Team ([facility] st Contact Info) Description 08/07/2023 Telephone [facility] Nephrology - [address] [address] Chastity Syed MD [address] [place] [address], [address] [place] [address] Follow-up Social History Tobacco Use [...] on filedocumented in this encounter Care Teams Showroom Sales Assistant Relationship Specialty Start Date End Date Arabella Laurent, ROLF [address] [place] [phone] PCP - General 07/30/18 documented as of this encounter
--- OUTSIDE RECORDS SUMMARY | 2024-03-03 17:38 | XMS_ITS | Referral Summary ---
Author Organization [facility] Address [address] [place] [address] Care Team Providers Care Geriatric Care Manager Name Role Phone Jose Raulxi Arabella Xi COMMISSARY CLERK Primary Care Provider [phone] Encounters Date Type Department Care Team Description 01/05/2024 Abstract [facility] Nephrology - [address] [address] Chastity Syed MD 01/01/2024 Lab Requisition [facility] Pathology & Laboratory Medicine - Main [place] [address] [place] [address] Outr Resulting Lab, Provider from Last 3 Months Allergies Active Allergy Reactions Criticality Noted Date [...] Chronic kidney disease, stage III (moderate) ( [facility]) 02/05/2012 Essential hypertension 02/05/2012 Overview: ICD10 Update [...] 09/15/2017 Plan of Treatment Not on file Procedures Procedure Name Priority Date/Time Associated Diagnosis Comments PTH INTACT Routine 12/31/2023 14:05 EDT PHOSPHORUS Routine 12/31/2023 14:05 EDT BASIC METABOLIC PANEL (BMP) Routine 12/31/2023 14:05 EDT COMPLETE BLOOD COUNT Routine 12/31/2023 14:05 EDT from Last 3 Months Results * PTH INTACT (12/31/2023 14:05 EDT) Intact PTH 79 19 - 88 pg/mL 01/01/2024 20:54 EDT [facility] Blood VENOUS BLOOD / Unknown 12/31/2023 14:05 EDT 01/01/2024 20:07 EDT Provider Outr Resulting Lab CHEMISTRY & BLOOD GAS ORDERABLES Performing Organization Address City/[facility]/ZIP Co de Phone Number [facility] [address] [place] [phone] * COMPLETE BLOOD COUNT (12/31/2023 14:05 EDT) HCT, External 43.5 [facility] MCH, External 33.7 g/dL [facility] MCV, External 101 [facility] MCHC, External 33.3 g/dL [facility] Hemoglobin, External 14.5 % [facility] WBC, External 8.91 [facility] RBC, External 4.30 [facility] PLT, External 180 [facility] RDW-CV, External 13.0 [facility] Blood VENOUS BLOOD / Unknown 12/31/2023 14:05 EDT Historical Provider HEMATOLOGY & PF4 ORDERABLES [facility] * PHOSPHORUS (12/31/2023 14:05 EDT) Phosphorus, External 3.3 [facility] Blood VENOUS BLOOD / Unknown 12/31/2023 14:05 EDT Historical Provider CHEMISTRY & BLOOD GAS ORDERABLES Performing Organization Address City/[facility]/ZIP Co de Phone Number [facility] * BASIC METABOLIC PANEL (BMP) (12/31/2023 14:05 EDT) GFR, Calculated, External 25.67 [facility] Glucose, Serum, External 151 mg/dL [facility] Calculated Calcium, External [facility] BUN, External 32 mg/dL [facility] Calcium, External 9.2 mg/dL [facility] Chloride, External 109 mmol/L [facility] CO2, External 23.8 mmol/L [facility] Creatinine, External 2.1 mg/dL [facility] Fasting?, External [facility] Potassium, External 4.4 mmol/L [facility] Sodium, External 144 mmol/L [facility] Blood VENOUS BLOOD / Unknown 12/31/2023 14:05 EDT Historical Provider CHEMISTRY & BLOOD GAS ORDERABLES Performing Organization Address City/[facility] Co de Phone Number [facility] from Last 3 Months Care Teams Geriatric Care Manager Relationship Specialty Start Date End Date Arabella Laurent NP [address] [place] [phone] PCP - General 07/30/18
--- OUTSIDE RECORDS SUMMARY | 2024-03-03 17:38 | XMS_ITS | Data Portability ---
Author Organization [facility] Address [address] [place] [address] Care Team Providers Care Galley Stripper Name Role Phone PEDRO LUISINDY Giron Primary Care Provider Assessment No assessment recorded. Plan of Treatment Reminders Order Date Submit Date Provider Last Modified By Organization Details Last Modified Time Details Appointments Follow Up 2023 11:30A M Not available Not available Not available Follow Up 30 2024 11:30A M Not available Not available Not available Lab CMP, serum or plasma 2023 024 [facility] (Registration ), [address] [place] [address] [place], [address], 06/03/2023 16:37:23 CBC 2023 024 [facility] (Registration ), [address] [place] [address] [place], [address], 06/03/2023 15:36:15 PTH (parathy roid hormone) , intact, serum or plasma 2023 024 [facility] (Registration ), [address] [place] [address] [place], [address], 06/04/2023 09:00:31 phosphor us, serum or plasma 2023 024 [facility] (Registration ), [address] [place] [address] [place], [address], 06/12/2023 12:29:05 vitamin D, 25-hydro xy, total, serum 2023 024 [facility] (Registration ), [address] [place] [address] [place], [address], 06/03/2023 17:30:23 LDL, serum - add to labs drawn today (08/04/23) [address] [facility] (Add-On), [address] [place] [address] [place], [address], 08/13/2023 09:10:03 drug screen, urine [address], [address] [place] [address], [phone], 08/04/2023 12:43:21 BMP, serum or plasma [address] [facility] (Registration ), [address] [place] [address] [place], [address], 08/13/2023 09:10:03 microalb umin, urine [address], [address] [place] [address], [phone], 12/31/2023 14:22:20 urinalys is, dipstick [address], [address] [place] [address], [phone], 12/31/2023 14:22:21 BMP, serum or plasma [address] [facility] (Registration ), [address] [place] [address] [place], [address], 01/05/2024 06:19:31 CBC 2023 024 [facility] (Registration ), [address] [place] [address] [place], [address], 12/31/2023 19:31:45 PTH (parathy roid hormone) , intact, serum or plasma 2023 [facility] (Registration ), [address] [place] [address] [place], [address], 01/02/2024 09:02:45 phosphor us, serum or plasma [address] [facility] (Registration ), [address] [place] [address] [place], [address], 01/05/2024 06:19:39 BMP, serum or plasma [address] [facility] (Registration ), [address] [place] [address] [place], [address], 03/03/2024 16:14:07 uric acid, serum or plasma [address] [facility] (Registration ), [address] [place] [address] [facility] [place], [address], 03/03/2024 16:14:15 Referral general surgeon referral - DEWAYNE LOPEZ [address] General Surgery, [address] [facility], [id number], [place], [address], 03/03/2024 16:15:27 Procedures None recorded . Surgeries None recorded . Imaging DEXA - ckd- r/o osteopor osis 2023 [facility] Radiology, [address] [facility], [place], [address], 2023 14:23:03 Medication Orders hydrocod one 5 mg-aceta minophen 325 mg tablet 2022 [facility], [address] [facility], [address], [place], [address], 06/03/2023 11:43:15 metoprol ol succinat e ER 25 mg tablet,e xtended release 24 hr 2023 [facility], [address] [place] [address], [address], [place], [address], 06/16/2023 10:30:19 hydrocod one 5 mg-aceta minophen 325 mg tablet 2023 [facility], [address] [place] [address], [address], [place], [address], 08/04/2023 12:49:55 hydrocod one 5 mg-aceta minophen 325 mg tablet 2023 [facility], [address] [place] [address], [address], [place], [address], 12/31/2023 14:23:19 hydrocod one 5 mg-aceta minophen 325 mg tablet 2023 [facility], [address] [place] [address], [address], [place], [address], 12/31/2023 14:23:21 hydrocod one 5 mg-aceta minophen 325 mg tablet 2023 [facility], [address] [place] [address], [address], [place], [address], 03/03/2024 12:36:31 hydrocod one 5 mg-aceta minophen 325 mg tablet 2023 [facility], [address] [place] [address], [address], [place], [address], 03/03/2024 12:36:33 Ventolin HFA 90 mcg/actu ation aerosol inhaler 2023 [facility], [address] [place] [address], [address], [place], [address], 03/03/2024 12:36:30 Patient TargetsNo targets recorded. Patient Instructions Encounter Date Encounter Id Patient Instructions Last Modified By Organization Details Last Modified Time 06/03/2023 [id number] checking labs today: vit d, blood counts, parathyroid, calcium, phosphorus, renal function (due to renal disease) expect a call from [facility] re: your DEXA scan to check bone density. Call nephrology for follow up due in July follow up in 2 months for kidney function Not available 06/03/2023 11:34:02 08/04/2023 [id number] Addie: checking kidney function today and will try to check cholesterol today too. I will forward my note to your dehydrogenation converter helper for discussion on kidney transplant and family members. Try to drink at least 6 glasses of water a day. Watch your swelling in your ankles- call for follow up if it continues follow up in 3 months for chronic pain and CKD- (kidney function) and non fasting labs- BMP, calcium, phosphorus, PTH (every 3 months per nephrology) Not available 08/04/2023 12:05:42 Reason for Referral Interventional Cardiology Re ferral for Echocardiogram abnormal send echo and last pulmonology note Referring Physician: Indy Laurent, Family Medicine, Encounter Date: 05/01/2023 General Surgeon Referral for Change in skin lesion REQUESTING EXCISIONAL BX Referring Physician: Jannie Penn, Family Medicine, Encounter Date: 12/31/2023 Results Created Date Observation Date Name Description Value Unit Range Abnormal Flag Note LastModifiedBy Organization Detail LastModifiedTime 06/03/19 24 06/03/2023 COMPL ETE BLOOD COUNT NO DIFF WBC 6.13 10_3/ uL 4.4-10 .[address] Not [address] [facility] [address] [facility] [place], [address] 06/03/2023 15:36:15 06/03/19 24 06/03/2023 COMPL ETE BLOOD COUNT NO DIFF RBC 4.33 10_6/ uL 3.93-5 .[address] [facility] [address] [facility] [place], [address] 06/03/2023 15:36:15 06/03/19 24 06/03/2023 COMPL ETE BLOOD COUNT NO DIFF HGB 14.2 g/dL 11.2-1 5.7 normal Not Available [address] [place], [address] 06/03/2023 15:36:15 06/03/1906/03/2023 COMPL ETE BLOOD COUNT NO DIFF HCT 42.9 % 36.0-4 6.0 normal Not Available [address] [place], [address] 06/03/2023 15:36:15 06/03/19 24 06/03/2023 COMPL ETE BLOOD COUNT NO DIFF MCV 99 fL 80-95 high Not Available [address] [place], [address] 06/03/2023 15:36:15 06/03/1906/03/2023 COMPL ETE BLOOD COUNT NO DIFF MCH 32.8 pg 27.0-3 3.0 normal Not Available [address] [place], [address] 06/03/2023 15:36:15 06/03/19 24 06/03/2023 COMPL ETE BLOOD COUNT NO DIFF MCHC 33.1 % 32.0-3 6.0 normal Not Available [address] [place], [address] 06/03/2023 15:36:15 06/03/1906/03/2023 COMPL ETE BLOOD COUNT NO DIFF RDW 12.4 % 11.7-1 4.6 normal Not Available [address] [place], [address] 06/03/2023 15:36:15 06/03/1906/03/2023 COMPL ETE BLOOD COUNT NO DIFF platelet count 194 10_3/ uL 130-40 0 normal Not Available [address] [place], [address] 06/03/2023 15:36:15 06/03/1906/03/2023 COMPL ETE BLOOD COUNT NO DIFF MPV 10.2 fL 8.0-11 .0 normal Not Available [address] [place], [address] 06/03/2023 15:36:15 06/03/19 24 06/03/2023 COMPR EHENS CASIE METAB OLIC PANEL calcium 9.4 mg/dL 8.5-10 .1 normal Not Available [address] [place], [address] 06/03/2023 16:37:23 06/03/19 24 06/03/2023 COMPR EHENS CASIE METAB OLIC PANEL glucose 99 mg/dL 74-106 normal Not Available Alessio sinclair [address] [place], [address] 06/03/2023 16:37:23 06/03/19 24 06/03/2023 COMPR EHENS CASIE METAB OLIC PANEL BUN 35 mg/dL 7-18 high Not Available Alessio [address] [place], [address] 06/03/2023 16:37:23 06/03/19 24 06/03/2023 COMPR EHENS CASIE METAB OLIC PANEL creatinine 2.2 mg/dL 0.55-1 .02 high Not Available [address] [place], [address] 06/03/2023 16:37:23 06/03/19 24 06/03/2023 COMPR EHENS CASIE METAB OLIC PANEL estimated GFR 24.42 mL/min /1.73m 2 The eGFR is calcu lated from a serum creat inine using the CKD-E PI 2020 equat ion. Other varia bles requi red for the equat ion are gende r and age; this equat ion does not inclu de a race coeff icien t. This equat ion has simil ar overa ll perfo rmanc e to previ ous equat ions excep t value s may diffe r, in parti cular , in patie nts with highe r value s of eGFR and young er-ag ed adult s. Not Available [address] [place], [address] 06/03/2023 16:37:23 06/03/19 24 06/03/2023 COMPR EHENS CASIE METAB OLIC PANEL total protein 6.8 g/dL 6.4-8. 2 normal Not Available [address] [place], [address] 06/03/2023 16:37:23 06/03/19 24 06/03/2023 COMPR EHENS CASIE METAB OLIC PANEL albumin 3.7 g/dL 3.4-5. 0 normal Not Available [address] [place], [address] 06/03/2023 16:37:23 06/03/19 24 06/03/2023 COMPR EHENS CASIE METAB OLIC PANEL bilirubin, total 0.5 mg/dL 0.2-1. 0 normal Not Available [address] [place], [address] 06/03/2023 16:37:23 06/03/19 24 06/03/2023 COMPR EHENS CASIE METAB OLIC PANEL alk phos 93 U/L 46-116 normal Not Available [address] [place], [address] 06/03/2023 16:37:23 06/03/19 24 06/03/2023 COMPR EHENS CASIE METAB OLIC PANEL sodium 141 mmol/ L 136-14 5 normal Not Available [address] [place], [address] 06/03/2023 16:37:23 06/03/19 24 06/03/2023 COMPR EHENS CASIE METAB OLIC PANEL potassium 4.8 mmol/ L 3.5-5. 1 normal Not Available [address] [place], [address] 06/03/2023 16:37:23 06/03/19 24 06/03/2023 COMPR EHENS CASIE METAB OLIC PANEL chloride 106 mmol/ L 98-107 normal Not Available [address] [place], [address] 06/03/2023 16:37:23 06/03/19 24 06/03/2023 COMPR EHENS CASIE METAB OLIC PANEL CO2 24.0 mmol/ L 21.0-3 2.0 normal Not Available [address] [place], [address] 06/03/2023 16:37:23 06/03/19 24 06/03/2023 COMPR EHENS CASIE METAB OLIC PANEL anion gap 11.0 mmol/ L 3-11 normal Not Available [address] [place], [address] 06/03/2023 16:37:23 06/03/19 24 06/03/2023 COMPR EHENS CASIE METAB OLIC PANEL AST 17 U/L 15-37 normal Not Available Alessio sinclair [address] [place], [address] 06/03/2023 16:37:23 06/03/19 24 06/03/2023 COMPR EHENS CASIE METAB OLIC PANEL ALT 21 U/L 14-59 normal Not Available Alessio sinclair [address] [place], [address] 06/03/2023 16:37:23 06/03/19 24 06/03/2023 PHOSP HORUS phosphorus 3.8 mg/dL 2.6-4. 7 normal Not Available [address] [place], [address] 06/03/2023 16:37:24 06/03/19 24 06/03/2023 VITAM IN D 25 TOTAL vitamin D 25 total 36.8 NG/mL 30-100 normal Refer ence Guide lines : Defic ient: <10 ng/ml Insuf ficie nt: 10-30 ng/ml Suffi cient : 30-10 0 ng/ml Toxic : >100 ng/ml Not Available [address] [place], [address] 06/03/2023 17:30:23 06/03/19 24 06/03/2023 LESLY EDWARDS,IN TACT parathyroid hormone,inta ct 90 pg/mL 19-88 abnormal Test perfo rmed or refer red by [facility] [address] [place] [address] Not Available [address] [place], [address] 06/04/2023 09:00:31 06/03/19 24 06/03/2023 COMPR EHENS CASIE METAB OLIC PANEL calcium 9.4 mg/dL 8.5-10 .1 normal Not Available [address] [place], [address] 06/04/2023 10:24:35 06/03/19 24 06/03/2023 COMPR EHENS CASIE METAB OLIC PANEL glucose 99 mg/dL 74-106 normal Not Available Alessio sinclair [address] [place], [address] 06/04/2023 10:24:35 06/03/19 24 06/03/2023 COMPR EHENS CASIE METAB OLIC PANEL BUN 35 mg/dL 7-18 high Not Available Alessio sinclair [address] [place], [address] 06/04/2023 10:24:35 06/03/19 24 06/03/2023 COMPR EHENS CASIE METAB OLIC PANEL creatinine 2.2 mg/dL 0.55-1 .02 high Not Available [address] [place], [address] 06/04/2023 10:24:35 06/03/19 24 06/03/2023 COMPR EHENS CASIE METAB OLIC PANEL estimated GFR 24.42 mL/min /1.73m 2 The eGFR is calcu lated from a serum creat inine using the CKD-E PI 2020 equat ion. Other varia bles requi red for the equat ion are gende r and age; this equat ion does not inclu de a race coeff icien t. This equat ion has simil ar overa ll perfo rmanc e to previ ous equat ions excep t value s may diffe r, in parti cular , in patie nts with highe r value s of eGFR and young er-ag ed adult s. Not Available [address] [place], [address] 06/04/2023 10:24:35 06/03/19 24 06/03/2023 COMPR EHENS CASIE METAB OLIC PANEL total protein 6.8 g/dL 6.4-8. 2 normal Not Available [address] [place], [address] 06/04/2023 10:24:35 06/03/19 24 06/03/2023 COMPR EHENS CASIE METAB OLIC PANEL albumin 3.7 g/dL 3.4-5. 0 normal Not Available [address] [place], [address] 06/04/2023 10:24:35 06/03/19 24 06/03/2023 COMPR EHENS CASIE METAB OLIC PANEL bilirubin, total 0.5 mg/dL 0.2-1. 0 normal Not Available [address] [place], [address] 06/04/2023 10:24:35 06/03/19 24 06/03/2023 COMPR EHENS CASIE METAB OLIC PANEL alk phos 93 U/L 46-116 normal Not Available [address] [place], [address] 06/04/2023 10:24:35 06/03/19 24 06/03/2023 COMPR EHENS CASIE METAB OLIC PANEL sodium 141 mmol/ L 136-14 5 normal Not Available [address] [place], [address] 06/04/2023 10:24:35 06/03/19 24 06/03/2023 COMPR EHENS CASIE METAB OLIC PANEL potassium 4.8 mmol/ L 3.5-5. 1 normal Not Available [address] [place], [address] 06/04/2023 10:24:35 06/03/19 24 06/03/2023 COMPR EHENS CASIE METAB OLIC PANEL chloride 106 mmol/ L 98-107 normal Not Available [address] [place], [address] 06/04/2023 10:24:35 06/03/19 24 06/03/2023 COMPR EHENS CASIE METAB OLIC PANEL CO2 24.0 mmol/ L 21.0-3 2.0 normal Not Available [address] [place], [address] 06/04/2023 10:24:35 06/03/19 24 06/03/2023 COMPR EHENS CASIE METAB OLIC PANEL anion gap 11.0 mmol/ L 3-11 normal Not Available [address] [place], [address] 06/04/2023 10:24:35 06/03/19 24 06/03/2023 COMPR EHENS CASIE METAB OLIC PANEL AST 17 U/L 15-37 normal Not Available Alessio sinclair [address] [place], [address] 06/04/2023 10:24:35 06/03/19 24 06/03/2023 COMPR EHENS CASIE METAB OLIC PANEL ALT 21 U/L 14-59 normal Not Available Alessio sinclair [address] [place], [address] 06/04/2023 10:24:35 06/03/19 24 06/03/2023 PHOSP HORUS phosphorus 3.8 mg/dL 2.6-4. 7 normal Not Available [address] [place], [address] 06/04/2023 10:24:37 06/03/19 24 06/03/2023 VITAM IN D 25 TOTAL vitamin D 25 total 36.8 NG/mL 30-100 normal Refer ence Guide lines : Defic ient: <10 ng/ml Insuf ficie nt: 10-30 ng/ml Suffi cient : 30-10 0 ng/ml Toxic : >100 ng/ml Not Available [address] [place], [address] 06/04/2023 10:24:38 06/03/19 24 06/03/2023 COMPL ETE BLOOD COUNT NO DIFF WBC 6.13 10_3/ uL 4.4-10 .8 normal Not Available [address] [place], [address] 06/04/2023 10:25:35 06/03/19 24 06/03/2023 COMPL ETE BLOOD COUNT NO DIFF RBC 4.33 10_6/ uL 3.93-5 .22 normal Not Available [address] [place], [address] 06/04/2023 10:25:35 06/03/19 24 06/03/2023 COMPL ETE BLOOD COUNT NO DIFF HGB 14.2 g/dL 11.2-1 5.7 normal Not Available [address] [place], [address] 06/04/2023 10:25:35 06/03/19 24 06/03/2023 COMPL ETE BLOOD COUNT NO DIFF HCT 42.9 % 36.0-4 6.0 normal Not Available [address] [place], [address] 06/04/2023 10:25:35 06/03/19 24 06/03/2023 COMPL ETE BLOOD COUNT NO DIFF MCV 99 fL 80-95 high Not Available Alessio [address] [place], [address] 06/04/2023 10:25:35 06/03/19 24 06/03/2023 COMPL ETE BLOOD COUNT NO DIFF MCH 32.8 pg 27.0-3 3.0 normal Not Available [address] [place], [address] 06/04/2023 10:25:35 06/03/19 24 06/03/2023 COMPL ETE BLOOD COUNT NO DIFF MCHC 33.1 % 32.0-3 6.0 normal Not Available [address] [place], [address] 06/04/2023 10:25:35 06/03/19 24 06/03/2023 COMPL ETE BLOOD COUNT NO DIFF RDW 12.4 % 11.7-1 4.6 normal Not Available [address] [place], [address] 06/04/2023 10:25:35 06/03/19 24 06/03/2023 COMPL ETE BLOOD COUNT NO DIFF platelet count 194 10_3/ uL 130-40 0 normal Not Available [address] [place], [address] 06/04/2023 10:25:35 06/03/19 24 06/03/2023 COMPL ETE BLOOD COUNT NO DIFF MPV 10.2 fL 8.0-11 .0 normal Not Available [address] [place], [address] 06/04/2023 10:25:35 06/03/19 24 06/03/2023 LESLY EDWARDS,IN TACT parathyroid hormone,inta ct 90 pg/mL 19-88 abnormal Test perfo rmed or refer red by [facility] [address] [place] [address] Not Available [address] [place], [address] 06/04/2023 10:25:36 08/04/19 24 08/04/2023 BASIC METAB OLIC PANEL calcium 9.0 mg/dL 8.5-10 .1 normal Not Available [address] [place], [address] 08/04/2023 15:51:12 08/04/19 24 08/04/2023 BASIC METAB OLIC PANEL glucose 102 mg/dL 74-106 normal Not Available Alessio sinclair [address] [place], [address] 08/04/2023 15:51:12 08/04/19 24 08/04/2023 BASIC METAB OLIC PANEL BUN 40 mg/dL 7-18 high Not Available Alessio sinclair [address] [place], [address] 08/04/2023 15:51:12 08/04/19 24 08/04/2023 BASIC METAB OLIC PANEL creatinine 2.1 mg/dL 0.55-1 .02 high Not Available [address] [place], [address] 08/04/2023 15:51:12 08/04/19 24 08/04/2023 BASIC METAB OLIC PANEL estimated GFR 25.83 mL/min /1.73m 2 The eGFR is calcu lated from a serum creat inine using the CKD-E PI 2020 equat ion. Other varia bles requi red for the equat ion are gende r and age; this equat ion does not inclu de a race coeff icien t. This equat ion has simil ar overa ll perfo rmanc e to previ ous equat ions excep t value s may diffe r, in parti cular , in patie nts with highe r value s of eGFR and young er-ag ed adult s. Not Available [address] [place], [address] 08/04/2023 15:51:12 08/04/19 24 08/04/2023 BASIC METAB OLIC PANEL sodium 142 mmol/ L 136-14 5 normal Not Available [address] [place], [address] 08/04/2023 15:51:12 08/04/19 24 08/04/2023 BASIC METAB OLIC PANEL potassium 4.1 mmol/ L 3.5-5. 1 normal Not Available [address] [place], [address] 08/04/2023 15:51:12 08/04/19 24 08/04/2023 BASIC METAB OLIC PANEL chloride 108 mmol/ L 98-107 high Not Available [address] [place], [address] 08/04/2023 15:51:12 08/04/19 24 08/04/2023 BASIC METAB OLIC PANEL CO2 24.9 mmol/ L 21.0-3 2.0 normal Not Available [address] [place], [address] 08/04/2023 15:51:12 08/04/19 24 08/04/2023 BASIC METAB OLIC PANEL anion gap 9.1 mmol/ L 3-11 normal Not Available [address] [place], [address] 08/04/2023 15:51:12 08/04/19 24 08/04/2023 BASIC METAB OLIC PANEL calcium 9.0 mg/dL 8.5-10 .1 normal Not Available [address] [place], [address] 08/04/2023 19:16:30 08/04/19 24 08/04/2023 BASIC METAB OLIC PANEL glucose 102 mg/dL 74-106 normal Not Available Alessio sinclair [address] [place], [address] 08/04/2023 19:16:30 08/04/19 24 08/04/2023 BASIC METAB OLIC PANEL BUN 40 mg/dL 7-18 high Not Available Alessio sinclair [address] [place], [address] 08/04/2023 19:16:30 08/04/19 24 08/04/2023 BASIC METAB OLIC PANEL creatinine 2.1 mg/dL 0.55-1 .02 high Not Available [address] [place], [address] 08/04/2023 19:16:30 08/04/19 24 08/04/2023 BASIC METAB OLIC PANEL estimated GFR 25.83 mL/min /1.73m 2 The eGFR is calcu lated from a serum creat inine using the CKD-E PI 2020 equat ion. Other varia bles requi red for the equat ion are gende r and age; this equat ion does not inclu de a race coeff icien t. This equat ion has simil ar overa ll perfo rmanc e to previ ous equat ions excep t value s may diffe r, in parti cular , in patie nts with highe r value s of eGFR and young er-ag ed adult s. Not Available [address] [place], [address] 08/04/2023 19:16:30 08/04/19 24 08/04/2023 BASIC METAB OLIC PANEL sodium 142 mmol/ L 136-14 5 normal Not Available [address] [place], [address] 08/04/2023 19:16:30 08/04/19 24 08/04/2023 BASIC METAB OLIC PANEL potassium 4.1 mmol/ L 3.5-5. 1 normal Not Available [address] [place], [address] 08/04/2023 19:16:30 08/04/19 24 08/04/2023 BASIC METAB OLIC PANEL chloride 108 mmol/ L 98-107 high Not Available [address] [place], [address] 08/04/2023 19:16:30 08/04/19 24 08/04/2023 BASIC METAB OLIC PANEL CO2 24.9 mmol/ L 21.0-3 2.0 normal Not Available [address] [place], [address] 08/04/2023 19:16:30 08/04/19 24 08/04/2023 BASIC METAB OLIC PANEL anion gap 9.1 mmol/ L 3-11 normal Not Available [address] [place], [address] 08/04/2023 19:16:30 08/04/19 24 08/04/2023 DIREC T LDL CHOL direct LDL chol 70 mg/dL <100 Not Available Griselda mcdermott [address] [place], [address] 08/04/2023 19:16:30 08/04/19 24 08/04/2023 BASIC METAB OLIC PANEL calcium 9.0 mg/dL 8.5-10 .1 normal Not Available [address] [place], [address] 08/04/2023 23:06:50 08/04/19 24 08/04/2023 BASIC METAB OLIC PANEL glucose 102 mg/dL 74-106 normal Not Available Alessio sinclair [address] [place], [address] 08/04/2023 23:06:50 08/04/19 24 08/04/2023 BASIC METAB OLIC PANEL BUN 40 mg/dL 7-18 high Not Available Alessio [address] [place], [address] 08/04/2023 23:06:50 08/04/19 24 08/04/2023 BASIC METAB OLIC PANEL creatinine 2.1 mg/dL 0.55-1 .02 high Not Available [address] [place], [address] 08/04/2023 23:06:50 08/04/19 24 08/04/2023 BASIC METAB OLIC PANEL estimated GFR 25.83 mL/min /1.73m 2 The eGFR is calcu lated from a serum creat inine using the CKD-E PI 2020 equat ion. Other varia bles requi red for the equat ion are gende r and age; this equat ion does not inclu de a race coeff icien t. This equat ion has simil ar overa ll perfo rmanc e to previ ous equat ions excep t value s may diffe r, in parti cular , in patie nts with highe r value s of eGFR and young er-ag ed adult s. Not Available [address] [place], [address] 08/04/2023 23:06:50 08/04/19 24 08/04/2023 BASIC METAB OLIC PANEL sodium 142 mmol/ L 136-14 5 normal Not Available [address] [place], [address] 08/04/2023 23:06:50 08/04/19 24 08/04/2023 BASIC METAB OLIC PANEL potassium 4.1 mmol/ L 3.5-5. 1 normal Not Available [address] [place], [address] 08/04/2023 23:06:50 08/04/19 24 08/04/2023 BASIC METAB OLIC PANEL chloride 108 mmol/ L 98-107 high Not Available [address] [place], [address] 08/04/2023 23:06:50 08/04/19 24 08/04/2023 BASIC METAB OLIC PANEL CO2 24.9 mmol/ L 21.0-3 2.0 normal Not Available [address] [place], [address] 08/04/2023 23:06:50 08/04/19 24 08/04/2023 BASIC METAB OLIC PANEL anion gap 9.1 mmol/ L 3-11 normal Not Available [address] [place], [address] 08/04/2023 23:06:50 08/04/19 24 08/04/2023 DIREC T LDL CHOL direct LDL chol 70 mg/dL <100 Not Available [facility] [address] [place], [address] 08/04/2023 23:06:50 08/04/19 24 08/04/2023 drug scree n, urine Amphetamines : negati ve Not Available [facility] [address] [facility], [place], [address], 08/04/2023 11:23:57 08/04/19 24 08/04/2023 drug scree n, urine Barbiturates : negati ve Not Available [address], [address], 08/04/2023 11:23:57 08/04/19 24 08/04/2023 drug scree n, urine BUP: negati ve Not Available [address], [address], 08/04/2023 11:23:57 08/04/19 24 08/04/2023 drug scree n, urine Benzodiazepi dwayne: negati ve Not Available [address], [address], 08/04/2023 11:23:57 08/04/19 24 08/04/2023 drug scree n, urine Cocaine: negati ve Not Available [address], [address], 08/04/2023 11:23:57 08/04/19 24 08/04/2023 drug scree n, urine EDDP (Methadone Metabolite) negati ve Not Available [address], [address], 08/04/2023 11:23:57 08/04/19 24 08/04/2023 drug scree n, urine (MET) Methamphetam ine: negati ve Not Available [address], [address], 08/04/2023 11:23:57 08/04/19 24 08/04/2023 drug scree n, urine MDMA: negati ve Not Available [address], [address], 08/04/2023 11:23:57 08/04/19 24 08/04/2023 drug scree n, urine MTD (Methadone): negati ve Not Available [facility] [address] [place], [address], 08/04/2023 11:23:57 08/04/19 24 08/04/2023 drug scree n, urine [id number] (Opiate): positi ve Not Available [address], [address], 08/04/2023 11:23:57 08/04/19 24 08/04/2023 drug scree n, urine OXY (Oxycodone): negati ve Not Available [address], [address], 08/04/2023 11:23:57 08/04/19 24 08/04/2023 drug scree n, urine TCA: negati ve Not Available [address], [address], 08/04/2023 11:23:57 08/04/19 24 08/04/2023 drug scree n, urine THC: negati ve Not Available [address], [address], 08/04/2023 11:23:57 08/04/19 24 08/04/2023 drug scree n, urine Temperature: 96 Not Available [facility] [address] [place], [address], 08/04/2023 11:23:57 12/31/19 24 12/31/2023 COMPL ETE BLOOD COUNT NO DIFF WBC 8.91 10_3/ uL 4.4-10 .8 normal Not Available [place] [id number] [facility] [place], [address] 12/31/2023 19:31:45 12/31/19 24 12/31/2023 COMPL ETE BLOOD COUNT NO DIFF RBC 4.30 10_6/ uL 3.93-5 .22 normal Not Available [address] [place], [address] 12/31/2023 19:31:45 12/31/19 24 12/31/2023 COMPL ETE BLOOD COUNT NO DIFF HGB 14.5 g/dL 11.2-1 5.7 normal Not Available [address] [place], [address] 12/31/2023 19:31:45 12/31/19 24 12/31/2023 COMPL ETE BLOOD COUNT NO DIFF HCT 43.5 % 36.0-4 6.0 normal Not Available [address] [place], [address] 12/31/2023 19:31:45 12/31/19 24 12/31/2023 COMPL ETE BLOOD COUNT NO DIFF MCV 101 fL 80-95 high Not Available [address] [place], [address] 12/31/2023 19:31:45 12/31/19 24 12/31/2023 COMPL ETE BLOOD COUNT NO DIFF MCH 33.7 pg 27.0-3 3.0 high Not Available [address] [place], [address] 12/31/2023 19:31:45 12/31/19 24 12/31/2023 COMPL ETE BLOOD COUNT NO DIFF MCHC 33.3 % 32.0-3 6.0 normal Not Available [address] [place], [address] 12/31/2023 19:31:45 12/31/19 24 12/31/2023 COMPL ETE BLOOD COUNT NO DIFF RDW 13.0 % 11.7-1 4.6 normal Not Available [address] [place], [address] 12/31/2023 19:31:45 12/31/19 24 12/31/2023 COMPL ETE BLOOD COUNT NO DIFF platelet count 180 10_3/ uL 130-40 0 normal Not Available [address] [place], [address] 12/31/2023 19:31:45 12/31/19 24 12/31/2023 COMPL ETE BLOOD COUNT NO DIFF MPV 10.2 fL 8.0-11 .0 normal Not Available [address] [place], [address] 12/31/2023 19:31:45 12/31/19 24 12/31/2023 BASIC METAB OLIC PANEL calcium 9.2 mg/dL 8.5-10 .1 normal Not Available [address] [place], [address] 12/31/2023 19:33:46 12/31/19 24 12/31/2023 BASIC METAB OLIC PANEL glucose 151 mg/dL 74-106 high Not Available Alessio sinclair [address] [place], [address] 12/31/2023 19:33:46 12/31/19 24 12/31/2023 BASIC METAB OLIC PANEL BUN 32 mg/dL 7-18 high Not Available Alessio sinclair [address] [place], [address] 12/31/2023 19:33:46 12/31/19 24 12/31/2023 BASIC METAB OLIC PANEL creatinine 2.1 mg/dL 0.55-1 .02 high Not Available [address] [place], [address] 12/31/2023 19:33:46 12/31/19 24 12/31/2023 BASIC METAB OLIC PANEL estimated GFR 25.67 mL/min /1.73m 2 The eGFR is calcu lated from a serum creat inine using the CKD-E PI 2020 equat ion. Other varia bles requi red for the equat ion are gende r and age; this equat ion does not inclu de a race coeff icien t. This equat ion has simil ar overa ll perfo rmanc e to previ ous equat ions excep t value s may diffe r, in parti cular , in patie nts with highe r value s of eGFR and young er-ag ed adult s. Not Available [address] [place], [address] 12/31/2023 19:33:46 12/31/19 24 12/31/2023 BASIC METAB OLIC PANEL sodium 144 mmol/ L 136-14 5 normal Not Available [address] [place], [address] 12/31/2023 19:33:46 12/31/19 24 12/31/2023 BASIC METAB OLIC PANEL potassium 4.4 mmol/ L 3.5-5. 1 normal Not Available [address] [place], [address] 12/31/2023 19:33:46 12/31/19 24 12/31/2023 BASIC METAB OLIC PANEL chloride 109 mmol/ L 98-107 high Not Available [address] [place], [address] 12/31/2023 19:33:46 12/31/19 24 12/31/2023 BASIC METAB OLIC PANEL CO2 23.8 mmol/ L 21.0-3 2.0 normal Not Available [address] [place], [address] 12/31/2023 19:33:46 12/31/19 24 12/31/2023 BASIC METAB OLIC PANEL anion gap 11.2 mmol/ L 3-11 high Not Available [address] [place], [address] 12/31/2023 19:33:46 12/31/19 24 12/31/2023 PHOSP HORUS phosphorus 3.3 mg/dL 2.6-4. 7 normal Not Available [address] [place], [address] 12/31/2023 19:33:46 12/31/19 24 12/31/2023 BASIC METAB OLIC PANEL calcium 9.2 mg/dL 8.5-10 .1 normal Not Available [address] [place], [address] 12/31/2023 20:56:08 12/31/19 24 12/31/2023 BASIC METAB OLIC PANEL glucose 151 mg/dL 74-106 high Not Available Alessio [address] [place], [address] 12/31/2023 20:56:08 12/31/19 24 12/31/2023 BASIC METAB OLIC PANEL BUN 32 mg/dL 7-18 high Not Available Alessio sinclair [address] [place], [address] 12/31/2023 20:56:08 12/31/19 24 12/31/2023 BASIC METAB OLIC PANEL creatinine 2.1 mg/dL 0.55-1 .02 high Not Available [address] [place], [address] 12/31/2023 20:56:08 12/31/19 24 12/31/2023 BASIC METAB OLIC PANEL estimated GFR 25.67 mL/min /1.73m 2 The eGFR is calcu lated from a serum creat inine using the CKD-E PI 2020 equat ion. Other varia bles requi red for the equat ion are gende r and age; this equat ion does not inclu de a race coeff icien t. This equat ion has simil ar overa ll perfo rmanc e to previ ous equat ions excep t value s may diffe r, in parti cular , in patie nts with highe r value s of eGFR and young er-ag ed adult s. Not Available [address] [place], [address] 12/31/2023 20:56:08 12/31/19 24 12/31/2023 BASIC METAB OLIC PANEL sodium 144 mmol/ L 136-14 5 normal Not Available [address] [place], [address] 12/31/2023 20:56:08 12/31/19 24 12/31/2023 BASIC METAB OLIC PANEL potassium 4.4 mmol/ L 3.5-5. 1 normal Not Available [address] [place], [address] 12/31/2023 20:56:08 12/31/19 24 12/31/2023 BASIC METAB OLIC PANEL chloride 109 mmol/ L 98-107 high Not Available [address] [place], [address] 12/31/2023 20:56:08 12/31/19 24 12/31/2023 BASIC METAB OLIC PANEL CO2 23.8 mmol/ L 21.0-3 2.0 normal Not Available [place] [address] [facility] [place], [address] 12/31/2023 20:56:08 12/31/19 24 12/31/2023 BASIC METAB OLIC PANEL anion gap 11.2 mmol/ L 3-11 high Not Available [address] [place], [address] 12/31/2023 20:56:08 12/31/19 24 12/31/2023 PHOSP HORUS phosphorus 3.3 mg/dL 2.6-4. 7 normal Not Available [address] [place], [address] 12/31/2023 20:56:09 12/31/19 24 01/01/2024 LESLY EDWARDS,IN TACT parathyroid hormone,inta ct 79 pg/mL 19 Test perfo rmed or refer red by [facility] [address], [facility] [place] [address] Not Available [address] [place], [address] 01/02/2024 09:02:45 12/31/19 24 12/31/2023 urina lysis , dipst ick Leukocytes Negati ve Not Available [address], [address], 12/31/2023 13:35:45 12/31/19 24 12/31/2023 urina lysis , dipst ick Nitrite negati ve Not Available [address], [address], 12/31/2023 13:35:45 12/31/19 24 12/31/2023 urina lysis , dipst ick Urobilinogen .2 Not Available [address], [address], 12/31/2023 13:35:45 12/31/19 24 12/31/2023 urina lysis , dipst ick Protein 100 Not Available [address] [place], [address], 12/31/2023 13:35:45 12/31/19 24 12/31/2023 urina lysis , dipst ick pH 5.0 Not Available [address], [address], 12/31/2023 13:35:45 12/31/19 24 12/31/2023 urina lysis , dipst ick Blood Non-He molyze d: Modera te Not Available [address], [address], 12/31/2023 13:35:45 12/31/19 24 12/31/2023 urina lysis , dipst ick Specific [place] 1.025 Not Available [address], [address], 12/31/2023 13:35:45 12/31/19 24 12/31/2023 urina lysis , dipst ick Ketone Negati ve Not Available [address], [address], 12/31/2023 13:35:45 12/31/19 24 12/31/2023 urina lysis , dipst ick Bilirubin Negati ve Not Available [address], [address], 12/31/2023 13:35:45 12/31/19 24 12/31/2023 urina lysis , dipst ick Glucose Negati ve Not Available [address], [address], 12/31/2023 13:35:45 12/31/19 24 12/31/2023 urina lysis , dipst ick Appearance Slight ly Cloudy Not Available [address], [address], 12/31/2023 13:35:45 12/31/19 24 12/31/2023 urina lysis , dipst ick Color Dark Yellow Not Available [facility] [address] [place], [address], 12/31/2023 13:35:45 12/31/19 24 12/31/2023 micro album in, urine microalbumin 50 mg/dL Not Available [facility] [address] [place], [address], 12/31/2023 13:34:32 03/03/20 24 03/03/2024 BASIC METAB OLIC PANEL calcium 9.5 mg/dL 8.5-10 .1 normal Not Available [place] [address] [facility] [place], [address] 03/03/2024 15:56:10 03/03/20 24 03/03/2024 BASIC METAB OLIC PANEL glucose 100 mg/dL 74-106 normal Not Available Alessio sinclair [facility] [address] [facility] [place], [address] 03/03/2024 15:56:10 03/03/20 24 03/03/2024 BASIC METAB OLIC PANEL BUN 30 mg/dL 7-18 high Not Available Alessio [facility] [address] [facility] [place], [address] 03/03/2024 15:56:10 03/03/20 24 03/03/2024 BASIC METAB OLIC PANEL creatinine 2.1 mg/dL 0.55-1 .02 high Not Available [address] [place], [address] 03/03/2024 15:56:10 03/03/20 24 03/03/2024 BASIC METAB OLIC PANEL estimated GFR 25.67 mL/min /1.73M 2 The eGFR is calcu lated from a serum creat inine using the CKD-E PI 2020 equat ion. Other varia bles requi red for the equat ion are gende r and age; this equat ion does not inclu de a race coeff icien t. This equat ion has simil ar overa ll perfo rmanc e to previ ous equat ions excep t value s may diffe r, in parti cular , in patie nts with highe r value s of eGFR and young er-ag ed adult s. Not Available [address] [place], [address] 03/03/2024 15:56:10 03/03/2003/03/2024 BASIC METAB OLIC PANEL sodium 140 mmol/ L 136-14 5 normal Not Available [address] [place], [address] 03/03/2024 15:56:10 03/03/2003/03/2024 BASIC METAB OLIC PANEL potassium 4.8 mmol/ L 3.5-5. 1 normal Not Available [address] [place], [address] 03/03/2024 15:56:10 03/03/2003/03/2024 BASIC METAB OLIC PANEL chloride 107 mmol/ L 98-107 normal Not Available [address] [place], [address] 03/03/2024 15:56:10 03/03/2003/03/2024 BASIC METAB OLIC PANEL CO2 25.3 mmol/ L 21.0-3 2.0 normal Not Available [address] [place], [address] 03/03/2024 15:56:10 03/03/2003/03/2024 BASIC METAB OLIC PANEL anion gap 7.7 mmol/ L 3-11 normal Not Available [address] [place], [address] 03/03/2024 15:56:10 03/03/2003/03/2024 BASIC METAB OLIC PANEL calcium 9.5 mg/dL 8.5-10 .1 normal Not Available [address] [place], [address] 03/03/2024 16:13:18 03/03/20 24 03/03/2024 BASIC METAB OLIC PANEL glucose 100 mg/dL 74-106 normal Not Available Alessio sinclair [address] [place], [address] 03/03/2024 16:13:18 03/03/20 24 03/03/2024 BASIC METAB OLIC PANEL BUN 30 mg/dL 7-18 high Not Available Alessio sinclair [address] [place], [address] 03/03/2024 16:13:18 03/03/20 24 03/03/2024 BASIC METAB OLIC PANEL creatinine 2.1 mg/dL 0.55-1 .02 high Not Available [address] [place], [address] 03/03/2024 16:13:18 03/03/20 24 03/03/2024 BASIC METAB OLIC PANEL estimated GFR 25.67 mL/min /1.73M 2 The eGFR is calcu lated from a serum creat inine using the CKD-E PI 2020 equat ion. Other varia bles requi red for the equat ion are gende r and age; this equat ion does not inclu de a race coeff icien t. This equat ion has simil ar overa ll perfo rmanc e to previ ous equat ions excep t value s may diffe r, in parti cular , in patie nts with highe r value s of eGFR and young er-ag ed adult s. Not Available [address] [place], [address] 03/03/2024 16:13:18 03/03/20 24 03/03/2024 BASIC METAB OLIC PANEL sodium 140 mmol/ L 136-14 5 normal Not Available [address] [place], [address] 03/03/2024 16:13:18 03/03/20 24 03/03/2024 BASIC METAB OLIC PANEL potassium 4.8 mmol/ L 3.5-5. 1 normal Not Available [address] [place], [address] 03/03/2024 16:13:18 03/03/20 24 03/03/2024 BASIC METAB OLIC PANEL chloride 107 mmol/ L 98-107 normal Not Available [address], [place], [address] 03/03/2024 16:13:18 03/03/20 24 03/03/2024 BASIC METAB OLIC PANEL CO2 25.3 mmol/ L 21.0-3 2.0 normal Not Available [address] [place], [address] 03/03/2024 16:13:18 03/03/20 24 03/03/2024 BASIC METAB OLIC PANEL anion gap 7.7 mmol/ L 3-11 normal Not Available [address] [place], [address] 03/03/2024 16:13:18 03/03/20 24 03/03/2024 URIC ACID uric acid 6.7 mg/dL 2.6-6. 0 high Not Available [address] [place], [address] 03/03/2024 16:13:19 06/16/19 24 06/16/2023 CT lung cance r celina chavezg rpt Patien t Name: JoseDianne aguayo Lisa Unit #: [id number] Loc: DI Orderi ng Provid er: Meme rom,Ca rla R Accoun t #: [id number] Status : REG CLI Primar y Care Provid er: Trung Laurent Date of Exam: Sex: F : 1960 Age: 62 Exam(s ) a CT:CT chest lung cancer screen Exam(s ) CT CHEST LUNG CANCER SCREEN EXAM: CT CHEST LUNG CANCER SCREEN CLINIC AL HISTOR Y: SCREEN ING FOR LUNG CA, CURREN T SMOKER ,f17.2 00 TECHNI QUE: Imagin g Protoc ol: Axial comput ed tomogr aphy images with khan l and sagitt al reform atted images were create d and review ed. Low dose screen ing protoc ol. COMPAR MALORIE: CT CT CHEST LUNG CANCER SCREEN from 2020 FINDIN GS: Trache obronc hial tree: No bronch iectas is or mucus pluggi ng.. Medias tinum and Eileen: No domina nt adenop athy or fluid collec tion. Pulmon emilee parenc hyma: No consol idatio n or domina nt measur able mass. Mild emphys ematou s change s. Lung Nodule s: None. Pleura : No effusi on. No pneumo thorax . Heart: The heart is mildly dilate d. No khan ry artery calcif icatio ns are seen. Aorta: Thorac ic aorta non-di lated. Mild athero sclero tic change s. Upper abdome n: Unrema rkable . Bones: Degene rative disc change s. Soft Tissue s: Unrema rkable . IMPRES YVONNE: No suspic ious pulmon emilee nodule s. Lung RADS Cat 1 - Negati ve: No nodule s and defini tely benign nodule s Lung-R ADS 1.0 CATEGO NEFTALY: Catego ry 0 - Prior chest CT exam(s ) being locate d for compar malorie. Catego ry 1 - Annual screen ing in 12 months . No nodule s or defini tely benign nodule s. Catego ry 2 - Annual screen ing in 12 months . Benign appear ance. Nodule s with low likeli julien of becomi ng active cancer . Catego ry 3 - 6-rebecca h follow -up. Probab ly benign . Short- term follow -up sugges kacy. Nodule s with low likeli julien of becomi ng active cancer . Catego ry 4A - 3-rebecca h follow -up and CT/PET if >8 mm in size. Suspic ious findin g. Findin gs which requir e additi onal testin g. Catego ry 4B - Findin gs which requir e additi onal testin g and tissue sampli ng. Catego ry 4X - Catego ry 3 or 4 nodule s with additi onal featur es or imagin g findin gs that increa ses the suspic ion of malign renee. Modifi er S- Potent [facility] ally signif icant findin gs (non lung cancer ) RADIAT ION DOSE DELIVE RED: 74.6mG y.cm Total DLP DATA REPOSI TORY: All CT scans at this facili ty are submit kacy to the Nation al Radiol ogy Data Regist ry (NRDR) Dose Index Regist ry (DIR) with the [employer] o[employer] (ACR). RADIAT ION OPTIMI ZATION : All CT scans at this facili ty use at least one of these dose optimi zation techni ques: automa kacy exposu re contro l; mA and/or kV adjust ment per patien t size (inclu catalino target ed exams where dose is matche d to clinic al indica tion); or iterat casie recons tructi on. Orderi ng provid er: Maria Teresa Guevara R CC: ------ ------ ------ ------ ------ ------ ------ ------ ------ ------ ------ --- Dictat ed By: Nathan Springer [id number] Transc ribed By: Shayne Valenzuela 135 This is privil eged, confid ential inform ation intend ed only for the provid er named. Any use or distri bution by any person other than this provid er is strict ly prohib ited. If you receiv e this report in error, please notify us immedi arun at and return the origin al report to us at the addres s above. Thank- you. This report utiliz es the CT Lung Screen ing Report ing and Data System (ACR Lung-R ADS) as below: Assess ment Catego neftaly Manage ment 0 Incomp lete Additi onal lung cancer screen ing CT images needed and/or compar malorie to prior chest CT exam/s needed 1 Negati ve Contin ue annual screen ing with LDCT in 12 months 2 Benign Appear ance or Behavi or Contin ue annual screen ing with LDCT in 12 months 3 Probab ly Benign 6 month LDCT 4A Suspic ious 3 month LDCT; PET CT may be used when there is a >8mm solid compon ent 4B Suspic ious Chest CT with or withou t contra st, PET/CT and/or tissue sampli ng Modifi ers C Prior Lung Cancer Prior diagno sis of lung cancer , return to LDCT screen ing S Signif icant- other Signif icant or potent ially clinic ally signif icant findin gs- non-catalina ng cancer theck6 [facility] [address], [place], [address] 06/16/2023 14:52:19 02/16/20 24 04/05/2019 imagi ng/di agnos tic resul t No observ ation record ed. Not Available 02/15 06:46:49 02/16/20 24 01/11/2021 imagi ng/di agnos tic resul t No observ ation record ed. Not Available 02/15 06:46:49 02/16/20 24 03/26/2022 MAMMO , diagn ostic No observ ation record ed. Not Available 02/15 06:49:17 02/16/20 24 02/15/2019 US, vaughn x, mansoorou s, extre mity No observ ation record ed. Not Available 02/15 06:49:18 02/16/20 24 09/07/2018 MAMMO , scree cleo No observ ation record ed. Not Available 02/15 06:49:19 02/16/20 24 10/12/2020 XR, lumba r spine No observ ation record ed. Not Available 02/15 06:49:29 02/16/20 24 09/28/2019 imagi ng/di agnos tic resul t No observ ation record ed. Not Available 02/15 06:49:44 Result Notes None recorded. 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 Problem Code: R80.9; Problem Code Type: ICD-10; Not Available [facility] 3 04:31:05 Pure hypercho lesterol emia 660306777 Active 1993 Problem Code: E78.0; Problem Code Type: ICD-10; Not Available [facility] 3 04:31:05 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 Problem Code: 593.2; Problem Code Type: ICD-9; Not Available [facility] 3 04:31:05 Moderate major depressi on, single episode 69906260 Active 2005 Problem Code: F32.1; Problem Code Type: ICD-10; Not Available [facility] 3 04:31:05 Fibromya lgia 311199360 Active 2008 Problem Code: M79.7; Problem Code Type: ICD-10; Not Available [facility] 3 04:31:05 Fibrocys tic disease of breast 69491195 Active 2010 Problem Code: N60.19; Problem Code Type: ICD-10; Not Available [facility] 3 04:31:05 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 067255689 Active 2012 Problem Code: I24.1; Problem Code Type: ICD-10; Not Available [facility] 3 04:31:05 History of infectio us disease 667065263 Active 2012 Problem Code: Z86.19; Problem Code Type: ICD-10; Not Available [facility] 3 04:31:05 Atypical squamous cells of undeterm ined signific ance on cervical Papanico laou smear 901008085 Active 2013 Problem Code: R87.610; Problem Code Type: ICD-10; Not Available [facility] 3 04:31:06 Chronic pain 46261342 Active 2014 Problem Code: G89.29; Problem Code Type: ICD-10; Not Available [facility] 3 04:31:06 Atherosc lerosis of coronary artery without angina pectoris 07742127807 4103 Active 2014 Problem Code: I25.10; Problem Code Type: ICD-10; Not Available [facility] 3 04:31:06 Gastroes ophageal reflux disease without esophagi tis 281877796 Active 2017 Problem Code: K21.9; Problem Code Type: ICD-10; Not Available [facility] 3 04:31:06 Spondylo lysis of cervical spine 917957596 Active 2017 Problem Code: M43.02; Problem Code Type: ICD-10; Not Available [facility] 3 04:31:06 Peripher al vascular disease 626849773 Active 201812/05/19 21 - Comments only - Indy Laurent ICT SALES REPRESENTATIVE [place] [facility] [place]: mild RLE arterial occlusiv e disease, LLE- w/o sig arterial occlusiv e disease. Recommen d: tight control of comorbid ities, smoking cessatio n, ASA, high intensit y statin, walking program Problem Code: I73.9; Problem Code Type: ICD-10; Not Available [facility] [facility] 3 04:31:06 Total nephrect franchesca Active 2018 Problem Code: Z90.5; Problem Code Type: ICD-10; Not Available [facility] 3 04:31:06 Neck pain 12824595 Active 2019 Problem Code: M54.2; Problem Code Type: ICD-10; Not Available [facility] 3 04:31:06 Adult health examinat ion Active 2019 Problem Code: Z00.00; Problem Code Type: ICD-10; Not Available [facility] 3 04:31:07 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 Problem Code: N25.81; Problem Code Type: ICD-10; Not Available [facility] 3 04:31:07 Screenin g for cancer Active 2019 Problem Code: Z12.9; Problem Code Type: ICD-10; Not Available [facility] 3 04:31:07 Adjustme nt disorder 58662668 Active 2019 Problem Code: F43.20; Problem Code Type: ICD-10; Not Available [facility] 3 04:31:07 Trochant sujata bursitis of left hip 02568990260 9103 Active 2020 Problem Code: M70.62; Problem Code Type: ICD-10; Not Available [facility] 3 04:31:07 Thoracic arthriti s 1415773 Active 2020 Problem Code: M46.96; Problem Code Type: ICD-10; Not Available [facility] 3 04:31:07 Arterial embolus and thrombos is 077284700 Active 202012/05/19 21 - Comments only - Indy Laurent ICT SALES REPRESENTATIVE [place] [facility] [place] recommen d smoking cessatio n, high intensit y statin, ASA, tight control of comorbid ities, walking program. Problem Code: I74.9; Problem Code Type: ICD-10; Not Available [facility] 3 04:31:07 Pulmonar y emphysem a 03260615 Active 2020 Problem Code: J43.9; Problem Code Type: ICD-10; Not Available [facility] 3 04:31:08 Pain of right shoulder joint 03973006200 701860 Active 2021 Problem Code: M25.511; Problem Code Type: ICD-10; Not Available [facility] 3 04:31:08 Chronic bronchit is 09591892 Completed 200705/06/2019 Problem Code: J42; Problem Code Type: ICD-10; Not Available [facility] 3 04:31:08 Acute upper respirat ory infectio n 82543082 Completed 202006/05/2021 Problem Code: J06.9; Problem Code Type: ICD-10; Not Available [facility] 3 04:31:08 Low back pain 140234046 Completed 202002/26/2023 12/18/19 21 - Comments only - Indy Laurent ICT SALES REPRESENTATIVE - 0 lumbar plain film show L4-5, L5-S1 moderate low lumbar spinal facet arthropa thy, degenera tive changes. Problem Code: M54.5; Problem Code Type: ICD-10; Not Available [facility] 3 04:31:09 Acute kidney injury 58425673 Completed 201705/06/2019 Problem Code: N17.8; Problem Code Type: ICD-10; Not Available [facility] 3 04:31:09 Dizzines s and giddines s 097448930 Completed 201605/06/2019 Problem Code: R42; Problem Code Type: ICD-10; Not Available [facility] 3 04:31:09 Hyperten sive disorder 42524351 Completed 200602/26/2023 Not Available [facility] 3 04:31:09 Pain in lower limb 04454510 Completed 201802/26/2023 Problem Code: M79.606; Problem Code Type: ICD-10; Not Available [facility] 3 04:31:10 Chronic kidney disease 452150039 Completed 197102/26/2023 08/07/19 19 - Comments only - Indy Laurent ICT SALES REPRESENTATIVE - 08/03/18; [facility] nephrolo [facility]; creatini ne improved to 1.56 after disconti nuation of lisinopr il; BMP every 2 months follow-u p 1 year Problem Code: N18.9; Problem Code Type: ICD-10; Not Available [facility] 3 04:31:10 Urinary tract infectio us disease 49623334 Completed 201704/18/2021 Problem Code: N39.0; Problem Code Type: ICD-10; Not Available [facility] 3 04:31:10 Screenin g for disorder Completed 201805/06/2019 Problem Code: Z13.9; Problem Code Type: ICD-10; Not Available [facility] 3 04:31:10 Irritabi lity and anger 317746294 Completed 202201/28/2023 Problem Code: R45.4; Problem Code Type: ICD-10; Not Available [facility] 3 04:31:10 Abnormal weight loss 400623479 Completed 202101/28/2023 Problem Code: R63.4; Problem Code Type: ICD-10; Not Available [facility] 3 04:31:10 Bronchit is 00737902 Completed 200702/26/2023 Not Available [facility] 3 04:31:11 Localize d eruption of skin 501754643 Completed 201902/09/2020 Problem Code: R21; Problem Code Type: ICD-10; Not Available [facility] 3 04:31:11 Screenin g for malignan t neoplasm of colon Completed 201803/17/2019 Problem Code: Z12.11; Problem Code Type: ICD-10; Not Available [facility] 3 04:31:11 Fibromyo sitis 11376639 Completed 200802/26/2023 Not Available [facility] 3 04:31:11 Fatigue 28810588 Completed 201703/17/2019 Problem Code: R53.83; Problem Code Type: ICD-10; Not Available [facility] 3 04:31:12 Cough 64328670 Completed 202201/28/2023 Problem Code: R05.8; Problem Code Type: ICD-10; Not Available [facility] 3 04:31:12 Chronic renal impairme nt Completed 197102/26/2023 Problem Code: 585.9; Problem Code Type: ICD-9; Not Available [facility] 3 04:31:12 Cough 24012940 Completed 201803/17/2019 Problem Code: R05; Problem Code Type: ICD-10; Not Available [facility] 3 04:31:12 Screenin g for disorder Completed 201703/17/2019 Problem Code: Z13.9; Problem Code Type: ICD-10; Not Available [facility] 3 04:31:13 Tobacco dependen ce syndrome 87509668 Completed 200702/26/2023 Problem Code: 305.1; Problem Code Type: ICD-9; Not Available [facility] 3 04:31:13 Chest pain 57141137 Completed 201902/09/2020 Problem Code: R07.9; Problem Code Type: ICD-10; Not Available [facility] 3 04:31:13 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 67690304 Completed 201202/26/2023 Problem Code: 411.0; Problem Code Type: ICD-9; Not Available [facility] 3 04:31:13 Screenin g for malignan t neoplasm of breast Completed 201801/28/2023 Problem Code: Z12.39; Problem Code Type: ICD-10; Not Available [facility] 3 04:31:13 Human papillom avirus deoxyrib onucleic acid detected , high risk on cervical specimen 567126811 Completed 201202/26/2023 Not Available [facility] 3 04:31:14 Otitis externa 4985245 Completed 201610/22/2017 Problem Code: H60.90; Problem Code Type: ICD-10; Not Available [facility] 3 04:31:14 Cough 04202573 Completed 202006/05/2021 Problem Code: R05; Problem Code Type: ICD-10; Not Available [facility] 3 04:31:14 Major depressi ve disorder 400625296 Completed 200502/26/2023 Not Available [facility] 3 04:31:14 Left upper quadrant pain 309995066 Completed 201802/09/2020 Problem Code: R10.12; Problem Code Type: ICD-10; Not Available [facility] 3 04:31:14 Abnormal urine 580585053 Completed 201906/10/2020 Problem Code: R82.90; Problem Code Type: ICD-10; Not Available [facility] 3 04:31:15 Localize d eruption of skin 623438373 Completed 201906/10/2020 Problem Code: R21; Problem Code Type: ICD-10; Not Available [facility] 3 04:31:15 Echocard iogram abnormal 324366876 Active 2022 Indy anthony [facility] 3 11:21:20 Disorder of lung 83429317 Active 2022 Problem Code: J98.4; Problem Code Type: ICD-10; Not Available [facility] 4 05:37:39 Chronic kidney disease stage 4 998188000 Active 2023 [facility] 08:14[facility]36 Problem Notes None recorded. Procedures Surgical History None recorded. Imaging Results Imaging Date Name Status LastModified by Organiz ation Details LastModified Time 06/16/2023 CT lung cancer screening [place] [facility] [place] [address] [place], [address] 06/16/2023 14:52:19 04/05/2019 imaging/diagnos tic result completed Information not available 02/16/2024 06:46:49 01/11/2021 imaging/diagnos tic result completed Information not available 02/16/2024 06:46:49 03/26/2022 MAMMO, diagnostic completed Information not available 02/16/2024 06:49:17 02/15/2019 US, duplex, venous, extremity completed Information not available 02/16/2024 06:49:18 09/07/2018 MAMMO, screening completed Information not available 02/16/2024 06:49:19 10/12/2020 XR, lumbar spine completed Information not available 02/16/2024 06:49:29 09/28/2019 imaging/diagnos tic result completed Information not available 02/16/2024 06:49:44 Procedure Notes None recorded. Medical Equipment None Reported. Allergies Allergen ID Allergen Name Allergen Category Reaction Reaction Severity Criticality Documentation Date Start Date Code Code System Note Provider Name and Address Organization Details Recorded Time 98038 sertralin e medicatio n headache mild Not available 04/11/20232022 86311 RxNorm heada ches Aller gyRea ction : 'head aches '; Not Available [facility] 3 16:22:28 60476 Zantac medicatio n rash mild Not available 04/11/20232007 22882 3 RxNorm rash Aller gyCod e: '4903 [id number] 72'; Aller gyNam e: 'ZANT AC'; Aller gyCon ceptT ype: 'NDC' ; Not Available [facility] 3 16:22:28 Medications Name Sig Start Date Stop Date Status Note LastModified by Organization Details LastModified Time atorvasta tin 40 mg tablet Take 1 tablet every day by oral route at bedtime. active Not Available Not Available No t Available atorvasta tin 20 mg tablet Take 1 tablet by mouth every night with 40mg to equal 60mg daily active Not Available Not Available No t Available Neurontin 300 mg capsule 1 CAP TID 07/11 completed Not Available Not Available Not Available trazodone 50 mg tablet 1/2-1 Tab QHS 09/03 completed Not Available Not Available Not Available hydrocodo ne 5 mg-acetam inophen 325 mg tablet 1 tablet by mouth twice a day as needed for pain Not to exceed two tabs daily for chronic pain. 2023 active Not Available Not Available Not Avai lable lisinopri l 20 mg tablet Take 1 by mouth daily 2013 active Not Available Not Available Not Avai lable prednison e 20 mg tablet 2 tablet by mouth once a day take with food 02/02 completed Not Available Not Available Not Available Diflucan 150 mg tablet 1TAB NOW 05/21 completed Not Available Not Available Not Available amoxicill in 250 mg-potass ium clavulana te 125 mg tablet TAKE 1 TABLET BY MOUTH EVERY 12 HOURS 06/03 completed Not Available Not Available Not Available ciproflox acin 250 mg tablet Take 1 tab by mouth twice daily 07/06 completed Not Available Not Available Not Available THSC Penicilli n VK 500 mg tablet 1tab tid 07/01 completed Not Available Not Available Not Available amlodipin e 5 mg tablet Take 1 tablet by mouth once a day 2023 active Not Available Not Available Not Avai lable Tamiflu 75 mg capsule 1 TAB twice daily 08/03 completed Not Available Not Available Not Available amoxicill in 500 mg tablet 1CAP three times daily 10/07 completed Not Available Not Available Not Available MS Contin 15 mg tablet,ex tended release 1 TAB twice daily 02/16 completed Not Available Not Available Not Available famotidin e 20 mg tablet Take 1 by mouth daily 2019 active uses OTC Not Available Not Available Not Avai lable amitripty line 25 mg tablet 2 TAB QHS 07/11 completed Not Available Not Available Not Available Nitrostat 0.4 mg sublingua l tablet 1 tab under the tongue q5mins for dhest pain. Max of 3 tabs, Then call 911 01/02 completed Not Available Not Available Not Available trazodone 100 mg tablet Take 1 tablet by mouth every night 2023 active Not Available Not Available Not Avai lable cimetidin e 200 mg tablet Take 1 tab by mouth QHS 01/02 completed pepcid not availabl e, intolera nt of ppis Not Available Not Available Not Available benzonata te 100 mg capsule Take 1 capsule by mouth three times a day as needed for cough 06/03 completed Not Available Not Available Not Available Cipro 500 mg tablet 1 TAB twice daily 08/24 completed Not Available Not Available Not Available Robaxin-7 50 750 mg tablet 1 TAB qid 04/24 completed Not Available Not Available Not Available lisinopri l 10 mg tablet Take 1 tab by mouth daily 07/06 completed Not Available Not Available Not Available nicotine 21 mg/24 hr daily transderm al patch apply 1 patch every 24 hours 01/02 completed Not Available Not Available Not Available sertralin e 25 mg tablet Take 1 tablet by mouth once a day for mood 01/28 completed Not Available Not Available Not Available hydroxyzi ne HCl 25 mg tablet Take 1 tab by mouth at bedtime as needed for itch [address] Harley Not Available Not Available Not Available aspirin 81 mg tablet 1TAB daily 2014 active Not Available Not Available Not Avai lable acyclovir 200 mg capsule Take 1 cap by mouth daily 02/24 completed Not Available Not Available Not Available metoprolo l succinate ER 25 mg tablet,ex tended release 24 hr Take 1 tablet by mouth every day 06/16 completed Not Available Not Available Not Available Ativan 0.5 mg tablet 1 qhs 10/02 completed Not Available Not Available Not Available zolpidem 10 mg tablet Take 1 tablet by mouth at bedtime as needed as needed for insomnia 2023 active Not Available Not Available Not Avai lable Ventolin HFA 90 mcg/actua tion aerosol inhaler Inhale 2 puffs by mouth every 4 to 6 hours as needed 2023 active Not Available Not Available Not Avai lable cholecalc iferol (vitamin D3) 25 mcg (1,000 unit) capsule Take 2 capsules by mouth every day 06/03 completed Not Available Not Available Not Available Fish Oil 1,000 mg capsule Take 1 by mouth daily 2011 active Not Available Not Available Not Avai lable duloxetin e 20 mg capsule,d elayed release Take 1 capsule by mouth every day 12/27 completed Not Available Not Available Not Available duloxetin e 60 mg capsule,d elayed release Take 1 capsule by mouth every day 10/09 completed Not Available Not Available Not Available Cymbalta 30 mg capsule,d elayed release 1CAP daily 06/25 completed Not Available Not Available Not Available Albuterol Sulfate HFA 90 mcg/Actua tion aerosol inhaler 2 PUFFS .qid wheezing /SOB 2014 active Not Available Not Available Not Avai lable Lyrica 25 mg capsule 1TAB am 07/29 completed Not Available Not Available Not Available Lyrica 75 mg capsule 1 qd 06/27 completed Not Available Not Available Not Available Lyrica 100 mg capsule 1TAB at bedtime 07/29 completed Not Available Not Available Not Available Fish Oil 2011 active Not Available Not Available Not Avai lable Vitamin D3 1 qd 2010 active Not Available Not Available Not Avai lable Chantix 0.5 mg tablet take 1 tablet QD X 7 days then increase to BID. 10/06 completed Not Available Not Available Not Available cholecalc iferol (vitamin D3) 25 mcg (1,000 unit) tablet Take 2 tablets by mouth every day 03/24 completed Not Available Not Available Not Available Fish Oil 340 mg-1,000 mg capsule Take 1 by mouth once a day 01/01 completed Not Available Not Available Not Available Symbicort 80 mcg-4.5 mcg/actua tion HFA aerosol inhaler Inhale 2 puff using inhaler twice a day as needed INHALE TWO PUFFS BY MOUTH TWICE A DAY 08/03 completed Not Available Not Available Not Available nebivolol 5 mg tablet Take 1 tablet every day by oral route in the morning. 2023 active started by Cardiolo gy Not Available Not Available Not Available Chantix Starting Month Box 0.5 mg (11)-1 mg (42) tablets in dose pack 0.5mg daily X 7 days then increase to BID X 1 month 01/02 completed Not Available Not Available Not Available Breo Ellipta 100 mcg-25 mcg/dose powder for inhalatio n one inhalati on QD, rinse mouth after use to avoid thrush 09/24 completed Not Available Not Available Not Available duloxetin e 40 mg capsule,d elayed release Take 1 capsule by mouth every day 10/04 completed Not Available Not Available Not Available Trelegy Ellipta 100 mcg-62.5 mcg-25 mcg powder for inhalatio n 1 puff QD 12/09 completed Not Available Not Available Not Available Voltaren Arthritis Pain 1 % topical gel Apply twice a day 03/30/ 2021 11/03 /2021 completed Not Available Not Available Not Available Vitals Date Recorded Body height Body mass index (BMI) Body weight Heart rate Systolic blood pressure Diastolic blood pressure Provider Name and Address Organization Details Last Updated DateTime 4 149.225 cm 22.9 kg/m2 29060.4 5 g 72 /min 120 mm[Hg] 62 mm[Hg] GLENROY [place] LPN [facility] 4 11:02:06 Date Recorded Body height Body mass index (BMI) Body weight Heart rate Systolic blood pressure Diastolic blood pressure Provider Name and Address Organization Details Last Updated DateTime 4 149.225 cm 23.5 kg/m2 66878.5 2 g 68 /min 120 mm[Hg] 56 mm[Hg] GLENROY C[place] [employer] [facility] 4 11:12:27 Date Recorded Body height Body mass index (BMI) Body weight Oxygen saturation Oxygen saturation in Arterial blood by Pulse oximetry Heart rate Systolic blood pressure Diastolic blood pressure Provider Name and Address Organization Details Last Updated DateTime 4 149.225 cm 22.4 kg/m2 66412.8 6 g 96 % 96 % 70 /min 122 mm[Hg] 62 mm[Hg] GLENROY [place] LPN [facility] 4 13:23:52 Date Recorded Body height Body mass index (BMI) Body weight Heart rate Systolic blood pressure Diastolic blood pressure Provider Name and Address Organization Details Last Updated DateTime 4 149.225 cm 22.9 kg/m2 27381.1 5 g 68 /min 118 mm[Hg] 62 mm[Hg] GLENROY [place] LPN [facility] 4 11:34:58 Social History Question Answer Notes LastModified by Organizat ion Details LastModified Time Tobacco Smoking Status Current Every Day Smoker GLENROY [place] LPN [facility] 08/04/2023 11:20:50 1) Date Of Last VPMS Check? 03/03/2024 Information not available 03/03/2024 2) VPMS Findings No Concerns Information not available 03/03/2024 4) Daily MME 10.0 Information not available 03/03/2024 3) Date Of Last Contract: 08/05/2000 Information not available 03/03/2024 5) Date Of Last UDS 08/04/2023 Information not available 03/03/2024 What Was The Date Of Your Most Recent Tobacco Screening? 03/03/2024 Information not available 03/03/2024 What Is Your Current Pack Years? 30ormorepacky ears Information not available 08/04/2023 At What Age Did You Start Smoking Tobacco? 12 Information not available 08/04/2023 How Much Tobacco Do You Smoke? 0.5 PPD Information not available 08/04/2023 Has Tobacco Cessation Counseling Been Provided? No Not Ready To Quit Information not available 03/03/2024 How Many Years Have You Smoked Tobacco? 50 Information not available 08/04/2023 Do You Or Have You Ever Used Any Other Forms Of Tobacco Or Nicotine? No Information not available 08/04/2023 Sex: Female Functional Status None recorded. Mental Status None recorded. Family History Nothing Reported Notes:*Problem: - Kidney [place] - Diabetes - Cancer Mother at age 55 of CAD , possible renal insufficiency/failure Father in his 50's bone cancer 5 siblings 1 brother cancer unknown kind at age 42 2 brothers alive health history unknown 1 sister 2009, heart failure, Pulmonary, Edema. 1 sister unknown health history 2 children 1 son Asthma 1 daughter with fibromyalgia and asthma 1 granddaughter 6 yo healthy. Medical History No medical history recorded. Gynecological HistoryNo gynecological history recorded. Obstetrics History GPAL:G 0 P 0 0 0 0 Immunizations Vaccine Type Date Status Provider Name and Address Organization Details Recorded Time COVID-19, mRNA, LNP-S, PF, nupur-sucrose, 30 mcg/0.3 mL 06/03/2023 completed Indy anthony, [place] - [facility] 06/03/2023 12:47:08 Influenza, high-dose, trivalent, PF 03/03/[address], [place], [address], [facility] 03/03/2024 12:24:10 Tdap 02/22/2015 completed Not Available [facility] 06:14:29 Novel [id number], all formulations 05/09/2009 completed Not Available [facility] 04/11/2023 06:14:29 Influenza, split virus, trivalent, preservative 02/22/2015 completed Not Available [facility] 04/11/2023 06:14:29 Influenza, split virus, trivalent, preservative 04/02/2016 completed Not Available [facility] 04/11/2023 06:14:29 Influenza, split virus, quadrivalent, PF 02/18/2020 completed Not Available [facility] 04/11/2023 06:14:29 Influenza, split virus, quadrivalent, PF 03/04/2022 completed Not Available [facility] 04/11/2023 06:14:29 Influenza, split virus, quadrivalent, PF 03/17/2019 completed Not Available [facility] 04/11/2023 06:14:30 Influenza, split virus, quadrivalent, PF 05/04/2021 completed Not Available [facility] 04/11/2023 06:14:30 Influenza, split virus, quadrivalent, preservative 02/24/2018 completed Not Available [facility] 04/11/2023 06:14:30 Influenza, split virus, quadrivalent, preservative 05/05/2017 completed Not Available [facility] 04/11/2023 06:14:30 zoster recombinant 01/02/2021 completed Not Available [facility] 04/11/2023 06:14:30 zoster recombinant 02/18/2020 completed Not Available [facility] 04/11/2023 06:14:30 COVID-19, mRNA, LNP-S, PF, 100 mcg/0.5mL dose or 50 mcg/0.25mL dose 08/30/2020 completed Not Available [facility] 04/11/2023 06:14:30 COVID-19, mRNA, LNP-S, PF, 100 mcg/0.5mL dose or 50 mcg/0.25mL dose 09/27/2020 completed Not Available [facility] 04/11/2023 06:14:30 COVID-19, mRNA, LNP-S, PF, 100 mcg/0.5mL dose or 50 mcg/0.25mL dose 04/04/2021 completed Not Available [facility] 04/11/2023 06:14:30 COVID-19, mRNA, LNP-S, bivalent, PF, 30 mcg/0.3 mL dose 03/04/2022 completed Not Available [facility] 04/11/20 06:14:31 pneumococcal polysaccharide PPV23 09/25/2015 completed Not Available [facility] 2022 06:14:31 influenza, unspecified formulation 03/08/2014 completed Not Available [facility] 04/11/2023 06:14:31 Influenza, split virus, quadrivalent, PF 03/31/2023 completed Not Available [facility] 06/13/2023 05:33:27 Past Encounters Encounter ID Performer Location Encounter Start Date Encounter Closed Date Diagnosis/Indication Diagnosis SNOMED-CT Code Diagnosis ICD10 Code [id number] [address] [address] 06/03/2023 10:46:14 06/03/2023 11:37:34 Wheezing 43381218 R06.2 Chronic ki dney disease stage 3 050099370 N18.30 Chronic pain syndrome 37 1940122 G89.4 Essential hypertension 92390599 I10 Active or passive immunization 433589301 Z23 [id number] [address] [address] 08/04/2023 10:44:00 08/04/2023 12:41:35 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 Chronic pain 60735561 G8 9.29 Essential hypertension 90638899 I10 Nicotine dependence 5629 4008 F17.200 Pulmonary emphysema 8743 3001 J43.9 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 Pure hypercholesterolemia 310171289 E78.00 [id number] JANNIE PENN PA-C [address] [address] 12/31/2023 13:12:17 12/31/2023 14:25:02 Chronic kidney disease stage 4 013570908 N18.4 Chronic pain syndrome 37 6893895 G89.4 Essential hypertension 80395404 I10 Coronary arteriosclerosis 38857142 I25.10 Insomnia 783748842 G47.0 0 Change in skin lesion 39 3163601 L98.9 [id number] JANNIE PENN PA-C [address] [address] 03/03/2024 11:19:13 03/03/2024 12:17:23 Chronic kidney disease stage 4 265485509 N18.4 Chronic pain syndrome 37 3474102 G89.4 Essential hypertension 20927809 I10 Coronary arteriosclerosis 21579230 I25.10 Insomnia 370820605 G47.0 0 Chronic ob structive pulmonary disease 87354287 J44.9 Active or passive immunization [id number] Z23 Health Concerns Section Related Observation LastModified by Organization Detai ls LastModified Time None Recorded Concern Status LastModified by Organization Details LastModified Time None Recorded Advance Directives Directive None Recorded Payers Encounter Date Sequence Insurance Name Policy Number Policy James Covered Member ID James Member ID Guarantor Name 06/03/2023 2 [employer] ([employer]) Addie J Sigouin [id number] Addie J Sigouin 08/04/2023 2 [employer] ([place]) Addie J Sigouin [id number] Addie J Sigouin 12/31/2023 2 [employer] ([place]) Addie J Sigouin [id number] Addie J Sigouin 12/31/2023 1 [place] [employer] [employer] [place] Addie J Sigouin [id number] Addie J Sigouin 03/03/2024 2 [employer] ([place]) Addie J Sigouin [id number] Addie J Sigouin 03/03/2024 1 [place] Addie J Sigouin [id number] Addie J Sigouin Notes Date Note Type Note Provider Name and Address Organization Details Recorded Time 06/03/2023 text/html HPI Notes: 62 yr old woman here for f/u wheeze, restrictive lung disease, ckd and chronic neck pain. continues to use hydrocodone for management of neck pain, managing symptoms well. Continues to be a smoker. She has not heard from nephrology about her follow-up appointment in July. Recent visit to the animal scientist says that they are ordering a CT scan. She has not met with cardiology yet. Echocardiogram; 04/30/2023; EF 45-50%, wall motion abnormalities consistent with coronary artery disease, grade 1 diastolic dysfunction, RV global systolic function normal, mild mitral regurg. 03/2023 telehealth visit with [facility] nephrology? plan to follow-up in 4 months with clinic appointment. Indy anthony [facility]. 06/03/2023 12:48:58 08/04/2023 text/html HPI Notes: 62 yr old woman here for f/u wheeze, restrictive lung disease, ckd and chronic neck pain. continues to use hydrocodone for management of neck pain, managing symptoms well. Continues to be a smoker. 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 No additional cardiac tests were ordered- did recommend that if her blood pressure goes over 130/80 Recommend Starting hydralazine 10 mg twice daily (not a candidate for MONY/ARB), goal LDL 70 or less. She had a phone visit with her dehydrogenation converter helper last month, he discussed kidney dialysis. She is very concerned, she said he told her she would not be eligible for kidney transplant due to her smoking status. She has several family members that would be willing to donate a kidney. Echocardiogram; 04/30/2023; EF 45-50%, wall motion abnormalities consistent with coronary artery disease, grade 1 diastolic dysfunction, RV global systolic function normal, mild mitral regurg. Reports had mild ankle edema for 2 days several days ago. Resolved? uncertain if it was related to increased physical activity, no changes in diet no worsening shortness of breath or cough. Indy anthony MA - [facility]. 08/04/2023 15:49:53 12/31/2023 text/html HPI Notes: 63y/o female presenting for f/u CKD, chronic pain, HTN, pulmonary emphysema, and HPL. [address], [place], [phone], [facility]. 12/31/2023 14:22:46 03/03/2024 text/html HPI Notes: 63y/o female presenting for 3m f/u CKD, chronic pain, HTN, pulmonary emphysema, and HPL. [address], [place], [address], [facility]. 03/03/2024 12:24:37 OBGyn Episode No OBEpisode recorded.
--- OUTSIDE RECORDS SUMMARY | 2024-03-03 17:38 | XMS_ITS | Encounter Summary ---
Author Organization [facility] Address [address] [place] [id number] Care Team Providers Care Saw Filer Name Role Phone Anastasiia Arabella Giron STOCK BUYER Primary Care Provider [phone] Encounter Details Date Type Department Care Team (Late st Contact Info) Description 08/05/[address] [facility] Nephrology - [address] [id number] Chastity Syed MD [address] [place] [address], [address] [place] [phone] Social History Tobacco Use Types Packs/Day Years [...] (08/04/2023 11:20 EST) GFR, Calculated, External 25.83 [facility] Glucose, Serum, External 102 mg/dL [facility] Calculated Calcium, External [facility] BUN, External 40 mg/dL [facility] Calcium, External 9.0 mg/dL [facility] Chloride, External 108 mmol/L [facility] CO2, External 24.9 mmol/L [facility] Creatinine, External 2.1 mg/dL [facility] Fasting?, External [facility] Potassium, External 4.1 mmol/L [facility] Sodium, External 142 mmol/L [facility] Blood VENOUS BLOOD / Unknown 08/04/2023 11:20 EST Historical Provider CHEMISTRY & BLOOD GAS ORDERABLES [facility] documented in this encounter Visit Diagnoses Not on filedocumented in this encounter Care Teams Saw Filer Relationship Specialty Start Date End Date Arabella Laurent NP [address] [place] [address] PCP - General 07/30/18 documented as of this encounter
--- OUTSIDE RECORDS SUMMARY | 2024-03-03 17:38 | XMS_ITS | Encounter Summary ---
Author Organization [facility] Address [address] [place] [address] Care Team Providers Care Public Health Social Worker Name Role Phone Arabella Laurent OLD TESTAMENT PROFESSOR Primary Care Provider [phone] Reason for Referral * Laboratory Services (Routine/Next Available) - New Request Specialty Diagnoses / Procedures Referred By Bosotn pineda Referred To Contact Diagnoses CKD (chronic kidney disease), stage IV ([facility]) Procedures COMPLETE BLOOD COUNT Chastity Syed MD [address] [facility], [facility] [address] [place] [address] Referral ID Status Reason Start Date Expiration Date V isits Requested Visits Authorized [id number] New Request 07/14/2023 1 1 * Laboratory Services (Routine/Next Available) - New Request Specialty Diagnoses / Procedures Referred By [place] pineda Referred To Contact Diagnoses CKD (chronic kidney disease), stage IV ([facility]) Procedures PTH INTACT Chastity Syed MD 1 [facility] [address] [place] [address] Referral ID Status Reason Start Date Expiration Date V isits Requested Visits Authorized [id number] New Request 07/14/2023 4 4 * Laboratory Services (Routine/Next Available) - New Request Specialty Diagnoses / Procedures Referred By [place] pineda Referred To Contact Diagnoses CKD (chronic kidney disease), stage IV ([facility]) Procedures NEPHROLOGY PROFILE (INCLUDES BUN, CREATININE, CALCULATED GFR, ELECTROLYTES, CALCIUM, PHOSPHORUS, ALBUMIN) Chastity Syed MD [address] [place] [address], [address] [place] [address] Referral ID Status Reason Start Date Expiration Date V isits Requested Visits Authorized [id number] New Request 07/14/2023 6 6 Reason for [...] Contact Info) Description 07/14/2023 15:00 EST Telemedicine [facility] Nephrology - S [address] [id number] Chastity Syed MD [address] [place] [address], [facility] [address] [place] [address] CKD (chronic kidney disease), stage IV ([facility]) (Primary Dx) Social History Tobacco Use Types [...] been seeing a lung doctor - in [place], [place]. He reported that she had Xrays [...] Diagnosis Chronic kidney disease, stage III (moderate) ([facility]) Essential hypertension Proteinuria S/p nephrectomy Microscopic hematuria [...] The CKD Navigator Program - referral completed. BALLPOINT PEN CARTRIDGE TESTER planning - She was reminded of the importance of completing standing lab orders in March 2023. The potential of her needing dialysis was also discussed again today. I don't wanna be on dialysis. But we discussed hemodialysis and the need for AVF planning. [facility] HTN - Follow [...] daily. added in this encounter Care Teams Public Health Social Worker Relationship Specialty Start Date End Date Arabella Laurent NP [address] [place] [phone] PCP - General 07/30/18 documented as of this encounter
--- OUTSIDE RECORDS SUMMARY | 2024-03-03 17:38 | XMS_ITS | Continuity of Care Document ---
Author Organization [facility] Address [address] [place] [address] Care Team Providers Care Electronics Maintenance Technician Name Role Phone IDNY FITZGERALD Primary Care Provider Assessment No assessment recorded. Plan of Treatment Reminders Order Date Submit Date Provider Last Modified By Organization Details Last Modified Time Details Appointments Follow Up 2023 11:30A M Not available Not available Not available Follow Up 2024 11:30A M Not available Not available Not available Lab microalbu min, urine [address], [address] [place] [address], [phone], 12/31/2023 14:22:20 urinalysi s, dipstick [address], [address] [place] [address], [phone], 12/31/2023 14:22:21 BMP, serum or plasma [address] Laboratory (Registration ), [address] [place] [address] [place], [address], 01/05/2024 06:19:31 CBC 2023 024 [facility]UL[facility] (Registration ), [address] [place] [address] [place], [address], 12/31/2023 19:31:45 PTH (parathyr oid hormone), intact, serum or plasma 2023 [facility] Laboratory (Registration ), [address] [place] [address] [place], [address], 01/02/2024 09:02:45 phosphoru s, serum or plasma [email or web address] [address] [place] [address] [place], [address], 01/05/2024 06:19:39 Referral general surgeon referral - REQUESTIN Alfonso EXCISIONA L BX [email or web address] General Surgery, [address] [place] [id number], [place], [address], 03/03/2024 16:15:27 Procedures None recorded. Surgeries None recorded. Imaging None recorded. Medication Orders hydrocodo ne 5 mg-acetam inophen 325 mg tablet 2023 [facility], [address] [place] [address], [place] [address], [place], [address], 12/31/2023 14:23:19 hydrocodo ne 5 mg-acetam inophen 325 mg tablet 2023 [facility], [address] [place] [address], [place], [address], 12/31/2023 14:23:21 Patient TargetsNo targets recorded. Patient InstructionsNo instructions recorded. Reason for Referral Interventional Cardiology Re ferral for Echocardiogram abnormal send echo and last pulmonology note Referring Physician: Indy Fitzgerald, Family Medicine, Encounter Date: 05/01/2023 General Surgeon Referral for Change in skin lesion REQUESTING EXCISIONAL BX Referring Physician: Campos Penn, Family Medicine, Encounter Date: 12/31/2023 Results Created Date Observation Date Name Description Value Unit Range Abnormal Flag Note LastModifiedBy Organization Detail LastModifiedTime 12/31/19 24 12/31/2023 urina lysis , dipst ick Leukocytes Negati ve Not Available [address], [address], 12/31/2023 13:35:45 12/31/19 24 12/31/2023 urina lysis , dipst ick Nitrite negati ve Not Available [address], [address], 12/31/2023 13:35:45 12/31/19 24 12/31/2023 urina lysis , dipst ick Urobilinogen .2 Not Available [address], [address], 12/31/2023 13:35:45 12/31/19 24 12/31/2023 urina lysis , dipst ick Protein 100 Not Available [address], [address], 12/31/2023 13:35:45 12/31/19 24 12/31/2023 urina lysis , dipst ick pH 5.0 Not Available [address], [address], 12/31/2023 13:35:45 12/31/19 24 12/31/2023 urina lysis , dipst ick Blood Non-He molyze d: Modera te Not Available [address], [address], 12/31/2023 13:35:45 12/31/19 24 12/31/2023 urina lysis , dipst ick Specific Shokan 1.025 Not Available [address], [address], 12/31/2023 13:35:45 12/31/19 24 12/31/2023 urina lysis , dipst ick Ketone Negati ve Not Available [facility] [address] [place], [address], 12/31/2023 13:35:45 12/31/19 24 12/31/2023 urina lysis , dipst ick Bilirubin Negati ve Not Available [facility] [address] [place], [address], 12/31/2023 13:35:45 12/31/19 24 12/31/2023 urina lysis , dipst ick Glucose Negati ve Not Available [facility] [address] [place], [address], 12/31/2023 13:35:45 12/31/19 24 12/31/2023 urina lysis , dipst ick Appearance Slight ly Cloudy Not Available [address], [address], 12/31/2023 13:35:45 12/31/19 24 12/31/2023 urina lysis , dipst ick Color Dark Yellow Not Available [facility] [address] [place], [address], 12/31/2023 13:35:45 12/31/19 24 12/31/2023 micro album in, urine microalbumin 50 mg/dL Not Available [facility] [address] [place], [address], 12/31/2023 13:34:32 02/16/20 24 04/05/2019 imagi ng/di agnos tic resul t No observ ation record ed. Not Available 02/15 06:46:49 02/16/20 24 01/11/2021 imagi ng/di agnos tic resul t No observ ation record ed. Not Available 02/15 06:46:49 02/16/20 24 03/26/2022 MAMMO , diagn ostic No observ ation record ed. Not Available 02/15 06:49:17 02/16/20 24 02/15/2019 US, lindsayle x, mansoorou s, carlos marquisy No observ ation record ed. Not Available [...] Name and Address Organization Details Recorded Time [facility] hyperten darion 69887760 Active 2006 Problem Code: I10; Problem Code Type: ICD-10; Not Available [facility] 3 04:31:04 Nicotine dependen ce 00994591 Active 2007 Problem Code: F17.209; Problem Code Type: ICD-10; Not Available [facility] 3 04:31:04 Proteinu tabby 05431655 Active 1991 Problem Code: R80.9; Problem Code Type: ICD-10; Not Available [facility] 3 04:31:05 Pure hypercho lesterol emia 144672050 Active 1993 Problem Code: E78.0; Problem Code Type: ICD-10; Not Available [facility] 3 04:31:05 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 Problem Code: 593.2; Problem Code Type: ICD-9; Not Available [facility] 3 04:31:05 Moderate major depressi on, single episode 13283992 Active 2005 Problem Code: F32.1; Problem Code Type: ICD-10; Not Available [facility] 3 04:31:05 Fibromya lgia 372533672 Active 2008 Problem Code: M79.7; Problem Code Type: ICD-10; Not Available [facility] 3 04:31:05 Fibrocys tic disease of breast 20863900 Active 2010 Problem Code: N60.19; Problem Code Type: ICD-10; Not Available [facility] 3 04:31:05 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 018502851 Active 2012 Problem Code: I24.1; Problem Code Type: ICD-10; Not Available [facility] 3 04:31:05 History of infectio us disease 128011697 Active 2012 Problem Code: Z86.19; Problem Code Type: ICD-10; Not Available [facility] 3 04:31:05 Atypical squamous cells of undeterm ined signific ance on cervical Papanico laou smear 367949360 Active 2013 Problem Code: R87.610; Problem Code Type: ICD-10; Not Available [facility] 3 04:31:06 Chronic pain 99259542 Active 2014 Problem Code: G89.29; Problem Code Type: ICD-10; Not Available [facility] 3 04:31:06 Atherosc lerosis of coronary artery without angina pectoris 96403717036 4103 Active 2014 Problem Code: I25.10; Problem Code Type: ICD-10; Not Available [facility] 3 04:31:06 Gastroes ophageal reflux disease without esophagi tis 494271223 Active 2017 Problem Code: K21.9; Problem Code Type: ICD-10; Not Available [facility] 3 04:31:06 Spondylo lysis of cervical spine 601762900 Active 2017 Problem Code: M43.02; Problem Code Type: ICD-10; Not Available [facility] 3 04:31:06 Peripher al vascular disease 930805209 Active 201812/05/19 21 - Comments only - Indy Fitzgerald SOCIAL WORK SUPERVISOR - [employer] vascular 12/01/20: mild RLE arterial occlusiv e disease, LLE- w/o sig arterial occlusiv e disease. Recommen d: tight control of comorbid ities, smoking cessatio n, ASA, high intensit y statin, walking program Problem Code: I73.9; Problem Code Type: ICD-10; Not Available [facility] 3 04:31:06 Total nephrect franchesca Active 2018 Problem Code: Z90.5; Problem Code Type: ICD-10; Not Available [facility] 3 04:31:06 Neck pain 02676572 Active 2019 Problem Code: M54.2; Problem Code Type: ICD-10; Not Available [facility] 3 04:31:06 Adult health examinat ion Active 2019 Problem Code: Z00.00; Problem Code Type: ICD-10; Not Available [facility] 3 04:31:07 Hyperpar athyroid ism due to renal insuffic iency 27882276 Active 201902/19/20 20 - Comments only - Indy Fitzgerald SOCIAL WORK SUPERVISOR - Mild hyperpar athyroid ism; phosphor us 3.5 in August 2019, PTH was 104, consiste nt with mild secondar y hyperpar athyroid ism recheck in 6 months at [facility] nephrolo gy. Problem Code: N25.81; Problem Code Type: ICD-10; Not Available [facility] 3 04:31:07 Screenin g for cancer Active 2019 Problem Code: Z12.9; Problem Code Type: ICD-10; Not Available [facility] 3 04:31:07 Adjustme nt disorder 07964228 Active 2019 Problem Code: F43.20; Problem Code Type: ICD-10; Not Available [facility] 3 04:31:07 Trochant sujata bursitis of left hip 01504338775 9103 Active 2020 Problem Code: M70.62; Problem Code Type: ICD-10; Not Available [facility] 3 04:31:07 Thoracic arthriti s 5337987 Active 2020 Problem Code: M46.96; Problem Code Type: ICD-10; Not Available [facility] 3 04:31:07 Arterial embolus and thrombos is 187465832 Active 202012/05/19 21 - Comments only - Indy Fitzgerald SOCIAL WORK SUPERVISOR - [facility] vascular 12/02/20: recommen d smoking cessatio n, high intensit y statin, ASA, tight control of comorbid ities, walking program. Problem Code: I74.9; Problem Code Type: ICD-10; Not Available [facility] 3 04:31:07 Pulmonar y emphysem a 33658638 Active 2020 Problem Code: J43.9; Problem Code Type: ICD-10; Not Available [facility] 3 04:31:08 Pain of right shoulder joint 83679014859 491213 Active 2021 Problem Code: M25.511; Problem Code Type: ICD-10; Not Available [facility] 3 04:31:08 Chronic bronchit is 95095052 Completed 200705/06/2019 Problem Code: J42; Problem Code Type: ICD-10; Not Available [facility] 3 04:31:08 Acute upper respirat ory infectio n 26088077 Completed 202006/05/2021 Problem Code: J06.9; Problem Code Type: ICD-10; Not Available [facility] 3 04:31:08 Low back pain 754137360 Completed 202002/26/2023 12/18/19 21 - Comments only - Indy Fitzgerald SOCIAL WORK SUPERVISOR - 0 lumbar plain film show L4-5, L5-S1 moderate low lumbar spinal facet arthropa thy, degenera tive changes. Problem Code: M54.5; Problem Code Type: ICD-10; Not Available [facility] 3 04:31:09 Acute kidney injury 17642136 Completed 201705/06/2019 Problem Code: N17.8; Problem Code Type: ICD-10; Not Available [facility] 3 04:31:09 Dizzines s and giddines s 092177350 Completed 201605/06/2019 Problem Code: R42; Problem Code Type: ICD-10; Not Available [facility] 3 04:31:09 Hyperten sive disorder 44340930 Completed 200602/26/2023 Not Available [facility] 3 04:31:09 Pain in lower limb 87289534 Completed 201802/26/2023 Problem Code: M79.606; Problem Code Type: ICD-10; Not Available [facility] 3 04:31:10 Chronic kidney disease 437231692 Completed 197102/26/2023 08/07/19 19 - Comments only - Indy Fitzgerald SOCIAL WORK SUPERVISOR - 08/03/18; [facility] nephrolo gy; creatini ne improved to 1.56 after disconti nuation of lisinopr il; BMP every 2 months follow-u p 1 year Problem Code: N18.9; Problem Code Type: ICD-10; Not Available [facility] 3 04:31:10 Urinary tract infectio us disease 14908862 Completed 201704/18/2021 Problem Code: N39.0; Problem Code Type: ICD-10; Not Available [facility] 3 04:31:10 Screenin g for disorder Completed 201805/06/2019 Problem Code: Z13.9; Problem Code Type: ICD-10; Not Available [facility] 3 04:31:10 Irritabi lity and anger 442541293 Completed 202201/28/2023 Problem Code: R45.4; Problem Code Type: ICD-10; Not Available [facility] 3 04:31:10 Abnormal weight loss 285115871 Completed 202101/28/2023 Problem Code: R63.4; Problem Code Type: ICD-10; Not Available [facility] 3 04:31:10 Bronchit is 05782471 Completed 200702/26/2023 Not Available [facility] 3 04:31:11 Localize d eruption of skin 753690514 Completed 201902/09/2020 Problem Code: R21; Problem Code Type: ICD-10; Not Available [facility] 3 04:31:11 Screenin g for malignan t neoplasm of colon Completed 201803/17/2019 Problem Code: Z12.11; Problem Code Type: ICD-10; Not Available [facility] 3 04:31:11 Fibromyo sitis 21136183 Completed 200802/26/2023 Not Available [facility] 3 04:31:11 Fatigue 68966782 Completed 201703/17/2019 Problem Code: R53.83; Problem Code Type: ICD-10; Not Available [facility] 3 04:31:12 Cough 40767502 Completed 202201/28/2023 Problem Code: R05.8; Problem Code Type: ICD-10; Not Available [facility] 3 04:31:12 Chronic renal impairme nt Completed 197102/26/2023 Problem Code: 585.9; Problem Code Type: ICD-9; Not Available [facility] 3 04:31:12 Cough 50810759 Completed 201803/17/2019 Problem Code: R05; Problem Code Type: ICD-10; Not Available [facility] 3 04:31:12 Screenin g for disorder Completed 201703/17/2019 Problem Code: Z13.9; Problem Code Type: ICD-10; Not Available [facility] 3 04:31:13 Tobacco dependen ce syndrome 49712152 Completed 200702/26/2023 Problem Code: 305.1; Problem Code Type: ICD-9; Not Available [facility] 3 04:31:13 Chest pain 50738180 Completed 201902/09/2020 Problem Code: R07.9; Problem Code Type: ICD-10; Not Available [facility] 3 04:31:13 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 59456209 Completed 201202/26/2023 Problem Code: 411.0; Problem Code Type: ICD-9; Not Available [facility] 3 04:31:13 Screenin g for malignan t neoplasm of breast Completed 201801/28/2023 Problem Code: Z12.39; Problem Code Type: ICD-10; Not Available [facility] 3 04:31:13 Human papillom avirus deoxyrib onucleic acid detected , high risk on cervical specimen 910046024 Completed 201202/26/2023 Not Available [facility] 3 04:31:14 Otitis externa 0761287 Completed 201610/22/2017 Problem Code: H60.90; Problem Code Type: ICD-10; Not Available [facility] 3 04:31:14 Cough 00743245 Completed 202006/05/2021 Problem Code: R05; Problem Code Type: ICD-10; Not Available [facility] 3 04:31:14 Major depressi ve disorder 721024306 Completed 200502/26/2023 Not Available [facility] 3 04:31:14 Left upper quadrant pain 975597165 Completed 201802/09/2020 Problem Code: R10.12; Problem Code Type: ICD-10; Not Available [facility] 3 04:31:14 Abnormal urine 327552294 Completed 201906/10/2020 Problem Code: R82.90; Problem Code Type: ICD-10; Not Available [facility] 3 04:31:15 Localize d eruption of skin 676910133 Completed 201906/10/2020 Problem Code: R21; Problem Code Type: ICD-10; Not Available [facility] 3 04:31:15 Echocard iogram abnormal 259478075 Active 2022 [facility] 3 11:21:20 Disorder of lung 09029208 Active 2022 Problem Code: J98.4; Problem Code Type: ICD-10; Not Available [facility] 4 05:37:39 Chronic kidney disease stage 4 317183529 Active 03/07/ 202Ping anthony [facility]. 4 08:14:36 Problem Notes None recorded. Medical Equipment None Reported. Allergies Allergen ID Allergen Name Allergen Category Reaction Reaction Severity Criticality Documentation Date Start Date Code Code System Note Provider Name and Address Organization Details Recorded Time 21398 sertralin e medicatio n headache mild Not available 04/11/20232022 33727 RxNorm heada ches Aller gyRea ction : 'head aches '; Not Available [facility] 3 16:22:28 18349 Zantac medicatio n rash mild Not available 04/11/20232007 73970 3 RxNorm rash Aller gyCod e: '4903 71433 72'; Aller gyNam e: 'ZANT AC'; Aller gyCon ceptT ype: 'NDC' ; Not Available [facility] 3 16:22:28 Medications Name Sig [...] completed Not Available Not Available Not Available Sarahi Arthritis Pain 1 % topical gel Apply twice a day 04/04 completed Not Available Not Available Not Available Vitals Date Recorded Body height Body mass index (BMI) Body weight Oxygen saturation Oxygen saturation in Arterial blood by Pulse oximetry Heart rate Systolic blood pressure Diastolic blood pressure Provider Name and Address Organization Details Last Updated DateTime 149.225 cm 22.4 kg/m2 30348.8 6 g 96 % 96 % 70 /min 122 mm[Hg] 62 mm[Hg] GLENROY CLEVELAND LPN [facility] 13:23:52 Social History Question Answer Notes LastModified by Organizat ion Details LastModified Time Tobacco Smoking Status Current Every Day Smoker GLENROY CLEVELAND LPN [facility] 08/04/2023 11:20:50 1) Date Of Last VPMS [...] Other Forms Of Tobacco Or Nicotine? [facility] Information not available 08/04/2023 Sex: Female Functional [...] nupur-sucrose, 30 mcg/0.3 mL 06/03/2023 [facility]03[facility]2023 12:47:08 Influenza, high-dose, trivalent, PF 03/03/[address], [place], [address], [facility] 03/03/2024 12:24:10 Tdap 02/22/2015 completed Not Available [facility] 06:14:29 Novel Opyhcqquu-[id number], all formulations 05/09/2009 completed Not Available [facility] 04/11/2023 06:14:29 Influenza, split virus, trivalent, preservative 02/22/2015 completed Not Available [facility] 04/11/2023 06:14:29 Influenza, split virus, trivalent, preservative 04/02/2016 completed Not Available [facility] 04/11/2023 06:14:29 Influenza, split virus, quadrivalent, PF 02/18/2020 completed Not Available [facility] 04/11/2023 06:14:29 Influenza, split virus, quadrivalent, PF 03/04/2022 completed Not Available [facility] 04/11/2023 06:14:29 Influenza, split virus, quadrivalent, PF 03/17/2019 completed Not Available [facility] 04/11/2023 06:14:30 Influenza, split virus, quadrivalent, PF 05/04/2021 completed Not Available [facility] 04/11/2023 06:14:30 Influenza, split virus, quadrivalent, preservative 02/24/2018 completed Not Available [facility] 04/11/2023 06:14:30 Influenza, split virus, quadrivalent, preservative 05/05/2017 completed Not Available [facility] 04/11/2023 06:14:30 zoster recombinant 01/02/2021 completed Not Available [facility] 04/11/2023 06:14:30 zoster recombinant 02/18/2020 completed Not Available [facility] 04/11/2023 06:14:30 COVID-19, mRNA, LNP-S, PF, 100 mcg/0.5mL dose or 50 mcg/0.25mL dose 08/30/2020 completed Not Available [facility] 04/11/2023 06:14:30 COVID-19, mRNA, LNP-S, PF, 100 mcg/0.5mL dose or 50 mcg/0.25mL dose 09/27/2020 completed Not Available [facility] 04/11/2023 06:14:30 COVID-19, mRNA, LNP-S, PF, 100 mcg/0.5mL dose or 50 mcg/0.25mL dose 04/04/2021 completed Not Available [facility] 04/11/2023 06:14:30 COVID-19, mRNA, LNP-S, bivalent, PF, 30 mcg/0.3 mL dose 03/04/2022 completed Not Available [facility] 04/11/20 06:14:31 pneumococcal polysaccharide PPV23 09/25/2015 completed Not Available [facility] 2022 06:14:31 influenza, unspecified formulation 03/08/2014 completed Not Available [facility] 04/11/2023 06:14:31 Influenza, split virus, quadrivalent, PF 03/31/2023 completed Not Available [facility] 06/13/2023 05:33:27 Past Encounters Encounter ID Performer Location Encounter Start Date Encounter Closed Date Diagnosis/Indication Diagnosis SNOMED-CT Code Diagnosis ICD10 Code [id number] CAMPOS PENN PA-C [address] [place] [address] 12/31/2023 13:12:17 12/31/2023 14:25:02 Chronic kidney disease stage 4 198677529 N18.4 Chronic pain syndrome 37 6620503 G89.4 Essential hypertension 54345022 I10 Coronary arteriosclerosis 87933835 I25.10 Insomnia 050029151 G47.0 0 Change in skin lesion 39 6275085 L98.9 Health Concerns Section Related Observation LastModified by Organization Detai ls LastModified Time None Recorded Concern Status LastModified by Organization Details LastModified Time None Recorded Payers Encounter Date Sequence Insurance Name Policy Number Policy James Covered Member ID James Member ID Guarantor Name 12/31/2023 2 [facility] (MEDICAID) Addie Barnett [id number] Addie Barnett 12/31/2023 1 [place] [employer] Addie Barnett [id number] Addie Barnett Notes Date Note Type Note Provider Name and Address Organization Details Recorded Time 12/31/2023 text/html HPI Notes: 63y/o female presenting for f/u CKD, chronic pain, HTN, pulmonary emphysema, and HPL. [address], [place], [address], [facility]. 12/31/2023 14:22:46 OBGyn Episode No OBEpisode recorded.
--- OUTSIDE RECORDS SUMMARY | 2024-03-03 17:38 | XMS_ITS | Encounter Summary ---
Author Organization [facility] Address [address] [place] [address] Care Team Providers Care Precinct Commanding Officer Name Role Phone Anastasiia Arabella Giron [employer] SPECIALIST Primary Care Provider Encounter Details Date Type Department Care Team (Late st Contact Info) Description 01/05/2024 Abstract [facility] Nephrology - [address] [address] Chastity Syed MD [address] [place] [address], [address] [place] [id number] Social History Tobacco Use Types Packs/Day Years [...] Associated Diagnosis Comments COMPLETE BLOOD COUNT Routine 12/31/2023 14:05 EDT PHOSPHORUS Routine 12/31/2023 14:05 EDT BASIC METABOLIC PANEL (BMP) Routine 12/31/2023 14:05 EDT documented in this encounter Results * PHOSPHORUS (12/31/2023 14:05 EDT) Phosphorus, External 3.3 LAB Blood VENOUS BLOOD / Unknown 12/31/2023 14:05 EDT Historical Provider MD CHEMISTRY & BLOOD GAS ORDERABLES Performing Organization Address City/[facility]/ZIP Co de Phone Number LAB * BASIC METABOLIC PANEL (BMP) (12/31/2023 14:05 EDT) GFR, Calculated, External 25.67 LAB Glucose, Serum, External 151 mg/dL LAB Calculated Calcium, External LAB BUN, External 32 mg/dL [facility] Calcium, External 9.2 mg/dL LAB Chloride, External 109 mmol/L LAB CO2, External 23.8 mmol/L [facility] Creatinine, External 2.1 mg/dL LAB Fasting?, External LAB Potassium, External 4.4 mmol/L LAB Sodium, External 144 mmol/L LAB Blood VENOUS BLOOD / Unknown 12/31/2023 14:05 EDT Historical Provider MD CHEMISTRY & BLOOD GAS ORDERABLES LAB * COMPLETE BLOOD COUNT (12/31/2023 14:05 EDT) HCT, External 43.5 [facility] MCH, External 33.7 g/dL [facility] MCV, External 101 [facility] MCHC, External 33.3 g/dL [facility] Hemoglobin, External 14.5 % LAB WBC, External 8.91 [facility] RBC, External 4.30 [facility] PLT, External 180 [facility] RDW-CV, External 13.0 LAB Blood VENOUS BLOOD / Unknown 12/31/2023 14:05 EDT Historical Provider HEMATOLOGY & PF4 ORDERABLES LAB documented in this encounter Visit Diagnoses Not on filedocumented in this encounter Care Teams Precinct Commanding Officer Relationship Specialty Start Date End Date Arabella Laurent NP [address] [place] [address] PCP - General 07/30/18 documented as of this encounter
--- OUTSIDE RECORDS SUMMARY | 2024-03-03 17:38 | XMS_ITS | Continuity of Care Document ---
Author Organization [facility] Address [address] [place] [address] Care Team Providers Care Shipping Manager Name Role Phone INDY FITZGERALD Primary Care Provider [phone] Assessment No assessment recorded. Plan of Treatment Reminders Order Date Submit Date Provider Last Modified By Organization Details Last Modified Time Details Appointments Follow Up 2023 11:30A M Not available Not available Not available Follow Up 2024 11:30A M Not available Not available Not available Lab BMP, serum or plasma [email or web address] [facility] (Registration ), [address] [place] [address] [place], [address], 03/03/2024 16:14:07 uric acid, serum or plasma [email or web address] [facility] (Registration ), [address] [place] [address] [place], [address], 03/03/2024 16:14:15 Referral None recorded. Procedures None recorded. Surgeries None recorded. Imaging None recorded. Medication Orders hydrocodo ne 5 mg-acetam inophen 325 mg tablet 2023 [facility], [address] [place] [address], [address], 03/03/2024 12:36:31 hydrocodo ne 5 mg-acetam inophen 325 mg tablet 2023 [facility], [address] [place] [address], [place], [address], 03/03/2024 12:36:33 Ventolin HFA 90 mcg/actua tion aerosol inhaler 2023 024 [facility], [address] [facility], [address], [place], [address], 03/03/2024 12:36:30 Patient TargetsNo targets recorded. Patient InstructionsNo instructions [...] Abnormal Flag Note LastModifiedBy Organization Detail LastModifiedTime 02/16/2004/05/2019 imagi ng/di agnos tic resul t No observ ation record ed. Not Available 02/15 06:46:49 02/16/2001/11/2021 imagi ng/di agnos tic resul t No observ ation record ed. Not Available 02/15 06:46:49 02/16/20 24 03/26/2022 MAMMO , diagn ostic No observ ation record ed. Not Available 02/15 06:49:17 02/16/2002/15/2019 vaughn REILLY venou s, carlos choy No observ ation record ed. Not Available 02/15 06:49:18 02/16/20 24 09/07/2018 MAMMO shielae cleo No observ ation record ed. 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 Active 1991 Problem Code: R80.9; Problem Code Type: ICD-10; Not Available [facility] 3 04:31:05 Pure hypercho lesterol emia 598389163 Active 1993 Problem Code: E78.0; Problem Code Type: ICD-10; Not Available [facility] 3 04:31:05 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 Problem Code: 593.2; Problem Code Type: ICD-9; Not Available [facility] 3 04:31:05 Moderate major depressi on, single episode 61332102 Active 2005 Problem Code: F32.1; Problem Code Type: ICD-10; Not Available [facility] 3 04:31:05 Fibromya lgia 650905478 Active 2008 Problem Code: M79.7; Problem Code Type: ICD-10; Not Available [facility] 3 04:31:05 Fibrocys tic disease of breast 11329787 Active 2010 Problem Code: N60.19; Problem Code Type: ICD-10; Not Available [facility] 3 04:31:05 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 421310241 Active 2012 Problem Code: I24.1; Problem Code Type: ICD-10; Not Available [facility] 3 04:31:05 History of infectio us disease 398209576 Active 2012 Problem Code: Z86.19; Problem Code Type: ICD-10; Not Available [facility] 3 04:31:05 Atypical squamous cells of undeterm ined signific ance on cervical Papanico laou smear 181913933 Active 2013 Problem Code: R87.610; Problem Code Type: ICD-10; Not Available [facility] 3 04:31:06 Chronic pain 34032856 Active 2014 Problem Code: G89.29; Problem Code Type: ICD-10; Not Available [facility] 3 04:31:06 Atherosc lerosis of coronary artery without angina pectoris 65477188033 4103 Active 2014 Problem Code: I25.10; Problem Code Type: ICD-10; Not Available [facility] 3 04:31:06 Gastroes ophageal reflux disease without esophagi tis 879627179 Active 2017 Problem Code: K21.9; Problem Code Type: ICD-10; Not Available [facility] 3 04:31:06 Spondylo lysis of cervical spine 929009464 Active 2017 Problem Code: M43.02; Problem Code Type: ICD-10; Not Available [facility] 3 04:31:06 Peripher al vascular disease 774553316 Active 201812/05/19 21 - Comments only - Indy Fitzgerald - [facility] vascular 12/01/20: mild RLE arterial occlusiv e disease, LLE- w/o sig arterial occlusiv e disease. Recommen d: tight control of comorbid ities, smoking cessatio n, ASA, high intensit y statin, walking program Problem Code: I73.9; Problem Code Type: ICD-10; Not Available [facility] 3 04:31:06 Total nephrect franchesca Active 2018 Problem Code: Z90.5; Problem Code Type: ICD-10; Not Available [facility] 3 04:31:06 Neck pain 46634305 Active 2019 Problem Code: M54.2; Problem Code Type: ICD-10; Not Available [facility] 3 04:31:06 Adult health examinat ion Active 2019 Problem Code: Z00.00; Problem Code Type: ICD-10; Not Available [facility] 3 04:31:07 Hyperpar athyroid ism due to renal insuffic iency 78818573 Active 201902/19/20 20 - Comments only - Indy Fitzgerald STOCK ROOM MANAGER - Mild hyperpar athyroid ism; phosphor us 3.5 in August 2019, PTH was 104, consiste nt with mild secondar y hyperpar athyroid ism recheck in 6 months at [facility] nephrolo gy. Problem Code: N25.81; Problem Code Type: ICD-10; Not Available [facility] 3 04:31:07 Screenin g for cancer Active 2019 Problem Code: Z12.9; Problem Code Type: ICD-10; Not Available [facility] 3 04:31:07 Adjustme nt disorder 10796271 Active 2019 Problem Code: F43.20; Problem Code Type: ICD-10; Not Available [facility] 3 04:31:07 Trochant sujata bursitis of left hip 03980641484 9103 Active 2020 Problem Code: M70.62; Problem Code Type: ICD-10; Not Available [facility] 3 04:31:07 Thoracic arthriti s 1004524 Active 2020 Problem Code: M46.96; Problem Code Type: ICD-10; Not Available [facility] 3 04:31:07 Arterial embolus and thrombos is 615925972 Active 202012/05/19 21 - Comments only - Indy Fitzgerald STOCK ROOM MANAGER - [facility] vascular 12/02/20: recommen d smoking cessatio n, high intensit y statin, ASA, tight control of comorbid ities, walking program. Problem Code: I74.9; Problem Code Type: ICD-10; Not Available [facility] 3 04:31:07 Pulmonar y emphysem a 05973733 Active 2020 Problem Code: J43.9; Problem Code Type: ICD-10; Not Available [facility] 3 04:31:08 Pain of right shoulder joint 02720325818 428517 Active 2021 Problem Code: M25.511; Problem Code Type: ICD-10; Not Available [facility] 3 04:31:08 Chronic bronchit is 45845113 Completed 200705/06/2019 Problem Code: J42; Problem Code Type: ICD-10; Not Available [facility] 3 04:31:08 Acute upper respirat ory infectio n 15329779 Completed 202006/05/2021 Problem Code: J06.9; Problem Code Type: ICD-10; Not Available [facility] 3 04:31:08 Low back pain 338965734 Completed 202002/26/2023 12/18/19 21 - Comments only - Indy Fitzgerald STOCK ROOM MANAGER - 0 lumbar plain film show L4-5, L5-S1 moderate low lumbar spinal facet arthropa thy, degenera tive changes. Problem Code: M54.5; Problem Code Type: ICD-10; Not Available [facility] 3 04:31:09 Acute kidney injury 55260670 Completed 201705/06/2019 Problem Code: N17.8; Problem Code Type: ICD-10; Not Available [facility] 3 04:31:09 Dizzines s and giddines s 292453506 Completed 201605/06/2019 Problem Code: R42; Problem Code Type: ICD-10; Not Available [facility] 3 04:31:09 Hyperten sive disorder 52902021 Completed 200602/26/2023 Not Available [facility] 3 04:31:09 Pain in lower limb 44090574 Completed 201802/26/2023 Problem Code: M79.606; Problem Code Type: ICD-10; Not Available [facility] 3 04:31:10 Chronic kidney disease 974154298 Completed 197102/26/2023 08/07/19 19 - Comments only - Indy Fitzgerald STOCK ROOM MANAGER - 08/03/18; [facility] nephrolo gy; creatini ne improved to 1.56 after disconti nuation of lisinopr il; BMP every 2 months follow-u p 1 year Problem Code: N18.9; Problem Code Type: ICD-10; Not Available [facility] 3 04:31:10 Urinary tract infectio us disease 34954803 Completed 201704/18/2021 Problem Code: N39.0; Problem Code Type: ICD-10; Not Available [facility] 3 04:31:10 Screenin g for disorder Completed 201805/06/2019 Problem Code: Z13.9; Problem Code Type: ICD-10; Not Available [facility] 3 04:31:10 Irritabi lity and anger 616814566 Completed 202201/28/2023 Problem Code: R45.4; Problem Code Type: ICD-10; Not Available [facility] 3 04:31:10 Abnormal weight loss 717671855 Completed 202101/28/2023 Problem Code: R63.4; Problem Code Type: ICD-10; Not Available [facility] 3 04:31:10 Bronchit is 97989907 Completed 200702/26/2023 Not Available [facility] 3 04:31:11 Localize d eruption of skin 507981479 Completed 201902/09/2020 Problem Code: R21; Problem Code Type: ICD-10; Not Available [facility] 3 04:31:11 Screenin g for malignan t neoplasm of colon Completed 201803/17/2019 Problem Code: Z12.11; Problem Code Type: ICD-10; Not Available [facility] 3 04:31:11 Fibromyo sitis 54625729 Completed 200802/26/2023 Not Available [facility] 3 04:31:11 Fatigue 91850664 Completed 201703/17/2019 Problem Code: R53.83; Problem Code Type: ICD-10; Not Available [facility] 3 04:31:12 Cough 07213270 Completed 202201/28/2023 Problem Code: R05.8; Problem Code Type: ICD-10; Not Available [facility] 3 04:31:12 Chronic renal impairme nt Completed 197102/26/2023 Problem Code: 585.9; Problem Code Type: ICD-9; Not Available [facility] 3 04:31:12 Cough 90178062 Completed 201803/17/2019 Problem Code: R05; Problem Code Type: ICD-10; Not Available [facility] 3 04:31:12 Screenin g for disorder Completed 201703/17/2019 Problem Code: Z13.9; Problem Code Type: ICD-10; Not Available [facility] 3 04:31:13 Tobacco dependen ce syndrome 47236218 Completed 200702/26/2023 Problem Code: 305.1; Problem Code Type: ICD-9; Not Available [facility] 3 04:31:13 Chest pain 60711559 Completed 201902/09/2020 Problem Code: R07.9; Problem Code Type: ICD-10; Not Available [facility] 3 04:31:13 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 81848735 Completed 201202/26/2023 Problem Code: 411.0; Problem Code Type: ICD-9; Not Available [facility] 3 04:31:13 Screenin g for malignan t neoplasm of breast Completed 201801/28/2023 Problem Code: Z12.39; Problem Code Type: ICD-10; Not Available [facility] 3 04:31:13 Human papillom avirus deoxyrib onucleic acid detected , high risk on cervical specimen 995292318 Completed 201202/26/2023 Not Available [facility] 3 04:31:14 Otitis externa 0678023 Completed 201610/22/2017 Problem Code: H60.90; Problem Code Type: ICD-10; Not Available [facility] 3 04:31:14 Cough 68681920 Completed 202006/05/2021 Problem Code: R05; Problem Code Type: ICD-10; Not Available [facility] 3 04:31:14 Major depressi ve disorder 287672447 Completed 200502/26/2023 Not Available [facility] 3 04:31:14 Left upper quadrant pain 000679954 Completed 201802/09/2020 Problem Code: R10.12; Problem Code Type: ICD-10; Not Available [facility] 3 04:31:14 Abnormal urine 223130895 Completed 201906/10/2020 Problem Code: R82.90; Problem Code Type: ICD-10; Not Available [facility] 3 04:31:15 Localize d eruption of skin 687208004 Completed 201906/10/2020 Problem Code: R21; Problem Code Type: ICD-10; Not Available [facility] 3 04:31:15 Echocard iogram abnormal 320600271 Active 2022 [facility] 3 11:21:20 Disorder of lung 64498695 Active 2022 Problem Code: J98.4; Problem Code Type: ICD-10; Not Available [facility] 4 05:37:39 Chronic kidney disease stage 4 550298301 Active 2023 [facility] 4 08:14:36 Problem Notes None recorded. Medical Equipment None Reported. Allergies Allergen ID Allergen Name Allergen Category Reaction Reaction Severity Criticality Documentation Date Start Date Code Code System Note Provider Name and Address Organization Details Recorded Time 63440 sertralin e medicatio n headache mild Not available 04/11/20232022 69960 RxNorm heada ches Aller gyRea ction : 'head aches '; Not Available [facility] 3 16:22:28 17185 Zantac medicatio n rash mild Not available 04/11/20232007 09212 3 RxNorm rash Aller gyCod e: '4903 42572 72'; Aller gyNam e: 'ZANT AC'; Aller gyCon ceptT ype: 'NDC' ; Not Available [facility] 3 16:22:28 Medications Name Sig Start Date [...] Updated DateTime 4 149.225 cm 22.9 kg/m2 94079.1 5 g 68 /min 118 mm[Hg] 62 mm[Hg] GLENROY [place] LPN [facility] 11:34:58 Social History Question Answer Notes LastModified by Organizat ion Details LastModified Time Tobacco Smoking Status Current Every Day Smoker [place] MERA, [facility] 08/04/2023 11:20:50 1) Date Of Last VPMS [...] nupur-sucrose, 30 mcg/0.3 mL 06/03/2023 completed [facility] 06/03/2023 12:47:08 Influenza, high-dose, trivalent, PF 03/03/2024 completed CAMPOS PENN PA-C [facility] [address], [place], [address], [facility] 03/03/2024 12:24:10 Tdap 02/22/2015 completed Not Available [facility] 06:14:29 Novel Ehdrhlbfp-J5S4-70, all formulations 05/09/2009 completed Not Available [facility] 04/11/2023 06:14:29 Influenza, split virus, trivalent, preservative 02/22/2015 completed Not Available [facility] 04/11/2023 06:14:29 Influenza, split virus, trivalent, preservative 04/02/2016 completed Not Available [facility] 04/11/2023 06:14:29 Influenza, split virus, quadrivalent, PF 02/18/2020 completed Not Available [facility] 04/11/2023 06:14:29 Influenza, split virus, quadrivalent, PF 03/04/2022 completed Not Available [facility] 04/11/2023 06:14:29 Influenza, split virus, quadrivalent, PF 03/17/2019 completed Not Available [facility] 04/11/2023 06:14:30 Influenza, split virus, quadrivalent, PF 05/04/2021 completed Not Available [facility] 04/11/2023 06:14:30 Influenza, split virus, quadrivalent, preservative 02/24/2018 completed Not Available [facility] 04/11/2023 06:14:30 Influenza, split virus, quadrivalent, preservative 05/05/2017 completed Not Available [facility] 04/11/2023 06:14:30 zoster recombinant 01/02/2021 completed Not Available [facility] 04/11/2023 06:14:30 zoster recombinant 02/18/2020 completed Not Available [facility] 04/11/2023 06:14:30 COVID-19, mRNA, LNP-S, PF, 100 mcg/0.5mL dose or 50 mcg/0.25mL dose 08/30/2020 completed Not Available [facility] 04/11/2023 06:14:30 COVID-19, mRNA, LNP-S, PF, 100 mcg/0.5mL dose or 50 mcg/0.25mL dose 09/27/2020 completed Not Available [facility] 04/11/2023 06:14:30 COVID-19, mRNA, LNP-S, PF, 100 mcg/0.5mL dose or 50 mcg/0.25mL dose 04/04/2021 completed Not Available [facility] 04/11/2023 06:14:30 COVID-19, mRNA, LNP-S, bivalent, PF, 30 mcg/0.3 mL dose 03/04/2022 completed Not Available [facility] 04/11/20 06:14:31 pneumococcal polysaccharide PPV23 09/25/2015 completed Not Available [facility] 2022 06:14:31 influenza, unspecified formulation 03/08/2014 completed Not Available [facility] 04/11/2023 06:14:31 Influenza, split virus, quadrivalent, PF 03/31/2023 completed Not Available [facility] 06/13/2023 05:33:27 Past Encounters Encounter ID Performer Location Encounter Start Date Encounter Closed Date Diagnosis/Indication Diagnosis SNOMED-CT Code Diagnosis ICD10 Code [id number] CAMPOS PENN PA-C [address] [address] 03/03/2024 11:19:13 03/03/2024 12:17:23 Chronic kidney disease stage 4 168156568 N18.4 Chronic pain syndrome 37 4422626 G89.4 Essential hypertension 92026363 I10 Coronary arteriosclerosis 43326820 I25.10 Insomnia 071419037 G47.0 0 Chronic ob structive pulmonary disease 69735548 J44.9 Active or passive immunization 127017293 Z23 Health Concerns Section Related Observation LastModified by Organization Detai ls LastModified Time None Recorded Concern Status LastModified by Organization Details LastModified Time None Recorded Payers Encounter Date Sequence Insurance Name Policy Number Policy James Covered Member ID James Member ID Guarantor Name 03/03/[address] [facility] (MEDICAID) Addie Gonzalez Ericka [id number] Addie Barnett 03/03/2024 1 [place] [employer] Addie Lisa Garciacamelia [id number] Addie Barnett Notes Date Note Type Note Provider Name and Address Organization Details Recorded Time 03/03/2024 text/html HPI Notes: 63y/o female presenting for 3m f/u CKD, chronic pain, HTN, pulmonary emphysema, and HPL. [address], [place], [address], [facility]. 03/03/2024 12:24:37 OBGyn Episode No OBEpisode recorded.
--- OUTSIDE RECORDS SUMMARY | 2024-03-03 17:38 | XMS_ITS | Encounter Summary ---
Author Organization [facility] Address [address] [place] [address] Care Team Providers Care Dust Puller Name Role Phone Arabella Laurent EXECUTIVE KITCHEN MANAGER Primary Care Provider [phone] Encounter Details Date Type Department Care Team (Late st Contact Info) Description 06/04/2023 Abstract [facility] Nephrology - [address] [address] Chastity Syed MD [address] [place] [address], Level 2 [place] [phone] CKD (chronic kidney disease), stage IV ([facility]) (Primary Dx) Social History Tobacco [...] EST CKD (chronic kidney disease), stage IV ([facility]) PHOSPHORUS Routine 06/03/2023 11:05 EST COMPREHENSIVE METABOLIC PANEL (CMP) Routine 06/03/2023 11:05 EST documented in this encounter Results * PHOSPHORUS (06/03/2023 11:05 EST) Phosphorus, External 3.8 [facility] Blood VENOUS BLOOD / Unknown 06/03/2023 11:05 EST Historical Provider CHEMISTRY & BLOOD GAS ORDERABLES [facility] * COMPREHENSIVE METABOLIC PANEL (CMP) (06/03/2023 11:05 EST) GFR, Calculated, External 24.42 [facility] Glucose, Serum, External 99 mg/dL [facility] Albumin, External 3.7 g/dL [facility] Total Alkaline Phosphatase, External 93 [facility] ALT, External 21 [facility] AST, External 17 U/L [facility] BUN, External 35 mg/dL [facility] Calculated Calcium, External [facility] Calcium, External 9.4 mg/dL [facility] Chloride, External 106 mmol/L [facility] CO2, External 24.0 mmol/L [facility] Creatinine, External 2.2 mg/dL [facility] Fasting?, External [facility] Potassium, External 4.8 mmol/L [facility] Sodium, External 141 mmol/L [facility] Total Protein, External 6.8 [facility] Bilirubin, Total, External 0.5 [facility] Blood VENOUS BLOOD / Unknown 06/03/2023 11:05 EST Historical Provider CHEMISTRY & BLOOD GAS ORDERABLES Performing Organization Address City/[facility]/ZIP Co de Phone Number [facility] * VITAMIN D (25,OH) (06/03/2023 11:05 EST) 25OH Vitamin D Tot, External 36.8 [facility] Blood VENOUS BLOOD / Unknown 06/03/2023 11:05 EST Historical Provider CHEMISTRY & BLOOD GAS ORDERABLES Performing Organization Address [facility] Co de Phone Number [facility] * COMPLETE BLOOD COUNT (06/03/2023 11:05 EST) HCT, External 42.9 [facility] MCH, External 32.8 g/dL [facility] MCV, External 99 [facility] MCHC, External 33.1 g/dL [facility] Hemoglobin, External 14.2 % [facility] WBC, External 6.13 [facility] RBC, External 4.33 [facility] PLT, External 194 [facility] RDW-CV, External 12.4 [facility] Blood VENOUS BLOOD / Unknown 06/03/2023 11:05 EST Chastity Syed MD HEMATOLOGY & PF4 ORD ERABLES Performing Organization Address City/[facility]/ZIP Co de Phone Number [facility] documented in this encounter Visit Diagnoses Diagnosis CKD (chronic kidney disease), stage IV ([facility] Primary Chronic kidney disease, Stage IV (severe) documented in this encounter Care Teams Dust Puller Relationship Specialty Start Date End Date Arabella Laurent EXECUTIVE KITCHEN MANAGER [address] [place] [phone] PCP - General 07/30/18 documented as of this encounter
--- OUTSIDE RECORDS SUMMARY | 2024-03-03 17:38 | XMS_ITS | Encounter Summary ---
Author Organization [facility] Address [address] [place] [address] Care Team Providers Care [employer] Caretaker Name Role Phone Anastasiia Arabella Giron COMMERCIAL PLUMBER Primary Care Provider [phone] Encounter Details Date Type Department Care Team (Late st Contact Info) Description 01/01/2024 Lab Requisition [facility] Pathology & Laboratory Medicine - [address] [address] Outr Resulting Lab, Provider Social History Tobacco [...] Comments PTH INTACT Routine 12/31/2023 14:05 EDT documented in this encounter Results * PTH INTACT (12/31/2023 14:05 EDT) Intact PTH 79 19 - 88 pg/mL 01/01/2024 20:54 EDT [facility] Blood VENOUS BLOOD / Unknown 12/31/2023 14:05 EDT 01/01/2024 20:07 EDT Provider Outr Resulting Lab CHEMISTRY & BLOOD GAS ORDERABLES Performing Organization Address City/State/[facility] Co de Phone Number [facility] [address] [place] [address] documented in this encounter Visit Diagnoses Not on filedocumented in this encounter Care Teams [employer] Caretaker Relationship Specialty Start Date End Date Arabella Laurent NP [address] [place] [address] PCP - General 07/30/18 documented as of this encounter
--- OUTSIDE RECORDS SUMMARY | 2024-03-03 17:38 | XMS_ITS | Encounter Summary ---
Author Organization [facility] Address [address] [place] [address] Care Team Providers Care Lang Interpreter Name Role Phone Arabella Laurent MINE CAR MECHANIC Primary Care Provider [phone] Reason for Visit * Reason Onset Date Comments Follow-up 03/13/2023 Encounter Details Date Type Department Care Team (Late st Contact Info) Description 03/13/2023 Telephone [facility] Home Dialysis Training & Support [address] [place] [address] Chastity Syed MD [address] [facility], Level 2 [place] [address] Follow-up Social History Tobacco Use [...] Encounter - Chastity Syed MD - 03/13/2023 7829 EDT New labs from 01/28/23 - Creatinine was 2.0 close to baseline. Continue repeat standing orders from last visit. documented in this encounter Plan of Treatment Not on file documented as of this encounter Visit Diagnoses Not on filedocumented in this encounter Care Teams Lang Interpreter Relationship Specialty Start Date End Date Arabella Laurent NP [address] [place] [phone] PCP - General 07/30/18 documented as of this encounter
--- OUTSIDE RECORDS SUMMARY | 2024-03-03 17:38 | XMS_ITS | Clinical Summary ---
Author Organization [facility] Address [address] [place] [address] Care Team Providers Care Spring Internship Name Role Phone Arabella Laurent SOLID WASTE COLLECTOR Primary Care Provider [phone] Allergies Active Allergy Reactions Criticality Noted Date [...] Chronic kidney disease, stage III (moderate) ( [facility]) 02/05/2012 Essential hypertension 02/05/2012 Overview: ICD10 Update Auto Replacement Encounters Date Type Department Care Team Description 01/05/2024 Abstract [facility] Nephrology - [address] [place] [address] [place] [address] Chastity Syed MD 01/01/2024 Lab Requisition [facility] Pathology & Laboratory Medicine - [address] [address] Outr Resulting Lab, Provider from Last 3 Months Family History Medical History Relation Comments Kidney [...] Last Done Comments Hepatitis C Screen 1960 RSV Immunization ( o r 60+ Years) (1 - 1-dose 60+ series) 2018 COVID-19 Vaccine ( - 2022- season) 2023 Fall Risk Screening 12/24/2023 Procedures Procedure Name Priority Date/Time Associated Diagnosis Comments PTH INTACT Routine 12/31/2023 14:05 EDT PHOSPHORUS Routine 12/31/2023 14:05 EDT BASIC METABOLIC PANEL (BMP) Routine 12/31/2023 14:05 EDT COMPLETE BLOOD COUNT Routine 12/31/2023 14:05 EDT from Last 3 Months Results * PTH INTACT (12/31/2023 14:05 EDT) Intact PTH 79 19 - 88 pg/mL 01/01/2024 20:[address] [facility] Blood VENOUS BLOOD / Unknown 12/31/2023 14:05 EDT 01/01/2024 20:07 EDT Provider Outr Resulting Lab CHEMISTRY & BLOOD GAS ORDERABLES [facility] [address] [place] [id number] * COMPLETE BLOOD COUNT (12/31/2023 14:05 EDT) HCT, External 43.5 [facility] MCH, External 33.7 g/dL [facility] MCV, External 101 [facility] MCHC, External 33.3 g/dL [facility] Hemoglobin, External 14.5 % [facility] WBC, External 8.91 [facility] RBC, External 4.30 [facility] PLT, External 180 [facility] RDW-CV, External 13.0 [facility] Blood VENOUS BLOOD / Unknown 12/31/2023 14:05 EDT Historical Provider MD HEMATOLOGY & PF4 ORDERABLES [facility] * PHOSPHORUS (12/31/2023 14:05 EDT) Phosphorus, External 3.3 [facility] Blood VENOUS BLOOD / Unknown 12/31/2023 14:05 EDT Historical Provider CHEMISTRY & BLOOD GAS ORDERABLES [facility] * BASIC METABOLIC PANEL (BMP) (12/31/2023 14:05 EDT) GFR, Calculated, External 25.67 [facility] Glucose, Serum, External 151 mg/dL [facility] Calculated Calcium, External [facility] BUN, External 32 mg/dL [facility] Calcium, External 9.2 mg/dL [facility] Chloride, External 109 mmol/L [facility] CO2, External 23.8 mmol/L [facility] Creatinine, External 2.1 mg/dL [facility] Fasting?, External [facility] Potassium, External 4.4 mmol/L [facility] Sodium, External 144 mmol/L [facility] Blood VENOUS BLOOD / Unknown 12/31/2023 14:05 EDT Historical Provider CHEMISTRY & BLOOD GAS ORDERABLES Performing Organization Address City/[facility] Co de Phone Number [facility] from Last 3 Months Care Teams Spring Internship Relationship Specialty Start Date End Date Arabella Laurent NP [address] [place] [phone] PCP - General 07/30/18
--- OUTSIDE RECORDS SUMMARY | 2024-03-03 17:39 | XMS_ITS | Encounter Summary ---
Author Organization [facility] Address [address] [place] [address] Care Team Providers Care Back Maker Name Role Phone Laurence Krause Primary Care Provider + Encounter Details Date Type Department Care Team (Late st Contact Info) Description 06/17/2018 Abstract [facility] Nephrology - S [address] [id number] Chastity Syed MD [address] [place] [address], Level 2 [place] [phone] Social History Tobacco Use Types Packs/Day Years [...] PANEL (BMP) (02/24/2018) GFR, Calculated, External 29.56 [facility] Glucose, Serum, External 119 [facility] Calculated Calcium, External [facility] BUN, External 27 [facility] Calcium, External 9.0 [facility] Chloride, External 106 [facility] CO2, External 25.7 [facility] Creatinine, External 1.76 [facility] Fasting?, External [facility] Potassium, External 4.1 [facility] Sodium, External 142 [facility] Blood specimen (specimen) 02/24/2018 Historical Provider CHEMISTRY & BLOOD GAS ORDERABLES [facility] * BASIC METABOLIC PANEL (BMP) (12/24/2017) GFR, Calculated, External 33.47 [facility] Glucose, Serum, External 95 [facility] Calculated Calcium, External [facility] BUN, External 25 [facility] Calcium, External 9.6 [facility] Chloride, External 107 [facility] CO2, External 24.4 [facility] Creatinine, External 1.58 [facility] Fasting?, External [facility] Potassium, External 5.0 [facility] Sodium, External 141 [facility] Blood specimen (specimen) 12/24/2017 Historical Provider CHEMISTRY & BLOOD GAS ORDERABLES [facility] * COMPLETE BLOOD COUNT (12/24/2017) Pathologist [facility] HCT, External 42.5 [facility] MCH, External 35.0 [facility] MCV, External 99.3 [facility] MCHC, External [facility] Hemoglobin, External 15.0 [facility] WBC, External 7.06 [facility] RBC, External 4.28 [facility] PLT, External 181 [facility] RDW-CV, External 13.0 [facility] Blood specimen (specimen) 12/24/2017 Historical Provider HEMATOLOGY & PF4 ORDERABLES [facility] documented in this encounter Visit Diagnoses Not on filedocumented in this encounter Care Teams Back Maker Relationship Specialty Start Date End Date aLurence Krause PA [address] [place] [address] PCP - General 09/12/17 07/29/18 documented as of this encounter
--- OUTSIDE RECORDS SUMMARY | 2024-03-03 17:39 | XMS_ITS | Encounter Summary ---
Author Organization [facility] Address [address] [place] [address] Care Team Providers Care Software Configuration Manager Name Role Phone Arabella Laurent SCHOOL PRINCIPAL Primary Care Provider [phone] Encounter Details Date Type Department Care Team (Late st Contact Info) Description 07/18/2020 Abstract [facility] Nephrology - S [address] [id number] Chastity Syed MD [address] [place] [address], Level [address] [place] [phone] Social History Tobacco Use Types Packs/Day Years [...] PANEL (BMP) (07/13/2020) GFR, Calculated, External 28.60 [facility] Glucose, Serum, External 111 [facility] Calculated Calcium, External [facility] BUN, External 23 [facility] Calcium, External 9.4 [facility] Chloride, External 105 [facility] CO2, External 27.0 [facility] Creatinine, External 1.8 [facility] Fasting?, External [facility] Potassium, External 4.6 [facility] Sodium, External 139 [facility] Blood VENOUS BLOOD / Unknown 07/13/2020 Historical Provider CHEMISTRY & BLOOD GAS ORDERABLES [facility] documented in this encounter Visit Diagnoses Not on filedocumented in this encounter Care Teams Software Configuration Manager Relationship Specialty Start Date End Date Arabella Laurent NP [address] [place] [address] PCP - General 07/30/18 documented as of this encounter
--- OUTSIDE RECORDS SUMMARY | 2024-03-03 17:39 | XMS_ITS | Encounter Summary ---
Author Organization [facility] Address [address] [place] [address] Care Team Providers Care Real Estate Intern Name Role Phone Arabella Laurent LIEUTENANT FIREFIGHTER Primary Care Provider [phone] Reason for Visit * Reason Comments Chronic [...] (chronic kidney disease), stage IV ([facility]) Secondary renal hyperparathyroidism ([facility]) Chastity Syed MD [address] [place] [address], Level [address] [place] [address] [facility] [address] [place] [address] Referral ID Status Reason Start Date Expiration Date Visits Requested Visits Authorized [id number] Order Cancelled Specialty Services Required 1 1 1 Encounter Details Date Type Department Care Team (Late st Contact Info) Description 03/12/2022 9:00 EDT Telemedicine [facility] Nephrology - S [address] [address] Chastity Syed MD [facility], Level [address] [place] [address] CKD (chronic kidney disease), stage IV ([facility]) (Primary Dx) Social History Tobacco Use [...] Diagnosis CKD (chronic kidney disease), stage IV ([facility])- Primary Chronic kidney disease, Stage IV (severe) documented in this encounter Care Teams Real Estate Intern Relationship Specialty Start Date End Date Arabella Laurent NP [address] [place] [address] PCP - General 07/30/18 documented as of this encounter
--- OUTSIDE RECORDS SUMMARY | 2024-03-03 17:39 | XMS_ITS | Encounter Summary ---
Author Organization [facility] Address [address] [place] [address] Care Team Providers Care Licensed Mortician Name Role Phone Arabella Laurent CITIZENSHIP INSTRUCTOR Primary Care Provider [phone] Reason for Visit * Reason Onset Date Comments Appointment Related 08/04/2019 Encounter Details Date Type Department Care Team (Late st Contact Info) Description 08/04/2019 Telephone [facility] Nephrology - [address] [phone] Chastity Syed MD [address] [place] [address], [address] [place] [address] Appointment Related Social History Tobacco [...] Pre visit labs ordered and faxed to [facility] lab. * Telephone Encounter - Bethany Francois RN - 08/09/2019 1122 EDT Images from the original note were not included. Chastity Syed MD P Nephrology Nurse Pool ?? Additional labs - CBC, Phosphorus, PTH, CMP. Mac * Telephone Encounter - Sushma Mitchell - 08/05/2019 0939 EST Pt scheduled with Dr. Syed. Would like her labs sent to [facility] * Telephone Encounter - Sushma Mitchell - 08/04/2019 1344 EST Left voicemail to schedule follow up with Dr. Syed documented in this encounter Plan of Treatment Not on file documented as of this encounter Results * ALBUMIN (08/09/2019 11:33 EDT) Albumin 3.8 3.4 - 4.9 g/dL 08/09/2019 12:50 EDT [facility] Blood VENOUS BLOOD / Unknown Venipuncture / Unknown 08/09/2019 11:33 EDT 08/09/2019 11:33 EDT Chastity Syed MD CHEMISTRY & BLOOD GA S ORDERABLES [facility] [address] [place] [address] * (ABNORMAL) COMPLETE BLOOD COUNT (08/09/2019 11:33 EDT) WBC 6.29 4.00 - 12.40 K/cmm 08/09/2019 12:31 EDT [facility] RBC 4.05 3.86 - 5.04 M/cmm 08/09/2019 12:31 [facility] Hemoglobin 13.3 11.6 - 15.2 gm/dL 08/09/2019 12:31 EDT [facility] HCT 40.1 34.9 - 44.4 % 08/09/2019 12:31 [facility] MCV 99(H) 81 - 98 fl 08/09/2019 12:31 [facility] MCH 32.8 26.7 - 33.3 pg 08/09/2019 12:31 [facility] MCHC 33.2 32.1 - 35.9 gm/dL 08/09/2019 12:31 [facility] RDW-CV 13.2 <14.7 % 08/09/2019 12:31 [facility] RDW-SD 48.5 <50.4 fl 08/09/2019 12:31 [facility] PLT 204 141 - 377 K/cmm 08/09/2019 12:31 [facility] MPV 9.8 9.5 - 12.7 fl 08/09/2019 12:31 [facility] Blood VENOUS BLOOD / Unknown Venipuncture / Unknown 08/09/2019 11:33 EDT 08/09/2019 11:33 EDT Chastity Syed MD HEMATOLOGY & PF4 ORD ERABLES [facility] [address] [place] [address] documented in this encounter Visit Diagnoses Diagnosis Chronic kidney disease, stage III (moderate) ([facility] Primary Chronic kidney disease, Stage III (moderate) Microscopic hematuria documented in this encounter Care Teams Licensed Mortician Relationship Specialty Start Date End Date Arabella Laurent NP [address] [place] [phone] PCP - General 07/30/18 documented as of this encounter
--- OUTSIDE RECORDS SUMMARY | 2024-03-03 17:39 | XMS_ITS | Encounter Summary ---
Author Organization [facility] Address [address] [place] [address] Care Team Providers Care Veterinary Receptionist Name Role Phone Arabella Laurent FLIGHT ATTENDANT/INFLIGHT SUPERVISOR Primary Care Provider [phone] Reason for Visit * Reason Onset Date Comments Other 03/15/2021 Encounter Details Date Type Department Care Team (Late st Contact Info) Description 03/15/2021 Telephone [facility] Nephrology - [address] [address] Chastity Syed MD [address] [place] [address], Level [address] [place] [address] Other Social History Tobacco Use [...] on filedocumented in this encounter Care Teams Veterinary Receptionist Relationship Specialty Start Date End Date Arabella Laurent NP [address] [place] [address] PCP - General 07/30/18 documented as of this encounter
--- OUTSIDE RECORDS SUMMARY | 2024-03-03 17:39 | XMS_ITS | Encounter Summary ---
Author Organization [facility] Address [address] [place] [address] Care Team Providers Care Vice President Biostatistics Name Role Phone Laurence Krause Primary Care Provider + Encounter Details Date Type Department Care Team (Late st Contact Info) Description 07/20/2018 Abstract [facility] Nephrology - [address] [id number] Chastity Syed MD [address] [place] [address], Level 2 [place] [address] Acute renal failure, unspecified acute renal failure type ([facility]); Essential hypertension; Chronic kidney disease, stage III (moderate) ([facility]) Social History Tobacco Use Types Packs/Day [...] Results * CK (07/16/2018) CK, External 205 [facility] Blood specimen (specimen) 07/16/2018 Historical Provider CHEMISTRY & BLOOD GAS ORDERABLES Performing Organization Address City/[facility]/ZIP Co de Phone Number [facility] * HEPATIC FUNCTION PANEL (ALB,ALK PHOS,ALT,AST,DBIL,TOT PELON,TOT PROT) (07/16/2018) Albumin, External 3.6 [facility] Total Protein, External 6.8 [facility] Alkaline Phosphatase, External 92 [facility] ALT, External 24 [facility] AST, External 22 [facility] Unconjugated Bilirubin [facility] Conjugated Bilirubin, External [facility] Bilirubin, Total, External 0.5 [facility] Blood specimen (specimen) 07/16/2018 Historical Provider CHEMISTRY & BLOOD GAS ORDERABLES [facility] * BASIC METABOLIC PANEL (BMP) (07/16/2018) GFR, Calculated, External 29.56 [facility] Glucose, Serum, External 72 [facility] Calculated Calcium, External [facility] BUN, External 22 [facility] Calcium, External 9.0 [facility] Chloride, External 107 [facility] CO2, External 23.[address] [facility] Creatinine, External 1.76 [facility] Fasting?, External [facility] Potassium, External 4.0 [facility] Sodium, External 143 [facility] Blood specimen (specimen) 07/16/2018 Chastity Syed MD CHEMISTRY & BLOOD GA S ORDERABLES [facility] documented in this encounter Visit Diagnoses Diagnosis Acute renal failure, unspecified acute renal failure type (HCC-CMS) Essential hypertension Unspecified essential hypertension Chronic kidney disease, stage III (moderate) (HCC-CMS) Chronic kidney disease, Stage III (moderate) documented in this encounter Care Teams Vice President Biostatistics Relationship Specialty Start Date End Date Laurence Krause PA [address] [place] [address] PCP - General 09/12/17 07/29/18 documented as of this encounter
--- OUTSIDE RECORDS SUMMARY | 2024-03-03 17:39 | XMS_ITS | Encounter Summary ---
Author Organization [facility] Address [address] [place] [address] Care Team Providers Care Pants Cutter Name Role Phone Arabella Laurent NETWORK OPERATIONS LEAD Primary Care Provider [phone] Encounter Details Date Type Department Care Team (Late st Contact Info) Description 01/02/2022 Abstract [facility] Nephrology - S [address] 293011 Chastity Syed MD [address] [place] [address], Level 2 [place] [phone] CKD (chronic kidney disease), stage IV (HCC-CMS) [...] EDT CKD (chronic kidney disease), stage IV ([facility]) ([facility]) documented in this encounter Results * BASIC METABOLIC PANEL (BMP) (01/01/2022 10:50 EDT) GFR, Calculated, External 30.36 [facility] Glucose, Serum, External 89 [facility] Calculated Calcium, External [facility] BUN, External 26 [facility] Calcium, External 9.2 [facility] Chloride, External 104 [facility] CO2, External 27.7 [facility] Creatinine, External 1.7 [facility] Fasting?, External [facility] Potassium, External 4.3 [facility] Sodium, External 138 [facility] Blood VENOUS BLOOD / Unknown 01/01/2022 10:50 EDT Chastity Syed MD CHEMISTRY & BLOOD GA S ORDERABLES [facility] documented in this encounter Visit Diagnoses Diagnosis CKD (chronic kidney disease), stage IV (HCC-CMS)- Primary Chronic kidney disease, Stage IV (severe) documented in this encounter Care Teams Pants Cutter Relationship Specialty Start Date End Date Arabella Laurent NP [address] [place] [address] PCP - General 07/30/18 documented as of this encounter
--- OUTSIDE RECORDS SUMMARY | 2024-03-03 17:39 | XMS_ITS | Encounter Summary ---
Author Organization [facility] Address [address] [place] [address] Care Team Providers Care Senior Environmental Scientist Name Role Phone Arabella Laurent CATHETER BUILDER Primary Care Provider [phone] Encounter Details Date Type Department Care Team (Late st Contact Info) Description 05/20/2022 Abstract [facility] Nephrology - S [address] 917211 Chastity Syed MD [address] [place] [address], Level 2 [place] [phone] CKD (chronic kidney disease), stage IV ([facility]) (Primary Dx) Social History Tobacco Use [...] CKD (chronic kidney disease), stage IV ([facility]) documented in this encounter Results * BASIC METABOLIC PANEL (BMP) (05/16/2022 11:30 EST) GFR, Calculated, External 31.27 [facility] Glucose, Serum, External 90 [facility] Calculated Calcium, External [facility] BUN, External [address] [facility] Calcium, External 9.0 [facility] Chloride, External 105 [facility] CO2, External 24.4 [facility] Creatinine, External 1.8 [facility] Fasting?, External [facility] Potassium, External 4.2 [facility] Sodium, External 137 [facility] Blood VENOUS BLOOD / Unknown 05/16/2022 11:30 EST Chastity Syed MD CHEMISTRY & BLOOD GA S ORDERABLES [facility] documented in this encounter Visit Diagnoses Diagnosis CKD (chronic kidney disease), stage IV ([facility])- Primary Chronic kidney disease, Stage IV (severe) documented in this encounter Care Teams Senior Environmental Scientist Relationship Specialty Start Date End Date Arabella Laurent NP [address] [place] [address] PCP - General 07/30/18 documented as of this encounter
--- OUTSIDE RECORDS SUMMARY | 2024-03-03 17:39 | XMS_ITS | Encounter Summary ---
Author Organization [facility] Address [address] [place] [address] Care Team Providers Care Pyridine Recovery Operator Name Role Phone Anastasiia Arabella Bree PLANT AND MACHINERY VALUER Primary Care Provider Reason for Visit * Reason Comments Acute Renal Failure Follow up on RANJANA in May 2018 of unclear etiology. She feels good, today, anywat. Encounter Details Date Type Department Care Team (Late st Contact Info) Description 08/03/2018 10:10 EST Office Visit [facility] Nephrology - [address] [place] [place] [address] Chastity Syed MD [address] [facility], Level 2 [place] [address] Chronic kidney disease, stage III (moderate) ([facility]-CMS) (Primary Dx); Acute renal failure, unspecified acute renal failure type ([facility]) Social History Tobacco Use Types Packs/Day Years [...] kidney disease, stage III (moderate) ([facility]) ??? Essential hypertension ??? Proteinuria [...] Diagnosis Chronic kidney disease, stage III (moderate) ([facility])- Primary Chronic kidney disease, Stage III (moderate) Acute renal failure, unspecified acute renal failure type ([facility]) documented in this encounter Discontinued [...] documented as of this encounter Care Teams Pyridine Recovery Operator Relationship Specialty Start Date End Date Arabella Laurent NP [address] [place] [address] PCP - General 07/30/18 documented as of this encounter
--- OUTSIDE RECORDS SUMMARY | 2024-03-03 17:39 | XMS_ITS | Encounter Summary ---
Author Organization [facility] Address [address] [place] [address] Care Team Providers Care Director Report Name Role Phone Arabella Laurent BREASTER Primary Care Provider [phone] Encounter Details Date Type Department Care Team (Late st Contact Info) Description 04/05/2021 Abstract [facility] Nephrology - S [address] 613041 Chastity Syed MD [address] [place] [address], Level 2 [place] [phone] Social History Tobacco Use Types Packs/Day Years [...] * AST (04/04/2021) AST, External 23 [facility] Blood VENOUS BLOOD / Unknown 04/04/2021 Historical Provider CHEMISTRY & BLOOD GAS ORDERABLES Performing Organization Address City/[facility]/ZIP Co de Phone Number [facility] [address] [place] [address] * ALT (04/04/2021) ALT, External 27 [facility] Blood VENOUS BLOOD / Unknown 04/04/2021 Historical Provider CHEMISTRY & BLOOD GAS ORDERABLES [facility] [address] [place] [address] * CK (04/04/2021) CK, External 166 [facility] Blood VENOUS BLOOD / Unknown 04/04/2021 Historical Provider CHEMISTRY & BLOOD GAS ORDERABLES [facility] [address] [place] [address] * LIPID PROFILE (INCLUDES CHOLESTEROL, TRIGLYCERIDES, HDL, LDL) (04/04/2021) Cholesterol, External 157 [facility] Triglycerides, External 170 [facility] HDL, External 43 [facility] LDL, External 80 [facility] Chol/HDL Ratio, External [facility] Fasting?, External [facility] Blood VENOUS BLOOD / Unknown 04/04/2021 Historical Provider CHEMISTRY & BLOOD GAS ORDERABLES Performing Organization Address City/[facility] Co de Phone Number [facility] [address] [place] [address] * BASIC METABOLIC PANEL (BMP) (04/04/2021) GFR, Calculated, External 28.51 [facility] Glucose, Serum, External 101 [facility] Calculated Calcium, External [facility] BUN, External 28 [facility] Calcium, External 9.3 [facility] Chloride, External 105 [facility] CO2, External 26.1 [facility] Creatinine, External 1.8 [facility] Fasting?, External [facility] Potassium, External 4.3 [facility] Sodium, External 143 [facility] Blood VENOUS BLOOD / Unknown 04/04/2021 Historical Provider CHEMISTRY & BLOOD GAS ORDERABLES Performing Organization Address City/[facility]/ZIP Co de Phone Number [facility] [address] [place] [address] documented in this encounter Visit Diagnoses Not on filedocumented in this encounter Care Teams Director Report Relationship Specialty Start Date End Date Arabella Laurent, ROLF [address] [place] [phone] PCP - General 07/30/18 documented as of this encounter
--- OUTSIDE RECORDS SUMMARY | 2024-03-03 17:39 | XMS_ITS | Encounter Summary ---
Author Organization [facility] Address [address] [place] [address] Care Team Providers Care Parole Hearing Officer Name Role Phone Laurence Krause Primary Care Provider + Arabella Laurent NP Primary Care Provider [phone] Encounter Details Date Type Department Care Team (Late st Contact Info) Description 06/24/2018 Orders Only [facility] Nephrology - [address] 539[address] Chastity Syed MD [address] [place] [address], [address] [place] [address] Social History Tobacco Use Types [...] on filedocumented in this encounter Care Teams Parole Hearing Officer Relationship Specialty Start Date End Date Laurence Krause PA [address] [place] [address] PCP - General 09/12/17 07/29/18 Arabella Laurent NP [address] [place] [address] PCP - General 07/30/18 documented as of this encounter
--- OUTSIDE RECORDS SUMMARY | 2024-03-03 17:39 | XMS_ITS | Encounter Summary ---
Author Organization [facility] Address [address] [place] [address] Care Team Providers Care Gear Shaver Set Up Operator Name Role Phone Anastasiia Arabella Giron PLATE STRAIGHTENER Primary Care Provider [phone] Encounter Details Date Type Department Care Team (Late st Contact Info) Description 10/17/2020 Abstract [facility] Nephrology - S [address] 367771 Chastity Syed MD [address] [place] [address], Level [address] [place] [phone] Social History Tobacco Use Types Packs/Day Years [...] (10/10/2020 9:10 EDT) Report Status, External FINAL [facility] Result, External GRAM POSITIVE KIA,MIXED. COLONY COUNT 10,000-50,00 0 COLONIES/ML. [facility] Specimen Description, External URINE CULTURE [facility] Urine URINE SPECIMEN COLLECTION, CLEAN CATCH / Unknown 10/10/2020 9:10 EDT Historical Provider MICROBIOLOGY - NERAL ORDERABLES [facility] * VITAMIN D (25,OH) (10/10/2020 9:10 EDT) 25OH Vitamin D Tot, External 28.2 [facility] Blood VENOUS BLOOD / Unknown 10/10/2020 9:10 EDT Historical Provider CHEMISTRY & BLOOD GAS ORDERABLES [facility] * PHOSPHORUS (10/10/2020 9:10 EDT) Phosphorus, External 3.3 [facility] Blood VENOUS BLOOD / Unknown 10/10/2020 9:10 EDT Historical Provider CHEMISTRY & BLOOD GAS ORDERABLES [facility] * BASIC METABOLIC PANEL (BMP) (10/10/2020 9:10 EDT) GFR, Calculated, External 26.87 [facility] Glucose, Serum, External 82 [facility] Calculated Calcium, External [facility] BUN, External 32 [facility] Calcium, External 9.2 [facility] Chloride, External 106 [facility] CO2, External 26.1 [facility] Creatinine, External 1.9 [facility] Fasting?, External [facility] Potassium, External 4.5 [facility] Sodium, External 142 [facility] Blood VENOUS BLOOD / Unknown 10/10/2020 9:10 EDT Historical Provider CHEMISTRY & BLOOD GAS ORDERABLES [facility] documented in this encounter Visit Diagnoses Not on filedocumented in this encounter Care Teams Gear Shaver Set Up Operator Relationship Specialty Start Date End Date Arabella Laurent, PLATE STRAIGHTENER [address] [place] [phone] PCP - General 07/30/18 documented as of this encounter
--- OUTSIDE RECORDS SUMMARY | 2024-03-03 17:39 | XMS_ITS | Encounter Summary ---
Author Organization [facility] Address [address] [place] [address] Care Team Providers Care Pile Driver Operator Barge Mounted Name Role Phone Jose Raulxi Arabella Giron COMPUTER SYSTEMS ENGINEER Primary Care Provider [phone] Reason for Referral * Laboratory Services (Routine) - New Request Specialty Diagnoses / Procedures Referred By Contac t Referred To Contact Diagnoses Acute renal failure, unspecified acute renal failure type ([facility]-CMS) Procedures PTH INTACT Chastity Syed MD [address] [address] Referral ID Status Reason Start Date Expiration Date V isits Requested Visits Authorized [id number] New Request 08/09/2019 1 1 * Laboratory Services (Routine) - New Request Specialty Diagnoses / Procedures Referred By Contac t Referred To Contact Diagnoses Acute renal failure, unspecified acute renal failure type ([facility]-CMS) Procedures PHOSPHORUS Chastity Syed MD [address] [address] Referral ID Status Reason Start Date Expiration Date V isits Requested Visits Authorized [id number] New Request 08/09/2019 1 1 * Laboratory Services (Routine) - New Request Specialty Diagnoses / Procedures Referred By Contac t Referred To Contact Diagnoses Acute renal failure, unspecified acute renal failure type ([facility]) Procedures BASIC METABOLIC PANEL (BMP) Chastity Syed MD 1 [facility], Level 2 [place] [address] Referral ID Status Reason Start Date Expiration Date V isits Requested Visits Authorized [id number] New Request 08/09/2019 1 1 Reason for Visit * Reason Onset Date Comments Follow-up 08/09/2019 Encounter Details Date Type Department Care Team (Late st Contact Info) Description 08/09/2019 Telephone [facility] Nephrology - [address] [address] Chastity Syed MD 1 [facility], [facility] [address] [place] [address] Follow-up Social History Tobacco Use [...] Encounter - Chastity Syed MD - 08/09/2019 5437 EDT 58-yo female with CKD III and [...] 19 - 88 pg/mL 08/09/2019 14:21 EDT [facility] Blood VENOUS BLOOD / Unknown Venipuncture / Unknown 08/09/2019 11:33 EDT 08/09/2019 11:33 EDT Chsatity Syed MD CHEMISTRY & BLOOD GA S ORDERABLES Performing Organization Address City/[facility]/ZIP Co de Phone Number [facility] [address] [place] [address] * PHOSPHORUS (08/09/2019 11:33 EDT) Phosphorus 3.5 2.5 - 4.5 mg/dL 08/09/2019 12:50 EDT [facility] Blood VENOUS BLOOD / Unknown Venipuncture / Unknown 08/09/2019 11:33 EDT 08/09/2019 11:33 EDT Chastity Syed MD CHEMISTRY & BLOOD GA S ORDERABLES [facility] [address] [place] [address] * (ABNORMAL) BASIC METABOLIC PANEL (BMP) (08/09/2019 11:33 EDT) Sodium 139 136 - 145 mEq/L 08/09/2019 12:50 EDT [facility] Potassium 4.2 3.5 - 5.0 mEq/L 08/09/2019 12:50 EDT [facility] Chloride 108 96 - 110 mEq/L 08/09/2019 12:50 EDT [facility] CO2 Total 25 22 - 32 mEq/L 08/09/2019 12:50 T [facility] Glucose 92 70 - 100 mg/dL 08/09/2019 12:50 [facility] Calcium 9.4 8.5 - 10.5 mg/dL 08/09/2019 12:50 [facility] Calculated Calcium 9.6 8.5 - 10.5 mg/dL 08/09/2019 12:50 T [facility] BUN 23 10 - 26 mg/dL 08/09/2019 12:50 [facility] Creatinine 1.56(H) 0.52 - 1.04 mg/dL 08/09/2019 12:50 [facility] eGFR 36(L) >60 mL/min/1.7 3m2 08/09/2019 12:50 [facility] Comment:eGFR calculated giovanna vazquez CKD-EPI equation for non- Americans. Multiply eGFR by 1.16 for patients. Blood VENOUS BLOOD / Unknown Venipuncture / Unknown 08/09/2019 11:33 EDT 08/09/2019 11:33 EDT Narrative [facility] - 08/09/2019 12:50 EDT 2 Chastity Syed MD CHEMISTRY & BLOOD GA S ORDERABLES [facility] [address] [place] [address] documented in this encounter Visit Diagnoses Diagnosis Acute renal failure, unspecified acute renal failure type (HCC-CMS)- Primary documented in this encounter Care Teams Pile Driver Operator Barge Mounted Relationship Specialty Start Date End Date Arabella Laurent NP [address] [place] [phone] PCP - General 07/30/18 documented as of this encounter
--- OUTSIDE RECORDS SUMMARY | 2024-03-03 17:39 | XMS_ITS | Encounter Summary ---
Author Organization [facility] Address [address] [place] [address] Care Team Providers Care Legal Billing Clerk Name Role Phone Anastasiia Arabella Giron DIESEL LOCOMOTIVE ENGINEER Primary Care Provider Encounter Details Date Type Department Care Team (Late st Contact Info) Description 06/19/2021 Abstract [facility] Nephrology - S [address] [address] Chastity Syed MD [address] [place] [address], [address] [place] [phone] Social History Tobacco Use Types Packs/Day Years [...] PANEL (BMP) (06/04/2021) GFR, Calculated, External 26.79 [facility] Glucose, Serum, External 105 [facility] Calculated Calcium, External [facility] BUN, External 33 [facility] Calcium, External 9.0 [facility] Chloride, External 107 [facility] CO2, External 25.5 [facility] Creatinine, External 1.9 [facility] Fasting?, External [facility] Potassium, External 3.8 [facility] Sodium, External 143 [facility] Blood VENOUS BLOOD / Unknown 06/04/2021 Historical Provider CHEMISTRY & BLOOD GAS ORDERABLES Performing Organization Address City/State/[facility] Co de Phone Number [facility] [address] [place] [address] documented in this encounter Visit Diagnoses Not on filedocumented in this encounter Care Teams Legal Billing Clerk Relationship Specialty Start Date End Date Arabella Laurent NP [address] [place] [phone] PCP - General 07/30/18 documented as of this encounter
--- OUTSIDE RECORDS SUMMARY | 2024-03-03 17:39 | XMS_ITS | Encounter Summary ---
Author Organization [facility] Address [address] [place] [address] Care Team Providers Care Manufacturing Cost Estimator Name Role Phone Arabella Laurent MITTEN SEWER Primary Care Provider [phone] Encounter Details Date Type Department Care Team (Late st Contact Info) Description 03/11/2023 Abstract [facility] Nephrology - [address] [address] Chastity Syed MD [address] [place] [address], Level 2 [place] [phone] Social History Tobacco Use Types Packs/Day Years [...] * BASIC METABOLIC PANEL (BMP) (01/28/2023) Pathologist [facility] GFR, Calculated, External 27.38 [facility] Glucose, Serum, External 72 mg/dL [facility] Calculated Calcium, External [facility] BUN, External 31 mg/dL [facility] Calcium, External 9.3 mg/dL [facility] Chloride, External 107 mmol/L [facility] CO2, External 25.3 mmol/L [facility] Creatinine, External 2.0 mg/dL [facility] Fasting?, External [facility] Potassium, External 4.3 mmol/L [facility] Sodium, External 141 mmol/L [facility] Blood VENOUS BLOOD / Unknown 01/28/2023 Historical Provider CHEMISTRY & BLOOD GAS ORDERABLES [facility] * BASIC METABOLIC PANEL (BMP) (11/06/2022) Pathologist [facility] GFR, Calculated, External 31.27 [facility] Glucose, Serum, External 90 mg/dL [facility] Calculated Calcium, External [facility] BUN, External 29 mg/dL [facility] Calcium, External 9.0 mg/dL [facility] Chloride, External 108 mmol/L [facility] CO2, External 27.1 mmol/L [facility] Creatinine, External 1.8 mg/dL [facility] Fasting?, External [facility] Potassium, External 4.1 mmol/L [facility] Sodium, External 143 mmol/L [facility] Blood VENOUS BLOOD / Unknown 11/06/2022 Historical Provider MD CHEMISTRY & BLOOD GAS ORDERABLES [facility] * BASIC METABOLIC PANEL (BMP) (09/17/2022) GFR, Calculated, External 27.55 [facility] Glucose, Serum, External 83 mg/dL [facility] Calculated Calcium, External [facility] BUN, External 31 mg/dL [facility] Calcium, External 9.5 mg/dL [facility] Chloride, External 109 mmol/L [facility] CO2, External 26.2 mmol/L [facility] Creatinine, External 2.0 mg/dL [facility] Fasting?, External [facility] Potassium, External 4.2 mmol/L [facility] Sodium, External 142 mmol/L [facility] Blood VENOUS BLOOD / Unknown 09/17/2022 Historical Provider CHEMISTRY & BLOOD GAS ORDERABLES [facility] documented in this encounter Visit Diagnoses Not on filedocumented in this encounter Care Teams Manufacturing Cost Estimator Relationship Specialty Start Date End Date Arabella Laurent NP [address] [place] [address] PCP - General 07/30/18 documented as of this encounter
--- OUTSIDE RECORDS SUMMARY | 2024-03-03 17:39 | XMS_ITS | Encounter Summary ---
Author Organization [facility] Address [address] [place] [address] Care Team Providers Care E Marketing Specialist Name Role Phone Anastasiia Arabella Giron CARROT HARVESTER Primary Care Provider [phone] Encounter Details Date Type Department Care Team (Latest Contact Info) Description 03/20/2021 Orders Only [facility] Nephrology - [address] [id number] Chastity Syed MD [address] [place] [address], Level 2 [place] [address] CKD (chronic kidney disease), stage [...] Diagnosis CKD (chronic kidney disease), stage IV ([facility])- Primary Chronic kidney disease, Stage IV (severe) Secondary renal hyperparathyroidism ([facility]) Secondary hyperparathyroidism (of renal origin) documented in this encounter Care Teams E Marketing Specialist Relationship Specialty Start Date End Date Arabella Laurent NP [address] [place] [phone] PCP - General 07/30/18 documented as of this encounter
--- OUTSIDE RECORDS SUMMARY | 2024-03-03 17:39 | XMS_ITS | Encounter Summary ---
Author Organization [facility] Address [address] [place] [address] Care Team Providers Care Radio Survey Worker Name Role Phone Arabella Laurent MANAGEMENT INFORMATION SYSTEMS DIRECTOR Primary Care Provider [phone] Encounter Details Date Type Department Care Team (Late st Contact Info) Description 08/17/2021 Abstract [facility] Nephrology - [address] [id number] Chastity Syed MD [address] [place] [address], [address] [place] [phone] CKD (chronic kidney disease), stage IV (HCC-CMS) [...] 08/08/2021 CKD (chronic kidney disease), stage IV ([facility]) ([facility]) documented in this encounter Results * BASIC METABOLIC PANEL (BMP) (08/08/2021) GFR, Calculated, External 28.51 [facility] Glucose, Serum, External 96 [facility] Calculated Calcium, External [facility] BUN, External 26 [facility] Calcium, External 9.4 [facility] Chloride, External 104 [facility] CO2, External 25.2 [facility] Creatinine, External 1.8 [facility] Fasting?, External [facility] Potassium, External 4.5 [facility] Sodium, External 139 [facility] Blood VENOUS BLOOD / Unknown 08/08/2021 Chastity Syed MD CHEMISTRY & BLOOD GA S ORDERABLES [facility] [address] [place] [address] documented in this encounter Visit Diagnoses Diagnosis CKD (chronic kidney disease), stage IV (HCC-CMS)- Primary Chronic kidney disease, Stage IV (severe) documented in this encounter Care Teams Radio Survey Worker Relationship Specialty Start Date End Date Arabella Laurent NP [address] [place] [address] PCP - General 07/30/18 documented as of this encounter
--- OUTSIDE RECORDS SUMMARY | 2024-03-03 17:39 | XMS_ITS | Encounter Summary ---
Author Organization [facility] Address [address] [place] [address] Care Team Providers Care Karate Black Belt Name Role Phone Laurence Krause Primary Care [...] By [place] pineda Referred To Contact Nephrology [facility] [address] [place] [address] Referral ID Status Reason Start Date Expiration Date Visits Re quested Visits Authorized [id number] Closed 1 1 Encounter Details Date Type Department Care Team (Late st Contact Info) Description 09/15/2017 13:00 EDT Office Visit [facility] Nephrology - [address] [address] Chastity Syed MD [facility], Level [address] [place] [address] Acute renal failure, unspecified acute renal failure type (HCC-CMS) (Primary Dx); Essential hypertension; Chronic kidney disease, stage III (moderate) ([facility]) Social History Tobacco Use Types Packs/Day [...] will be discussed with PCP and the inspector grain mill products. documented in this encounter Plan of Treatment Not on file documented as of this encounter Procedures Procedure Name Priority Date/Time Associated Diagnosis Comments POCT URINE DIPSTICK, CLINITEK Routine 09/15/2017 13:36 EDT Acute renal failure, unspecified acute renal failure type ([facility]) documented in this encounter Results * (ABNORMAL) POCT URINE DIPSTICK (09/15/2017 13:36 EDT) Color YELLOW 09/15/2017 13:44 EDT [facility] Clarity, UA CLOUDY 09/15/2017 13:44 EDT [facility] Glucose Neg Neg 09/15/2017 13:44 T [facility] Bilirubin Neg Neg 09/15/2017 13:44 T [facility] Ketones Neg Neg [facility]2017 [facility]44 [facility] Specific [place] 1.020 1.001 - 1.035 09/15/2017 13:44 [facility] Blood 1+(A) Neg 09/15/2017 13:44 [facility] pH 5.5 4.6 - 8.0 09/15/2017 13:44 EDT [facility] Protein 3+(A) Neg 09/15/2017 13:44 EDT [facility] Urobilinogen 0.2 0.2 - 1.0 E.U./dl 09/15/2017 13:44 EDT [facility] Nitrite Neg Neg 09/15/2017 13:44 EDT [facility] Leuk Esterase 1+(A) Neg 09/15/2017 13:44 EDT [facility] sales clerk supervisor ID [id number] 09/15/2017 13:44 EDT [facility] Comment:Test Performed at [facility]al Services Urine specimen (specimen) URINE / Unknown 09/15/2017 13:36 EDT 09/15/2017 13:44 EDT Chastity Syed MD POINT OF CARE TEST O RDERABLES [facility] [address] [place] [address] documented in this encounter Visit Diagnoses Diagnosis Acute renal failure, unspecified acute renal failure type (HCC-CMS)- Primary Essential hypertension Unspecified essential hypertension Chronic kidney disease, stage III (moderate) (HCC-CMS) Chronic kidney disease, Stage III (moderate) documented in this encounter Care Teams Karate Black Belt Relationship Specialty Start Date End Date Laurence Krause PA [address] [place] [phone] PCP - General 09/12/17 07/29/18 documented as of this encounter
--- OUTSIDE RECORDS SUMMARY | 2024-03-03 17:39 | XMS_ITS | Encounter Summary ---
Author Organization [facility] Address [address] [place] [address] Care Team Providers Care Platform Stapler Name Role Phone Laurence Krause Primary Care Provider + Arabella Laurent NP Primary Care Provider Encounter Details Date Type Department Care Team (Late st Contact Info) Description 07/29/2018 Abstract [facility] Nephrology - [address] [phone] Chastity Syed MD [address] [place] [address], Level 2 [place] [address] Acute renal failure, unspecified acute renal failure type ([facility]); Essential hypertension; Chronic kidney disease, stage III (moderate) ([facility]) Social History Tobacco Use Types Packs/Day [...] hypertension Chronic kidney disease, stage III (moderate) ([facility]) documented in this encounter Results * BASIC METABOLIC PANEL (BMP) (07/27/2018 8:30 EST) GFR, Calculated, External 33.97 [facility] Glucose, Serum, External 98 [facility] Calculated Calcium, External [facility] BUN, External 25 [facility] Calcium, External 9.2 [facility] Chloride, External 108 [facility] CO2, External 29.0 [facility] Creatinine, External 1.56 [facility] Fasting?, External [facility] Potassium, External 4.3 [facility] Sodium, External 143 [facility] Blood specimen (specimen) 07/27/2018 8:30 EST Chastity Syed MD CHEMISTRY & BLOOD GA S ORDERABLES [facility] documented in this encounter Visit Diagnoses Diagnosis Acute renal failure, unspecified acute renal failure type (HCC-CMS) Essential hypertension Unspecified essential hypertension Chronic kidney disease, stage III (moderate) ([facility]) Chronic kidney disease, Stage III (moderate) documented in this encounter Care Teams Platform Stapler Relationship Specialty Start Date End Date Laurence Krause PA [address] [place] [address] PCP - General 09/12/17 07/29/18 Arabella Laurent NP [address] [place] [address] PCP - General 07/30/18 documented as of this encounter
--- OUTSIDE RECORDS SUMMARY | 2024-03-03 17:39 | XMS_ITS | Encounter Summary ---
Author Organization [facility] Address [address] [place] [address] Care Team Providers Care Benefits Advisor Name Role Phone Arabella Laurent STONE CIRCULAR SAWYER Primary Care Provider [phone] Reason for Referral * Laboratory Services (Routine/Next Available) - New Request Specialty Diagnoses / Procedures Referred By [place] pineda Referred To Contact Diagnoses CKD (chronic kidney disease), stage IV ([facility]) Procedures COMPLETE BLOOD COUNT Chastity Syed MD [address] [address] Referral ID Status Reason Start Date Expiration Date V isits Requested Visits Authorized [id number] New Request 03/10/2023 4 4 * Laboratory Services (Routine/Next Available) - New Request Specialty Diagnoses / Procedures Referred By Contreginaldo t Referred To Contact Diagnoses CKD (chronic kidney disease), stage IV ([facility]) Procedures PTH INTACT Chastity Syed MD 1 [facility] [address] [place] [address] Referral ID Status Reason Start Date Expiration Date V isits Requested Visits Authorized [id number] New Request 03/10/2023 4 4 * Laboratory Services (Routine/Next Available) - New Request Specialty Diagnoses / Procedures Referred By Contac t Referred To Contact Diagnoses CKD (chronic kidney disease), stage IV ([facility]) Procedures NEPHROLOGY PROFILE (INCLUDES BUN, CREATININE, CALCULATED GFR, ELECTROLYTES, CALCIUM, PHOSPHORUS, ALBUMIN) Chastity Syed MD [address] [place] [address], [facility] [address] [place] [address] Referral ID Status Reason Start Date Expiration Date V isits Requested Visits Authorized [id number] New Request 03/10/2023 6 6 Reason for [...] Contact Info) Description 03/10/2023 13:00 EDT Telemedicine [facility] Nephrology - S [address] [phone] Chastity Syed MD [address] [place] [address], [facility] [address] [place] [address] CKD (chronic kidney disease), stage IV ([facility]) (Primary Dx) Social History Tobacco Use [...] she visited with the lung doctor in [place], [place]. She could not recall the last time she had some blood work - may be November 2022. At the [facility] in [place], [place] (Arabella Laurent NP) - we would follow up with the PCP for latest labs. Patient Active Problem List Diagnosis ??? Chronic kidney disease, stage III (moderate) ([facility]) ??? Essential hypertension ??? Proteinuria ??? [...] was emphasized and discussed with the patient. 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 She will be going to this [...] Routine CKD (chronic kidney disease), stage IV ([facility]) 2 months for 6 Occurrences starting 03/10/2023 until 03/10/2024 PTH INTACT Lab Routine CKD (chronic kidney disease), stage IV ([facility]) 3 months for 4 Occurrences starting 03/10/2023 until 03/10/2024 COMPLETE BLOOD COUNT Lab Routine CKD (chronic kidney disease), stage IV ([facility]) 3 months for 4 Occurrences starting 03/10/2023 until 03/10/2024, 1 completed documented as of this encounter Results * COMPLETE BLOOD COUNT (06/03/2023 11:05 EST) HCT, External 42.9 [facility] MCH, External 32.8 g/dL [facility] MCV, External 99 [facility] MCHC, External 33.1 g/dL [facility] Hemoglobin, External 14.2 % [facility] WBC, External 6.13 [facility] RBC, External 4.33 [facility] PLT, External 194 [facility] RDW-CV, External 12.4 [facility] Blood VENOUS BLOOD / Unknown 06/03/2023 11:05 EST Chastity Syed MD HEMATOLOGY & PF4 ORD ERABLES [facility] documented in this encounter Visit Diagnoses Diagnosis CKD (chronic kidney disease), stage IV ([facility])- Primary Chronic kidney disease, Stage IV (severe) documented in this encounter Care Teams Benefits Advisor Relationship Specialty Start Date End Date Arabella Laurent NP [address] [place] [address] PCP - General 07/30/18 documented as of this encounter
--- OUTSIDE RECORDS SUMMARY | 2024-03-03 17:39 | XMS_ITS | Encounter Summary ---
Author Organization [facility] Address [address] [place] [address] Care Team Providers Care Newsstand Vendor Name Role Phone Anastasiia Arabella Giron WEB MARKETING ASSISTANT Primary Care Provider [phone] Encounter Details Date Type Department Care Team (Late st Contact Info) Description 05/17/2019 Abstract [facility] Nephrology - [address] [address] Chastity Syed MD [address] [place] [address], [address] [place] [phone] Social History Tobacco Use Types Packs/Day Years [...] (05/06/2019 9:52 EST) GFR, Calculated, External 30.87 [facility] Glucose, Serum, External 115 [facility] Calculated Calcium, External [facility] BUN, External 28 [facility] Calcium, External 9.1 [facility] Chloride, External 108 [facility] CO2, External 25.7 [facility] Creatinine, External 1.69 [facility] Fasting?, External [facility] Potassium, External 4.2 [facility] Sodium, External 143 [facility] Blood VENOUS BLOOD / Unknown 05/06/2019 9:52 EST Historical Provider CHEMISTRY & BLOOD GAS ORDERABLES [facility] documented in this encounter Visit Diagnoses Not on filedocumented in this encounter Care Teams Newsstand Vendor Relationship Specialty Start Date End Date Arabella Laurent, ROLF [address] [place] [address] PCP - General 07/30/18 documented as of this encounter
--- OUTSIDE RECORDS SUMMARY | 2024-03-03 17:39 | XMS_ITS | Encounter Summary ---
Author Organization [facility] Address [address] [place] [address] Care Team Providers Care Base Manager Name Role Phone Arabella Laurent TRAINING DESIGNER Primary Care Provider [phone] Reason for Visit * Reason Onset Date Comments Pre-visit Orders 08/09/2019 Encounter Details Date Type Department Care Team ([facility] st Contact Info) Description 08/09/[address] [facility] Nephrology - [address] [address] Mona Michaels, RN [address] [place] [address] Pre-visit Orders Social History Tobacco Use Types [...] Encounter - Mona Michaels, RN - 08/09/2019 1158 EDT Pt was seen today and had her labs done here. * Telephone Encounter - Bethany Francois RN - 08/09/2019 1229 EDT Will have PSS schedule next available. Patient to have labs drawn several days before appointment. Labs already faxed to [facility] lab * Telephone Encounter - Mona [...] on filedocumented in this encounter Care Teams Base Manager Relationship Specialty Start Date End Date Arabella Laurent, ROLF [address] [place] [phone] PCP - General 07/30/18 documented as of this encounter
--- OUTSIDE RECORDS SUMMARY | 2024-03-03 17:39 | XMS_ITS | Encounter Summary ---
Author Organization [facility] Address [address] [place] [address] Care Team Providers Care Patent Paralegal Name Role Phone Melanie Pulido NP Primary Care Provider [phone] Encounter Details Date Type Department Care Team (Late st Contact Info) Description 08/12/2017 Abstract [facility] Nephrology - [address] [address] Chastity Syed MD [address] [place] [address], [address] [place] [phone] Social History Tobacco Use Types Packs/Day Years [...] BACTERIAL CULTURE, URINE (05/05/2017) Report Status, External [facility] Result, External <10,000 [facility] Specimen Description, External Gram Positive Addie [facility] Urine specimen (specimen) 05/05/2017 Historical Provider MICROBIOLOGY - GE NERAL ORDERABLES [facility] * COMPREHENSIVE METABOLIC PANEL (CMP) (01/06/2017) GFR, Calculated, External 32.40 [facility] Glucose, Serum, External 79 [facility] Albumin, External 3.7 [facility] Total Alkaline Phosphatase, External 80 [facility] ALT, External 21 [facility] AST, External 13 [facility] BUN, External 21 [facility] Calculated Calcium, External [facility] Calcium, External 9.1 [facility] Chloride, External 110 [facility] CO2, External 26.4 [facility] Creatinine, External 1.63 [facility] Fasting?, External [facility] Potassium, External 4.9 [facility] Sodium, External 144 [facility] Total Protein, External 6.8 [facility] Bilirubin, Total, External 0.38 [facility] Blood specimen (specimen) 01/06/2017 Historical Provider CHEMISTRY & BLOOD GAS ORDERABLES Performing Organization Address City/[facility]/ZIP Co de Phone Number [facility] * BACTERIAL CULTURE, URINE (01/06/2017) Report Status, External [facility] Result, External NO GROWTH 24 HOURS [facility] Specimen Description, External [facility] Urine specimen (specimen) 01/06/2017 Historical Provider MICROBIOLOGY - GE NERAL ORDERABLES Performing Organization Address City/[facility]/ZIP Co de Phone Number [facility] * BASIC METABOLIC PANEL (BMP) (07/12/2015) GFR, Calculated, External 32.18 [facility] Glucose, Serum, External 72 [facility] Calculated Calcium, External [facility] BUN, External 24 [facility] Calcium, External 9.1 [facility] Chloride, External 105 [facility] CO2, External 26.0 [facility] Creatinine, External 1.65 [facility] Fasting?, External [facility] Potassium, External 4.0 [facility] Sodium, External 140 [facility] Blood specimen (specimen) 07/12/2015 Historical Provider CHEMISTRY & BLOOD GAS ORDERABLES Performing Organization Address City/[facility]/ZIP Co de Phone Number [facility] * ALT (05/08/2015) ALT, External 25 [facility] Blood specimen (specimen) 05/08/2015 Historical Provider CHEMISTRY & BLOOD GAS ORDERABLES Performing Organization Address City/[facility]/ZIP Co de Phone Number [facility] * AST (05/08/2015) AST, External 16 [facility] Blood specimen (specimen) 05/08/2015 Historical Provider CHEMISTRY & BLOOD GAS ORDERABLES Performing Organization Address City/[facility]/ZIP Co de Phone Number [facility] * LIPID PROFILE (INCLUDES CHOLESTEROL, TRIGLYCERIDES, HDL, LDL) (05/08/2015) Cholesterol, External 164 [facility] Triglycerides, External 174 [facility] HDL, External 41 [facility] LDL, External 88 [facility] Chol/HDL Ratio, External 4.0 [facility] Fasting?, External [facility] Blood specimen (specimen) 05/08/2015 Historical Provider MD CHEMISTRY & BLOOD GAS ORDERABLES [facility] documented in this encounter Visit Diagnoses Not on filedocumented in this encounter Care Teams Patent Paralegal Relationship Specialty Start Date End Date Melanie Pulido NP [facility] [address] [place] [address] PCP - General 01/01/12 09/11/17 documented as of this encounter
--- OUTSIDE RECORDS SUMMARY | 2024-03-03 17:39 | XMS_ITS | Encounter Summary ---
Author Organization [facility] Address [address] [place] [address] Care Team Providers Care Site Operations Manager Name Role Phone Arabella Laurent BLACKSMITH SUPERVISOR Primary Care Provider [phone] Encounter Details Date Type Department Care Team (Late st Contact Info) Description 07/25/2022 Abstract [facility] Nephrology - [address] [phone] Chastity Syed MD [address] [place] [address], [address] [place] [phone] CKD (chronic kidney disease), stage IV ([facility]) (Primary Dx) Social History Tobacco Use Types [...] CKD (chronic kidney disease), stage IV ([facility])- Primary Chronic kidney disease, Stage IV (severe) documented in this encounter Orders Lab Orders Without Results Count Last Ordered D ate First Ordered Date BASIC METABOLIC PANEL (BMP) 1 07/25/2022 documented in this encounter Care Teams Site Operations Manager Relationship Specialty Start Date End Date Arabella Laurent NP [address] [place] [address] PCP - General 07/30/18 documented as of this encounter
--- OUTSIDE RECORDS SUMMARY | 2024-03-03 17:39 | XMS_ITS | Encounter Summary ---
Author Organization [facility] Address [address] [place] [address] Care Team Providers Care Corporate Affairs Manager Name Role Phone Arabella Laurent CHROME POLISHER Primary Care Provider [phone] Reason for Visit * Reason Comments Acute Renal Failure Encounter Details Date Type Department Care Team (Latest Contact Info) Description 02/14/2020 8:20 EDT Telemedicine [facility] Nephrology - [address] [phone] Chastity Syed MD [address] [place] [address], Level [address] [place] [address] CKD (chronic kidney disease), stage [...] Chronic kidney disease, stage III (moderate) ([facility]) ??? Essential hypertension ??? Proteinuria ??? [...] Diagnosis CKD (chronic kidney disease), stage III ([facility] Primary Chronic kidney disease, Stage III (moderate) Secondary renal hyperparathyroidism ([facility]) Secondary hyperparathyroidism (of renal origin) documented in this encounter Care Teams Corporate Affairs Manager Relationship Specialty Start Date End Date Arabella Laurent NP [address] [place] [phone] PCP - General 07/30/18 documented as of this encounter
--- OUTSIDE RECORDS SUMMARY | 2024-03-03 17:39 | XMS_ITS | Encounter Summary ---
Author Organization [facility] Address [address] [place] [address] Care Team Providers Care Amusement Centre Manager Name Role Phone Anastasiia Arabella Bree ASSET CARD CLERK Primary Care Provider [phone] Reason for Visit * Reason Comments Chronic [...] Info) Description 08/09/2019 11:00 EDT Office Visit [facility] Nephrology - [address] [address] Chastity Syed MD [address] [place], [place] [address], [address] [place] [address] Acute renal failure, unspecified acute [...] (moderate) ([facility]) ??? Essential hypertension ??? Proteinuria ??? [...] failure, unspecified acute renal failure type ([facility])- Primary CKD (chronic kidney disease), stage III ([facility]) Chronic kidney disease, Stage III (moderate) documented in this encounter Care Teams Amusement Centre Manager Relationship Specialty Start Date End Date Arabella Laurent NP [address] [place] [phone] PCP - General 07/30/18 documented as of this encounter
--- OUTSIDE RECORDS SUMMARY | 2024-03-03 17:39 | XMS_ITS | Encounter Summary ---
Author Organization [facility] Address [address] [place] [address] Care Team Providers Care Lining Parts Sewer Name Role Phone Laurence Krause Primary Care Provider + Encounter Details Date Type Department Care Team (Late st Contact Info) Description 07/06/2018 Abstract [facility] Nephrology - [address] [place] [address] [place], [place] [address] Chastity Syed MD [address] [place] [address], [address] 2 [place] [address] Social History Tobacco Use Types [...] on filedocumented in this encounter Care Teams Lining Parts Sewer Relationship Specialty Start Date End Date Laurence Krause PA [address] [place] [address] PCP - General 09/12/17 07/29/18 documented as of this encounter
--- OUTSIDE RECORDS SUMMARY | 2024-03-03 17:39 | XMS_ITS | Encounter Summary ---
Author Organization [facility] Address [address] [place] [id number] Care Team Providers Care Ostomy Care Nurse Name Role Phone Arabella Laurent PHILATELIC CONSULTANT Primary Care Provider [phone] Reason for Visit * Reason Onset Date Comments Nutrition Counseling 03/15/2021 Encounter Details Date Type Department Care Team ([facility] st Contact Info) Description 03/15/2021 Telephone [facility] Nephrology - [address] [address] Mona Michaels, RN [address] [place] [address] Nutrition Counseling Social History Tobacco Use Types [...] Encounter - Mona Michaels, RN - 03/20/2021 1524 EDT Call to patient to let her [...] on filedocumented in this encounter Care Teams Ostomy Care Nurse Relationship Specialty Start Date End Date Arabella Laurent, ROLF [address] [place] [phone] PCP - General 07/30/18 documented as of this encounter
--- OUTSIDE RECORDS SUMMARY | 2024-03-03 17:39 | XMS_ITS | Encounter Summary ---
Author Organization [facility] Address [address] [place] [address] Care Team Providers Care Magician/Illusionist Name Role Phone Arabella Laurent INDUSTRIAL LOCOMOTIVE OPERATOR Primary Care Provider [phone] Reason for Visit * Reason Onset Date Comments Appointment Related 02/10/2020 Encounter Details Date Type Department Care Team (Late st Contact Info) Description 02/10/2020 Telephone [facility] Nephrology - [address] [address] Bethany Francois RN Appointment Related Social History [...] Encounter - Bethany Francois RN - 02/10/2020 1114 EDT Scheduled for office visit on 02/14/2020. Lab results from 01/10/2020 are in the chart. documented in this encounter Plan of Treatment Not on file documented as of this encounter Visit Diagnoses Not on filedocumented in this encounter Care Teams Magician/Illusionist Relationship Specialty Start Date End Date Arabella Laurent NP [address] [place] [address] PCP - General 07/30/18 documented as of this encounter
--- OUTSIDE RECORDS SUMMARY | 2024-03-03 17:39 | XMS_ITS | Encounter Summary ---
Author Organization [facility] Address [address] [place] [address] Care Team Providers Care Integration Assistant Name Role Phone Arabella Laurent CNC MAINTENANCE MECHANIC Primary Care Provider [phone] Reason for Visit * Reason Onset Date Comments Labs Only 08/01/2022 Encounter Details Date Type Department Care Team (Late st Contact Info) Description 08/01/2022 Telephone [facility] Nephrology - [address] [phone] Chastity Syed MD [address] [place] [address], [address] [place] [address] Labs Only Social History Tobacco [...] Encounter - Mona Michaels, RN - 08/01/2022 0912 EST Call to casandra and reviewed her [...] filedocumented in this encounter Care Teams Integration Assistant Relationship Specialty Start Date End Date Arabella Laurent NP [address] [place] [phone] PCP - General 07/30/18 documented as of this encounter
--- OUTSIDE RECORDS SUMMARY | 2024-03-03 17:39 | XMS_ITS | Encounter Summary ---
Author Organization [facility] Address [address] [place] [address] Care Team Providers Care Code Inspector Name Role Phone Anastasiia Arabella Giron PULP HOUSE SUPERVISOR Primary Care Provider [phone] Encounter Details Date Type Department Care Team (Late st Contact Info) Description 01/04/2021 Abstract [facility] Nephrology - [address] [address] Chastity Syed MD [address] [place] [address], [address] [place] [phone] Social History Tobacco Use Types Packs/Day Years [...] PANEL (BMP) (01/02/2021) GFR, Calculated, External 28.51 [facility] Glucose, Serum, External 107 [facility] Calculated Calcium, External [facility] BUN, External 25 [facility] Calcium, External 9.3 [facility] Chloride, External 106 [facility] CO2, External 22.6 [facility] Creatinine, External 1.8 [facility] Fasting?, External [facility] Potassium, External 4.3 [facility] Sodium, External 140 [facility] Blood VENOUS BLOOD / Unknown 01/02/2021 Historical Provider CHEMISTRY & BLOOD GAS ORDERABLES Performing Organization Address City/State/[facility] Co de Phone Number [facility] [address] [place] [address] documented in this encounter Visit Diagnoses Not on filedocumented in this encounter Care Teams Code Inspector Relationship Specialty Start Date End Date Arabella Laurent NP [address] [place] [address] PCP - General 07/30/18 documented as of this encounter
--- OUTSIDE RECORDS SUMMARY | 2024-03-03 17:39 | XMS_ITS | Encounter Summary ---
Author Organization [facility] Address [address] [place] [address] Care Team Providers Care Yarding And Folding Machine Operator Name Role Phone Laurence Krause [...] Info) Description 07/06/2018 10:50 EST Office Visit [facility] Nephrology - [address] [id number] Chastity Syed MD 1 [facility], [address] [place] [address] Acute renal failure, unspecified acute [...] kidney disease, stage III (moderate) ([facility]) ??? Essential hypertension ??? Proteinuria ??? S/p [...] did a blood test last week in [facility]. Hypertension - I rechecked BP today [...] 143 136 - 145 mEq/L 07/06/2018 14:28 [facility] Potassium 4.8 3.5 - 5.0 mEq/L 07/06/2018 14:28 [facility] Chloride 109 96 - 110 mEq/L 07/06/2018 14:28 [facility] CO2 24 22 - 32 mEq/L 07/06/2018 14:28 [facility] BUN 21 10 - 26 mg/dl 07/06/2018 14:28 [facility] Creatinine 1.55(H) 0.52 - 1.04 mg/dl 07/06/2018 14:28 [facility] GFR, Calculated 36(L) >60 ml/min/1.7 3m2 07/06/2018 14:28 [facility] Comment: eGFR calculated using CKD-EPI equation for non Americans. Multiply eGFR by 1.16 for Americans. Calcium 9.3 8.5 - 10.5 mg/dl 07/06/2018 14:28 [facility] Calculated Calcium 9.2 8.5 - 10.5 mg/dl 07/06/2018 14:28 [facility] Glucose, Serum 87 70 - 100 mg/dl 07/06/2018 14:28 [facility] Fasting? No 07/06/2018 11:49 [facility] Blood specimen (specimen) BLOOD SPECIMEN / Unknown 07/06/2018 12:03 EST 07/06/2018 14:02 EST Chastity Syed MD CHEMISTRY & BLOOD GA S ORDERABLES [facility] [address] [place] [address] documented in this encounter Visit Diagnoses Diagnosis Acute renal failure, unspecified acute renal failure type ([facility])- Primary documented in this encounter Care Teams Yarding And Folding Machine Operator Relationship Specialty Start Date End Date Laurence Krause PA [address] [place] [address] PCP - General 09/12/17 07/29/18 documented as of this encounter
--- OUTSIDE RECORDS SUMMARY | 2024-03-03 17:39 | XMS_ITS | Encounter Summary ---
Author Organization [facility] Address [address] [place] [address] Care Team Providers Care Room Server Name Role Phone Arabella Laurent HOME HEALTH SCHEDULER Primary Care Provider [phone] Encounter Details Date Type Department Care Team (Latest Contact Info) Description 01/12/2020 Lab Requisition [facility] Pathology & Laboratory Medicine - [facility] [address] [place] [address] Arabella Laurent, HOME HEALTH SCHEDULER [address] [place] [address] Encounter for gynecological examination (general) (routine) without [...] types, PCR Negative Negative 01/25/2020 15:32 EDT [facility] Comment:No E6 or E7 mRNA is detected from HPV types 16,18,31,33,35,39,45,51,52,56,58,59,66, and 68 by elderly sitter mediated amplification. Papanicolaou smear specimen (specimen) CERVIX UTERI STRUCTURE / Unknown 01/10/2020 13:15 EDT 01/24/2020 10:59 EDT Arabella Laurent NP MICROBIOLOGY - GENER AL ORDERABLES [facility] [address] [place] [address] * PAP TEST (01/10/2020 13:15 EDT) Specimens A. Cervix and/or Endocervix , ThinPrep Imaging System with Manual Evaluation 01/25/2020 15:32 EDT [facility] Specimen Adequacy Satisfactory for Evaluation - transformation zone component absent 01/25/2020 15:32 EDT [facility] General Categorization Negative for intraepithelial lesion or malignancy 01/25/2020 15:32 EDT [facility] Attestation . 01/25/2020 15:32 T [facility] at 1532 HPV The result for the Human Papillomavirus (HPV) Detection-High Risk Types is Negative. No E6 or E7 mRNA is detected from HPV types 16,18,31,33,35,39 ,45,51,52,56,58,5 9,66, and 68 by elderly sitter mediated amplification.Susy mikig was performed on specimen [id number] and was resulted on 01/25/2020 1526 EDT by JOSHUA, LAB INSTRUMENT RESULTS IN 01/25/2020 15:32 EDT [facility] Scanned Images 01/25/2020 15:32 EDT [facility] Papanicolaou smear specimen (specimen) CERVIX UTERI STRUCTURE / Unknown 01/10/2020 13:15 EDT 01/12/2020 15:39 EDT Arabella Laurent NP PATHOLOGY ORDERABLES [facility] [address] [place] [address] documented in this encounter Visit Diagnoses Diagnosis Encounter for gynecological examination (general) (routine) without abnormal findings documented in this encounter Care Teams Room Server Relationship Specialty Start Date End Date Arabella Laurent, HOME HEALTH SCHEDULER [address] [place] [address] PCP - General 07/30/18 documented as of this encounter
--- OUTSIDE RECORDS SUMMARY | 2024-03-03 17:39 | XMS_ITS | Encounter Summary ---
Author Organization [facility] Address [address] [place] [address] Care Team Providers Care Bedspread Seamer Name Role Phone Laurence Krause Primary Care Provider + Encounter Details Date Type Department Care Team (Late st Contact Info) Description 05/13/2018 Abstract [facility] Nephrology - [address] [address] Chastity Syed MD [address] [place] [address], Level [address] [place] [phone] Social History Tobacco Use Types Packs/Day Years [...] Results * AST (05/11/2018) AST, External 17 [facility] Blood specimen (specimen) 05/11/2018 Historical Provider CHEMISTRY & BLOOD GAS ORDERABLES Performing Organization Address City/[facility]/ZIP Co de Phone Number [facility] * ALT (05/11/2018) ALT, External 25 [facility] Blood specimen (specimen) 05/11/2018 Historical Provider CHEMISTRY & BLOOD GAS ORDERABLES Performing Organization Address [facility] Co de Phone Number [facility] * BASIC METABOLIC PANEL (BMP) (05/11/2018) GFR, Calculated, External 27.73 [facility] Glucose, Serum, External 114 [facility] Calculated Calcium, External [facility] BUN, External 31 [facility] Calcium, External 9.0 [facility] Chloride, External 104 [facility] CO2, External 25.3 [facility] Creatinine, External 1.86 [facility] Fasting?, External [facility] Potassium, External 4.0 [facility] Sodium, External 142 [facility] Blood specimen (specimen) 05/11/2018 Historical Provider CHEMISTRY & BLOOD GAS ORDERABLES Performing Organization Address City/[facility]/ZIP Co de Phone Number [facility] documented in this encounter Visit Diagnoses Not on filedocumented in this encounter Care Teams Bedspread Seamer Relationship Specialty Start Date End Date Laurence Krause PA [address] [place] [phone] PCP - General 09/12/17 07/29/18 documented as of this encounter
--- OUTSIDE RECORDS SUMMARY | 2024-03-03 17:39 | XMS_ITS | Encounter Summary ---
Author Organization [facility] Address [address] [place] [address] Care Team Providers Care Knocker Out Name Role Phone Anastasiia Arabella Giron CLUB ROOM ATTENDANT Primary Care Provider [phone] Encounter Details Date Type Department Care Team (Late st Contact Info) Description 10/10/2021 Abstract [facility] Nephrology - [address] [address] Chastity Syed MD [address] [address], [address] [place] [phone] Social History Tobacco Use Types Packs/Day Years [...] PANEL (BMP) (10/09/2021) GFR, Calculated, External 26.79 [facility] Glucose, Serum, External 90 [facility] Calculated Calcium, External [facility] BUN, External 28 [facility] Calcium, External 8.5 [facility] Chloride, External 104 [facility] CO2, External 24.7 [facility] Creatinine, External 1.9 [facility] Fasting?, External [facility] Potassium, External 4.7 [facility] Sodium, External 138 [facility] Blood VENOUS BLOOD / Unknown 10/09/2021 Historical Provider CHEMISTRY & BLOOD GAS ORDERABLES [facility] documented in this encounter Visit Diagnoses Not on filedocumented in this encounter Care Teams Knocker Out Relationship Specialty Start Date End Date Arabella Laurent NP [address] [place] [address] PCP - General 07/30/18 documented as of this encounter
--- OUTSIDE RECORDS SUMMARY | 2024-03-03 17:39 | XMS_ITS | Encounter Summary ---
Author Organization [facility] Address [address] [place] [address] Care Team Providers Care In Home Sales Consultant Name Role Phone Arabella Laurent HAY FARMER Primary Care Provider [phone] Encounter Details Date Type Department Care Team (Late st Contact Info) Description 03/11/2022 Abstract [facility] Nephrology - [address] [address] Chastity Syed MD [address] [place] [address], Level 2 [place] [phone] Social History Tobacco Use Types Packs/Day Years [...] Results * AST (03/04/2022) AST, External 21 [facility] Blood VENOUS BLOOD / Unknown 03/04/2022 Historical Provider MD CHEMISTRY & BLOOD GAS ORDERABLES [facility] * ALT (03/04/2022) ALT, External 23 [facility] Blood VENOUS BLOOD / Unknown 03/04/2022 Historical Provider MD CHEMISTRY & BLOOD GAS ORDERABLES [facility] * CK (03/04/2022) CK, External 90 [facility] Blood VENOUS BLOOD / Unknown 03/04/2022 Historical Provider MD CHEMISTRY & BLOOD GAS ORDERABLES [facility] * BASIC METABOLIC PANEL (BMP) (03/04/2022) GFR, Calculated, External 31.27 [facility] Glucose, Serum, External 88 [facility] Calculated Calcium, External [facility] BUN, External 28 [facility] Calcium, External 9.6 [facility] Chloride, External 106 [facility] CO2, External 24.7 [facility] Creatinine, External 1.8 [facility] Fasting?, External [facility] Potassium, External 4.6 [facility] Sodium, External 140 [facility] Blood VENOUS BLOOD / Unknown 03/04/2022 Historical Provider CHEMISTRY & BLOOD GAS ORDERABLES [facility] documented in this encounter Visit Diagnoses Not on filedocumented in this encounter Care Teams In Home Sales Consultant Relationship Specialty Start Date End Date Arabella Laurent, HAY FARMER [address] [place] [address] PCP - General 07/30/18 documented as of this encounter
--- OUTSIDE RECORDS SUMMARY | 2024-03-03 17:39 | XMS_ITS | Encounter Summary ---
Author Organization [facility] Address [address] [place] [address] Care Team Providers Care Diesel Mechanic Helper Name Role Phone Anastasiia Arabella Bree CHILD NURSE Primary Care Provider [phone] Encounter Details Date Type Department Care Team (Late st Contact Info) Description 04/18/2021 Lab Requisition [facility] Pathology & Laboratory Medicine - [address] [address] Outr Resulting Lab, Provider Social History Tobacco [...] Priority Date/Time Associated Diagnosis Comments ZZCOVID-19 TEST [facility] PCR Today 04/18/2021 11:10 EST COVID-19 TESTING Routine 04/18/2021 11:1 0 EST documented in this encounter Results * COVID-19 TEST [facility] PCR (04/18/2021 11:10 EST) Swab 04/18/2021 11:1 0 EST 04/18/2021 22:01 EST Provider Outr Resulting Lab MICROBIOLOGY - GENERAL ORDERABLES Performing Organization Address [facility] Co de Phone Number [facility] [address] [place] [address] * COVID-19 TESTING (04/18/2021 11:10 EST) COVID-19 rt-PCR Result Negative Negative 04/19/2021 18:02 EST [facility] Comment: This test has not [...] performed using the kiara SARS-CoV-2 assay ([employer] on the Kiara 6800 System Performing Lab Kiara 6800 [facility] 04/19/2021 18:02 EST [facility] Swab 04/18/2021 11:1 0 EST 04/18/2021 22:01 EST Provider Outr Resulting Lab MICROBIOLOGY - GENERAL ORDERABLES Performing Organization Address [facility] Co de Phone Number [facility] [address] [place] [address] documented in this encounter Visit Diagnoses Not on filedocumented in this encounter Care Teams Diesel Mechanic Helper Relationship Specialty Start Date End Date Arabella Laurent, ROLF [address] [place] [phone] PCP - General 07/30/18 documented as of this encounter
--- OUTSIDE RECORDS SUMMARY | 2024-03-03 17:39 | XMS_ITS | Encounter Summary ---
Author Organization [facility] Address [address] [id number] Care Team Providers Care Office Workforce Planner Name Role Phone Laurence Krause Primary Care Provider + Reason for Visit * Reason Onset Date Comments Appointment Related 06/24/2018 Labs Only 06/24/2018 Encounter Details Date Type Department Care Team (Late st Contact Info) Description 06/24/2018 Telephone [facility] Nephrology - [address] [address] Mona Michaels, RN [address] [place] [address] Appointment Related; Labs Only Social History Tobacco [...] Encounter - Mona Michaels RN - 06/24/2018 1434 EST Patient instructed to have labs, and [...] on filedocumented in this encounter Care Teams Office Workforce Planner Relationship Specialty Start Date End Date Laurence Krause PA [address] [place] [address] PCP - General 09/12/17 07/29/18 documented as of this encounter
--- OUTSIDE RECORDS SUMMARY | 2024-03-03 17:39 | XMS_ITS | Encounter Summary ---
Author Organization [facility] Address [address] [place] [address] Care Team Providers Care Lead Business Analyst Name Role Phone Laurence Krause Primary Care Provider + Encounter Details Date Type Department Care Team (Late st Contact Info) Description 07/06/2018 Phlebotomy Only [address] [address] Stapling Machine Operator, Outpatient Acute renal failure, unspecified acute renal failure type ([facility]) (Primary Dx) Social History Tobacco Use [...] unspecified acute renal failure type ([facility]) documented in this encounter Results * (ABNORMAL) BASIC METABOLIC PANEL (BMP) (07/06/2018 12:03 EST) Sodium 143 136 - 145 mEq/L 07/06/2018 14:28 [facility] Potassium 4.8 3.5 - 5.0 mEq/L 07/06/2018 14:28 [facility] Chloride 109 96 - 110 mEq/L 07/06/2018 14:28 [facility] CO2 24 22 - 32 mEq/L 07/06/2018 14:28 [facility] BUN 21 10 - 26 mg/dl 07/06/2018 14:28 [facility] Creatinine 1.55(H) 0.52 - 1.04 mg/dl 07/06/2018 14:28 [facility] GFR, Calculated 36(L) >60 ml/min/1.7 3m2 07/06/2018 14:28 [facility] Comment: eGFR calculated using CKD-EPI equation for non Americans. Multiply eGFR by 1.16 for Americans. Calcium 9.3 8.5 - 10.5 mg/dl 07/06/2018 14:28 [facility] Calculated Calcium 9.2 8.5 - 10.5 mg/dl 07/06/2018 14:28 [facility] Glucose, Serum 87 70 - 100 mg/dl 07/06/2018 14:28 [facility] Fasting? No 07/06/2018 11:49 [facility] Blood specimen (specimen) BLOOD SPECIMEN / Unknown 07/06/2018 12:03 EST 07/06/2018 14:02 EST Chastity Syed MD CHEMISTRY & BLOOD GA S ORDERABLES [facility] [address] [place] [address] documented in this encounter Visit Diagnoses Diagnosis Acute renal failure, unspecified acute renal failure type (HCC-CMS)- Primary documented in this encounter Care Teams Lead Business Analyst Relationship Specialty Start Date End Date Laurence Krause PA [address] [place] [address] PCP - General 09/12/17 07/29/18 documented as of this encounter
--- OUTSIDE RECORDS SUMMARY | 2024-03-03 17:39 | XMS_ITS | Encounter Summary ---
Author Organization [facility] Address [address] [place] [address] Care Team Providers Care Quality Control Engineering Technician Name Role Phone Laurence Krause Primary Care Provider + Reason for Visit * Reason Onset Date Comments Follow-up 06/24/2018 Encounter Details Date Type Department Care Team ([facility] st Contact Info) Description 06/24/2018 Telephone [facility] Nephrology - [address] [address] Chastity Syed MD [address] [place] [address], [address] 2 [place] [address] Follow-up Social History Tobacco Use [...] Encounter - Chastity Syed MD - 06/24/2018 1054 EST Serum creatinine trajectory reviewed: 1.58 mg/dL on 12-24-17. 1.76 on 02-24-18 1.86 on 05-11-18. PLAN: Ask the patient to repeat a BMP test and see me in the office as soon as possible. documented in this encounter Plan of Treatment Not on file documented as of this encounter Visit Diagnoses Not on filedocumented in this encounter Care Teams Quality Control Engineering Technician Relationship Specialty Start Date End Date Laurence Krause PA [address] [place] [address] PCP - General 09/12/17 07/29/18 documented as of this encounter
--- OUTSIDE RECORDS SUMMARY | 2024-03-03 17:39 | XMS_ITS | Encounter Summary ---
Author Organization [facility] Address [address] [place] [address] Care Team Providers Care Oracle Manager Name Role Phone Arabella Laurent ORAL COMMUNICATION INSTRUCTOR Primary Care Provider [phone] Encounter Details Date Type Department Care Team (Late st Contact Info) Description 01/11/2020 Abstract [facility] Nephrology - [address] [address] Chastity Syed MD [address] [place] [address], [address] [place] [phone] Social History Tobacco Use Types Packs/Day Years [...] (01/10/2020 13:10 EDT) GFR, Calculated, External 28.98 [facility] Glucose, Serum, External 113 [facility] Calculated Calcium, External [facility] BUN, External 23 [facility] Calcium, External 8.9 [facility] Chloride, External 106 [facility] CO2, External 24.1 [facility] Creatinine, External 1.78 [facility] Fasting?, External [facility] Potassium, External 4.1 [facility] Sodium, External 140 [facility] Blood VENOUS BLOOD / Unknown 01/10/2020 13:10 EDT Historical Provider CHEMISTRY & BLOOD GAS ORDERABLES [facility] documented in this encounter Visit Diagnoses Not on filedocumented in this encounter Care Teams Oracle Manager Relationship Specialty Start Date End Date Arabella Laurent NP [address] [place] [phone] PCP - General 07/30/18 documented as of this encounter
--- OUTSIDE RECORDS SUMMARY | 2024-03-03 17:39 | XMS_ITS | Encounter Summary ---
Author Organization [facility] Address [address] [place] [address] Care Team Providers Care Nurse Wound Care Name Role Phone Laurence Krause Primary Care Provider + Arabella Laurent NP Primary Care Provider [phone] Encounter Details Date Type Department Care Team (Late st Contact Info) Description 06/24/2018 Orders Only [facility] Nephrology - [address] [phone] Chastity Syed MD [address] [place] [address], [address] 2 [place] [address] Acute renal failure, unspecified acute [...] unspecified acute renal failure type ([facility])- Primary documented in this encounter Care Teams Nurse Wound Care Relationship Specialty Start Date End Date Laurence Krause PA [address] [place] [address] PCP - General 09/12/17 07/29/18 Arabella Laurent NP [address] [place] [address] PCP - General 07/30/18 documented as of this encounter
--- OUTSIDE RECORDS SUMMARY | 2024-03-03 17:39 | XMS_ITS | Encounter Summary ---
Author Organization [facility] Address [address] [place] [address] Care Team Providers Care Post Doctoral Fellow Name Role Phone Arabella Laurent POULTRY SCALDER Primary Care Provider [phone] Reason for Visit * Laboratory Services (Routine) - New Request Specialty Diagnoses / Procedures Referred By [place] pineda Referred To Contact Diagnoses Acute renal failure, unspecified acute renal failure type (HCC-CMS) Procedures BASIC METABOLIC PANEL (BMP) Chastity Syed MD [address] [place] [address], [address] [place] [address] Referral ID Status Reason Start Date Expiration Date V isits Requested Visits Authorized [id number] New Request 08/09/2019 1 1 Encounter Details Date Type Department Care Team ([facility] st Contact Info) Description 08/09/2019 11:30 EDT Phlebotomy Only [facility] Laboratory Services - [address] [address] [facility] Acute renal failure, unspecified acute renal failure type ([facility]); Chronic kidney disease, stage III (moderate) ([facility]); Microscopic hematuria Social History Tobacco Use Types [...] EDT Chronic kidney disease, stage III (moderate) ([facility]) Microscopic hematuria PHOSPHORUS Routine 08/09/2019 11:33 EDT Acute renal failure, unspecified acute renal failure type ([facility]) ALBUMIN Routine 08/09/2019 11:33 EDT Chronic kidney disease, stage III (moderate) ([facility]) Microscopic hematuria BASIC METABOLIC PANEL (BMP) Routine 08/09/2019 11:33 EDT Acute renal failure, unspecified acute renal failure type ([facility]) documented in this encounter Results * ALBUMIN (08/09/2019 11:33 EDT) Albumin 3.8 3.4 - 4.9 g/dL 08/09/2019 12:50 EDT [facility] Blood VENOUS BLOOD / Unknown Venipuncture / Unknown 08/09/2019 11:33 EDT 08/09/2019 11:33 EDT Chastity Syed MD CHEMISTRY & BLOOD GA S ORDERABLES [facility] [address] [place] [address] * (ABNORMAL) COMPLETE BLOOD COUNT (08/09/2019 11:33 EDT) WBC 6.29 4.00 - 12.40 K/cmm 08/09/2019 12:31 EDT [facility] RBC 4.05 3.86 - 5.04 M/cmm 08/09/2019 12:31 T [facility] Hemoglobin 13.3 11.6 - 15.2 gm/dL 08/09/2019 12:31 [facility] HCT 40.1 34.9 - 44.4 % 08/09/2019 12:31 [facility] MCV 99(H) 81 - 98 fl 08/09/2019 12:31 [facility] MCH 32.8 26.7 - 33.3 pg 08/09/2019 12:31 [facility] MCHC 33.2 32.1 - 35.9 gm/dL 08/09/2019 12:31 [facility] RDW-CV 13.2 <14.7 % 08/09/2019 12:31 [facility] RDW-SD 48.5 <50.4 fl 08/09/2019 12:31 [facility] PLT 204 141 - 377 K/cmm 08/09/2019 12:31 [facility] MPV 9.8 9.5 - 12.7 fl 08/09/2019 12:31 [facility] Blood VENOUS BLOOD / Unknown Venipuncture / Unknown 08/09/2019 11:33 EDT 08/09/2019 11:33 EDT Chastity Syed MD HEMATOLOGY & PF4 ORD ERABLES Performing Organization Address City/State/[facility] Co de Phone Number [facility] [address] [place] [address] * (ABNORMAL) PTH INTACT (08/09/2019 11:33 EDT) Intact PTH 104(H) 19 - 88 pg/mL 08/09/2019 14:21 EDT [facility] Blood VENOUS BLOOD / Unknown Venipuncture / Unknown 08/09/2019 11:33 EDT 08/09/2019 11:33 EDT Chastity Syed MD CHEMISTRY & BLOOD GA S ORDERABLES [facility] [address] [place] [address] * PHOSPHORUS (08/09/2019 11:33 EDT) Phosphorus 3.5 2.5 - 4.5 mg/dL 08/09/2019 12:50 [facility] Blood VENOUS BLOOD / Unknown Venipuncture / Unknown 08/09/2019 11:33 EDT 08/09/2019 11:33 EDT Chastity Syed MD CHEMISTRY & BLOOD GA S ORDERABLES Performing Organization Address [facility] Co de Phone Number [facility] [address] [place] [address] * (ABNORMAL) BASIC METABOLIC PANEL (BMP) (08/09/2019 11:33 EDT) Sodium 139 136 - 145 mEq/L 08/09/2019 12:50 [facility] Potassium 4.2 3.5 - 5.0 mEq/L 08/09/2019 12:50 [facility] Chloride 108 96 - 110 mEq/L 08/09/2019 12:50 [facility] CO2 Total 25 22 - 32 mEq/L 08/09/2019 12:50 [facility] Glucose 92 70 - 100 mg/dL 08/09/2019 12:50 [facility] Calcium 9.4 8.5 - 10.5 mg/dL 08/09/2019 12:50 [facility] Calculated Calcium 9.6 8.5 - 10.5 mg/dL 08/09/2019 12:50 [facility] BUN 23 10 - 26 mg/dL 08/09/2019 12:50 [facility] Creatinine 1.56(H) 0.52 - 1.04 mg/dL 08/09/2019 12:50 [facility] eGFR 36(L) >60 mL/min/1.7 3m2 08/09/2019 12:50 [facility] Comment:eGFR calculated giovanna vazquez CKD-EPI equation for non- Americans. Multiply eGFR by 1.16 for patients. Blood VENOUS BLOOD / Unknown Venipuncture / Unknown 08/09/2019 11:33 EDT 08/09/2019 11:33 EDT Narrative [facility] - 08/09/2019 12:50 EDT 2 Chastity Syed MD CHEMISTRY & BLOOD GA S ORDERABLES [facility] [address] [place] [address] documented in this encounter Visit Diagnoses Diagnosis Acute renal failure, unspecified acute renal failure type (HCC-CMS) Chronic kidney disease, stage III (moderate) (HCC-CMS) Chronic kidney disease, Stage III (moderate) Microscopic hematuria documented in this encounter Care Teams Post Doctoral Fellow Relationship Specialty Start Date End Date Arabella Laurent NP [address] [place] [address] PCP - General 07/30/18 documented as of this encounter
--- OUTSIDE RECORDS SUMMARY | 2024-03-03 17:39 | XMS_ITS | Encounter Summary ---
Author Organization [facility] Address [address] [place] [address] Care Team Providers Care Laborer [place] Name Role Phone Arabella Laurent WEIGHT INSPECTOR Primary Care Provider [phone] Reason for Visit * Reason Comments Chronic [...] Contact Info) Description 03/05/2021 11:20 EDT Telemedicine [facility] Nephrology - [address] [address] Chastity Syed MD 1 [facility], [address] [place] [address] CKD (chronic kidney disease), stage IV ([facility]) ([facility]) (Primary Dx) Social History Tobacco [...] Diagnosis CKD (chronic kidney disease), stage IV ([facility])- Primary Chronic kidney disease, Stage IV (severe) documented in this encounter Care Teams Laborer [employer] Relationship Specialty Start Date End Date Arabella Laurent NP [address] [place] [address] PCP - General 07/30/18 documented as of this encounter
--- OUTSIDE RECORDS SUMMARY | 2024-03-03 17:40 | XMS_ITS | Encounter Summary ---
Author Organization [facility] Address [address] [place] [address] Care Team Providers Care Candle Extrusion Machine Operator Name Role Phone Unavailable Primary Care Provider Unavailabl e Encounter Details Date Type Department Care Team (Late st Contact Info) Description 04/24/2007 9:58 EST Hospital Encounter [address] [address] Lana Long MD Social History Tobacco Use [...] SIGOUIN, KIA J ? Accession #: ? [id number] ? : ? 1960 (Age: 47) ??F [...] [facility] 08/16/2008 08/17/2008 Melanie Rosen BUSINESS LAW PROFESSOR PATHOLOGY ORDERABLES [facility] [address] [place] [address] documented in this encounter Visit Diagnoses Not on filedocumented in this encounter
--- OUTSIDE RECORDS SUMMARY | 2024-03-03 17:40 | XMS_ITS | Encounter Summary ---
[place] [address] Care Team Providers Care Installation Supervisor Name Role Phone Laurence Krause Primary Care Provider + Encounter Details Date Type Department Care Team (Late st Contact Info) Description 12/25/2017 Orders [place] [address] Sushma Goldstein, CLOCKMAKER [address] [place] [address] Social History Tobacco Use Types Packs/Day Years [...] on filedocumented in this encounter Care Teams Installation Supervisor Relationship Specialty Start Date End Date Laurence Krause PA PCP - General Orthopaedic Surgery 10/30/17 03/06/20 documented as of this encounter
--- OUTSIDE RECORDS SUMMARY | 2024-03-03 17:40 | XMS_ITS | Encounter Summary ---
Author Organization [facility] Address [facility] [place] [address] Care Team Providers Care Security Operations Manager Name Role Phone Laurence Krause Primary Care Provider + Reason for Visit * Reason Comments GI Problem * Consultation (Routine) - Closed Specialty Diagnoses / Procedures Referred By [place] pineda Referred To Contact Gastroenterology Diagnoses GERD Laurence Krause PA [address] [place] [address] [facility] [address] [place] [address] Referral ID Status Reason Start Date Expiration Date V isits Requested Visits Authorized [id number] Closed Consult, Test & Treat Connection [facility] 10/30/2017 10/30/2018 1 1 Encounter Details Date Type Department Care Team (Latest Contact Info) Description 12/22/2017 1:00 PM EDT Office [place] [phone] Anu Murphy PA [facility] [place] [address] Gastroesophageal reflux disease, esophagitis presence not specified; [...] for chronic kidney disease stage III, hx RI, depression, fibromyalgia, HTN, HLD, smoker, chronic pain [...] ??? atorvastatin (LIPITOR) 40 mg Tablet ??? Marble-3 Fatty Acids-Fish Oil 340-1,000 mg Capsule ??? [...] Tablet ??? lisinopril (PRINIVIL;ZESTRIL) 10 mg tablet Penelope for yrs No NSAIDS d/t kidney disease [...] Murphy PA-C Section of Gastroenterology [place] [address] documented in this encounter Plan of Treatment Not on file documented as of this encounter Visit Diagnoses Diagnosis Gastroesophageal reflux disease, esophagitis presence not specified Upper abdominal pain Abdominal pain, other specified site Excessive gas Flatulence, eructation, and gas pain documented in this encounter Care Teams Security Operations Manager Relationship Specialty Start Date End Date Laurence Krause PA PCP - General Orthopaedic Surgery 10/30/17 03/06/20 documented as of this encounter
--- OUTSIDE RECORDS SUMMARY | 2024-03-03 17:40 | XMS_ITS | Encounter Summary ---
Author Organization [facility] Address [address] [place] [address] Care Team Providers Care President Financial Institution Name Role Phone Unavailable Primary Care Provider Unavailabl e Encounter Details Date Type Department Care Team (Late st Contact Info) Description 12/09/2006 Results Only [facility] - Maple conversion [address] [place] [address] Delphine Ogden, [address] [address] Social History Tobacco Use Types [...] cancers. [facility] Report Status Final [id number] [facility] 12/09/2006 16:1 0 EDT 12/18/2006 10:23 EDT Delphine Ogden STORE FACILITY TECHNICIAN MICROBIOLOGY - GENER AL ORDERABLES [facility] [address] [place] [address] * CYTOPATHOLOGY (12/09/2006 0:00 EDT) Pathology Report: CYTOPATHOLOGY REPORT Reports generated via electronic interface contain original data; however they are lacking the format of the original report. Caution should be taken when reading/interpreti ng unformatted reports. Name: ? KIA WRIGHT ? Accession #: ? [id number] : ? 1960 (Age: 45) ??F ?Collect Date: ? 12/09/2006 Location: ? [facility] ? Receive Date: ? 12/11/2006 Provider: ?DELPHINE OGDEN STORE FACILITY TECHNICIAN Copy to: ? Specimen/Source: ?ThinPrep Pap Test, Cervix/Endocervix, processed on Individual Digital ThinPrep Imaging System, with manual evaluation Last Menstrual Period: ? 11/24/06 Other: ? HPVA - HPV testing requested if ASC-US on the current ThinPrep Pap test. ? SPECIMEN ADEQUACY ? Satisfactory for Evaluation - transformation zone component present GENERAL CATEGORIZATION ? Epithelial Cell Abnormality INTERPRETATION ? Squamous Cell Abnormality - Atypical squamous cells, undetermined significance (ASC-US). EDUCATIONAL NOTES/RECOMMENDATI ONS ? [facility] recommends following the 2001 Consensus Guidelines for the Management of Women with Cervical Cytological Abnormalities (MELCHOR,2002;287:212 0-9). Management algorithms have been distributed by [facility] and are available online at www.ASCCP.org. ? Document reviewed and electronically signed by: ? Brandee Massey MD ? Report Date: ??12/17/2006 17:26 End of Report [facility] 12/09/2006 12/11/2006 Delphine Ogden STORE FACILITY TECHNICIAN PATHOLOGY ORDERABLES [facility] [address] [place] [address] documented in this encounter Visit Diagnoses Not on filedocumented in this encounter
--- OUTSIDE RECORDS SUMMARY | 2024-03-03 17:40 | XMS_ITS | Encounter Summary ---
Author Organization [facility] Address [facility] [place] [address] Care Team Providers Care Histology Tech Name Role Phone Arabella Laurent MOTOR EQUIPMENT COMMANDING OFFICER Primary Care Provider [phone] Reason for Visit * Consultation (OLIVER) - Closed Specialty Diagnoses / Procedures Referred By Contreginaldo t Referred To Contact Vascular Surgery Diagnoses Peripheral vascular disease, unspecified Atherosclerotic heart disease of unga coronary artery without angina pectoris Arabella Laurent, MOTOR EQUIPMENT COMMANDING OFFICER [address] [place] [address] [facility] V[facility] Surg [address] [place] [address] Referral ID Status Reason Start Date Expiration Date V isits Requested Visits Authorized [id number] Closed Consult, Test & Treat Connection Center PCP Updated and/or Approved 10/17/2020 10/17/2021 12 12 Encounter Details Date Type Department Care Team (Late st Contact Info) Description 12/01/2020 3:00 PM EDT Office Visit [place] [address] Marjorie Kim APRN [facility] [place] [address] Intermittent claudication; Atherosclerosis of unga artery of right lower extremity, with unspecified [...] this encounter Progress Notes * Marjorie Kim, MOTOR EQUIPMENT COMMANDING OFFICER - 12/01/2020 3:00 PM EDT Vascular Clinic [...] Tablet Take 40 mg by mouth. ??? [place]-3 Fatty Acids-Fish Oil 340-1,000 mg Capsule Take [...] ND, no palpable pulsatile masses Extremity - [place], warm, no ulceration, brisk capillary refill, no [...] - discussed walking program. Marjorie Kim, MSN, MOTOR EQUIPMENT COMMANDING OFFICER Vascular Surgery documented in this encounter Plan of Treatment Not on file documented as of this encounter Visit Diagnoses Diagnosis Intermittent claudication Peripheral vascular disease, unspecified Atherosclerosis of unga artery of right lower extremity, with unspecified presence of clinical manifestation documented in this encounter Care Teams Histology Tech Relationship Specialty Start Date End Date Arabella Laurent APRN PCP - General Family Medicine 03/07/20 documented as of this encounter
--- OUTSIDE RECORDS SUMMARY | 2024-03-03 17:40 | XMS_ITS | Clinical Summary ---
Author Organization [facility] Address [facility] [place] [address] Care Team Providers Care Test Worker Name Role Phone Arabella Laurent DENISHA Primary Care Provider [phone] Allergies Active Allergy Reactions Criticality Noted Date Comments Gabapentin 08/12/2017 Ranitidine Hcl Rash 02/05/2012 Medications Medication Sig Dispensed Refills Start Date End Date Status lisinopril (PRINIVIL;ZESTRIL) 10 mg tablet 02/13/2006 Active aspirin 81 mg Tablet, Delayed Release (E.C.) Take 81 mg by mouth. Active atorvastatin (LIPITOR) 40 mg Tablet Take 40 mg by mouth. Active [place]-3 Fatty Acids-Fish Oil 340-1,000 mg Capsule Take [...] (coronary artery disease) 12/01/2020 Cigarette smoker 12/01/2020 Encounters Date Type Department Care Team Description 01/06/2024 [place] [address] Vega Locke MD Encounter for other specified special examinations from Last 3 Months Social History Tobacco Use Types Packs/Day Years [...] HIV screen 1976 Hepatitis C Screening 1976 Tetanus/Diphtheria/Pertussis Vaccines (1 - Tdap) 12/23 HPV test 1988 PAP Smear 1988 Breast Cancer Share Decision Needed 1998 Breast Cancer screening 1998 Zoster vaccine (1 of 2) 2008 Advance Directive 2013 Bone Density Scan 12/24/2023 Covid-19 Vaccine (1 - ) 02/01/2024 Influenza (Flu) vaccine (1 o f 1 - Influenza standard series) 02/01/2024 Procedures Procedure Name Priority Date/Time Associated Diagnosis Comments SURGICAL PATHOLOGY, DERMATOLOGY Routine 01/05/2024 2:55 PM EDT Encounter for other specified special examinations from Last 3 Months Results * Surgical Pathology, Dermatology (01/05/2024 2:55 PM EDT) Case Report Surgical Pathology Report ? Case: [id number] ? Authorizing Provider: ??Vega Locke MD ? Collected: ? 01/05/2024 1455 ? Ordering Location: ? Laboratory ? Received: ?01/06/2024 2342 ? Pathologist: ? Ame Jain MD ? Specimen: ?Breast, Left ? 01/09/2024 9:54 AM EDT [facility] Final Diagnosis A. Breast, Left, Excision: - Verrucous keratosis, inflamed 01/09/2024 9:54 AM EDT [facility] Clinical Information Skin lesion/mole 01/09/2024 9:54 AM EDT [facility] Gross Description A. Breast, Left. Labeled/Fixative: - Breast, left mole, formalin. Quantity/Size: Single, 3.0 x 1.7 excised with depth of 0.6 cm. Tissue Description: A non-oriented white skin excision with a firm hyperkeratotic 1.6 x 1.5 cm white nodule Sections/Processi ng: Inked and entirely submitted in 5 cassettes as follows: A1: tips A2-A5: body 01/09/2024 9:54 AM EDT [facility] Result Note Routine 01/09/2024 9:54 AM EDT [facility] Skin LEFT BREAST STRUCTURE / Unknown 01/05/2024 2:55 PM EDT 01/06/2024 11:42 PM EDT Vega Locke MD PATHOLOGY/CYTOLOGY O RDERABLES [facility] [place] [address] from Last 3 Months Care Teams Test Worker Relationship Specialty Start Date End Date Arabella aLurent, BARBERING INSTRUCTOR PCP - General Family Medicine 03/07/20
--- OUTSIDE RECORDS SUMMARY | 2024-03-03 17:40 | XMS_ITS | Encounter Summary ---
Author Organization [facility] [place] [address] Care Team Providers Care Precision Lens Generator Name Role Phone Laurence Krause Primary Care Provider + Encounter Details Date Type Department Care Team (Late st Contact Info) Description 12/25/2017 Telephone [place] [phone] Kelsie Klein RN Social History Tobacco Use [...] prescription for Protonix [facility] in [place], [place] * Telephone Encounter - Kelsie Klein [...] on filedocumented in this encounter Care Teams Precision Lens Generator Relationship Specialty Start Date End Date Laurence Krause PA PCP - General Orthopaedic Surgery 10/30/17 03/06/20 documented as of this encounter
--- OUTSIDE RECORDS SUMMARY | 2024-03-03 17:40 | XMS_ITS | Encounter Summary ---
[place] [address] Care Team Providers Care Railroad Car Letterer Name Role Phone Arabella Laurent APRN Primary Care Provider [phone] Reason for Referral * Consultation (Routine) - Canceled Specialty Diagnoses / Procedures Referred By [place] pineda Referred To Contact Nephrology Diagnoses Stage 3 chronic kidney disease, unspecified whether stage 3a or 3b CKD History of nephrectomy Arabella Laurent APRN [address] [place] [address] [facility] Nephrology [address] [place] [phone] Referral ID Status Reason Start Date Expiration Date Visits Requested Visits Authorized [id number] Canceled Consult, Test & Treat PCP Updated and/or Approved 10/04/2022 10/04/2023 6 6 Encounter Details Date Type Department Care Team (Latest Contact Info) Description 10/04/2022 Transcribe Orders eDH Incoming Referrals [phone] Arabella Laurent APRN [address] [place] [address] Stage 3 chronic kidney disease, [...] kidney documented in this encounter Care Teams Railroad Car Letterer Relationship Specialty Start Date End Date Arabella Laurent, DENISHA PCP - General Family Medicine 03/07/20 documented as of this encounter
--- OUTSIDE RECORDS SUMMARY | 2024-03-03 17:40 | XMS_ITS | Encounter Summary ---
Author Organization [facility] [place] [address] Care Team Providers Care School Health Aide Name Role Phone Arabella Laurent APRN Primary Care Provider [phone] Reason for Visit * Reason Comments Medication Refill Encounter Details Date Type Department Care Team (Late st Contact Info) Description 02/25/2021 Refill Dermatology at [place] [address] [place] [address] Chon Harley MD [address] [facility] [place] [address] Social History Tobacco Use Types Packs/Day Years [...] on filedocumented in this encounter Care Teams School Health Aide Relationship Specialty Start Date End Date Arabella Laurnet APRN PCP - General Family Medicine 03/07/20 documented as of this encounter
--- OUTSIDE RECORDS SUMMARY | 2024-03-03 17:40 | XMS_ITS | Encounter Summary ---
Author Organization [facility] Address [address] [place] [address] Care Team Providers Care Front End Developer Designer Name Role Phone Melanie Rosen COMPOUNDING TECHNICIAN Primary Care Provider [phone] Encounter Details Date Type Department Care Team (Late st Contact Info) Description 12/12/2014 Results Only [facility] [phone] Melanie Rosen, COMPOUNDING TECHNICIAN [facility] [address] [place], [place] [address] Social History Tobacco Use Types Packs/Day Years [...] ? KIA WRIGHT ? Accession #: ? [id number] : ? 1960 (Age: 53) ??F ?Collect Date: ? 12/12/2014 Location: ? [facility] ? Receive Date: ? 12/14/2014 Provider: ?MELANIE ROSEN COMPOUNDING TECHNICIAN Copy to: ? Specimen/Source: ?Pap Test, Cervix/Endocervix [...] undetermined significance (ASC-US). EDUCATIONAL NOTES/RECOMMENDAT IONS ? [facility] recommends following ASCCP's 2012 Updated Consensus Guidelines for the Management of Abnormal Cervical Cancer Screening Tests and Cancer Precursors (JLGTD, 2013; 17(5):S1-S27). ??Consensus guidelines are available online at www.asccp.org. ? Document reviewed and electronically signed by: ? RAZ STARR MD ? Report Date: ??12/22/2014 10:04 End of Report [facility] 12/12/2014 12/14/2014 Melanie Rosen NP PATHOLOGY ORDERABLES [facility] [address] [place] [address] documented in this encounter Visit Diagnoses Not on filedocumented in this encounter Care Teams Front End Developer Designer Relationship Specialty Start Date End Date Melanie Rosen NP [facility] [address] [place] [address] PCP - General 01/01/12 09/11/17 documented as of this encounter
--- OUTSIDE RECORDS SUMMARY | 2024-03-03 17:40 | XMS_ITS | Encounter Summary ---
Author Organization [facility] Address [address] [place] [address] Care Team Providers Care Grain Sacker Name Role Phone Melanie Pulido NP Primary Care Provider [phone] Reason for Visit * Reason Comments Other One kidney Encounter Details Date Type Department Care Team ([facility] st Contact Info) Description 02/05/2012 14:00 EDT Office Visit [facility] Nephrology - [address] [id number] Robert Truong MD [address] [place], [place] [id number] Chronic kidney disease, stage III (moderate) ([facility]) (Primary Dx); Unspecified essential hypertension [...] Notes * Robert Truong MD - 02/05/2012 2687 EDT REASON FOR CONSULTATION: Worsening renal function. 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 It was done at [facility] in [place]. Also longstanding hypertension since she was a [...] but she does not take NSAIDs or jmge-nxh-kxaeihj medication on a regular basis. She used [...] overwhelming. The boyfriend is working as a lymphedema therapist. FAMILY HISTORY: Her father had metastatic cancer [...] and recurrent infection. It was done at [facility] in [place]. Also longstanding hypertension since she was a [...] but she does not take NSAIDs or rryr-muf-dupvkcg medication on a regular basis. She used [...] overwhelming. The boyfriend is working as a lymphedema therapist. FAMILY HISTORY: Her father had metastatic cancer [...] Osorio MD - Robert Truong MD - [place] Job ID: Doc ID: [id number] Ext Doc ID: [id number] cc: Melanie Pulido NP documented in this encounter Plan of Treatment Not on file documented as of this encounter Procedures Procedure Name Priority Date/Time Associated Diagnosis Comments POCT URINE DIPSTICK, CLINITEK Routine 02/05/2012 13:42 EDT Chronic kidney disease, stage III (moderate) ([facility]) documented in this encounter Results * (ABNORMAL) POCT URINE DIPSTICK (02/05/2012 13:42 EDT) Color YELLOW [facility] Clarity, UA Clear [facility] Glucose Neg Neg [facility] Bilirubin Neg Neg [facility] Ketones Neg Neg [facility] Specific [place] <=1.005 1.001 - 1.035 [facility] Blood 1+(A) Neg [facility] pH 5.5 4.6 - 8.0 [facility] Protein Neg Neg [facility] Urobilinogen 0.2 0.2 - 1.0 E.U./dl [facility] Nitrite Neg Neg [facility] Leuk Esterase Neg Neg [facility] neck band setter ID [id number] [facility] Comment:Test Performed at [facility] Services Urine specimen (specimen) 02/05/2012 13:42 EDT 02/05/2012 13:48 EDT Kana Osorio MD POINT OF CARE TEST O RDERABLES [facility] [address] [place] [address] documented in this encounter Visit Diagnoses Diagnosis Chronic kidney disease, stage III (moderate) ([facility])- Primary Chronic kidney disease, Stage III (moderate) Unspecified essential hypertension documented in this encounter Care Teams Grain Sacker Relationship Specialty Start Date End Date Melanie Pulido NP [facility] [address] [place] [address] (work) PCP - General 01/01/12 09/11/17 documented as of this encounter
--- OUTSIDE RECORDS SUMMARY | 2024-03-03 17:40 | XMS_ITS | Encounter Summary ---
Author Organization [facility] [place] [address] Care Team Providers Care Esol Teacher Assistant Name Role Phone Arabella Laurent APRN Primary Care Provider [phone] Encounter Details Date Type Department Care Team (Late st Contact Info) Description 01/06/2024 [place] [address] Vega Locke MD [address] [place] [address] Encounter for other specified special examinations Social History Tobacco Use Types Packs/Day Years [...] EDT Encounter for other specified special examinations documented in this encounter Results * Surgical Pathology, Dermatology (01/05/2024 2:55 PM EDT) Case Report Surgical Pathology Report ? Case: [id number] ? Authorizing Provider: ??Vega Locke MD ? Collected: ? 01/05/2024 1455 ? Ordering Location: ? Laboratory ? Received: ?01/06/2024 2342 ? Pathologist: ? Ame Jain MD ? Specimen: ?Breast, Left ? 01/09/2024 9:54 AM EDT [facility] Final Diagnosis A. Breast, Left, Excision: - Verrucous keratosis, inflamed 01/09/2024 9:54 AM [facility] Clinical Information Skin lesion/mole 01/09/2024 9:54 AM [facility] Gross Description A. Breast, Left. Labeled/Fixative: - Breast, left mole, formalin. Quantity/Size: Single, 3.0 x 1.7 excised with depth of 0.6 cm. Tissue Description: A non-oriented white skin excision with a firm hyperkeratotic 1.6 x 1.5 cm white nodule Sections/Processi ng: Inked and entirely submitted in 5 cassettes as follows: A1: tips A2-A5: body 01/09/2024 9:54 AM [facility] Result Note Routine 01/09/2024 9:54 AM [facility] Skin LEFT BREAST STRUCTURE / Unknown 01/05/2024 2:55 PM EDT 01/06/2024 11:42 PM EDT Vega Locke MD PATHOLOGY/CYTOLOGY O RDERABLES [facility] [place] [address] documented in this encounter Visit Diagnoses Diagnosis Encounter for other specified special examinations documented in this encounter Care Teams Esol Teacher Assistant Relationship Specialty Start Date End Date Arabella Laurent APRN PCP - General Family Medicine 03/07/20 documented as of this encounter
--- OUTSIDE RECORDS SUMMARY | 2024-03-03 17:40 | XMS_ITS | Encounter Summary ---
Author Organization [facility] Address [facility] [place] [address] Care Team Providers Care Fare Enforcement Officer Name Role Phone Laurence Krause Primary Care Provider + Encounter Details Date Type Department Care Team (Late st Contact Info) Description 01/08/2018 Telephone Gastroenterology [place] [address] [address] [place] [facility] [place] [address] Social History Tobacco Use Types Packs/Day Years [...] colon documented in this encounter Care Teams Fare Enforcement Officer Relationship Specialty Start Date End Date Laurence Krause PA PCP - General Orthopaedic Surgery 10/30/17 03/06/20 documented as of this encounter
--- OUTSIDE RECORDS SUMMARY | 2024-03-03 17:40 | XMS_ITS | Encounter Summary ---
Author Organization [facility] Address [address] [place] [address] Care Team Providers Care Recruitment Assistant Name Role Phone Unavailable Primary Care Provider Unavailabl e Encounter Details Date Type Department Care Team (Late st Contact Info) Description 04/24/2007 Before PRISM Converted [facility] conversion [address] [place] [address] Lana Long MD Social History Tobacco Use [...] to mention that she was evaluated at [facility] for the same problem just a [...] Lana Long MD - MS Job ID: [id number] Doc ID: [id number] cc: Melanie Pulido NP cc: Melanie Pulido NP - Lana Long MD - ms Job ID: [id number] Doc ID: [id number] cc: Melanie Pulido NP documented in this encounter Plan of Treatment Not on file documented as of this encounter Visit Diagnoses Not on filedocumented in this encounter
--- OUTSIDE RECORDS SUMMARY | 2024-03-03 17:40 | XMS_ITS | Encounter Summary ---
Author Organization [facility] [place] [address] Care Team Providers Care Business Objects Developer Name Role Phone Arabella Laurent Bree DENNY Primary Care Provider Encounter Details Date Type Department Care Team (Late st Contact Info) Description 04/18/2020 Orders [place] [address] Bandar Rosado APRN [facility] [place] [address] Claudication Social History Tobacco Use Types Packs/Day [...] Text Report Department: Vascular Surgery Lab Patient: [id number] (KYLE KIA) CPT: 53014 ICD10: I77.1;I70.213;I7 0.413;I73.9 Referring Physician: BANDAR ROSADO [...] unspecified documented in this encounter Care Teams Business Objects Developer Relationship Specialty Start Date End Date Arabella Laurent APRN PCP - General Family Medicine 03/07/20 documented as of this encounter
--- OUTSIDE RECORDS SUMMARY | 2024-03-03 17:40 | XMS_ITS | Encounter Summary ---
Author Organization [facility] [place] [address] Care Team Providers Care Immigration Specialist Name Role Phone Arabella Laurent HANDCREW FOREMAN Primary Care Provider [phone] Reason for Visit * Reason Comments Skin Check * Consultation (Routine) - Specialty Diagnoses / Procedures Referred By [place] pineda Referred To Contact Dermatology Diagnoses Rash and other nonspecific skin eruption Rash on Feet; New Patient-Notes Received Procedures Consult Arabella Laurent, DENISHA [address] [place] [address] Chon Harley MD [address] [place] [address], [facility] [place] [address] Referral ID Status Reason Start Date Expiration Date V isits Requested Visits Authorized [id number] Consult, Test & Treat PCP Updated and/or Approved 02/18/2020 02/17/2021 6 6 Encounter Details Date Type Department Care Team (Late st Contact Info) Description 03/07/2020 9:30 AM EDT Office Visit Dermatology at [address] [address] Chon Harley MD [address] [place] [address], [facility] [place], [place] [id number] Dermatitis Social History Tobacco Use Types Packs/Day [...] cause documented in this encounter Care Teams Immigration Specialist Relationship Specialty Start Date End Date Arabella Laurent APRN PCP - General Family Medicine 03/07/20 documented as of this encounter
--- OUTSIDE RECORDS SUMMARY | 2024-03-03 17:40 | XMS_ITS | Encounter Summary ---
Author Organization [facility] Address [address] [place] [address] Care Team Providers Care Wood Strip Block Floor Installer Name Role Phone Melanie Pulido NP Primary Care Provider [phone] Reason for Visit * Reason Onset Date Comments Medication Management 10/14/2012 Patient wa nts to know if she can take asprin once a day as her PCP wants her to? Encounter Details Date Type Department Care Team (Late st Contact Info) Description 10/14/2012 Telephone [facility] Nephrology - [address] [id number] Robert Truong MD [address] [place], [place] [id number] Medication Management (Patient wants to know if [...] encounter Miscellaneous Notes * Telephone Encounter - oRsa Harry RN - 10/14/2012 1540 EDT Ok'd [...] on filedocumented in this encounter Care Teams Wood Strip Block Floor Installer Relationship Specialty Start Date End Date Melanie Pulido NP [facility] [address] [place] [address] PCP - General 01/01/12 09/11/17 documented as of this encounter
--- OUTSIDE RECORDS SUMMARY | 2024-03-03 17:40 | XMS_ITS | Encounter Summary ---
Author Organization [facility] Address [address] [place] [address] Care Team Providers Care Building Rental Superintendent Name Role Phone Melanie Rosen LOTUS NOTES DEVELOPER Primary Care Provider [phone] Encounter Details Date Type Department Care Team (Late st Contact Info) Description 04/20/2014 Results Only [facility] Laboratory Services - [facility] ([facility]) [address], [place] [address] Melanie Rosen, LOTUS NOTES DEVELOPER [facility] [address] [place], [place] [phone] Social History Tobacco Use Types Packs/Day Years [...] ? KIA WRIGHT ? Accession #: ? [id number] : ? 1960 (Age: 53) ??F ?Collect Date: ? 04/20/2014 Location: ? [facility] ? Receive Date: ? 04/22/2014 Provider: ?MELANIE ROSEN LOTUS NOTES DEVELOPER Copy to: ? Specimen/Source: ?Pap Test, Cervix/Endocervix , ThinPrep Imaging System with manual evaluation Last Menstrual Period: ? 8 years ago Previous Gynecologic Pathology: ? HPV: + ? SPECIMEN ADEQUACY ? Satisfactory for Evaluation - transformation zone component present GENERAL CATEGORIZATION ? Epithelial Cell Abnormality INTERPRETATION ? Squamous Cell Abnormality - Atypical squamous cells, undetermined significance (ASC-US). EDUCATIONAL NOTES/RECOMMENDAT IONS ? [facility] recommends following ASCCP's 2012 Updated Consensus Guidelines for the Management of Abnormal Cervical Cancer Screening Tests and Cancer Precursors (JLGTD, 2013; 17(5):S1-S27). ??Consensus guidelines are available online at www.asccp.org. ? Document reviewed and electronically signed by: ? BUCK GARCES MD ? Report Date: ??05/05/2014 11:45 End of Report [facility] 04/20/2014 04/22/2014 Melanie Rosen NP PATHOLOGY ORDERABLES [facility] [address] [place] [address] documented in this encounter Visit Diagnoses Not on filedocumented in this encounter Care Teams Building Rental Superintendent Relationship Specialty Start Date End Date Melanie Rosen NP [facility] [address] [place] [address] PCP - General 01/01/12 09/11/17 documented as of this encounter
--- OUTSIDE RECORDS SUMMARY | 2024-03-03 17:40 | XMS_ITS | Encounter Summary ---
Author Organization [facility] Address [address] [place] [address] Care Team Providers Care University Relations Vice President Name Role Phone Melanie Pulido NP Primary Care Provider [phone] Encounter Details Date Type Department Care Team (Late st Contact Info) Description 11/27/2012 Abstract [facility] Nephrology - [address] [id number] Lana Long MD Social History Tobacco Use [...] PANEL (CMP) (11/26/2012) GFR, Calculated, External 40 [facility] Glucose, Serum, External 95 [facility] Albumin, External [facility] Total Alkaline Phosphatase, External [facility] ALT, External 9 [facility] AST, External 5 [facility] BUN, External 29 [facility] Calculated Calcium, External [facility] Calcium, External 9.6 [facility] Chloride, External 108 [facility] CO2, External 25 [facility] Creatinine, External 1.38 [facility] Fasting?, External [facility] Potassium, External 4.5 [facility] Sodium, External 142 [facility] Total Protein, External [facility] Bilirubin, Total, External [facility] Blood specimen (specimen) 11/26/2012 Jarred Denton MD CHEMISTRY & BLOOD GAS ORDERABLES [facility] * LIPID PROFILE (INCLUDES CHOLESTEROL, TRIGLYCERIDES, HDL, LDL) (11/26/2012) Cholesterol, External 276 [facility] Triglycerides, External 322 [facility] HDL, External 27 [facility] LDL, External 185 [facility] Chol/HDL Ratio, External 10.2 [facility] Fasting?, External [facility] Blood specimen (specimen) 11/26/2012 Jarred Denton MD CHEMISTRY & BLOOD GAS ORDERABLES [facility] documented in this encounter Visit Diagnoses Not on filedocumented in this encounter Care Teams University Relations Vice President Relationship Specialty Start Date End Date Melanie Pulido, ROLF [facility] [address] [place] [address] PCP - General 01/01/12 09/11/17 documented as of this encounter
--- OUTSIDE RECORDS SUMMARY | 2024-03-03 17:40 | XMS_ITS | Encounter Summary ---
Author Organization [facility] Address [address] [place] [address] Care Team Providers Care Blood Splatter Analyst Name Role Phone Melanie Pulido NP Primary Care Provider [phone] Encounter Details Date Type Department Care Team (Late st Contact Info) Description 10/07/2012 Abstract [facility] Nephrology - [address] [address] Lana Long MD Social History Tobacco Use [...] Name Priority Date/Time Associated Diagnosis Comments URINE [id number] RATIO (ACR) Routine 10/06/2012 documented in this encounter Results * (ABNORMAL) ALBUMIN, URINE (10/06/2012) Microalb ug/mg Crea, External 953.8 [facility] Microalb mg/dl, External 313.8(A) 1.30 - 20.0 [facility] Creatinine, Random U (UCRR), External 32.9 [facility] Urine specimen (specimen) 10/06/2012 Lana Long MD CHEMISTRY & BLOOD GA S ORDERABLES [facility] documented in this encounter Visit Diagnoses Not on filedocumented in this encounter Care Teams Blood Splatter Analyst Relationship Specialty Start Date End Date Melanie Pulido, ROLF [facility] [address] [place] [address] PCP - General 01/01/12 09/11/17 documented as of this encounter
--- OUTSIDE RECORDS SUMMARY | 2024-03-03 17:40 | XMS_ITS | Encounter Summary ---
Author Organization [facility] Address [address] [place] [address] Care Team Providers Care Communication Equipment Repairer Name Role Phone Melanie Rosen RECEPTIONIST SECRETARY Primary Care Provider [phone] Encounter Details Date Type Department Care Team (Late st Contact Info) Description 07/12/2015 Results Only [facility] [phone] Melanie Rosen, RECEPTIONIST SECRETARY [facility] [address] [place], [place] [address] Social History Tobacco Use Types Packs/Day Years [...] ? KIA WRIGHT ? Accession #: ? [id number] : ? 1960 (Age: 54) ??F ?Collect Date: ? 07/12/2015 Location: ? [facility] ? Receive Date: ? 07/14/2015 Provider: ?MELANIE ROSEN RECEPTIONIST SECRETARY Copy to: ? Specimen/Source: ?Pap Test, Cervix/Endocervix, [...] Report Date: ??07/24/2015 13:39 End of Report [facility] 07/12/2015 07/14/2015 Melanie Rosen NP PATHOLOGY ORDERABLES Performing Organization Address City/State/[facility] Co de Phone Number [facility] [address] [place] [address] documented in this encounter Visit Diagnoses Not on filedocumented in this encounter Care Teams Communication Equipment Repairer Relationship Specialty Start Date End Date Melanie Rosen NP [facility] [address] [place] [address] PCP - General 01/01/12 09/11/17 documented as of this encounter
--- OUTSIDE RECORDS SUMMARY | 2024-03-03 17:40 | XMS_ITS | Encounter Summary ---
Author Organization [facility] Address [address] [place] [address] Care Team Providers Care Nursing Education Specialist Name Role Phone Melanie Pulido NP Primary Care Provider [phone] Encounter Details Date Type Department Care Team (Late st Contact Info) Description 01/06/2017 Results Only [facility] [phone] Laurence Krause PA [address] [place] [phone] Social History Tobacco Use Types Packs/Day Years [...] ? KIA WRIGHT ? Accession #: ? [id number] : ? 1960 (Age: 56) ??F ?Collect Date: ? 01/06/2017 Location: ? [facility] ? Receive Date: ? 01/08/2017 Provider: ?LAURENCE KATE Copy to: ? Specimen/Source: ?Pap Test, Cervix/Endocervix, ThinPrep Imaging System with manual evaluation Last Menstrual Period: ? 2009 Previous Gynecologic Pathology: ? 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 SPECIMEN ADEQUACY ? Satisfactory for Evaluation - transformation zone component present GENERAL CATEGORIZATION ? Negative for Intraepithelial Lesion or Malignancy INTERPRETATION ? Reactive cellular changes associated with inflammation present (includes repair). ? Document reviewed and electronically signed by: ? JOVANY MILLARD MD ? Report Date: ??01/17/2017 09:02 End of Report [facility] 01/06/2017 01/08/2017 Laurence KATE PATHOLOGY ORDERA BLES [facility] [address] [place] [address] documented in this encounter Visit Diagnoses Not on filedocumented in this encounter Care Teams Nursing Education Specialist Relationship Specialty Start Date End Date Melanie Pulido NP [facility] [address] [place] [address] PCP - General 01/01/12 09/11/17 documented as of this encounter
--- OUTSIDE RECORDS SUMMARY | 2024-03-03 17:40 | XMS_ITS | Encounter Summary ---
Author Organization [facility] Address [address] [place] [address] Care Team Providers Care Personalized Living Manager Name Role Phone Melanie Pulido NP Primary Care Provider [phone] Encounter Details Date Type Department Care Team (Late st Contact Info) Description 02/05/2012 Abstract [place] Nephrology - [address] [phone] Robert Truong MD [address] [place], [place] [address] Social History Tobacco Use Types Packs/Day Years [...] 08/03/2018 added in this encounter Care Teams Personalized Living Manager Relationship Specialty Start Date End Date Melanie Pulido, ROLF [facility] [address] [place] [address] PCP - General 01/01/12 09/11/17 documented as of this encounter
--- OUTSIDE RECORDS SUMMARY | 2024-03-03 17:40 | XMS_ITS | Encounter Summary ---
Author Organization [facility] Address [address] [place] [address] Care Team Providers Care Bead Stringer Name Role Phone Melanie Pulido NP Primary Care Provider [phone] Reason for Visit * Reason Comments Chronic Kidney Disease Encounter Details Date Type Department Care Team ([facility] st Contact Info) Description 09/23/2012 15:30 EDT Office Visit [facility] Nephrology - [address] [phone] Robert Truong MD [address] [place], [place] [phone] Lana Long MD Chronic kidney disease, stage III (moderate) ([facility]) (Primary Dx); Unspecified essential hypertension; Proteinuria Social [...] Notes * Robert Truong MD - 09/23/2012 8271 EDT Images from the original note were [...] sample today. This will be faxed to [facility]. I also called and leave message at [...] EDT Chronic kidney disease, stage III (moderate) ([facility]) documented in this encounter Results * (ABNORMAL) POCT URINE DIPSTICK (09/23/2012 15:13 EDT) Color YELLOW [facility] Clarity, UA Clear [facility] Glucose Neg Neg [facility] Bilirubin Neg Neg [facility] Ketones Neg Neg [facility] Specific [place] <=1.005 1.001 - 1.035 [facility] Blood 1+(A) Neg [facility] pH 5.5 4.6 - 8.0 [facility] Protein Neg Neg [facility] Urobilinogen 0.2 0.2 - 1.0 E.U./dl [facility] Nitrite Neg Neg [facility] Leuk Esterase Neg Neg [facility] brim stiffener ID [id number] [facility] Comment:Test Performed at [facility] Urine specimen (specimen) 09/23/2012 15:13 EDT 09/23/2012 15:21 EDT F Compa Long MD POINT OF CARE TEST O RDERABLES [facility] [address] [place] [address] documented in this encounter Visit Diagnoses Diagnosis Chronic kidney disease, stage III (moderate) ([facility])- Primary Chronic kidney disease, Stage III (moderate) Unspecified essential hypertension Proteinuria documented in this encounter Care Teams Bead Stringer Relationship Specialty Start Date End Date Melanie Pulido NP [facility] [address] [place] [address] PCP - General 01/01/12 09/11/17 documented as of this encounter
--- OUTSIDE RECORDS SUMMARY | 2024-03-03 17:40 | XMS_ITS | Encounter Summary ---
Author Organization [facility] [place] [address] Care Team Providers Care Medical Resident Name Role Phone Arabella Laurent APRN Primary Care Provider [phone] Encounter Details Date Type Department Care Team (Late st Contact Info) Description 03/07/2020 Refill Dermatology at [address] [address] Anjali Avila, GLASS DESIGNER Social History Tobacco Use Types Packs/Day Years [...] on filedocumented in this encounter Care Teams Medical Resident Relationship Specialty Start Date End Date Arabella Laurent APRN PCP - General Family Medicine 03/07/20 documented as of this encounter
--- OUTSIDE RECORDS SUMMARY | 2024-03-03 17:40 | XMS_ITS ---
Author Organization Unknown Address [address] [place] [phone] Phone Care Team Providers Care Armature Winder Automotive Name Role Phone RADHA Dupont Attending Unavailable Social History Type Status Start Date End Date Code Code Syst em Smoking History Current every day smoker [id number] SNOMED CT Sex Female Hospital Discharge Instructions Should you have any questions prior to discharge, please contact a member of your healthcare team. If you have left the hospital and have any questions, please contact your primary care physician. Reason For Referral No Data Found Plan of Treatment No Data Found Encounters Encounter Diagnosis Start Date Code Code Sys tem 12/12/2023 [id number] SNOMED-CT Personal Care Team Section Performer Name Performer Role Active Date Inactive Da te
--- OUTSIDE RECORDS SUMMARY | 2024-03-03 17:40 | XMS_ITS | Encounter Summary ---
Author Organization [facility] Address [address] [place] [address] Care Team Providers Care Head Of It Name Role Phone Unavailable Primary Care Provider Unavailabl e Encounter Details Date Type Department Care Team (Late st Contact Info) Description 08/24/[address] [facility] - Maple conversion [address] [place] [address] Delphine Ogden, [address] [place] [address] Social History Tobacco Use Types [...] ? KIA WRIGHT ? Accession #: ? [id number] : ? 1960 (Age: 46) ??F ?Collect Date: ? 08/24/2007 Location: ? [facility] ? Receive Date: ? 08/25/2007 Provider: ?DELPHINE OGDEN JINRIKISHA DRIVER Copy to: ? Specimen/Source: ?ThinPrep Pap Test, Cervix/Endocervix, processed on [employer] ThinPrep Imaging System, with manual evaluation Last [...] Report [facility] 08/24/2007 08/25/2007 Delphine Ogden JINRIKISHA DRIVER PATHOLOGY ORDERABLES [facility] [address] [place] [address] documented in this encounter Visit Diagnoses Not on filedocumented in this encounter
--- OUTSIDE RECORDS SUMMARY | 2024-03-03 17:40 | XMS_ITS | Encounter Summary ---
Author Organization [facility] Address [address] [place] [address] Care Team Providers Care Application Development Team Lead Name Role Phone Melanie Pulido NP Primary Care Provider [phone] Encounter Details Date Type Department Care Team (Late st Contact Info) Description 08/12/2017 Abstract [facility] Transplant - [address] [address] Chastity Syed MD [address] [place] [address], [address] [place] [phone] Social History Tobacco Use Types Packs/Day Years [...] 08/03/2018 added in this encounter Care Teams Application Development Team Lead Relationship Specialty Start Date End Date Melanie Pulido NP [facility] [address] [place] [address] PCP - General 01/01/12 09/11/17 documented as of this encounter
--- OUTSIDE RECORDS SUMMARY | 2024-03-03 17:40 | XMS_ITS | Encounter Summary ---
Author Organization [facility] Address [address] [place] [address] Care Team Providers Care Pawn Broker Name Role Phone Unavailable Primary Care Provider Unavailabl e Encounter Details Date Type Department Care Team (Late st Contact Info) Description 02/16/2007 Results Only [facility] - Maple conversion [address] [place] [address] Marixa Cox MD [address] [place] [address] [place] [address] Social History Tobacco Use Types Packs/Day Years [...] ? KIA WRIGHT ? Accession #: ? [id number] ? : ? 1960 (Age: 46) ??F [...] The specimen is entirely submitted as (B). /[facility] End of Report [facility] 02/16/2007 02/16/2007 1:1 9 EDT Marixa Cox MD PATHOLOGY ORDERABLES [facility] [address] [place] [address] documented in this encounter Visit Diagnoses Not on filedocumented in this encounter
--- OUTSIDE RECORDS SUMMARY | 2024-03-03 17:40 | XMS_ITS ---
Author Organization Unknown Address [address] [place] [phone] Phone Care Team Providers Care Police Commanding Officer Name Role Phone RADHA Dupont Attending Unavailable Social History Type Status Start Date End Date Code Code Syst em Smoking History Current every day smoker [id number] SNOMED CT Sex Female Hospital Discharge Instructions Should you have any questions prior to discharge, please contact a member of your healthcare team. If you have left the hospital and have any questions, please contact your primary care physician. Reason For Referral No Data Found Plan of Treatment No Data Found Encounters Encounter Diagnosis Start Date Code Code Sys tem 06/13/2023 [id number] SNOMED-CT Personal Care Team Section Performer Name Performer Role Active Date Inactive Da te
--- OUTSIDE RECORDS SUMMARY | 2024-03-03 17:40 | XMS_ITS | Encounter Summary ---
Author Organization [facility] Address [address] [place] [address] Care Team Providers Care Trailhead Maintenance Worker Name Role Phone Unavailable Primary Care Provider Unavailabl e Encounter Details Date Type Department Care Team (Late st Contact Info) Description 03/06/2011 Results Only [facility] Laboratory Services - [facility] ([facility]) [address] [place], [place] [address] Melanie Rosen, ROLF [facility] [address] [place], [place] [address] Social History Tobacco Use Types Packs/Day Years [...] ? KIA WRIGHT ? Accession #: ? [id number] : ? 1960 (Age: 50) ??F ?Collect Date: ? 03/06/2011 Location: ? [facility] ? Receive Date: ? 03/08/2011 Provider: ?MELANIE ROSEN ACUTE CARE CERTIFIED NURSING ASSISTANT Copy to: ? Specimen/Source: ?Pap Test, Cervix/Endocervix, [...] NP PATHOLOGY ORDERABLES [facility] [address] [place] [address] documented in this encounter Visit Diagnoses Not on filedocumented in this encounter
--- OUTSIDE RECORDS SUMMARY | 2024-03-03 17:40 | XMS_ITS | Encounter Summary ---
Author Organization [facility] [place] [address] Care Team Providers Care Drum Loader And Unloader Name Role Phone Arabella Laurent APRN Primary Care Provider [phone] Reason for Visit * Reason Comments Medication Refill Encounter Details Date Type Department Care Team (Late st Contact Info) Description 02/10/2021 Refill Dermatology at [place] [address] [place] [phone] Chon Harley MD [address] [facility] [place] [address] Social History Tobacco Use Types Packs/Day Years [...] on filedocumented in this encounter Care Teams Drum Loader And Unloader Relationship Specialty Start Date End Date Arabella Laurent APRN PCP - General Family Medicine 03/07/20 documented as of this encounter
--- OUTSIDE RECORDS SUMMARY | 2024-03-03 17:40 | XMS_ITS | Encounter Summary ---
Author Organization [facility] Address [address] [place] [address] Care Team Providers Care Etcher Enameling Name Role Phone Melanie Pulido NP Primary Care Provider [phone] Reason for Visit * Reason Onset Date Comments Appointment Related 08/06/2017 Encounter Details Date Type Department Care Team (Late st Contact Info) Description 08/06/2017 Telephone [facility] Nephrology - [place] [address] [place] [phone] Lana Long MD Appointment Related Social History [...] to patientand she confirmed apt in August. front desk lead called the PCP office back with date and time documented in this encounter Plan of Treatment Not on file documented as of this encounter Visit Diagnoses Not on filedocumented in this encounter Care Teams Etcher Enameling Relationship Specialty Start Date End Date Melanie Pulido NP [facility] [address] [place] [address] PCP - General 01/01/12 09/11/17 documented as of this encounter
--- OUTSIDE RECORDS SUMMARY | 2024-03-03 17:40 | XMS_ITS | Encounter Summary ---
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 Arabella Laurent, MULTIMEDIA DEVELOPER [address] [place] [address] [facility] [address] [place] [address] Referral ID Status Reason Start Date Expiration Date V isits Requested Visits Authorized [id number] Closed Consult, Test & Treat Connection Center PCP Updated and/or Approved 10/17/2020 10/17/2021 12 12 Encounter Details Date Type Department Care Team (Late st Contact Info) Description 12/01/2020 2:30 PM EDT Tech [place] [address] Priscilla Batres Claudication Social History [...] Text Report Department: Vascular Surgery Lab Patient: [id number] (KIA WRIGHT) CPT: 25822 ICD10: I77.1;I70.213;I7 0.413;I73.9 Referring Physician: BANDAR ROSADO [...] APRN VASCULAR ORDERABLE S Performing Organization Address City/State/[facility] Co de Phone Number [facility] documented in this encounter Visit Diagnoses Diagnosis Claudication Peripheral vascular disease, unspecified documented in this encounter Care Teams Residential Appraiser Relationship Specialty Start Date End Date Arabella Laurent APRN PCP - General Family Medicine 03/07/20 documented as of this encounter
--- OUTSIDE RECORDS SUMMARY | 2024-03-03 17:40 | XMS_ITS | Encounter Summary ---
Author Organization [facility] [place] [address] Care Team Providers Care Hand Assembler Name Role Phone Laurence Krause Primary Care Provider + Encounter Details Date Type Department Care Team (Late st Contact Info) Description 12/29/[address] [facility] [place] [phone] Rian Block RN Social History Tobacco Use [...] on filedocumented in this encounter Care Teams Hand Assembler Relationship Specialty Start Date End Date Laurence Krause PA PCP - General Orthopaedic Surgery 10/30/17 03/06/20 documented as of this encounter
--- OUTSIDE RECORDS SUMMARY | 2024-03-03 17:40 | XMS_ITS | Encounter Summary ---
Author Organization [facility] Address [address] [place] [id number] Care Team Providers Care Yarn Texture Machine Operator Name Role Phone Melanie Pulido NP Primary Care Provider [phone] Encounter Details Date Type Department Care Team (Latest Contact Info) Description 04/21/2014 12:20 EST - 04/21/2014 23:59 EST Hospital Encounter [address] [address] Unknown, Provider, Discharge Disposition: Home or Self [...] Code Departure Means Destination Home or Self Intermediate documented in this encounter Plan of Treatment Not on file documented as of this encounter Visit Diagnoses Not on filedocumented in this encounter Care Teams Yarn Texture Machine Operator Relationship Specialty Start Date End Date Melanie Pulido NP [facility] [address] [place] [address] PCP - General 01/01/12 09/11/17 documented as of this encounter
== END 2024-03-03 17:32 | disposition home or self-care (01) ==
LOC: NCHCN 17:31
PROVIDERS: PCP Nurse Practitioner Family; Visit Provider Physician Assistant Medical
DX: N18.4 Chronic kidney disease, stage 4 (severe) (principal)
CPT/HCPCS: 80048; 84550

== ENCOUNTER 2024-06-08 16:24 | Outpatient (REF) | payer MEDICARE, MEDICAID, SELFPAY ==
[2024-06-08 16:50] LABS: ALT 23 U/L (14-59); AST 20 U/L (15-37); Albumin 3.3 g/dL (3.4-5.0); Alkaline Phosphatase 107 U/L (46-116); Anion Gap 5.9 mmol/L (3-11); BUN 28 mg/dL (7-18); Bilirubin, Direct 0.1 mg/dL (0.0-0.2); Bilirubin, Total 0.36 mg/dL (0.2-1.0); CO2 27.1 mmol/L (21.0-32.0); CREATININE 2.1 mg/dL (0.55-1.02); Calcium 8.9 mg/dL (8.5-10.1); Chloride 109 mmol/L (98-107); Estimated GFR 25.67 (mL/min/1.73m2); Glucose 105 mg/dL (74-106); Potassium 4.4 mmol/L (3.5-5.1); Sodium 142 mmol/L (136-145); Total Protein 6.5 g/dL (6.4-8.2); Uric Acid 6.3 mg/dL (2.6-6.0)
[2024-06-08 17:29] LABS: Calculated LDL 61 mg/dL (<100); Cholesterol 157 mg/dL (<200); HDL Cholesterol 55 mg/dL (40-60); Triglyceride 205 mg/dL (<150)
[2024-06-12 14:50] LABS: Hydrocodone Interpretation Positive.; Hydrocodone by LC-MS/MS Negative ng/mL (Cutoff: 25); Hydromorphone by LC-MS/MS 37 ng/mL (Cutoff: 25); Norhydrocodone by LC-MS/MS 32 ng/mL (Cutoff: 25)
== END 2024-06-08 16:25 | disposition home or self-care (01) ==
LOC: NCHCN 16:24
PROVIDERS: Visit Provider Physician Assistant Medical
DX: I25.10 Atherosclerotic heart disease of native coronary artery without angina pectoris (principal)
CPT/HCPCS: 80048; 80061; 80076; 80361; 84550

== ENCOUNTER 2024-10-04 00:50 | Outpatient (CLI) | payer MEDICARE, MEDICAID, SELFPAY ==
--- NOTE | 2024-10-04 | DI.CTLCSR_ITS ---
Exam(s) CT CHEST LUNG CANCER SCREEN EXAM: CT CHEST LUNG CANCER SCREEN CLINICAL HISTORY: Nicotine dependence, F17.210; screening; current smoker. TECHNIQUE: Imaging Protocol: Low Dose Technique CONTRAST MATERIAL: None COMPARISON: CT CT CHEST LUNG CANCER SCREEN from 06/16/2023 FINDINGS: CHEST: LUNGS: No new significant focal lung findings. There are no ominous pulmonary nodules. There are no confluent infiltrates. No pleural effusions. MEDIASTINUM: There is no obvious hilar nor mediastinal adenopathy. CARDIAC: Heart size is normal. There is no pericardial effusion.Caliber of the thoracic aorta is wit hin normal limits. OTHER: OSSEOUS: No significant osseous lesions.No fractures.. IMPRESSION: 1. No significant lung nodules. 2. No pleural effusions nor obvious intrathoracic adenopathy. 3. Lung RADS Cat 1 - Negative: No nodules and definitely benign nodules Lung-RADS 1.0 CATEGORIES: Category 0 - Prior chest CT exam(s) being located for comparison. Category 1 - Annual screening in 12 months. No nodules or definitely benign nodules. Category 2 - Annual screening in 12 months. Benign appearance. Nodules with low likelihood of becomin g active cancer. Category 3 - 6-month follow-up. Probably benign. Short-term follow-up suggested. Nodules with low lik elihood of becoming active cancer. Category 4A - 3-month follow-up and CT/PET if >8 mm in size. Suspicious finding. Findings which requi re additional testing. Category 4B - Findings which require additional testing and tissue sampling. Category 4X - Category 3 or 4 nodules with additional features or imaging findings that increases the suspicion of malignancy. Modifier S- Potentially clinically significant findings (non lung cancer) RADIATION DOSE DELIVERED: 19.82mGy.cm Total DLP DATA REPOSITORY: All CT scans at this facility are submitted to the National Radiology Data Registry (NRDR) Dose Index Registry (DIR) with the [employer] ([employer]). RADIATION OPTIMIZATION: All CT scans at this facility use at least one of these dose optimization te chniques: automated exposure control; mA and/or kV adjustment per patient size (includes targeted exa ms where dose is matched to clinical indication); or iterative reconstruction.
== END 2024-10-04 01:10 ==
LOC: DI 00:51
PROVIDERS: PCP Nurse Practitioner; Visit Provider Nurse Practitioner
DX: F17.210 Nicotine dependence, cigarettes, uncomplicated (principal); Z12.2 Encounter for screening for malignant neoplasm of respiratory organs
CPT/HCPCS: 71271

== ENCOUNTER 2024-11-08 13:13 | Outpatient (REF) | payer MEDICARE, MEDICAID, SELFPAY ==
[2024-11-08 15:21] LABS: HCT 42.5 % (36.0-46.0); HGB 14.2 g/dL (11.2-15.7); MCH 33.6 pg (27.0-33.0); MCHC 33.4 % (32.0-36.0); MCV 101 fL (80-95); MPV 10.1 fL (8.0-11.0); Platelet Count 207 10^3/uL (130-400); RBC 4.22 10^6/uL (3.93-5.22); RDW 13.2 % (11.7-14.6); RDW-SD 49.3 fL
[2024-11-08 15:55] LABS: ALT 62 U/L (14-59); AST 20 U/L (15-37); Albumin 3.6 g/dL (3.4-5.0); Alkaline Phosphatase 114 U/L (46-116); Anion Gap 8.7 mmol/L (3-11); BUN 32 mg/dL (7-18); Bilirubin, Total 0.5 mg/dL (0.2-1.0); CO2 25.3 mmol/L (21.0-32.0); CREATININE 2.3 mg/dL (0.55-1.02); Calcium 9.1 mg/dL (8.5-10.1); Chloride 110 mmol/L (98-107); Estimated GFR 23.01 (mL/min/1.73m2); Glucose 99 mg/dL (74-106); Lipase 67 U/L (<78); PHOSPHORUS 3.6 mg/dL (2.6-4.7); Potassium 4.9 mmol/L (3.5-5.1); Sodium 144 mmol/L (136-145); Total Protein 6.9 g/dL (6.4-8.2)
[2024-11-08 16:59] LABS: Vitamin D 25 Total 32 ng/mL (30-100)
== END 2024-11-08 13:14 | disposition home or self-care (01) ==
LOC: NCHCN 13:13
PROVIDERS: PCP Nurse Practitioner; Visit Provider Physician Assistant Medical
DX: N18.4 Chronic kidney disease, stage 4 (severe) (principal); E79.0 Hyperuricemia without signs of inflammatory arthritis and tophaceous disease; R10.10 Upper abdominal pain, unspecified
CPT/HCPCS: 80053; 82306; 83690; 85027; 84100; 84550; 87086

== ENCOUNTER 2024-12-21 13:03 | Outpatient (REF) | payer MEDICARE, MEDICAID, SELFPAY ==
[2024-12-21 15:47] LABS: ALT 23 U/L (14-59); AST 22 U/L (15-37); Albumin 4.0 g/dL (3.4-5.0); Alkaline Phosphatase 121 U/L (46-116); Bilirubin, Direct 0.1 mg/dL (0.0-0.2); Bilirubin, Total 0.7 mg/dL (0.2-1.0); Total Protein 7.3 g/dL (6.4-8.2)
[2024-12-22 00:05] LABS: Hepatitis A Antibody IgM Negative (Negative); Hepatitis C Ab w Rflx HCV PCR Negative (Negative)
== END 2024-12-21 13:04 | disposition home or self-care (01) ==
LOC: NCHCN 13:03
PROVIDERS: PCP Nurse Practitioner; Visit Provider Physician Assistant Medical
DX: R10.10 Upper abdominal pain, unspecified (principal)
CPT/HCPCS: 80076; 86704; 86709; 86803; 87340

== ENCOUNTER 2025-02-23 18:40 | Outpatient (REF) | payer MEDICARE, MEDICAID, SELFPAY ==
[2025-02-23 16:23] LABS: ALT 22 U/L (14-59); AST 18 U/L (15-37); Albumin 3.7 g/dL (3.4-5.0); Alkaline Phosphatase 113 U/L (46-116); Anion Gap 8.5 mmol/L (3-11); BUN 25 mg/dL (7-18); Bilirubin, Total 0.5 mg/dL (0.2-1.0); CO2 25.5 mmol/L (21.0-32.0); Calcium 9.3 mg/dL (8.5-10.1); Chloride 105 mmol/L (98-107); Estimated GFR 25.51 (mL/min/1.73m2); Glucose 90 mg/dL (74-106); Potassium 4.6 mmol/L (3.5-5.1); Sodium 139 mmol/L (136-145); Total Protein 6.9 g/dL (6.4-8.2)
== END 2025-02-23 18:41 | disposition home or self-care (01) ==
LOC: NCHCN 18:40
PROVIDERS: PCP Nurse Practitioner; Visit Provider Physician Assistant Medical
DX: N18.4 Chronic kidney disease, stage 4 (severe) (principal)
CPT/HCPCS: 80053